=== PATIENT | male | born 1955 | race African-American/Black ===

== ENCOUNTER 2018-08-03 14:49 | Outpatient (CLI) | payer OTHER ==
[2016-02-15 13:42] VITALS: BMI 26.5
== END 2018-08-03 14:50 | disposition home or self-care (01) ==
LOC: RHC-LAB 14:49
PROVIDERS: ATTEND Nurse Practitioner Family
DX: Z00.00 Encounter for general adult medical examination without abnormal findings (principal); Z12.5 Encounter for screening for malignant neoplasm of prostate; E55.9 Vitamin D deficiency, unspecified
CPT/HCPCS: 36415; 80053; 80061; 82306; 84443; 85025

== ENCOUNTER 2020-10-18 10:01 | Inpatient (IN) ==
--- NOTE | 2020-10-18 10:54 | ED.PDOC ---
General ED Provider: Dr. AZALIA ANDERSON Chief Complaint: Extremity Pain/Injury Stated Complaint: Legs swelling, noted to be increased last few days. Mild dyspnea with exertion.Denies chest pain. Apparently ran our of his prescription meds Time Seen by Provider: 10/18/20 10:30 Mode of Arrival: Walk-In Information Source: Patient Exam Limitations: No limitations Primary Care Provider: LILLI SOTO APRN, FNP-BC Nursing and Triage Documentation Reviewed and Agree: Yes Does patient meet sepsis criteria?: No If yes, has appropriate treatment been initiated?: No System Inflammatory Response Syndrome: Not Applicable Sepsis Protocol: For patient's 13 years and over: Temp is 96.8 and below OR 101 and greater Pulse >90 BPM Resp >20/minute Acutely Altered Mental Status Are patient's symptoms suggestive of a new infection, such as: -Pneumonia -Skin, Soft Tissue -Endocarditis -UTI -Bone, Joint Infection -Implantable Device -Acute Abdominal Infection -Wound Infection -Meningitis -Blood Stream Catheter Infection -Unknown Cardiovascular Complaint Exam Hypertension Complaint/Exam Onset/Duration: 1 week 3 day hx swelling in lower extremities; Dyspnea Symptoms Are: Still present Reported B/P Prior to Arrival: 157/118 Aggravating: Reports Exertion Alleviating: Reports None Associated Signs and Symptoms: Denies Chest pain, Vision changes, Anxiety, Rece nt stress, Headache, Numbness, Tingling, Weakness, Dizziness, Short of air and Swelling Related History: Reports Rx noncompliance Related Surgical History: Reports None Cardiac Risk Factors: Reports Hypertension and CHF Recent Change in Medications: No A/V Nicking: No Papilledema Present: No JVD Present: No Carotid Bruit Present: No Femoral Pulses Bounding: No Differential Diagnoses: Drug Withdrawal, Hypertension and Hypertensive Urgency Review of Systems Review Of Systems Constitutional: Reports No symptoms Eyes: Reports No symptoms Ears, Nose, Mouth, Throat: Reports No symptoms Respiratory: Reports No symptoms Cardiac: Reports Edema and Lightheadedness GI: Reports No symptoms : Reports No symptoms Musculoskeletal: Reports No symptoms Skin: Reports No symptoms Neurological: Reports No symptoms Endocrine: Reports No symptoms Hematologic/Lymphatic: Reports No symptoms All Other Systems: Reviewed and Negative [facility] Medical History Arthritis CHF (congestive heart failure) Hypertension Inguinal hernia Prostate CA Tobacco use Family History Mother Hypertension FATHER Alcoholism and drug addiction in family Hypertension Social History Smoking and tobacco status: Former smoker Alcohol intake: never Substance use type: does not use Physical Exam Physical Exam Appearance: Reports Well-appearing Ill-appearing: Mild Pain Distress: Not Applicable Eyes: Reports JOBY, EOMI and Conjunctiva clear ENT: Reports Ears normal, Nose normal and Oropharynx normal Neck: Supple (minimal JVD) Respiratory: Reports Airway patent, Breath sounds clear, Breath sounds equal and Respirations nonlabored Cardiovascular: Reports RRR, Pulses normal, No rub and No murmur GI/: Reports Soft, Nontender, No masses, Bowel sounds normal and No Organo megaly Musculoskeletal: Reports Normal strength, ROM intact, No edema and No calf tenderness Skin: Reports Warm, Dry and Normal color Neurological: Reports Sensation intact, Motor intact, Reflexes intact, Cranial nerves intact, Alert and Oriented Psychiatric: Reports Affect appropriate and Mood appropriate Interpretation Radiology Interpretation Exam Interpreted: CT Scan (08-08 Small right pleural effusion,Multichamber cardiomegaly. 3. No urinary or bowel obstruction and normal appendix. 4. Small right inguinal hernia contains mesenteric fat and a small quantity of free fluid. 5. Chronic degenerative findings of the thoracic and lumbar spine. 6. Limited examinatio) Critical Care Note Critical Care Note Total Critical Care Time (mins): 30 Course Course Hematology/Chemistry: 10/18/20 11:04 10/18/20 11:04 Orders, Labs, Meds: Lab Review 10/18/20 10/18/20 10/18/20 11:04 11:04 12:48 WBC 7.56 RBC 4.83 Hgb 13.9 L Hct 42.9 MCV 88.8 MCH 28.8 MCHC 32.4 RDW Coeff of Dimple 15.8 H Plt Count 228 Immature Gran % (Auto) 0.3 Neut % (Auto) 72.0 Lymph % (Auto) 14.3 Kleberg % (Auto) 5.6 Eos % (Auto) 6.7 Baso % (Auto) 1.1 Neut # (Auto) 5.5 Lymph # (Auto) 1.1 Kleberg # (Auto) 0.4 Eos # (Auto) 0.5 Baso # (Auto) 0.1 Immature Gran # (Auto) 0.0 Sodium 139.2 Potassium 5.05 Chloride 104.8 Carbon Dioxide 30.7 H Anion Gap 8.75 BUN 7.6 L Creatinine 1.12 H Estimated GFR (MDRD) 80.00 BUN/Creatinine Ratio 6.78 Glucose 99.1 Calcium 8.94 Magnesium 1.74 Total Bilirubin 2.20 H AST 24.7 ALT 23.6 Alkaline Phosphatase 57.6 Troponin I < 0.012 NT-Pro-B Natriuret Pep 3850.000 H Total Protein 6.18 L Albumin 3.66 Globulin 2.52 Albumin/Globulin Ratio 1.45 Urine Color Yellow Urine Clarity Clear Urine pH 7.5 Ur Specific [place] 1.020 Urine Protein Negative Urine Glucose (UA) Negative Urine Ketones Negative Urine Blood Trace-intact H Urine Nitrite Negative Urine Bilirubin Negative Urine Urobilinogen 0.2 Ur Leukocyte Esterase Negative Urine Microscopic RBC 2-5 Urine Microscopic WBC 0-2 Ur Squamous Epith Cells 2-5 Adenovirus (PCR) B. pertussis DNA (PCR) B.parapertussis DNA PCR C. pneumoniae DNA (PCR) Coronavirus OC43 (PCR) Coronavirus HKU1 (PCR) Coronavirus 229E (PCR) Coronavirus NL63 (PCR) Human Metapneumovir PCR Influenza Type A (PCR) Influenza B (RT-PCR) M. pneumoniae (PCR) Parainfluenza 1 (PCR) Parainfluenza 2 (PCR) Parainfluenza 3 (PCR) Parainfluenza 4 (PCR) RSV (PCR) Entero/Rhino (PCR) SARS-CoV-2 (PCR) 10/18/20 13:26 WBC RBC Hgb Hct MCV MCH MCHC RDW Coeff of Dimple Plt Count Immature Gran % (Auto) Neut % (Auto) Lymph % (Auto) [place] % (Auto) Eos % (Auto) Baso % (Auto) Neut # (Auto) Lymph # (Auto) [place] # (Auto) Eos # (Auto) Baso # (Auto) Immature Gran # (Auto) Sodium Potassium Chloride Carbon Dioxide Anion Gap BUN Creatinine Estimated GFR (MDRD) BUN/Creatinine Ratio Glucose Calcium Magnesium Total Bilirubin AST ALT Alkaline Phosphatase Troponin I NT-Pro-B Natriuret Pep Total Protein Albumin Globulin Albumin/Globulin Ratio Urine Color Urine Clarity Urine pH Ur Specific [place] Urine Protein Urine Glucose (UA) Urine Ketones Urine Blood Urine Nitrite Urine Bilirubin Urine Urobilinogen Ur Leukocyte Esterase Urine Microscopic RBC Urine Microscopic WBC Ur Squamous Epith Cells Adenovirus (PCR) Not detected B. pertussis DNA (PCR) Not detected B.parapertussis DNA PCR Not detected C. pneumoniae DNA (PCR) Not detected Coronavirus OC43 (PCR) Not detected Coronavirus HKU1 (PCR) Not detected Coronavirus 229E (PCR) Not detected Coronavirus NL63 (PCR) Not detected Human Metapneumovir PCR Not detected Influenza Type A (PCR) Not detected Influenza B (RT-PCR) Not detected M. pneumoniae (PCR) Not detected Parainfluenza 1 (PCR) Not detected Parainfluenza 2 (PCR) Not detected Parainfluenza 3 (PCR) Not detected Parainfluenza 4 (PCR) Not detected RSV (PCR) Not detected Entero/Rhino (PCR) Not detected SARS-CoV-2 (PCR) Not detected Orders Category Date Time Status ADMIT PATIENT INPATIENT .TO MEDSURG (MONITORED BED) ADMISSION 10/18/20 13:04 Active EKG-(ED ONLY) Stat CARDIO 10/18/20 10:54 Completed OXYGEN Routine CARDIO 10/18/20 13:07 Active ACTIVITY .Early Mobilization for VTE Prevention CARE 10/18/20 13:08 Completed ACTIVITY .Up ad Divya CARE 10/18/20 13:08 Active BLOOD GLUCOSE MONITORING 0630,1100,1700,2100 CARE 10/18/20 13:11 Active CASE MANAGEMENT CONSULT [facility] CARE 10/18/20 13:07 Completed INTAKE & OUTPUT Q8HR CARE 10/18/20 13:08 Active TELEMETRY MONITORING TELE CARE 10/18/20 13:04 Active VITAL SIGNS Q4HR CARE 10/18/20 13:08 Completed 2 GRAM SODIUM DIET DIETARY 10/18/20 Lunch Ordered CBC W/ AUTO DIFF DAILY@0600 LAB 10/19/20 06:00 Ordered CBC W/ AUTO DIFF DAILY@0600 LAB 10/20/20 06:00 Ordered CBC W/ AUTO DIFF Stat LAB 10/18/20 11:04 Completed CMP [COMPREHENSIVE METABOLIC PANEL] Stat LAB 10/18/20 11:04 Completed COMPREHENSIVE METABOLIC PANEL DAILY@0600 LAB 10/19/20 06:00 Ordered COMPREHENSIVE METABOLIC PANEL DAILY@0600 LAB 10/20/20 06:00 Ordered MAGNESIUM Stat LAB 10/18/20 11:04 Completed NT-PROBNP Stat LAB 10/18/20 11:04 Completed PT WITH INR DAILY@0600 LAB 10/19/20 06:00 Ordered PT WITH INR DAILY@0600 LAB 10/20/20 06:00 Ordered RESPIRATORY PANEL 2.1 (PCR) Stat LAB 10/18/20 13:26 Completed TROPONIN I Q8H LAB 10/18/20 19:15 Ordered TROPONIN I Q8H LAB 10/19/20 03:15 Ordered TROPONIN I Stat LAB 10/18/20 11:04 Completed UA [URINALYSIS C & S IF INDICATED] Stat LAB 10/18/20 12:48 Completed Acetaminophen [Tylenol] MEDS 10/18/20 13:07 Active 650 mg PO Q4H PRN Aspirin [Aspirin Chewable] MEDS 10/18/20 11:01 Discontinued 81 mg PO ONCE ONE Carvedilol [Coreg] MEDS 10/18/20 17:00 Active 6.25 mg PO BIDWM Carvedilol [Coreg] MEDS 10/18/20 11:00 Discontinued 6.25 mg PO ONCE ONE Furosemide [Lasix Tab] MEDS 10/18/20 11:01 Discontinued 20 mg PO ONCE ONE Furosemide [Lasix] MEDS 10/18/20 17:00 Active 20 mg IVP BIDAC Hydralazine HCl [Apresoline] MEDS 10/18/20 13:34 Discontinued 25 mg PO ONCE ONE Ondansetron HCl/Pf [Zofran 4 mg/2 ml] MEDS 10/18/20 13:07 Active 4 mg IVP Q6H PRN Sacubitril/Valsartan [Entresto 24 mg-26 mg Tablet] MEDS 10/18/20 21:00 Active 1 each PO BID Sacubitril/Valsartan [Entresto 24 mg-26 mg Tablet] MEDS 10/18/20 10:59 Discontinued 1 each PO ONCE ONE RESUSCITATION STATUS Routine OTHERS 10/18/20 13:07 Ordered CHEST, 1V AP ONLY Stat RADS 10/18/20 10:54 Completed Medications Generic Name Dose Route Start Last Admin Trade Name Freq PRN Reason Stop Dose Admin Acetaminophen 650 mg 10/18/20 13:07 Acetaminophen 325 Mg Tablet PO Q4H PRN Pain Carvedilol 6.25 mg 10/18/20 17:00 10/18/20 17:15 Carvedilol 6.25 Mg Tablet PO 6.25 mg BIDWM JOSE RAUL Administration Furosemide 20 mg 10/18/20 17:00 10/18/20 17:16 Furosemide Inj 20 Mg/2 Ml Vial IVP 20 mg BIDAC JOSE RAUL Administration Ondansetron HCl 4 mg 10/18/20 13:07 Ondansetron Hcl/Pf 4 Mg/2 Ml Sdv IVP Q6H PRN Nausea / Vomiting Sacubitril/Valsartan 1 each 10/18/20 21:00 Sacubitril/Valsartan 1 Each Tablet PO BID JOSE RAUL Discontinued Medications Generic Name Dose Route Start Last Admin Trade Name Sen PRN Reason Stop Dose Admin Aspirin 81 mg 10/18/20 11:01 10/18/20 11:09 Aspirin 81 Mg Tab.Chew PO 10/18/20 11:02 81 mg ONCE ONE Administration Carvedilol 6.25 mg 10/18/20 11:00 10/18/20 11:08 Carvedilol 6.25 Mg Tablet PO 10/18/20 11:01 6.25 mg ONCE ONE Administration Furosemide 20 mg 10/18/20 11:01 10/18/20 11:09 Furosemide 20 Mg Tablet PO 10/18/20 11:02 20 mg ONCE ONE Administration Hydralazine HCl 25 mg 10/18/20 13:34 10/18/20 13:44 Hydralazine Hcl 50 Mg Tablet PO 10/18/20 13:35 25 mg ONCE ONE Administration Sacubitril/Valsartan 1 each 10/18/20 10:59 10/18/20 11:09 Sacubitril/Valsartan 1 Each Tablet PO 10/18/20 11:00 1 each ONCE ONE Administration Vital Signs: Temp Pulse Resp BP Pulse Ox 10/18/20 14:20 148/106 H 10/18/20 12:15 159/109 H 10/18/20 11:15 160/122 H 10/18/20 10:15 149/103 H 10/18/20 10:02 97.2 F L 83 18 157/118 H 95 SOL Risk Score SOL Risk Score: Risk Score Odds of by 30D 0 0.1 (0.1-0.2) 1 0.3 (0.2-0.3) 2 0.4 (0.3-0.5) 3 0.7 (0.6-0.9) 4 1.2 (1.0-1.5) 5 2.2 (1.9-2.6) 6 3.0 (2.5-3.6) 7 4.8 (3.8-6.1) Discharge Plan Discharge Patient Disposition: ADMITTED INPATIENT Discharge Problem: CHF (congestive heart failure), Congestive cardiomyopathy ED Provider: AZALIA ANDERSON Condition: Fair Physician Progress Note: []
[2020-10-18] MEDS ORDERED: ENTRESTO 24 MG-26 MG TABLET PO ONE (10:59)
[2020-10-18] MEDS ORDERED: COREG PO ONE (11:00)
[2020-10-18] MEDS ORDERED: LASIX TAB PO ONE (11:01)
[2020-10-18] MEDS ORDERED: ASPIRIN CHEWABLE PO ONE (11:01)
[2020-10-18 11:08] LABS: BASOPHILS # (AUTO) 0.1 K/uL (0-0.2); BASOPHILS % (AUTO) 1.1 % (0.0-3.0); EOSINOPHILS # (AUTO) 0.5 K/ul (0.0-0.7); EOSINOPHILS % (AUTO) 6.7 % (0.0-7.0); HEMATOCRIT 42.9 % (42.0-52.0); HEMOGLOBIN 13.9 g/dl (14.0-18.0); IMMATURE GRANULOCYTE % (AUTO) 0.3 % (0.0-5.0); LYMPHOCYTES # (AUTO) 1.1 K/uL (0.60-3.4); LYMPHOCYTES % (AUTO) 14.3 (10.0-50.0); MEAN CORPUSCULAR HEMOGLOBIN 28.8 pg (27.0-31.0); MEAN CORPUSCULAR HGB CONC 32.4 (31.8-35.4); MEAN CORPUSCULAR VOLUME 88.8 fl (80.0-94.0); MONOCYTES # (AUTO) 0.4 K/uL (0.4-2.0); MONOCYTES % (AUTO) 5.6 (0-10); NEUTROPHILS # (AUTO) 5.5 K/ul (2.0-6.9); PLATELET COUNT 228 10^3/uL (140-440); RDW COEFFICIENT OF VARIATION 15.8 % (11.6-14.8); RED BLOOD COUNT 4.83 10^6/ul (4.70-6.10); WHITE BLOOD COUNT 7.56 K/ul (4.2-10.2)
[2020-10-18 11:21] LABS: ALANINE AMINOTRANSFERASE 23.6 U/L (0-50); ALBUMIN 3.66 g/dL (3.5-5.0); ALKALINE PHOSPHATASE 57.6 U/L (56-119); ASPARTATE AMINO TRANSFERASE 24.7 U/L (17-59); BLOOD UREA NITROGEN 7.6 mg/dL (9-20); CALCIUM 8.94 mg/dL (8.4-10.2); CARBON DIOXIDE 30.7 mmol/L (22-30.0); CHLORIDE 104.8 mmol/L (98-107); CREATININE 1.12 mg/dL (0.60-1.10); GLUCOSE 99.1 mg/dL (74-106); MAGNESIUM 1.74 mg/dL (1.6-2.3); POTASSIUM 5.05 mmol/L (3.5-5.1); SODIUM 139.2 mmol/L (134.5-145); TOTAL PROTEIN 6.18 g/dL (6.3-8.2)
--- NOTE | 2020-10-18 11:21 | DI ---
EXAM: Chest one view HISTORY: Extremity edema, history of congestive heart failure COMPARISON: 08/08/2020 TECHNIQUE: Single view of the chest was performed FINDINGS: Heart is enlarged. Mediastinal contour unchanged. Bilateral interstitial prominence. No large pleural effusion. No visible pneumothorax. IMPRESSION: Cardiomegaly. Mild interstitial prominence could relate to mild interstitial edema.
[2020-10-18 11:34] LABS: TROPONIN I < 0.012 ng/ml (0.0000-0.120)
[2020-10-18 13:02] LABS: BILIRUBIN,URINE Negative (NEGATIVE); CLARITY,URINE Clear (CLEAR); COLOR,URINE Yellow (YELLOW); GLUCOSE, URINE (UA) Negative (NEGATIVE); KETONES,URINE Negative (NEGATIVE); LEUKOCYTE ESTERASE ,URINE Negative (NEGATIVE); NITRITE,URINE Negative (NEGATIVE); PH,URINE 7.5 (5-9); PROTEIN,URINE Negative (NEGATIVE); URINE, BLOOD Trace-intact (NEGATIVE); UROBILINOGEN,URINE 0.2 (0.2)
[2020-10-18] MEDS ORDERED: ZOFRAN 4 MG/2 ML IVP PRN (13:07)
[2020-10-18] MEDS ORDERED: TYLENOL PO PRN (13:07)
[2020-10-18 13:08] LABS: URINE WBC, MICROSCOPIC 0-2 (0-2)
[2020-10-18] MEDS ORDERED: APRESOLINE PO ONE (13:34)
[2020-10-18 13:43] LABS: BORDETELLA PARAPERTUSSIS (PCR) NOT DETECTED (NOT DETECT); BORDETELLA PERTUSSIS (PCR) NOT DETECTED (NOT DETECT); CHLAMYDIA PNEUMONIAE (PCR) NOT DETECTED (NOT DETECT); CORONAVIRUS 229E (PCR) NOT DETECTED (NOT DETECT); CORONAVIRUS HKU1 (PCR) NOT DETECTED (NOT DETECT); CORONAVIRUS NL63 (PCR) NOT DETECTED (NOT DETECT); CORONAVIRUS OC43 (PCR) NOT DETECTED (NOT DETECT); HUMAN METAPNEUMOVIRUS (PCR) NOT DETECTED (NOT DETECT); HUMAN RHINOVIRUS/ENTEROV (PCR) NOT DETECTED (NOT DETECT); INFLUENZA B (PCR) NOT DETECTED (NOT DETECT); MYCOPLASMA PNEUMONIAE (PCR) NOT DETECTED (NOT DETECT); PARAINFLUENZA VIRUS 1 (PCR) NOT DETECTED (NOT DETECT); PARAINFLUENZA VIRUS 2 (PCR) NOT DETECTED (NOT DETECT); PARAINFLUENZA VIRUS 3 (PCR) NOT DETECTED (NOT DETECT); PARAINFLUENZA VIRUS 4 (PCR) NOT DETECTED (NOT DETECT); RESPIRATORY SYNCYTIAL V (PCR) NOT DETECTED (NOT DETECT); SARS_COV_2 (PCR) NOT DETECTED (NOT DETECT)
[2020-10-18 14:32] LABS: ADENOVIRUS (PCR) NOT DETECTED (NOT DETECT)
[2020-10-18 15:30] VITALS: BMI 28.2
[2020-10-18] MEDS: COREG PO SCH (17:15)
[2020-10-18] MEDS: LASIX IVP SCH (17:16)
[2020-10-18] MEDS: ENTRESTO 24 MG-26 MG TABLET PO SCH (20:19)
[2020-10-19 03:23] LABS: BASOPHILS # (AUTO) 0.1 K/uL (0-0.2); BASOPHILS % (AUTO) 0.9 % (0.0-3.0); EOSINOPHILS # (AUTO) 0.6 K/ul (0.0-0.7); EOSINOPHILS % (AUTO) 6.1 % (0.0-7.0); HEMATOCRIT 45.4 % (42.0-52.0); HEMOGLOBIN 15.1 g/dl (14.0-18.0); IMMATURE GRANULOCYTE % (AUTO) 0.3 % (0.0-5.0); LYMPHOCYTES # (AUTO) 1.3 K/uL (0.60-3.4); LYMPHOCYTES % (AUTO) 13.4 (10.0-50.0); MEAN CORPUSCULAR HEMOGLOBIN 28.8 pg (27.0-31.0); MEAN CORPUSCULAR HGB CONC 33.3 (31.8-35.4); MEAN CORPUSCULAR VOLUME 86.6 fl (80.0-94.0); MONOCYTES # (AUTO) 0.5 K/uL (0.4-2.0); MONOCYTES % (AUTO) 5.5 (0-10); NEUTROPHILS # (AUTO) 6.9 K/ul (2.0-6.9); NEUTROPHILS % (AUTO) 73.8 % (42.2-75.2); PLATELET COUNT 242 10^3/uL (140-440); RDW COEFFICIENT OF VARIATION 15.2 % (11.6-14.8); RED BLOOD COUNT 5.24 10^6/ul (4.70-6.10); WHITE BLOOD COUNT 9.31 K/ul (4.2-10.2)
[2020-10-19 03:35] LABS: ALANINE AMINOTRANSFERASE 21.3 U/L (0-50); ALBUMIN 3.46 g/dL (3.5-5.0); ALKALINE PHOSPHATASE 57.5 U/L (56-119); ASPARTATE AMINO TRANSFERASE 24.9 U/L (17-59); BILIRUBIN,TOTAL 2.67 mg/dL (0.2-1.3); BLOOD UREA NITROGEN 10.6 mg/dL (9-20); CALCIUM 8.83 mg/dL (8.4-10.2); CARBON DIOXIDE 28.1 mmol/L (22-30.0); CHLORIDE 104.4 mmol/L (98-107); CREATININE 0.99 mg/dL (0.60-1.10); GLUCOSE 101.8 mg/dL (74-106); POTASSIUM 4.13 mmol/L (3.5-5.1); TOTAL PROTEIN 6.04 g/dL (6.3-8.2)
[2020-10-19 03:59] LABS: PROTHROMBIN TIME 11.6 SEC (9.3-11.0)
[2020-10-19] MEDS: LASIX IVP SCH ×2 (05:36→16:58)
[2020-10-19] MEDS: COREG PO SCH ×2 (08:09→16:53)
[2020-10-19] MEDS: ENTRESTO 24 MG-26 MG TABLET PO SCH ×2 (08:09→20:30)
--- NOTE | 2020-10-19 20:17 | PCM.PROG ---
Date Seen by Provider: 10/19/20 Time Seen by Provider: 14:00 Subjective: No acute chest pain or SOB Objective: Vitals: T=97.1 F, P=77, R=18, FW=492/64, SPO2=98 HEENT: []wnl. no marked jaundice. Neck: []supple Lungs: []minimal posterior crackles. CVS: []rrr Abdomen: []benign Extremities: []no marked ankle edema or calf tenderness Neurological: []non-focal Skin: []no acute abnormality Lab/Tests/Diagnostic Imaging: [] Hyperbilirubin was noted. (Pt denied and liver disease) (1) CHF (congestive heart failure): Status: Acute Code(s): I50.9 - Heart failure, unspecified SNOMED Code(s): 29172246 Assessment: Elevated bilirubin. Plan: Continue Tx regimen-----for resolving CHF. 2. Monitor bilirubin
[2020-10-20] MEDS ORDERED: LASIX IVP STA (03:25)
[2020-10-20 05:13] LABS: BASOPHILS # (AUTO) 0.1 K/uL (0-0.2); BASOPHILS % (AUTO) 0.7 % (0.0-3.0); EOSINOPHILS # (AUTO) 0.5 K/ul (0.0-0.7); EOSINOPHILS % (AUTO) 5.2 % (0.0-7.0); HEMATOCRIT 46.7 % (42.0-52.0); HEMOGLOBIN 15.4 g/dl (14.0-18.0); IMMATURE GRANULOCYTE % (AUTO) 0.2 % (0.0-5.0); LYMPHOCYTES # (AUTO) 1.4 K/uL (0.60-3.4); LYMPHOCYTES % (AUTO) 15.7 (10.0-50.0); MEAN CORPUSCULAR HEMOGLOBIN 28.5 pg (27.0-31.0); MEAN CORPUSCULAR VOLUME 86.5 fl (80.0-94.0); MONOCYTES # (AUTO) 0.5 K/uL (0.4-2.0); MONOCYTES % (AUTO) 5.8 (0-10); NEUTROPHILS # (AUTO) 6.4 K/ul (2.0-6.9); NEUTROPHILS % (AUTO) 72.4 % (42.2-75.2); PLATELET COUNT 274 10^3/uL (140-440); RDW COEFFICIENT OF VARIATION 15.3 % (11.6-14.8); WHITE BLOOD COUNT 8.86 K/ul (4.2-10.2)
[2020-10-20 05:27] LABS: ALANINE AMINOTRANSFERASE 21.7 U/L (0-50); ALBUMIN 3.61 g/dL (3.5-5.0); ALKALINE PHOSPHATASE 50.4 U/L (56-119); ASPARTATE AMINO TRANSFERASE 23.3 U/L (17-59); BILIRUBIN,TOTAL 1.81 mg/dL (0.2-1.3); BLOOD UREA NITROGEN 16.5 mg/dL (9-20); CALCIUM 9.37 mg/dL (8.4-10.2); CARBON DIOXIDE 29.6 mmol/L (22-30.0); CHLORIDE 103.2 mmol/L (98-107); CREATININE 1.14 mg/dL (0.60-1.10); POTASSIUM 4.02 mmol/L (3.5-5.1); SODIUM 137.4 mmol/L (134.5-145); TOTAL PROTEIN 6.23 g/dL (6.3-8.2)
[2020-10-20 05:29] LABS: PROTHROMBIN TIME 11.5 SEC (9.3-11.0)
[2020-10-20] MEDS: LASIX IVP SCH ×2 (06:11→19:57)
[2020-10-20] MEDS: ENTRESTO 24 MG-26 MG TABLET PO SCH ×2 (09:47→20:50)
[2020-10-20] MEDS: COREG PO SCH ×2 (09:48→19:57)
--- NOTE | 2020-10-20 16:36 | PCM.PROG ---
Date Seen by Provider: 10/20/20 Time Seen by Provider: 08:30 Subjective: Patient states that he feels better, Breathing has improved and that he has lost the extra fluid. He states that he did not take his medications the way he was supposed to. Early this Morning, he had some runs of v tach and felt short of breath. The hospitalist was called and was give a dose of Lasix which helped. Denies any chest pain or shortness of breath at this time. Objective: Vitals: T=96.5 F, P=80, R=18, MR=531/51, SPO2=97 HEENT: [Pupils are equal. Conjunctiva is clear. Mucus membranes are moist] Neck: [Supple without any JVD] Lungs: [Clinically clear bilaterally with no rales.] CVS: [ No 3rd heart sound. S1 and S 2 normal to auscultation.] Abdomen: [Soft to palpation, Positive bowel sounds.] Extremities: [No pitting edema.] Neurological: [Alert and oriented x 3. Moves all 4 with no focal neurological Deficits ] Skin: [Warm and Dry with no Rash or lesions] Lab/Tests/Diagnostic Imaging: [] (1) CHF (congestive heart failure): Status: Acute Code(s): I50.9 - Heart failure, unspecified SNOMED Code(s): 33578666 Assessment: BNP has decreased from admission. Lungs clinically clear with no signs of fluid overload. Patient was non-adherent to home medications including Lasix and intresto. (2) Hypertension: Status: None Code(s): I10 - Essential (primary) hypertension SNOMED Code(s): 50493295 Assessment: Blood pressure controlled. continue current medications (3) Arrhythmia: Status: Acute Code(s): I49.9 - Cardiac arrhythmia, unspecified SNOMED Code(s): 493383235 Assessment: had some runs of V tach last night with some shortness of breath. Will continue to monitor for 24 hours. If continues may need to be referred for ICD placement. Plan: DVT prophylaxis: will order Lovenox 40mg Sq daily. Will get follow up AM labs Continue current management. Possible discharge in the Morning if no further Arrhythmias.
[2020-10-20] MEDS: LOVENOX SUBCUT SCH (19:54)
[2020-10-21] MEDS: LASIX IVP SCH ×2 (05:38→17:20)
[2020-10-21 06:15] LABS: BASOPHILS # (AUTO) 0.1 K/uL (0-0.2); BASOPHILS % (AUTO) 1.1 % (0.0-3.0); EOSINOPHILS # (AUTO) 0.7 K/ul (0.0-0.7); EOSINOPHILS % (AUTO) 7.7 % (0.0-7.0); HEMATOCRIT 46.9 % (42.0-52.0); HEMOGLOBIN 15.2 g/dl (14.0-18.0); IMMATURE GRANULOCYTE % (AUTO) 0.1 % (0.0-5.0); LYMPHOCYTES # (AUTO) 1.7 K/uL (0.60-3.4); MEAN CORPUSCULAR HEMOGLOBIN 28.8 pg (27.0-31.0); MEAN CORPUSCULAR HGB CONC 32.4 (31.8-35.4); MEAN CORPUSCULAR VOLUME 88.8 fl (80.0-94.0); MONOCYTES # (AUTO) 0.5 K/uL (0.4-2.0); MONOCYTES % (AUTO) 5.7 (0-10); NEUTROPHILS # (AUTO) 5.6 K/ul (2.0-6.9); NEUTROPHILS % (AUTO) 65.4 % (42.2-75.2); PLATELET COUNT 265 10^3/uL (140-440); RDW COEFFICIENT OF VARIATION 15.6 % (11.6-14.8); RED BLOOD COUNT 5.28 10^6/ul (4.70-6.10); WHITE BLOOD COUNT 8.53 K/ul (4.2-10.2)
[2020-10-21 06:21] LABS: ALANINE AMINOTRANSFERASE 20.8 U/L (0-50); ALBUMIN 3.54 g/dL (3.5-5.0); ALKALINE PHOSPHATASE 58.6 U/L (56-119); ASPARTATE AMINO TRANSFERASE 23.4 U/L (17-59); BILIRUBIN,TOTAL 1.08 mg/dL (0.2-1.3); BLOOD UREA NITROGEN 21.3 mg/dL (9-20); CALCIUM 8.93 mg/dL (8.4-10.2); CHLORIDE 104.5 mmol/L (98-107); CREATININE 1.19 mg/dL (0.60-1.10); GLUCOSE 91.9 mg/dL (74-106); MAGNESIUM 1.73 mg/dL (1.6-2.3); POTASSIUM 4.07 mmol/L (3.5-5.1); SODIUM 136.9 mmol/L (134.5-145); TOTAL PROTEIN 5.93 g/dL (6.3-8.2)
[2020-10-21] MEDS: LOVENOX SUBCUT SCH (09:24)
[2020-10-21] MEDS: ENTRESTO 24 MG-26 MG TABLET PO SCH ×2 (09:25→20:22)
[2020-10-21] MEDS: COREG PO SCH ×2 (09:25→17:20)
[2020-10-22 05:13] VITALS: BP 95/65; TEMP 97.9
[2020-10-22 05:22] LABS: BASOPHILS # (AUTO) 0.1 K/uL (0-0.2); EOSINOPHILS # (AUTO) 0.6 K/ul (0.0-0.7); HEMATOCRIT 47.4 % (42.0-52.0); HEMOGLOBIN 15.6 g/dl (14.0-18.0); IMMATURE GRANULOCYTE % (AUTO) 0.1 % (0.0-5.0); LYMPHOCYTES # (AUTO) 1.7 K/uL (0.60-3.4); LYMPHOCYTES % (AUTO) 22.1 (10.0-50.0); MEAN CORPUSCULAR HEMOGLOBIN 28.9 pg (27.0-31.0); MEAN CORPUSCULAR HGB CONC 32.9 (31.8-35.4); MEAN CORPUSCULAR VOLUME 87.9 fl (80.0-94.0); MONOCYTES # (AUTO) 0.4 K/uL (0.4-2.0); MONOCYTES % (AUTO) 5.6 (0-10); NEUTROPHILS # (AUTO) 4.8 K/ul (2.0-6.9); NEUTROPHILS % (AUTO) 63.2 % (42.2-75.2); PLATELET COUNT 279 10^3/uL (140-440); RDW COEFFICIENT OF VARIATION 15.2 % (11.6-14.8); RED BLOOD COUNT 5.39 10^6/ul (4.70-6.10); WHITE BLOOD COUNT 7.64 K/ul (4.2-10.2)
[2020-10-22 05:36] LABS: ALANINE AMINOTRANSFERASE 19.5 U/L (0-50); ALBUMIN 3.52 g/dL (3.5-5.0); ALKALINE PHOSPHATASE 56.7 U/L (56-119); ASPARTATE AMINO TRANSFERASE 23.7 U/L (17-59); BILIRUBIN,TOTAL 1.16 mg/dL (0.2-1.3); BLOOD UREA NITROGEN 21.4 mg/dL (9-20); CALCIUM 8.83 mg/dL (8.4-10.2); CARBON DIOXIDE 28.6 mmol/L (22-30.0); CHLORIDE 105.2 mmol/L (98-107); CREATININE 1.13 mg/dL (0.60-1.10); GLUCOSE 96.8 mg/dL (74-106); MAGNESIUM 1.73 mg/dL (1.6-2.3); POTASSIUM 4.12 mmol/L (3.5-5.1); SODIUM 137.8 mmol/L (134.5-145); TOTAL PROTEIN 6.11 g/dL (6.3-8.2)
[2020-10-22] MEDS: LASIX IVP SCH (05:52)
[2020-10-22] MEDS: ENTRESTO 24 MG-26 MG TABLET PO SCH (09:48)
[2020-10-22] MEDS: COREG PO SCH (09:48)
[2020-10-22] MEDS: LOVENOX SUBCUT SCH (09:48)
--- NOTE | 2020-10-22 12:09 | PCM.DC ---
Final Diagnosis: CHF exacerbation. Medication noncompliance Hypertension (1) CHF (congestive heart failure): Status: Acute Code(s): I50.9 - Heart failure, unspecified SNOMED Code(s): 71091880 Qualifiers: Heart failure type: combined systolic and diastolic Heart failure chronicity: acute on chronic Qualified Code(s): I50.43 - Acute on chronic combined systolic (congestive) and diastolic (congestive) heart failure (2) Hypertension: Status: Inactive Code(s): I10 - Essential (primary) hypertension SNOMED Code(s): 78524488 Qualifiers: Hypertension type: primary hypertension Qualified Code(s): I10 - Essential (primary) hypertension (3) Arrhythmia: Status: Inactive Code(s): I49.9 - Cardiac arrhythmia, unspecified SNOMED Code(s): 066987657 Qualifiers: Arrhythmia type: paroxysmal tachycardia, unspecified Qualified Code(s): I47.9 - Paroxysmal tachycardia, unspecified Reason for Hospitalization: Did not have any medication at home, has been noncompliant with filling Rx and taking med. Admitted with CHF and HTN. Prognosis at Discharge: Fair Condition at Discharge: Stable. Medications at Discharge: Ambulatory Orders Medication Instructions Recorded Entresto 1 tab PO BID #60 tab 10/22/20 aspirin 81 mg PO DAILYWM #30 tab 10/22/20 carvedilol 6.25 mg PO BIDWM #60 tab 10/22/20 furosemide [Lasix] 20 mg PO DAILY #30 tab 10/22/20 Resume previous home medications. Lab/Diagnostics: Laboratory Tests 10/18/20 10/18/20 10/18/20 11:04 11:04 12:48 WBC 7.56 RBC 4.83 Hgb 13.9 L Hct 42.9 MCV 88.8 MCH 28.8 MCHC 32.4 RDW Coeff of Dimple 15.8 H Plt Count 228 Immature Gran % (Auto) 0.3 Neut % (Auto) 72.0 Lymph % (Auto) 14.3 Coal % (Auto) 5.6 Eos % (Auto) 6.7 Baso % (Auto) 1.1 Neut # (Auto) 5.5 Lymph # (Auto) 1.1 [place] # (Auto) 0.4 Eos # (Auto) 0.5 Baso # (Auto) 0.1 Immature Gran # (Auto) 0.0 PT INR Sodium 139.2 Potassium 5.05 Chloride 104.8 Carbon Dioxide 30.7 H Anion Gap 8.75 BUN 7.6 L Creatinine 1.12 H Estimated GFR (MDRD) 80.00 BUN/Creatinine Ratio 6.78 Glucose 99.1 Calcium 8.94 Magnesium 1.74 Total Bilirubin 2.20 H AST 24.7 ALT 23.6 Alkaline Phosphatase 57.6 Troponin I < 0.012 NT-Pro-B Natriuret Pep 3850.000 H Total Protein 6.18 L Albumin 3.66 Globulin 2.52 Albumin/Globulin Ratio 1.45 Urine Color Yellow Urine Clarity Clear Urine pH 7.5 Ur Specific Stanley 1.020 Urine Protein Negative Urine Glucose (UA) Negative Urine Ketones Negative Urine Blood Trace-intact H Urine Nitrite Negative Urine Bilirubin Negative Urine Urobilinogen 0.2 Ur Leukocyte Esterase Negative Urine Microscopic RBC 2-5 Urine Microscopic WBC 0-2 Ur Squamous Epith Cells 2-5 Adenovirus (PCR) B. pertussis DNA (PCR) B.parapertussis DNA PCR C. pneumoniae DNA (PCR) Coronavirus OC43 (PCR) Coronavirus HKU1 (PCR) Coronavirus 229E (PCR) Coronavirus NL63 (PCR) Human Metapneumovir PCR Influenza Type A (PCR) Influenza B (RT-PCR) M. pneumoniae (PCR) Parainfluenza 1 (PCR) Parainfluenza 2 (PCR) Parainfluenza 3 (PCR) Parainfluenza 4 (PCR) RSV (PCR) Entero/Rhino (PCR) SARS-CoV-2 (PCR) 10/18/20 10/18/20 10/19/20 13:26 19:20 03:14 WBC RBC Hgb Hct MCV MCH MCHC RDW Coeff of Dimple Plt Count Immature Gran % (Auto) Neut % (Auto) Lymph % (Auto) [place] % (Auto) Eos % (Auto) Baso % (Auto) Neut # (Auto) Lymph # (Auto) [place] # (Auto) Eos # (Auto) Baso # (Auto) Immature Gran # (Auto) PT INR Sodium Potassium Chloride Carbon Dioxide Anion Gap BUN Creatinine Estimated GFR (MDRD) BUN/Creatinine Ratio Glucose Calcium Magnesium Total Bilirubin AST ALT Alkaline Phosphatase Troponin I < 0.012 < 0.012 NT-Pro-B Natriuret Pep Total Protein Albumin Globulin Albumin/Globulin Ratio Urine Color Urine Clarity Urine pH Ur Specific [place] Urine Protein Urine Glucose (UA) Urine Ketones Urine Blood Urine Nitrite Urine Bilirubin Urine Urobilinogen Ur Leukocyte Esterase Urine Microscopic RBC Urine Microscopic WBC Ur Squamous Epith Cells Adenovirus (PCR) Not detected B. pertussis DNA (PCR) Not detected B.parapertussis DNA PCR Not detected C. pneumoniae DNA (PCR) Not detected Coronavirus OC43 (PCR) Not detected Coronavirus HKU1 (PCR) Not detected Coronavirus 229E (PCR) Not detected Coronavirus NL63 (PCR) Not detected Human Metapneumovir PCR Not detected Influenza Type A (PCR) Not detected Influenza B (RT-PCR) Not detected M. pneumoniae (PCR) Not detected Parainfluenza 1 (PCR) Not detected Parainfluenza 2 (PCR) Not detected Parainfluenza 3 (PCR) Not detected Parainfluenza 4 (PCR) Not detected RSV (PCR) Not detected Entero/Rhino (PCR) Not detected SARS-CoV-2 (PCR) Not detected 10/19/20 10/19/20 10/19/20 03:14 03:14 03:14 WBC 9.31 RBC 5.24 Hgb 15.1 Hct 45.4 MCV 86.6 MCH 28.8 MCHC 33.3 RDW Coeff of Dimple 15.2 H Plt Count 242 Immature Gran % (Auto) 0.3 Neut % (Auto) 73.8 Lymph % (Auto) 13.4 [place] % (Auto) 5.5 Eos % (Auto) 6.1 Baso % (Auto) 0.9 Neut # (Auto) 6.9 Lymph # (Auto) 1.3 [place] # (Auto) 0.5 Eos # (Auto) 0.6 Baso # (Auto) 0.1 Immature Gran # (Auto) 0.0 PT 11.6 H INR 1.09 Sodium 137.0 Potassium 4.13 Chloride 104.4 Carbon Dioxide 28.1 Anion Gap 8.63 BUN 10.6 Creatinine 0.99 Estimated GFR (MDRD) 92.00 BUN/Creatinine Ratio 10.70 Glucose 101.8 Calcium 8.83 Magnesium Total Bilirubin 2.67 H AST 24.9 ALT 21.3 Alkaline Phosphatase 57.5 Troponin I NT-Pro-B Natriuret Pep Total Protein 6.04 L Albumin 3.46 L Globulin 2.58 Albumin/Globulin Ratio 1.34 Urine Color Urine Clarity Urine pH Ur Specific [place] Urine Protein Urine Glucose (UA) Urine Ketones Urine Blood Urine Nitrite Urine Bilirubin Urine Urobilinogen Ur Leukocyte Esterase Urine Microscopic RBC Urine Microscopic WBC Ur Squamous Epith Cells Adenovirus (PCR) B. pertussis DNA (PCR) B.parapertussis DNA PCR C. pneumoniae DNA (PCR) Coronavirus OC43 (PCR) Coronavirus HKU1 (PCR) Coronavirus 229E (PCR) Coronavirus NL63 (PCR) Human Metapneumovir PCR Influenza Type A (PCR) Influenza B (RT-PCR) M. pneumoniae (PCR) Parainfluenza 1 (PCR) Parainfluenza 2 (PCR) Parainfluenza 3 (PCR) Parainfluenza 4 (PCR) RSV (PCR) Entero/Rhino (PCR) SARS-CoV-2 (PCR) 10/20/20 10/20/20 10/20/20 04:47 04:47 04:47 WBC 8.86 RBC 5.40 Hgb 15.4 Hct 46.7 MCV 86.5 MCH 28.5 MCHC 33.0 RDW Coeff of Dimple 15.3 H Plt Count 274 Immature Gran % (Auto) 0.2 Neut % (Auto) 72.4 Lymph % (Auto) 15.7 [place] % (Auto) 5.8 Eos % (Auto) 5.2 Baso % (Auto) 0.7 Neut # (Auto) 6.4 Lymph # (Auto) 1.4 [place] # (Auto) 0.5 Eos # (Auto) 0.5 Baso # (Auto) 0.1 Immature Gran # (Auto) 0.0 PT 11.5 H INR 1.08 Sodium 137.4 Potassium 4.02 Chloride 103.2 Carbon Dioxide 29.6 Anion Gap 8.62 BUN 16.5 Creatinine 1.14 H Estimated GFR (MDRD) 78.00 BUN/Creatinine Ratio 14.47 Glucose 118.0 H Calcium 9.37 Magnesium Total Bilirubin 1.81 H AST 23.3 ALT 21.7 Alkaline Phosphatase 50.4 L Troponin I NT-Pro-B Natriuret Pep 1460.000 H Total Protein 6.23 L Albumin 3.61 Globulin 2.62 Albumin/Globulin Ratio 1.37 Urine Color Urine Clarity Urine pH Ur Specific [place] Urine Protein Urine Glucose (UA) Urine Ketones Urine Blood Urine Nitrite Urine Bilirubin Urine Urobilinogen Ur Leukocyte Esterase Urine Microscopic RBC Urine Microscopic WBC Ur Squamous Epith Cells Adenovirus (PCR) B. pertussis DNA (PCR) B.parapertussis DNA PCR C. pneumoniae DNA (PCR) Coronavirus OC43 (PCR) Coronavirus HKU1 (PCR) Coronavirus 229E (PCR) Coronavirus NL63 (PCR) Human Metapneumovir PCR Influenza Type A (PCR) Influenza B (RT-PCR) M. pneumoniae (PCR) Parainfluenza 1 (PCR) Parainfluenza 2 (PCR) Parainfluenza 3 (PCR) Parainfluenza 4 (PCR) RSV (PCR) Entero/Rhino (PCR) SARS-CoV-2 (PCR) 10/21/20 10/21/20 10/22/20 04:57 04:57 04:52 WBC 8.53 7.64 RBC 5.28 5.39 Hgb 15.2 15.6 Hct 46.9 47.4 MCV 88.8 87.9 MCH 28.8 28.9 MCHC 32.4 32.9 RDW Coeff of Dimple 15.6 H 15.2 H Plt Count 265 279 Immature Gran % (Auto) 0.1 0.1 Neut % (Auto) 65.4 63.2 Lymph % (Auto) 20.0 22.1 Coal % (Auto) 5.7 5.6 Eos % (Auto) 7.7 H 8.0 H Baso % (Auto) 1.1 1.0 Neut # (Auto) 5.6 4.8 Lymph # (Auto) 1.7 1.7 Coal # (Auto) 0.5 0.4 Eos # (Auto) 0.7 0.6 Baso # (Auto) 0.1 0.1 Immature Gran # (Auto) 0.0 0.0 PT INR Sodium 136.9 Potassium 4.07 Chloride 104.5 Carbon Dioxide 27.0 Anion Gap 9.47 BUN 21.3 H Creatinine 1.19 H Estimated GFR (MDRD) 75.00 BUN/Creatinine Ratio 17.89 Glucose 91.9 Calcium 8.93 Magnesium 1.73 Total Bilirubin 1.08 AST 23.4 ALT 20.8 Alkaline Phosphatase 58.6 Troponin I NT-Pro-B Natriuret Pep Total Protein 5.93 L Albumin 3.54 Globulin 2.39 Albumin/Globulin Ratio 1.48 Urine Color Urine Clarity Urine pH Ur Specific Stanley Urine Protein Urine Glucose (UA) Urine Ketones Urine Blood Urine Nitrite Urine Bilirubin Urine Urobilinogen Ur Leukocyte Esterase Urine Microscopic RBC Urine Microscopic WBC Ur Squamous Epith Cells Adenovirus (PCR) B. pertussis DNA (PCR) B.parapertussis DNA PCR C. pneumoniae DNA (PCR) Coronavirus OC43 (PCR) Coronavirus HKU1 (PCR) Coronavirus 229E (PCR) Coronavirus NL63 (PCR) Human Metapneumovir PCR Influenza Type A (PCR) Influenza B (RT-PCR) M. pneumoniae (PCR) Parainfluenza 1 (PCR) Parainfluenza 2 (PCR) Parainfluenza 3 (PCR) Parainfluenza 4 (PCR) RSV (PCR) Entero/Rhino (PCR) SARS-CoV-2 (PCR) 10/22/20 04:52 WBC RBC Hgb Hct MCV MCH MCHC RDW Coeff of Dimple Plt Count Immature Gran % (Auto) Neut % (Auto) Lymph % (Auto) Coal % (Auto) Eos % (Auto) Baso % (Auto) Neut # (Auto) Lymph # (Auto) Coal # (Auto) Eos # (Auto) Baso # (Auto) Immature Gran # (Auto) PT INR Sodium 137.8 Potassium 4.12 Chloride 105.2 Carbon Dioxide 28.6 Anion Gap 8.12 BUN 21.4 H Creatinine 1.13 H Estimated GFR (MDRD) 79.00 BUN/Creatinine Ratio 18.93 Glucose 96.8 Calcium 8.83 Magnesium 1.73 Total Bilirubin 1.16 AST 23.7 ALT 19.5 Alkaline Phosphatase 56.7 Troponin I NT-Pro-B Natriuret Pep Total Protein 6.11 L Albumin 3.52 Globulin 2.59 Albumin/Globulin Ratio 1.35 Urine Color Urine Clarity Urine pH Ur Specific Stanley Urine Protein Urine Glucose (UA) Urine Ketones Urine Blood Urine Nitrite Urine Bilirubin Urine Urobilinogen Ur Leukocyte Esterase Urine Microscopic RBC Urine Microscopic WBC Ur Squamous Epith Cells Adenovirus (PCR) B. pertussis DNA (PCR) B.parapertussis DNA PCR C. pneumoniae DNA (PCR) Coronavirus OC43 (PCR) Coronavirus HKU1 (PCR) Coronavirus 229E (PCR) Coronavirus NL63 (PCR) Human Metapneumovir PCR Influenza Type A (PCR) Influenza B (RT-PCR) M. pneumoniae (PCR) Parainfluenza 1 (PCR) Parainfluenza 2 (PCR) Parainfluenza 3 (PCR) Parainfluenza 4 (PCR) RSV (PCR) Entero/Rhino (PCR) [id number] (PCR) CXR - CMG with mild CHF when admitted. No clinical need to repeat. EKG - No ischemia. NSR. Charted in ER note. Education Provided to Patient and Family: CHF, HTN. Follow-ups: Yuki within a week. Discharge Disposition: Home Hospital Course: Admitted with moderate CHF exacerbation and uncontrolled HTN due to noncompliance with medication. Responded to med (home med, some extra lasix initially). No evidence of OK. Echo had been done in July 2020. EF 25- 30 %. Stable and improved at time of d/c. Home . Recheck with PCP (Yuki). Plan: D/c home. Rx sent to pharmacy for same home med, one month supply.
== END 2020-10-22 14:49 | disposition home or self-care (01) | DRG 292 ==
LOC: ED 10:01 → MEDSURG A 14:49
PROVIDERS: ADMIT Emergency Medicine; ATTEND Emergency Medicine
DX: Z20.822 Contact with and (suspected) exposure to COVID-19; I10 Essential (primary) hypertension; I42.0 Dilated cardiomyopathy; I49.9 Cardiac arrhythmia, unspecified; R42 Dizziness and giddiness; R06.00 Dyspnea, unspecified; R60.0 Localized edema; I47.9 Paroxysmal tachycardia, unspecified; I50.43 Acute on chronic combined systolic (congestive) and diastolic (congestive) heart failure; M79.9 Soft tissue disorder, unspecified

== ENCOUNTER 2021-12-17 19:19 | Observation (INO) ==
--- NOTE | 2021-12-17 19:52 | ED.PDOC ---
General ED Provider: Dr. MARGARET HOPSON Chief Complaint: Extremity Pain/Injury Stated Complaint: Patient states that he has had cramping pain on the right thigh for the past week. The pain is worse with walking and better with rest and when riding bicycle. He also states he has gained 14 pounds in one week. Admits to eating more salt in this Time Seen by Provider: 12/17/21 19:52 Mode of Arrival: Wheelchair Information Source: Patient Primary Care Provider: CORAL HERNANDEZ MD Nursing and Triage Documentation Reviewed and Agree: Yes Does patient meet sepsis criteria?: No System Inflammatory Response Syndrome: Not Applicable Sepsis Protocol: For patient's 13 years and over: Temp is 96.8 and below OR 101 and greater Pulse >90 BPM Resp >20/minute Acutely Altered Mental Status Are patient's symptoms suggestive of a new infection, such as: -Pneumonia -Skin, Soft Tissue -Endocarditis -UTI -Bone, Joint Infection -Implantable Device -Acute Abdominal Infection -Wound Infection -Meningitis -Blood Stream Catheter Infection -Unknown Musculoskeletal Complaint Exam Lower Extremity Complaint/Exam Location of Pain: Reports Right Mechanism of Injury: Reports No known trauma Onset/Duration: 1 week Symptoms Are: Still present Initial Severity: Mild Current Severity: Moderate Location: Reports Discrete (Thigh ) Character: Reports Dull Aggravating: Reports Movement, Weight bearing and Prolonged standing Able to Bear Weight: Yes Associated Signs and Symptoms: Reports Swelling (minimal ) Related History: Denies Similar episode or Occupational injury DVT Risk Factors: Reports Smoking; Denies Prior DVT, Prior PE, Malignancy or Recent surgery Septic Arthritis Risk Factors: Reports None Related Surgical History: Reports None Lower Extremity Findings: Present Swelling (mild on the thigh, dorsalis pedis intact and strong bilaterally ) NV Bundle Intact Distal to Injury: Yes Compartment Syndrome Risk Factors: Present Pain Lower Extremities Picture: 1. area of pain 2. Bilateral pitting edema 2 + Review of Systems Review Of Systems Constitutional: Reports No symptoms Musculoskeletal: Reports Muscle pain Skin: Reports No symptoms Neurological: Reports Anxiety Endocrine: Reports Unexplained weight gain All Other Systems: Reviewed and Negative FORMERLY [facility], [facility] Medical History Arthritis CHF (congestive heart failure) Hypertension Inguinal hernia Prostate CA Tobacco use Uncontrolled hypertension Family History Mother Hypertension FATHER Alcoholism and drug addiction in family Hypertension Social History Smoking and tobacco status: Former smoker Alcohol intake: never Substance use type: does not use Physical Exam Physical Exam Appearance: Reports Well-appearing Ill-appearing: None Pain Distress: Mild Eyes: Reports JOBY, EOMI and Conjunctiva clear ENT: Reports Nose normal and Oropharynx normal Neck: Supple Respiratory: Reports Airway patent and Breath sounds clear Cardiovascular: Reports RRR, Pulses normal and No rub GI/: Reports Soft and Nontender Musculoskeletal: Reports Edema Skin: Reports Warm and Dry Neurological: Reports Motor intact, Alert and Oriented Psychiatric: Reports Anxious Interpretation EKG Interpretation Time of EKG #1: 19:43 Rate: Normal Rhythm: Sinus Ectopy: None [place]: NL ST Segment: Normal Interpretation: Prolonged QT Critical Care Note Critical Care Note Total Critical Care Time (mins): 0 Comments: July [address] GONZALEZ INTERPRETATION: 1.LEFT VENTRICULAR HYPERTROPHY 2. ENLARGED RIGHT VENTRICLE, LEFT ATRIUM, LEFT VENTRICLE CAVITIES 3. HYPOKINETIC LEFT VENTRICLE,, LEFT VENTRICULAR EJECTION FRACTION 25 TO 30% 4. MILD TO MODERATE MITRAL REGURGITATION (SCREENING) CONCLUSION:DILATED HYPERTROPHIC CARDIOMYOPATHY WITH POOR EJECTION FRACTION. PLAN:ENTRESTO 24/26MG PO BID, COREG 6.25MG PO BID, COATED ASPIRIN 81MG PO DAILY, LASIX 20MG IV DAILY, DAILY LABS CMP IN AM, ELEVATE LEGS, DECREASE SALT INTAKE, COUNSELING FOR SMOKING DONE, EDUCATE ABOUT CONGESTIVE HEART FAILURE, NO SMOKING. Course Course Hematology/Chemistry: 12/17/21 19:50 12/17/21 19:50 Orders, Labs, Meds: Lab Review 12/17/21 12/17/21 12/17/21 19:50 19:50 19:50 WBC 8.43 RBC 4.46 L Hgb 13.1 L Hct 41.7 L MCV 93.5 MCH 29.4 MCHC 31.4 L RDW Coeff of Dimple 13.6 Plt Count 167 Immature Gran % (Auto) 0.4 Neut % (Auto) 74.8 Lymph % (Auto) 10.8 [place] % (Auto) 7.1 Eos % (Auto) 6.5 Baso % (Auto) 0.4 Neut # (Auto) 6.3 Lymph # (Auto) 0.9 [place] # (Auto) 0.6 Eos # (Auto) 0.6 Baso # (Auto) 0.0 Immature Gran # (Auto) 0.0 Sodium Potassium Chloride Carbon Dioxide Anion Gap BUN Creatinine Estimated GFR (MDRD) BUN/Creatinine Ratio Glucose Calcium Total Bilirubin AST ALT Alkaline Phosphatase Total Creatine Kinase Troponin I NT-Pro-B Natriuret Pep 222.000 H Total Protein Albumin Globulin Albumin/Globulin Ratio D-Dimer 4580.75 H SARS CoV-2 RNA Rapid CAL 12/17/21 12/17/21 19:50 20:30 WBC RBC Hgb Hct MCV MCH MCHC RDW Coeff of Dimple Plt Count Immature Gran % (Auto) Neut % (Auto) Lymph % (Auto) [place] % (Auto) Eos % (Auto) Baso % (Auto) Neut # (Auto) Lymph # (Auto) [place] # (Auto) Eos # (Auto) Baso # (Auto) Immature Gran # (Auto) Sodium 139.8 Potassium 3.69 Chloride 103.6 Carbon Dioxide 30.6 H Anion Gap 9.29 BUN 14.1 Creatinine 1.06 Estimated GFR (MDRD) 85.00 BUN/Creatinine Ratio 13.30 Glucose 119.3 H Calcium 8.72 Total Bilirubin 0.60 AST 27.5 ALT 13.1 Alkaline Phosphatase 64.2 Total Creatine Kinase 105.5 Troponin I < 0.012 NT-Pro-B Natriuret Pep Total Protein 6.76 Albumin 3.80 Globulin 2.96 Albumin/Globulin Ratio 1.28 D-Dimer SARS CoV-2 RNA Rapid CAL Negative Orders Category Date Time Status PLACE PATIENT OBSERVATION .TO [facility] (MONITORED BED ADMISSION 12/17/21 21:41 Active ) ECHOCARDIOGRAM 2D-M MODE Routine CARDIO 12/17/21 21:47 Ordered EKG-(ED ONLY) Stat CARDIO 12/17/21 19:39 Completed INTAKE & OUTPUT Q8HR CARE 12/17/21 21:42 Active TELEMETRY MONITORING TELE CARE 12/17/21 21:42 Active VITAL SIGNS Q4HR CARE 12/17/21 21:50 Active 2 GRAM SODIUM DIET DIETARY 12/17/21 Breakfast Ordered BASIC METABOLIC PANEL DAILY@0600 LAB 12/18/21 06:00 Ordered BASIC METABOLIC PANEL DAILY@0600 LAB 12/19/21 06:00 Ordered BNP [NT-PROBNP] Stat LAB 12/17/21 19:50 Completed CBC W/ AUTO DIFF DAILY@0600 LAB 12/18/21 06:00 Ordered CBC W/ AUTO DIFF DAILY@0600 LAB 12/19/21 06:00 Ordered CBC W/ AUTO DIFF Stat LAB 12/17/21 19:50 Completed CMP [COMPREHENSIVE METABOLIC PANEL] Stat LAB 12/17/21 19:50 Completed CPK [CREATINE KINASE] Stat LAB 12/17/21 19:50 Completed D-DIMER Stat LAB 12/17/21 19:50 Completed SARS COV-2 RNA RAPID CAL Stat LAB 12/17/21 20:30 Completed TROPONIN I Stat LAB 12/17/21 19:50 Completed Acetaminophen [Tylenol] MEDS 12/17/21 21:47 Ordered 650 mg PO Q4H PRN Enoxaparin Sodium [Lovenox] MEDS 12/17/21 20:32 Discontinued 100 mg SUBCUT ONCE STA Furosemide [Lasix] MEDS 12/17/21 22:00 Ordered 20 mg IVP QDAC Ondansetron HCl/Pf [Zofran 4 mg/2 ml] MEDS 12/17/21 21:47 Ordered 4 mg IVP Q6H PRN RESUSCITATION STATUS Routine OTHERS 12/17/21 21:41 Ordered CHEST, 2 VIEWS PA & LAT Stat RADS 12/17/21 19:39 Completed Medications Generic Name Dose Route Start Last Admin Trade Name Freq PRN Reason Stop Dose Admin Acetaminophen 650 mg 12/17/21 21:47 Acetaminophen 325 Mg Tablet PO Q4H PRN Fever and Mild Pain Carvedilol 6.25 mg 12/18/21 08:30 Carvedilol 6.25 Mg Tablet PO BIDWM JOSE RAUL Clonidine 0.2 mg 12/18/21 09:00 Clonidine Hcl 0.1 Mg Tablet PO BID JOSE RAUL Enoxaparin Sodium 100 mg 12/18/21 09:00 Enoxaparin Sodium 100 Mg/Ml Syr SUBCUT Q12HR JOSE RAUL Furosemide 20 mg 12/17/21 22:00 Furosemide Inj 20 Mg/2 Ml Vial IVP QDAC JOSE RAUL Metoprolol Succinate 25 mg 12/17/21 22:00 Metoprolol Succinate 25 Mg Tab.Er.24h PO QDAY JOSE RAUL Non-Formulary Medication 400 mg 12/17/21 22:00 Magnesium Oxide PO QDAY JOSE RAUL Non-Formulary Medication 20 mg 12/18/21 09:00 Omeprazole Magnesium [Prilosec Otc] PO BID JOSE RAUL Non-Formulary Medication 1 tab 12/18/21 09:00 Sacubitril-Valsartan [Entresto] PO BID JOSE RAUL Ondansetron HCl 4 mg 12/17/21 21:47 Ondansetron Hcl/Pf 4 Mg/2 Ml Sdv IVP Q6H PRN Nausea / Vomiting Pravastatin Sodium 40 mg 12/17/21 22:00 Pravastatin Sodium 40 Mg Tablet PO QDAY JOSE RAUL Spironolactone 25 mg 12/17/21 22:00 Spironolactone 25 Mg Tablet PO QDAY JOSE RAUL Discontinued Medications Generic Name Dose Route Start Last Admin Trade Name Freq PRN Reason Stop Dose Admin Enoxaparin Sodium 100 mg 12/17/21 20:32 12/17/21 20:35 Enoxaparin Sodium 100 Mg/Ml Syr SUBCUT 12/17/21 20:33 100 mg ONCE STA Administration Vital Signs: Temp Pulse Resp BP Pulse Ox 12/17/21 19:28 100.6 F H 94 20 169/100 H 98 Discharge Plan Discharge Patient Disposition: PLACED OBSERVATION Discharge Problem: CHF (congestive heart failure), Pain in right leg, Elevated d-dimer Did you review [place] SHOPPER'S AIDE?: Not Applicable ED Provider: MARGARET HOPSON Condition: Fair Physician Progress Note: []
[2021-12-17 19:53] LABS: BASOPHILS % (AUTO) 0.4 % (0.0-3.0); EOSINOPHILS # (AUTO) 0.6 K/ul (0.0-0.7); EOSINOPHILS % (AUTO) 6.5 % (0.0-7.0); HEMATOCRIT 41.7 % (42.0-52.0); HEMOGLOBIN 13.1 g/dl (14.0-18.0); IMMATURE GRANULOCYTE % (AUTO) 0.4 % (0.0-5.0); LYMPHOCYTES # (AUTO) 0.9 K/uL (0.60-3.4); LYMPHOCYTES % (AUTO) 10.8 (10.0-50.0); MEAN CORPUSCULAR HEMOGLOBIN 29.4 pg (27.0-31.0); MEAN CORPUSCULAR HGB CONC 31.4 (31.8-35.4); MEAN CORPUSCULAR VOLUME 93.5 fl (80.0-94.0); MONOCYTES # (AUTO) 0.6 K/uL (0.4-2.0); MONOCYTES % (AUTO) 7.1 (0-10); NEUTROPHILS # (AUTO) 6.3 K/ul (2.0-6.9); NEUTROPHILS % (AUTO) 74.8 % (42.2-75.2); PLATELET COUNT 167 10^3/uL (140-440); RDW COEFFICIENT OF VARIATION 13.6 % (11.6-14.8); RED BLOOD COUNT 4.46 10^6/ul (4.70-6.10); WHITE BLOOD COUNT 8.43 K/ul (4.2-10.2)
[2021-12-17 20:06] LABS: ALANINE AMINOTRANSFERASE 13.1 U/L (0-50); ALKALINE PHOSPHATASE 64.2 U/L (56-119); ASPARTATE AMINO TRANSFERASE 27.5 U/L (17-59); BLOOD UREA NITROGEN 14.1 mg/dL (9-20); CALCIUM 8.72 mg/dL (8.4-10.2); CARBON DIOXIDE 30.6 mmol/L (22-30.0); CHLORIDE 103.6 mmol/L (98-107); CREATINE KINASE 105.5 U/L (55-170); CREATININE 1.06 mg/dL (0.60-1.10); GLUCOSE 119.3 mg/dL (74-106); POTASSIUM 3.69 mmol/L (3.5-5.1); SODIUM 139.8 mmol/L (134.5-145); TOTAL PROTEIN 6.76 g/dL (6.3-8.2)
[2021-12-17 20:21] LABS: TROPONIN I < 0.012 ng/ml (0.0000-0.120)
[2021-12-17] MEDS ORDERED: LOVENOX SUBCUT STA (20:32)
--- NOTE | 2021-12-17 20:40 | DI ---
EXAM: CHEST RADIOGRAPH (2 VIEW) TECHNIQUE: AP and Lateral Chest Radiographs. HISTORY: Weight gain, history of congestive heart failure COMPARISON: 04/22/2021 FINDINGS: Lines, Tubes, Devices: None. Lungs and Pleura: No focal consolidation. No pleural effusion. No pneumothorax. No pulmonary edema . Cardiomediastinum: Stable cardiomediastinal silhouette. Mild aortic calcifications. Bones/Soft Tissues: No acute osseous abnormality. No soft tissue abnormality. Upper Abdomen: Within normal limits. IMPRESSION: No acute radiographic abnormality.
[2021-12-17] MEDS ORDERED: ZOFRAN 4 MG/2 ML IVP PRN (21:47)
[2021-12-17] MEDS ORDERED: TYLENOL PO PRN (21:47)
[2021-12-17] MEDS: PRAVACHOL PO SCH (22:32)
[2021-12-17] MEDS: TOPROL XL PO SCH (22:32)
[2021-12-17] MEDS: LASIX IVP SCH (22:33)
[2021-12-17] MEDS: ALDACTONE PO SCH (22:33)
[2021-12-17 22:41] VITALS: BMI 26.1
[2021-12-18 05:07] LABS: BASOPHILS # (AUTO) 0.1 K/uL (0-0.2); BASOPHILS % (AUTO) 0.7 % (0.0-3.0); EOSINOPHILS # (AUTO) 0.6 K/ul (0.0-0.7); EOSINOPHILS % (AUTO) 6.5 % (0.0-7.0); HEMATOCRIT 43.1 % (42.0-52.0); HEMOGLOBIN 13.7 g/dl (14.0-18.0); IMMATURE GRANULOCYTE # (AUTO) 0.1 (0.0-1.0); IMMATURE GRANULOCYTE % (AUTO) 0.5 % (0.0-5.0); LYMPHOCYTES # (AUTO) 1.3 K/uL (0.60-3.4); LYMPHOCYTES % (AUTO) 13.8 (10.0-50.0); MEAN CORPUSCULAR HEMOGLOBIN 29.3 pg (27.0-31.0); MEAN CORPUSCULAR HGB CONC 31.8 (31.8-35.4); MEAN CORPUSCULAR VOLUME 92.3 fl (80.0-94.0); MONOCYTES # (AUTO) 0.7 K/uL (0.4-2.0); MONOCYTES % (AUTO) 7.5 (0-10); NEUTROPHILS # (AUTO) 6.6 K/ul (2.0-6.9); PLATELET COUNT 163 10^3/uL (140-440); RDW COEFFICIENT OF VARIATION 13.7 % (11.6-14.8); RED BLOOD COUNT 4.67 10^6/ul (4.70-6.10); WHITE BLOOD COUNT 9.35 K/ul (4.2-10.2)
[2021-12-18 05:19] LABS: BLOOD UREA NITROGEN 12.5 mg/dL (9-20); CALCIUM 8.78 mg/dL (8.4-10.2); CREATININE 0.91 mg/dL (0.60-1.10); GLUCOSE 102.4 mg/dL (74-106); POTASSIUM 3.9 mmol/L (3.5-5.1); SODIUM 136.9 mmol/L (134.5-145)
[2021-12-18] MEDS: LASIX IVP SCH (05:41)
[2021-12-18] MEDS ORDERED: CATAPRES PO STA (07:22)
[2021-12-18] MEDS ORDERED: COREG PO STA (07:22)
[2021-12-18] MEDS ORDERED: TOPROL XL PO STA (07:23)
[2021-12-18 08:12] VITALS: TEMP 98.3
[2021-12-18] MEDS: TOPROL XL PO SCH (08:15)
[2021-12-18] MEDS ORDERED: COREG PO SCH (08:30)
[2021-12-18] MEDS ORDERED: LOVENOX SUBCUT SCH (09:00)
[2021-12-18] MEDS ORDERED: CATAPRES PO SCH (09:00)
[2021-12-18] MEDS ORDERED: ENTRESTO 24 MG-26 MG TABLET PO SCH (09:00)
[2021-12-18] MEDS ORDERED: PRILOSEC PO SCH (09:00)
[2021-12-18] MEDS ORDERED: MAG-OX PO SCH (09:00)
[2021-12-18] MEDS: ALDACTONE PO SCH (10:01)
[2021-12-18] MEDS: PRAVACHOL PO SCH (10:03)
[2021-12-18 10:12] VITALS: BP 130/78
--- NOTE | 2021-12-18 11:28 | US ---
EXAM: Bilateral lower extremity deep venous ultrasound with doppler imaging HISTORY: Elevated D-dimer. Right leg pain. TECHNIQUE: Small-scale ultrasound with compression maneuvers and color and spectral Doppler ultrasound at rest and with augmentation of the veins was performed. Images were obtained and stored in a [facility] anent archive. COMPARISON: Venous ultrasound 08/08/2020. FINDINGS: RIGHT LOWER EXTREMITY: Common Femoral Vein: Normal compression. Normal flow on color Doppler images. Normal response to augm entation. Deep Femoral Vein: Normal compression. Normal flow on color Doppler images. Normal response to augmen tation. Femoral Vein: Normal compression. Normal flow on color Doppler images. Normal response to augmentatio n. Popliteal Vein: Normal compression. Normal flow on color Doppler images. Normal response to augmentat ion. Peroneal Vein: Normal compression. Normal flow on color Doppler images. Posterior Tibial Vein: Normal compression. Normal flow on color Doppler images. Anterior Tibial Vein: Normal compression. Normal flow on color Doppler images. Greater Saphenous Vein (Superficial): Normal compression. Normal flow on color Doppler images. Other: No reflux. Mildly complex popliteal cyst demonstrated measuring 5.0 x 1.0 x 1.5 cm. LEFT LOWER EXTREMITY: Common Femoral Vein: Normal compression. Normal flow on color Doppler images. Normal response to augm entation. Deep Femoral Vein: Normal compression. Normal flow on color Doppler images. Normal response to augmen tation. Femoral Vein: Normal compression. Normal flow on color Doppler images. Normal response to augmentatio n. Popliteal Vein: Normal compression. Normal flow on color Doppler images. Normal response to augmentat ion. Peroneal Vein: Normal compression. Normal flow on color Doppler images. Posterior Tibial Vein: Normal compression. Normal flow on color Doppler images. Anterior Tibial Vein: Normal compression. Normal flow on color Doppler images. Greater Saphenous Vein (Superficial): Normal compression. Normal flow on color Doppler images. Other: No reflux. IMPRESSION: No deep venous thrombosis (DVT) in the bilateral lower extremities. No superficial venous thrombosis (SVT) in the bilateral lower extremities at the levels examined.
--- NOTE | 2021-12-18 13:40 | ECHO2D ---
Date of Exam: 12/18/2021 Ordering Physician: ROBYNIST/ANA Room #: 104 Reason for Echo: CHF, HTN M-Mode Normal Adult Results LV Dimensions Normal Adult Results AoV Opening excursions >1.6 >1.6 LVEDD-base- 3.5-5.8 5.2 Ao root dimensions 2.0-3.7 3.7 LVESD-base- 3.1-4.6 L. Atrium dimensions 1.9-3.8 4.5 Post. Wall thickness 0.8-1.1 1.2 IV septum (thickness) 0.7-1.2 1.6 Post. Wall excursion 0.72-1.3 0.9 Septal motion 0.6 Systolic motion R. Ventricular cavity 1.5-2.0 3.5 LVEF 60% 45% Paradoxical septal wall motion NORMAL 2-D : DILATED LEFT ATRIAL CAVITY AND RIGHT VENTRICLE CAVITY--HYPOKINETIC LEFT VENTRICLE --NORMAL VALVES--NO EFFUSION, NO THROMBUS M-MODE: MV: NORMAL AV: NORMAL TV: NORMAL PV: CHAMBER SIZE: ENLARGED LEFT ATRIAL AND RIGHT VENTRICLE CAVITIES WALL MOTION: HYPOKINETIC LEFT VENTRICLE --STIFF SEPTUM PERICARDIUM: NORMAL INTERPRETATION: 1. LEFT VENTRICLE HYPERTROPHY (MODERATE) 2. ENLARGED LEFT ATRIAL AND RIGHT VENTRICLE CAVITIES 3. HYPOKINETIC LEFT VENTRICLE WITH EJECTION FRACTION 45% 4. REMARKABLE IMPROVEMENT IN ECHO FINDING (EJECTION FRACTION/ LEFT VENTRICLE SIZE) [facility]
--- NOTE | 2021-12-25 06:28 | PCM.DC ---
Final Diagnosis: Leg swelling - improved, no DVT. CHF, chronic, compensated. Date of admit - 12/17/2021 Date of discharge - 12/18/2021 Physical Exam Appearance: Well-appearing Ill-appearing: None Pain Distress: None Eyes: JOBY ENT: Oropharynx normal Neck: Supple Respiratory: Airway patent and Breath sounds clear Cardiovascular: RRR and Pulses normal GI/: Soft and Nontender Musculoskeletal: Normal strength, ROM intact and No edema Skin: Warm and Dry Neurological: Sensation intact, Motor intact and Alert Psychiatric: Affect appropriate and Mood appropriate (1) Swelling of right lower extremity: Status: Acute Code(s): M79.89 - Other specified soft tissue disorders SNOMED Code(s): 073991267 (2) CHF (congestive heart failure): Status: Acute Code(s): I50.9 - Heart failure, unspecified SNOMED Code(s): 52189399 Reason for Hospitalization: Right leg swelling, some mild discomfort, elevated D-dimer, placed in obs to obtain venous doppler study the next morning, anticoagulated. Prognosis/Condition at Discharge: Stable Medications at Discharge: No new med. Medications at Discharge (Home Meds & RX) carvedilol 6.25 mg tablet 6.25 mg PO BIDWM #60 tabs 12/14/20 clonidine HCl 0.2 mg tablet 0.2 mg PO BID #20 tabs 03/22/21 omeprazole magnesium 20 mg tablet,delayed release (Prilosec OTC) 20 mg PO BID #20 tabs 03/22/21 sacubitril 49 mg-valsartan 51 mg tablet (Entresto) 1 tab PO BID #180 tabs 06/04/21 furosemide 20 mg tablet (Lasix) 40 mg PO DAILY 10/03/21 magnesium oxide 400 mg PO QDAY 10/03/21 metoprolol succinate 25 mg tablet,extended release 24 hr 25 mg PO QDAY 10/03/21 pravastatin 40 mg tablet 40 mg PO QDAY 10/03/21 spironolactone 25 mg tablet 25 mg PO QDAY 10/03/21 Lab/Diagnostics: lab Laboratory Tests 12/17/21 12/17/21 12/17/21 19:50 19:50 19:50 WBC 8.43 RBC 4.46 L Hgb 13.1 L Hct 41.7 L MCV 93.5 MCH 29.4 MCHC 31.4 L RDW Coeff of Dimple 13.6 Plt Count 167 Immature Gran % (Auto) 0.4 Neut % (Auto) 74.8 Lymph % (Auto) 10.8 [place] % (Auto) 7.1 Eos % (Auto) 6.5 Baso % (Auto) 0.4 Neut # (Auto) 6.3 Lymph # (Auto) 0.9 [place] # (Auto) 0.6 Eos # (Auto) 0.6 Baso # (Auto) 0.0 Immature Gran # (Auto) 0.0 Sodium Potassium Chloride Carbon Dioxide Anion Gap BUN Creatinine Estimated GFR (MDRD) BUN/Creatinine Ratio Glucose Calcium Total Bilirubin AST ALT Alkaline Phosphatase Total Creatine Kinase Troponin I NT-Pro-B Natriuret Pep 222.000 H Total Protein Albumin Globulin Albumin/Globulin Ratio D-Dimer 4580.75 H SARS CoV-2 RNA Rapid CAL 12/17/21 12/17/21 12/18/21 19:50 20:30 04:52 WBC 9.35 RBC 4.67 L Hgb 13.7 L Hct 43.1 MCV 92.3 MCH 29.3 MCHC 31.8 RDW Coeff of Dimple 13.7 Plt Count 163 Immature Gran % (Auto) 0.5 Neut % (Auto) 71.0 Lymph % (Auto) 13.8 [place] % (Auto) 7.5 Eos % (Auto) 6.5 Baso % (Auto) 0.7 Neut # (Auto) 6.6 Lymph # (Auto) 1.3 [place] # (Auto) 0.7 Eos # (Auto) 0.6 Baso # (Auto) 0.1 Immature Gran # (Auto) 0.1 Sodium 139.8 Potassium 3.69 Chloride 103.6 Carbon Dioxide 30.6 H Anion Gap 9.29 BUN 14.1 Creatinine 1.06 Estimated GFR (MDRD) 85.00 BUN/Creatinine Ratio 13.30 Glucose 119.3 H Calcium 8.72 Total Bilirubin 0.60 AST 27.5 ALT 13.1 Alkaline Phosphatase 64.2 Total Creatine Kinase 105.5 Troponin I < 0.012 NT-Pro-B Natriuret Pep Total Protein 6.76 Albumin 3.80 Globulin 2.96 Albumin/Globulin Ratio 1.28 D-Dimer SARS CoV-2 RNA Rapid CAL Negative 12/18/21 04:52 WBC RBC Hgb Hct MCV MCH MCHC RDW Coeff of Dimple Plt Count Immature Gran % (Auto) Neut % (Auto) Lymph % (Auto) [place] % (Auto) Eos % (Auto) Baso % (Auto) Neut # (Auto) Lymph # (Auto) [place] # (Auto) Eos # (Auto) Baso # (Auto) Immature Gran # (Auto) Sodium 136.9 Potassium 3.90 Chloride 101.0 Carbon Dioxide 32.0 H Anion Gap 7.80 BUN 12.5 Creatinine 0.91 Estimated GFR (MDRD) 101.00 BUN/Creatinine Ratio 13.73 Glucose 102.4 Calcium 8.78 Total Bilirubin AST ALT Alkaline Phosphatase Total Creatine Kinase Troponin I NT-Pro-B Natriuret Pep Total Protein Albumin Globulin Albumin/Globulin Ratio D-Dimer SARS CoV-2 RNA Rapid CAL HISTORY: Elevated D-dimer. Right leg pain. TECHNIQUE: Small-scale ultrasound with compression maneuvers and color and spectral Doppler ultrasound at rest and with augmentation of the veins was performed. Images were obtained and stored in a permanent archive. COMPARISON: Venous ultrasound 08/08/2020. FINDINGS: RIGHT LOWER EXTREMITY: Common Femoral Vein: Normal compression. Normal flow on color Doppler images. Normal response to augmentation. Deep Femoral Vein: Normal compression. Normal flow on color Doppler images. Normal response to augmentation. Femoral Vein: Normal compression. Normal flow on color Doppler images. Normal response to augmentation. Popliteal Vein: Normal compression. Normal flow on color Doppler images. Normal response to augmentation. Peroneal Vein: Normal compression. Normal flow on color Doppler images. Posterior Tibial Vein: Normal compression. Normal flow on color Doppler images. Anterior Tibial Vein: Normal compression. Normal flow on color Doppler images. Greater Saphenous Vein (Superficial): Normal compression. Normal flow on color Doppler images. Other: No reflux. Mildly complex popliteal cyst demonstrated measuring 5.0 x 1.0 x 1.5 cm. LEFT LOWER EXTREMITY: Common Femoral Vein: Normal compression. Normal flow on color Doppler images. Normal response to augmentation. Deep Femoral Vein: Normal compression. Normal flow on color Doppler images. Normal response to augmentation. Femoral Vein: Normal compression. Normal flow on color Doppler images. Normal response to augmentation. Popliteal Vein: Normal compression. Normal flow on color Doppler images. Normal response to augmentation. Peroneal Vein: Normal compression. Normal flow on color Doppler images. Posterior Tibial Vein: Normal compression. Normal flow on color Doppler images. Anterior Tibial Vein: Normal compression. Normal flow on color Doppler images. Greater Saphenous Vein (Superficial): Normal compression. Normal flow on color Doppler images. Other: No reflux. IMPRESSION: No deep venous thrombosis (DVT) in the bilateral lower extremities. No superficial venous thrombosis (SVT) in the bilateral lower extremities at the levels examined. Chest X-ray: HISTORY: Weight gain, history of congestive heart failure COMPARISON: 04/22/2021 FINDINGS: Lines, Tubes, Devices: None. Lungs and Pleura: No focal consolidation. No pleural effusion. No pneumothorax. No pulmonary edema. Cardiomediastinum: Stable cardiomediastinal silhouette. Mild aortic calcifications. Bones/Soft Tissues: No acute osseous abnormality. No soft tissue abnormality. Upper Abdomen: Within normal limits. IMPRESSION: No acute radiographic abnormality. 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 Chronic CHF - compensated. Plan: Home, resume home med. This discharge done with a [id number] exam and completed documentation entailing 30 minutes.
== END 2021-12-18 14:25 | disposition home or self-care (01) ==
LOC: MEDSURG A 19:19 → ED 19:19 → MEDSURG A 22:23
PROVIDERS: ADMIT Internal Medicine Geriatric Medicine; ATTEND Internal Medicine Geriatric Medicine
DX: R79.89 Other specified abnormal findings of blood chemistry; M79.89 Other specified soft tissue disorders; Z51.81 Encounter for therapeutic drug level monitoring; I50.9 Heart failure, unspecified; R60.0 Localized edema; Z79.899 Other long term (current) drug therapy; Z20.822 Contact with and (suspected) exposure to COVID-19; I10 Essential (primary) hypertension; Z72.0 Tobacco use; R06.02 Shortness of breath

== ENCOUNTER 2022-12-07 21:53 | Observation (INO) ==
[2022-12-07] MEDS ORDERED: DUONEB NEB STA (22:25)
--- NOTE | 2022-12-07 22:43 | ED.PDOC ---
General ED Provider: Dr. MARGARET HOPSON Chief Complaint: Shortness of Air Stated Complaint: Patient is a 67-year-old male who comes to the emergency department with complaints of shortness of breath worse for the past week. He states that he just gets short of breath with walking less than a block. He has a hard time riding his bicycle because of shortness of breath. He is not on any diuretics at this time. In fact he states that he has been out of all his medications for a month. He states that he lost them when he moved. He has not called his doctor to get them refilled. Time Seen by Provider: 12/07/22 21:59 Information Source: Patient Primary Care Provider: CORAL HERNANDEZ MD Nursing and Triage Documentation Reviewed and Agree: Yes Respiratory Complaint Exam Shortness of Air Complaint/Exam Onset/Duration: 1 week Symptoms Are: Still present Timing: Constant Initial Severity: Mild Current Severity: Moderate Character: Reports Dyspnea on exertion Aggravating: Reports Movement Alleviating: Reports None (Rest) Associated Signs and Symptoms: Reports Edema (Lower ext 3 +) and Labored breathing; Denies Cough, Wheezing, Chest pain with cough, Chest pain, Fever, Chills, Diaphoresis, Nasal congestion, Dizziness, Calf pain, Calf swelling, Rapid breathing or Decreased intake Related History: Reports Similar episode (#CHF exacerbation) History of Healthcare-Acquired Pneumonia: No Pulmonary Embolism Risk Factors: Reports None Cardiac Risk Factors: Reports None Pseudomonas Risk Factors: Reports None Tuberculosis Risk Factors: Reports None Home Oxygen Use: No Recent Stress Test: No Recent Echo/LV Function: Yes (I guess that first 2021) Review of Systems Review Of Systems Constitutional: Reports No symptoms Respiratory: Reports Shortness of Breath; Denies Cough Cardiac: Reports No symptoms GI: Reports No symptoms : Reports No symptoms Skin: Reports No symptoms Neurological: Reports Anxiety All Other Systems: Reviewed and Negative [facility] Medical History Arthritis M19.90 - Unspecified osteoarthritis, unspecified site (ICD-10) Hypertension I10 - Essential (primary) hypertension (ICD-10) Prostate CA C61 - Malignant neoplasm of prostate (ICD-10) Tobacco use Z72.0 - Tobacco use (ICD-10) Uncontrolled hypertension I10 - Essential (primary) hypertension (ICD-10) Family History Mother Hypertension FATHER Alcoholism and drug addiction in family Hypertension Social History Smoking and tobacco status: Former smoker Alcohol intake: never Substance use type: does not use Physical Exam Physical Exam Appearance: Reports Well-appearing Ill-appearing: None Pain Distress: None Eyes: Reports JOBY, EOMI and Conjunctiva clear ENT: Reports Nose normal and Oropharynx normal Neck: Supple Respiratory: Reports Airway patent, Breath sounds clear, Breath sounds equal and Respirations nonlabored Cardiovascular: Reports RRR, Pulses normal and No rub GI/: Reports Soft, Nontender and No masses Musculoskeletal: Reports Normal strength, ROM intact and Edema (3 +) Skin: Reports Warm, Dry and Normal color Neurological: Reports Motor intact, Alert and Oriented Psychiatric: Reports Anxious Interpretation EKG Interpretation EKG Interpretation By: ED Physician Time of EKG #1: 22:28 Rate: Normal Rhythm: Sinus Ectopy: None [place]: Left Interpretation: Biatrial chamber enlargement, pulmonary disease pattern. EKG Comparison: No significant changes (From the EKG done November 27, 2022) Radiology Interpretation Radiology Interpretation By: Radiologist Radiology Results: No acute changes Exam Interpreted: Portable CXR (Cardiomegaly without acute cardiopulmonary disease) Physician Notification Case Discussed Physician Notified: Arnold Terry NP Time of Notification: 23:52 (accepted to admit for Observation ) Critical Care Note Critical Care Note Total Critical Care Time (mins): 0 Comments: Discussed with patient results of his lab work and x-rays. Advised patient that he needs to be admitted for diuresis due to CHF exacerbation specially being out of his medications for a while. Patient is agreeable to stay in the hospital for IV Lasix treatment. Denies any other complaints and did not have any further questions. Course Course 12/07/22 22:25 12/07/22 22:40 Orders, Labs, Meds: Lab Review 12/07/22 12/07/22 12/07/22 22:25 22:40 Unknown WBC 7.42 RBC 4.01 L Hgb 11.8 L Hct 38.5 L MCV 96.0 H MCH 29.4 MCHC 30.6 L RDW Coeff of Dimple 15.0 H Plt Count 220 Immature Gran % (Auto) 0.1 Neut % (Auto) 74.0 Lymph % (Auto) 14.7 [place] % (Auto) 5.7 Eos % (Auto) 4.7 Baso % (Auto) 0.8 Neut # (Auto) 5.5 Lymph # (Auto) 1.1 [place] # (Auto) 0.4 Eos # (Auto) 0.4 Baso # (Auto) 0.1 Immature Gran # (Auto) 0.0 Puncture Site rr Base Excess -1.1 O2 Saturation 94.9 ABG pH 7.43 ABG pCO2 35.0 ABG pO2 73.0 L ABG HCO3 23.2 ABG Total CO2 24.3 H [place] Test pos Hemoglobin 1.5 Oxyhemoglobin 92.9 L Carboxyhemoglobin 2.1 H Total Hemoglobin 12.1 FiO2 % 21.0 Sodium 144.4 Potassium 4.20 Chloride 113.3 H Carbon Dioxide 22.4 Anion Gap 12.90 BUN 18.1 Creatinine 1.53 H Estimated GFR (MDRD) 55.00 BUN/Creatinine Ratio 11.83 Glucose 122.2 H Lactic Acid 1.39 Calcium 8.43 Total Bilirubin 1.76 H AST 36.2 ALT 48.5 Alkaline Phosphatase 67.4 Total Creatine Kinase 195.6 H CK-MB (CK-2) 3.420 H CK-MB (CK-2) % 1.7400 Troponin I 0.013 NT-Pro-B Natriuret Pep 5900 H Total Protein 5.69 L Albumin 3.41 L Globulin 2.28 Albumin/Globulin Ratio 1.49 Procalcitonin 0.06 H SARS CoV-2 RNA Rapid CAL Negative Orders Category Date Time Status ADMIT OBSERVATION [PLACE PATIENT OBSERVATION] .TO ADMISSION 12/07/22 23:39 Active MEDSURG (MONITORED BED) ABG DRAW REQUEST Stat CARDIO 12/07/22 22:25 Completed EKG-(ED ONLY) Stat CARDIO 12/07/22 22:25 Completed NEBULIZER TREATMENT Stat CARDIO 12/07/22 22:26 Completed TELEMETRY MONITORING TELE CARE 12/07/22 23:40 Active ED STEAM PIPE FITTER APPLIED .ONCE EMERGENCY 12/07/22 22:25 Active ED IV/MEDIPORT/POWERPORT .ONCE EMERGENCY 12/07/22 22:25 Active ABG COOX Stat LAB 12/07/22 22:40 Completed BLOOD CULTURE (ED ONLY) Stat LAB 12/07/22 22:40 Received CBC W/ AUTO DIFF Stat LAB 12/07/22 22:25 Completed COMPREHENSIVE METABOLIC PANEL Stat LAB 12/07/22 22:40 Completed CREATINE KINASE Stat LAB 12/07/22 22:40 Completed LACTIC ACID Stat LAB 12/07/22 22:40 Completed NT-PROBNP(ED) Stat LAB 12/07/22 22:40 Completed PROCALCITONIN Stat LAB 12/07/22 22:40 Completed SARS COV-2 RNA RAPID CAL Stat LAB 12/07/22 Completed TROPONIN I Stat LAB 12/07/22 22:40 Completed 0.9 % Sodium Chloride [Saline Flush] Meds 12/07/22 22:25 Active 1 syr IVF PRN PRN Furosemide [Lasix] Meds 12/07/22 23:28 Discontinued 20 mg IVP ONCE STA Ipratropium/Albuterol Neb [Duoneb] Meds 12/07/22 22:25 Discontinued 3 ml NEB ONCE STA CHEST, 1V AP ONLY Stat RADS 12/07/22 22:25 Completed Medications Generic Name Dose Route Start Last Admin Trade Name Freq PRN Reason Stop Dose Admin Sodium Chloride 1 syr 12/07/22 22:25 0.9% Sodium Chloride 10 Ml Disp.Syrin IVF PRN PRN To flush IV Discontinued Medications Generic Name Dose Route Start Last Admin Trade Name Freq PRN Reason Stop Dose Admin Albuterol/Ipratropium 3 ml 12/07/22 22:25 12/07/22 23:18 Ipratropium/Albuterol Vial.Neb NEB 12/07/22 22:26 3 ml ONCE STA Administration Furosemide 20 mg 12/07/22 23:28 12/07/22 23:34 Furosemide Inj 20 Mg/2 Ml Vial IVP 12/07/22 23:29 20 mg ONCE STA Administration Vital Signs: Temp Pulse Resp BP Pulse Ox 12/07/22 21:57 97.6 F 91 20 139/93 H 97 Discharge Plan Discharge Patient Disposition: PLACED OBSERVATION Discharge Problem: CHF (congestive heart failure) Prescriptions: No Action omeprazole magnesium [Prilosec OTC] 20 mg tablet,delayed release (DR/EC) 20 mg PO BID Qty: 20 0RF clonidine HCl 0.2 mg tablet 0.2 mg PO BID Qty: 20 0RF albuterol sulfate 90 mcg/actuation HFA aerosol inhaler 2 puff inhalation QID PRN (Reason: shortness of breath or wheezing) Qty: 6.7 0RF furosemide 20 mg tablet See Rx Instructions .ROUTE .COMPLEX Qty: 20 0RF Rx Instructions: Take 20 mg PO TID x 3 days, then resume daily administration. albuterol sulfate 90 mcg/actuation HFA aerosol inhaler 2 puff inhalation QID PRN (Reason: shortness of breath or wheezing) Qty: 8.5 0RF carvedilol 6.25 mg tablet 6.25 mg PO BIDWM Qty: 60 3RF Entresto 49-51 mg tablet 1 tab PO BID Qty: 180 1RF furosemide [Lasix] 20 mg tablet 40 mg PO DAILY Rx Instructions: Increase to second tablet at 12pm x 5 days if >3# weight gain over 48 hours period. spironolactone 25 mg tablet 25 mg PO QDAY magnesium oxide 400 mg magnesium capsule 400 mg PO QDAY atorvastatin [Lipitor] 40 mg tablet 40 mg PO QDAY Qty: 90 1RF Rx Instructions: Change 03/31/22 Did you review [place] ELEVATOR OPERATOR for ALL controlled substances?: Not Applicable Discussed opioids are addictive and Narcan is available by prescription or from pharmacy.: No ED Provider: MARGARET HOPSON Condition: Stable Physician Progress Note: [Last echo results reviewed done in November 2021] 2-D : DILATED LEFT ATRIAL CAVITY AND RIGHT VENTRICLE CAVITY--HYPOKINETIC LEFT VENTRICLE --NORMAL VALVES--NO EFFUSION, NO THROMBUS M-MODE: MV: NORMAL AV: NORMAL TV: NORMAL PV: CHAMBER SIZE: ENLARGED LEFT ATRIAL AND RIGHT VENTRICLE CAVITIES WALL MOTION: HYPOKINETIC LEFT VENTRICLE --STIFF SEPTUM PERICARDIUM: NORMAL INTERPRETATION: 1. LEFT VENTRICLE HYPERTROPHY (MODERATE) 2. ENLARGED LEFT ATRIAL AND RIGHT VENTRICLE CAVITIES 3. HYPOKINETIC LEFT VENTRICLE WITH EJECTION FRACTION 45% 4. REMARKABLE IMPROVEMENT IN ECHO FINDING (EJECTION FRACTION/ LEFT VENTRICLE SIZE) FROM 08/08/2020
[2022-12-07 22:47] LABS: BASOPHILS # (AUTO) 0.1 K/uL (0-0.2); BASOPHILS % (AUTO) 0.8 % (0.0-3.0); EOSINOPHILS # (AUTO) 0.4 K/ul (0.0-0.7); EOSINOPHILS % (AUTO) 4.7 % (0.0-7.0); HEMATOCRIT 38.5 % (42.0-52.0); HEMOGLOBIN 11.8 g/dl (14.0-18.0); IMMATURE GRANULOCYTE % (AUTO) 0.1 % (0.0-5.0); LYMPHOCYTES # (AUTO) 1.1 K/uL (0.60-3.4); LYMPHOCYTES % (AUTO) 14.7 (10.0-50.0); MEAN CORPUSCULAR HEMOGLOBIN 29.4 pg (27.0-31.0); MEAN CORPUSCULAR HGB CONC 30.6 (31.8-35.4); MONOCYTES # (AUTO) 0.4 K/uL (0.4-2.0); MONOCYTES % (AUTO) 5.7 (0-10); NEUTROPHILS # (AUTO) 5.5 K/ul (2.0-6.9); PLATELET COUNT 220 10^3/uL (140-440); RED BLOOD COUNT 4.01 10^6/ul (4.70-6.10); WHITE BLOOD COUNT 7.42 K/ul (4.2-10.2)
--- NOTE | 2022-12-07 22:48 | DI ---
EXAM: CHEST ONE-VIEW History: Shortness of breath FINDINGS: Cardiac silhouette is enlarged. Pulmonary vasculature is normal. The lungs are clear. M inor atherosclerotic calcification of the aorta. No acute chest wall abnormality. Impression: Cardiomegaly without acute cardiopulmonary disease
[2022-12-07 22:59] LABS: ALANINE AMINOTRANSFERASE 48.5 U/L (0-50); ALBUMIN 3.41 g/dL (3.5-5.0); ALKALINE PHOSPHATASE 67.4 U/L (56-119); ASPARTATE AMINO TRANSFERASE 36.2 U/L (17-59); BILIRUBIN,TOTAL 1.76 mg/dL (0.2-1.3); BLOOD UREA NITROGEN 18.1 mg/dL (9-20); CALCIUM 8.43 mg/dL (8.4-10.2); CARBON DIOXIDE 22.4 mmol/L (22-30.0); CHLORIDE 113.3 mmol/L (98-107); CREATINE KINASE 195.6 U/L (55-170); CREATININE 1.53 mg/dL (0.60-1.10); GLUCOSE 122.2 mg/dL (74-106); POTASSIUM 4.2 mmol/L (3.5-5.1); SODIUM 144.4 mmol/L (134.5-145); TOTAL PROTEIN 5.69 g/dL (6.3-8.2)
[2022-12-07 23:10] LABS: TROPONIN I 0.013 ng/ml (0.0000-0.120)
[2022-12-07 23:14] LABS: CREATINE KINASE MB 3.42 ng/ml (0.0-2.38)
[2022-12-07 23:21] LABS: SARS COV-2 RNA RAPID NAAT NEGATIVE (NEGATIVE)
[2022-12-07 23:28] LABS: ABG PH 7.43 (7.35-7.45)
[2022-12-07] MEDS ORDERED: LASIX IVP STA (23:28)
[2022-12-07 23:29] LABS: BEecf -1.1 (-2.0-3.0); COHb 2.1 (0.5-1.5); HCO3 23.2 (21-28); MetHb 1.5 (0-1.5); TCO2 24.3 (19-24); sO2 94.9 % (94-98); tHb 12.1 g/dl (11.7-17.4)
[2022-12-07 23:30] LABS: ABG O2 HGB 92.9 % (95-100)
[2022-12-07] MEDS ORDERED: ZOFRAN 4 MG/2 ML IVP PRN (23:48)
[2022-12-07] MEDS: LASIX IVP SCH (23:54)
[2022-12-08 00:36] VITALS: BMI 28.5
[2022-12-08 04:51] LABS: BASOPHILS # (AUTO) 0.1 K/uL (0-0.2); BASOPHILS % (AUTO) 0.8 % (0.0-3.0); EOSINOPHILS # (AUTO) 0.4 K/ul (0.0-0.7); EOSINOPHILS % (AUTO) 5.5 % (0.0-7.0); HEMATOCRIT 40.3 % (42.0-52.0); HEMOGLOBIN 12.2 g/dl (14.0-18.0); IMMATURE GRANULOCYTE % (AUTO) 0.3 % (0.0-5.0); LYMPHOCYTES # (AUTO) 1.3 K/uL (0.60-3.4); LYMPHOCYTES % (AUTO) 17.2 (10.0-50.0); MEAN CORPUSCULAR HEMOGLOBIN 29.5 pg (27.0-31.0); MEAN CORPUSCULAR HGB CONC 30.3 (31.8-35.4); MEAN CORPUSCULAR VOLUME 97.3 fl (80.0-94.0); MONOCYTES # (AUTO) 0.5 K/uL (0.4-2.0); MONOCYTES % (AUTO) 6.2 (0-10); NEUTROPHILS # (AUTO) 5.2 K/ul (2.0-6.9); PLATELET COUNT 224 10^3/uL (140-440); RED BLOOD COUNT 4.14 10^6/ul (4.70-6.10); WHITE BLOOD COUNT 7.46 K/ul (4.2-10.2)
[2022-12-08 05:05] LABS: CALCIUM 8.4 mg/dL (8.4-10.2); CREATININE 1.6 mg/dL (0.60-1.10); POTASSIUM 4.4 mmol/L (3.5-5.1)
[2022-12-08] MEDS: LASIX IVP SCH ×2 (07:53→16:06)
[2022-12-08] MEDS: LOVENOX SUBCUT SCH (08:57)
--- NOTE | 2022-12-08 09:07 | PCM ---
Date of Service Date Seen by Provider: 12/08/22 Time Seen by Provider: 08:30 Admit Day/Time Admission Date: 12/07/22 Admission Time: 23:39 Reason for Admission Chief Complaint: CHF/EXACERBATION Hospital Provider Hospital Provider: CARMENZA KEANE PA-C, [facility] Primary Care Physician Primary Care Physician: CORAL HERNANDEZ MD History of Present Illness History of Present Illness: Patient is a 67-year-old male with past medical history of systolic heart failure, cardiomyopathy, hypertension who presented to the ER with ongoing shortness of breath for the past week. He has been out of his medications for the past month. He has told nursing staff 3 months. He was fired from his PCP office due to missing appointments. He has a history of being noncompliant. He complains of shortness of breath and lower extremity swelling. This is progressively been getting worse. BNP was 5900, creatinine 1.6. Chest x-ray showed cardiomegaly. Patient is on room air. Patient has not had an echo in about a year. In April 2021 his EF was 20 to 25%, repeat echo in November 2021 showed an improved EF of 45%. He was given Lasix overnight. He is feeling somewhat better this morning but still short of breath. He states that he has been moving houses and has not been settled in to get medications and he needs all new prescriptions. Case Discussed With Case Discussed With: Patient's case was discussed with the ER Physicians, Dr. Deleon. [facility] Medical History Arthritis M19.90 - Unspecified osteoarthritis, unspecified site (ICD-10) Hypertension I10 - Essential (primary) hypertension (ICD-10) Prostate CA C61 - Malignant neoplasm of prostate (ICD-10) Tobacco use Z72.0 - Tobacco use (ICD-10) Uncontrolled hypertension I10 - Essential (primary) hypertension (ICD-10) Family History Mother Hypertension FATHER Alcoholism and drug addiction in family Hypertension Social History Smoking and tobacco status: Former smoker Alcohol intake: never Substance use type: does not use Allergies Allergies Allergy/AdvReac Type Severity Reaction Status Date / Time NSAIDS (Non-Steroidal AdvReac Severe CHF Verified 12/07/22 22:10 Anti-Inflamma Current Medications Home Medications carvedilol 6.25 mg tablet 6.25 mg PO BIDWM #60 tabs 12/14/20 [Rx Confirmed 12/08/22 Last Taken Unknown] clonidine HCl 0.2 mg tablet 0.2 mg PO BID #20 tabs 03/22/21 [Rx Confirmed 12/08/22 Last Taken Unknown] sacubitril 49 mg-valsartan 51 mg tablet (Entresto) 1 tab PO BID #180 tabs 06/04/21 [Rx Confirmed 12/08/22 Last Taken Unknown] magnesium oxide 400 mg PO QDAY 10/03/21 [History Confirmed 12/08/22 Last Taken Unknown] spironolactone 25 mg tablet 25 mg PO QDAY 10/03/21 [History Confirmed 12/08/22 Last Taken Unknown] albuterol sulfate 90 mcg/actuation aerosol inhaler 2 puff inhalation QID PRN shortness of breath or wheezing #6.7 grams 10/28/22 [Rx Confirmed 12/08/22 Last Taken Unknown] aspirin 81 mg tablet,delayed release (Adult Aspirin Regimen) 81 mg PO DAILY 12/08/22 [History Confirmed 12/08/22 Last Taken Unknown] furosemide 20 mg tablet (Lasix) 20 mg PO DAILY 12/08/22 [History Confirmed 12/08/22 Last Taken Unknown] hydralazine 10 mg tablet 10 mg PO TID 12/08/22 [History Confirmed 12/08/22 Last Taken Unknown] isosorbide dinitrate 5 mg tablet 5 mg PO TID 12/08/22 [History Confirmed 12/08/22 Last Taken Unknown] pravastatin 40 mg tablet 40 mg PO BEDTIME 12/08/22 [History Confirmed 12/08/22 Last Taken Unknown] Home Aspirin (Aspirin 81 Mg Tablet.) 81 mg PO DAILYWM [facility] Last Admin: 12/08/22 12:31 Dose: 81 mg Carvedilol (Carvedilol 6.25 Mg Tablet) 6.25 mg PO BIDWM [facility] Last Admin: 12/08/22 12:32 Dose: 6.25 mg Enoxaparin Sodium (Enoxaparin Sodium 30 Mg/0.3 Ml Syr) 30 mg SUBCUT DAILY [facility] Last Admin: 12/08/22 08:57 Dose: 30 mg Furosemide (Furosemide Inj 20 Mg/2 Ml Vial) 20 mg IVP Q8H [facility] Last Admin: 12/08/22 07:53 Dose: 20 mg Isosorbide Dinitrate (Isosorbide Dinitrate 20 Mg Tablet) 5 mg PO TID [facility] Last Admin: 12/08/22 12:32 Dose: 5 mg Ondansetron HCl (Ondansetron Hcl/Pf 4 Mg/2 Ml Sdv) 4 mg IVP Q6H PRN PRN Reason: Nausea / Vomiting Pravastatin Sodium (Pravastatin Sodium 40 Mg Tablet) 40 mg PO BEDTIME [facility] Sacubitril/Valsartan (Sacubitril/Valsartan 1 Each Tablet) 2 each PO BID [facility] Sodium Chloride (0.9% Sodium Chloride 10 Ml Disp.Syrin) 1 syr IVF PRN PRN PRN Reason: To flush IV Discontinued Medications Albuterol/Ipratropium (Ipratropium/Albuterol Vial.Neb) 3 ml NEB ONCE STA Stop: 12/07/22 22:26 Last Admin: 12/07/22 23:18 Dose: 3 ml Furosemide (Furosemide Inj 20 Mg/2 Ml Vial) 20 mg IVP ONCE STA Stop: 12/07/22 23:29 Last Admin: 12/07/22 23:34 Dose: 20 mg Review of Systems Constitutional: Denies Weakness Head: Reports Normocephalic and Atraumatic Eyes: Denies Vision Changes Throat: Denies Sore Throat or Difficulty Swallowing Cardiovascular: Reports Orthopnea and Edema; Denies Chest pain or Chest Pressure Respiratory: Reports Shortness of air; Denies Cough Gastrointestinal: Denies Nausea, Vomiting, Diarrhea or Abdominal pain Neurological: Denies Headache or Syncope Physical examination Most Recent Vital Signs: Most Recent Vital Signs Temperature 97.1 F L 12/08/22 05:48 Temperature Source Temporal Artery Scan 12/08/22 05:48 Temperature Source Oral 12/08/22 00:20 Pulse Rate 71 12/08/22 05:48 Respiratory Rate 20 12/08/22 05:48 Blood Pressure 129/86 12/08/22 05:48 Blood Pressure Mean 100 12/08/22 05:48 Blood Pressure Left Arm 135/93 12/08/22 00:28 Blood Pressure Location Left Arm 12/08/22 05:48 Blood Pressure Position Supine 12/08/22 05:48 O2 Sat by Pulse Oximetry 100 12/08/22 05:48 Oxygen Delivery Method Room Air 12/08/22 05:48 Height 6 ft 5 in 12/08/22 00:28 Weight 239 lb 12/08/22 05:54 Telemetry Type Remote Telemetry 12/08/22 07:00 Telemetry Monitoring Continues 12/08/22 07:00 Telemetry Heart Rate 62 12/08/22 07:00 EKG VA Interval 0.19 12/08/22 07:00 EKG QRS Interval 0.16 H 12/08/22 07:00 Telemetry Strip Reading SR w/ bbb 12/08/22 07:00 Appearance: Positive Well-appearing, Well-nourished, No Apparent Distress and Alert and Oriented x3 Skin: Positive [place], Warm and Good Turgor; Negative Rashes HEENT: Positive Normocephalic and Atraumatic Chest/Lungs: Positive Clear to Auscultation Bilaterally; Negative Rales, Rhonci or Wheezes Heart: Positive RRR GI/: Positive Soft, Nontender, Bowel Sounds Normal and No Distention Musculoskeletal: Negative Tenderness Extremities: Positive Edema (2+ pitting edema to knees kaiden ) Neurological: Positive Alert, Oriented and Muscle Strength 5/5 in Upper and Lower Extremities Bilaterally Psychiatric: Positive Oriented x4, Appropriate Mood and Appropriate Affect Labs This Visit Labs This Visit: Labs This Visit 12/07/22 12/07/22 12/07/22 22:25 22:40 Unknown WBC 7.42 RBC 4.01 L Hgb 11.8 L Hct 38.5 L MCV 96.0 H MCH 29.4 MCHC 30.6 L RDW Coeff of Dimple 15.0 H Plt Count 220 Immature Gran % (Auto) 0.1 Neut % (Auto) 74.0 Lymph % (Auto) 14.7 [place] % (Auto) 5.7 Eos % (Auto) 4.7 Baso % (Auto) 0.8 Neut # (Auto) 5.5 Lymph # (Auto) 1.1 [place] # (Auto) 0.4 Eos # (Auto) 0.4 Baso # (Auto) 0.1 Immature Gran # (Auto) 0.0 Puncture Site rr Base Excess -1.1 O2 Saturation 94.9 ABG pH 7.43 ABG pCO2 35.0 ABG pO2 73.0 L ABG HCO3 23.2 ABG Total CO2 24.3 H Josafat Test pos Hemoglobin 1.5 Oxyhemoglobin 92.9 L Carboxyhemoglobin 2.1 H Total Hemoglobin 12.1 FiO2 % 21.0 Sodium 144.4 Potassium 4.20 Chloride 113.3 H Carbon Dioxide 22.4 Anion Gap 12.90 BUN 18.1 Creatinine 1.53 H Estimated GFR (MDRD) 55.00 BUN/Creatinine Ratio 11.83 Glucose 122.2 H Lactic Acid 1.39 Calcium 8.43 Total Bilirubin 1.76 H AST 36.2 ALT 48.5 Alkaline Phosphatase 67.4 Total Creatine Kinase 195.6 H CK-MB (CK-2) 3.420 H CK-MB (CK-2) % 1.7400 Troponin I 0.013 NT-Pro-B Natriuret Pep 5900 H Total Protein 5.69 L Albumin 3.41 L Globulin 2.28 Albumin/Globulin Ratio 1.49 Procalcitonin 0.06 H SARS CoV-2 RNA Rapid CAL Negative 12/08/22 04:45 WBC 7.46 RBC 4.14 L Hgb 12.2 L Hct 40.3 L MCV 97.3 H MCH 29.5 MCHC 30.3 L RDW Coeff of Dimple 15.0 H Plt Count 224 Immature Gran % (Auto) 0.3 Neut % (Auto) 70.0 Lymph % (Auto) 17.2 [place] % (Auto) 6.2 Eos % (Auto) 5.5 Baso % (Auto) 0.8 Neut # (Auto) 5.2 Lymph # (Auto) 1.3 [place] # (Auto) 0.5 Eos # (Auto) 0.4 Baso # (Auto) 0.1 Immature Gran # (Auto) 0.0 Puncture Site Base Excess O2 Saturation ABG pH ABG pCO2 ABG pO2 ABG HCO3 ABG Total CO2 Josafat Test Hemoglobin Oxyhemoglobin Carboxyhemoglobin Total Hemoglobin FiO2 % Sodium 142.0 Potassium 4.40 Chloride 108.0 H Carbon Dioxide 27.0 Anion Gap 11.40 BUN 17.0 Creatinine 1.60 H Estimated GFR (MDRD) 53.00 BUN/Creatinine Ratio 10.62 Glucose 94.0 Lactic Acid Calcium 8.40 Total Bilirubin AST ALT Alkaline Phosphatase Total Creatine Kinase CK-MB (CK-2) CK-MB (CK-2) % Troponin I NT-Pro-B Natriuret Pep Total Protein Albumin Globulin Albumin/Globulin Ratio Procalcitonin SARS CoV-2 RNA Rapid CAL Imaging Imaging: EXAM: CHEST ONE-VIEW History: Shortness of breath FINDINGS: Cardiac silhouette is enlarged. Pulmonary vasculature is normal. The lungs are clear. Minor atherosclerotic calcification of the aorta. No acute chest wall abnormality. Impression: Cardiomegaly without acute cardiopulmonary disease Review Statement Review Statement: I have independently reviewed and interpreted the labs/EKGs/imaging that were ordered by the ER provider. I have reviewed all outside records that are available currently in our EMR including imaging/notes/labs from previous visits. Plan Plan: 1. Acute systolic HF exacerbation - Lasix 20 q8hrs, will see what patient's normal home dose is and adjust accordingly. Echo today. Will restart home meds once verified with pharmacy. It appears he was on entresto, spironolactone, lasix, carvedilol. Will consider adding jardiance if he's not on it. Daily weight, I&O, low sodium diet. 2. Medical noncompliance - Pt will need a new pcp and a cardiology referral. 3. Hypertension - Continue home meds 4. Hyperlipidemia - Continue home meds 5. GERD - Continue home meds DVT Prophylaxis: Lovenox Time Spent: Greater than 80 minutes spent with patient, 50% of the time spent with this patient was devoted to counseling and coordination of care. Advanced Care Planning: FULL CODE 3 minutes spent discussing advance care planning. Admit to: Obs Discussed Plan of Care with Dr. Juan A Allison. Medications Medication Orders: Medications Ordered Category Date Time Status 0.9 % Sodium Chloride [Saline Flush] Meds 12/07/22 22:25 Active 1 syr IVF PRN PRN Enoxaparin Sodium [Lovenox] Meds 12/08/22 09:00 Active 30 mg SUBCUT DAILY Furosemide [Lasix] Meds 12/07/22 23:45 Active 20 mg IVP Q8H Ondansetron HCl/Pf [Zofran 4 mg/2 ml] Meds 12/07/22 23:48 Active 4 mg IVP Q6H PRN
[2022-12-08] MEDS: ASPIRIN EC PO SCH (12:31)
[2022-12-08] MEDS: SORBITRATE PO SCH ×3 (12:32→22:03)
[2022-12-08] MEDS: COREG PO SCH ×2 (12:32→18:06)
--- NOTE | 2022-12-08 14:37 | ECHO2D ---
Date of Exam: 12/08/2022 Ordering Physician: HOSPITALISTCARMENZA / DR. HERNANDEZ Room #: 117 Reason for Echo: CONGESTIVE HEART FAILURE, HYPERTENSION M-Mode Normal Adult Results LV Dimensions Normal Adult Results AoV Opening excursions >1.6 >1.6 LVEDD-base- 3.5-5.8 7.6 Ao root dimensions 2.0-3.7 3.5 LVESD-base- 3.1-4.6 L. Atrium dimensions 1.9-3.8 6.8 Post. Wall thickness 0.8-1.1 1.4 IV septum (thickness) 0.7-1.2 1.5 Post. Wall excursion 0.72-1.3 0.9 Septal motion 0.2 Systolic motion R. Ventricular cavity 1.5-2.0 3.5 LVEF 60% 39% Paradoxical septal wall motion NORMAL 2D: DILATED LEFT ATRIAL, RIGHT ATRIAL, RIGHT VENTRICLE, AND LEFT VENTRICLE CAVITIES. HYPOKINETIC LEFT VENTRICLE ESPECIALLY SEPTAL WALL. NO EFFUSION, NO THROMBUS, VALVES NORMAL COLOR FLOW: MODERATE TO SEVERE MITRAL REGURGITATION. MILD TO MODERATE TRICUSPID REGURGITATION. M-MODE: MV: NORMAL AV: NORMAL TV: NORMAL PV: NORMAL CHAMBER SIZE: ENLARGED RIGHT VENTRICLE, LEFT VENTRICLE, LEFT ATRIAL, AND RIGHT ATRIAL CAVITIES. WALL MOTION:HYPOKINETIC LEFT VENTRICLE ESPECIALLY SEPTAL WALL. PERICARDIUM: NORMAL INTERPRETATION: 1. LEFT VENTRICULAR HYPERTROPHY. 2. ENLARGED LEFT VENTRICLE, RIGHT VENTRICLE, RIGHT ATRIAL, AND LEFT ATRIAL CAVITIES. 3. HYPOKINETIC LEFT VENTRICLE ESPECIALLY SEPTAL WALL, EJECTION FRACTION 38% 4. MODERATE TO SEVERE MITRAL REGURGITATION, MILD TO MODERATE TRICUSPID REGURGITATION. 5. REMARKABLE DETERIORATION OF ECHOCARDIOGRAPHIC FINDINGS FROM 12/18/2021 [facility]
[2022-12-08] MEDS ORDERED: PRAVACHOL PO SCH (21:00)
[2022-12-08] MEDS: ENTRESTO 24 MG-26 MG TABLET PO SCH (22:02)
[2022-12-09] MEDS: LASIX IVP SCH ×2 (00:13→08:51)
[2022-12-09 05:28] LABS: BASOPHILS # (AUTO) 0.1 K/uL (0-0.2); BASOPHILS % (AUTO) 0.7 % (0.0-3.0); EOSINOPHILS # (AUTO) 0.7 K/ul (0.0-0.7); EOSINOPHILS % (AUTO) 7.7 % (0.0-7.0); HEMATOCRIT 43.2 % (42.0-52.0); IMMATURE GRANULOCYTE % (AUTO) 0.4 % (0.0-5.0); LYMPHOCYTES # (AUTO) 1.3 K/uL (0.60-3.4); LYMPHOCYTES % (AUTO) 14.9 (10.0-50.0); MEAN CORPUSCULAR HEMOGLOBIN 28.8 pg (27.0-31.0); MEAN CORPUSCULAR HGB CONC 30.1 (31.8-35.4); MEAN CORPUSCULAR VOLUME 95.6 fl (80.0-94.0); MONOCYTES # (AUTO) 0.5 K/uL (0.4-2.0); MONOCYTES % (AUTO) 5.7 (0-10); NEUTROPHILS % (AUTO) 70.6 % (42.2-75.2); PLATELET COUNT 240 10^3/uL (140-440); RDW COEFFICIENT OF VARIATION 14.6 % (11.6-14.8); RED BLOOD COUNT 4.52 10^6/ul (4.70-6.10); WHITE BLOOD COUNT 8.47 K/ul (4.2-10.2)
[2022-12-09 05:43] LABS: BLOOD UREA NITROGEN 19.8 mg/dL (9-20); CALCIUM 8.58 mg/dL (8.4-10.2); CHLORIDE 103.3 mmol/L (98-107); CREATININE 1.37 mg/dL (0.60-1.10); GLUCOSE 106.4 mg/dL (74-106); POTASSIUM 3.85 mmol/L (3.5-5.1); SODIUM 140.4 mmol/L (134.5-145)
[2022-12-09] MEDS: SORBITRATE PO SCH (08:50)
[2022-12-09] MEDS: ASPIRIN EC PO SCH (08:50)
[2022-12-09] MEDS: COREG PO SCH (08:50)
[2022-12-09] MEDS: ENTRESTO 24 MG-26 MG TABLET PO SCH (08:50)
[2022-12-09] MEDS: LOVENOX SUBCUT SCH (08:51)
[2022-12-09 10:24] VITALS: RESP 12; TEMP 97.6
[2022-12-09] MEDS ORDERED: TYLENOL PO ONE (10:34)
[2022-12-09 10:40] VITALS: BP 121/85; PULSE 86
--- NOTE | 2022-12-09 10:43 | DCSUM ---
Admission Date Admission Date: 12/07/22 Discharge Date Discharge Date: 12/09/22 Admission Diagnosis Admission Diagnosis: 1. Acute systolic heart failure exacerbation Discharge Diagnosis Discharge Diagnosis: 1. Acute systolic HF exacerbation, improved 2. Medical noncompliance 3. Hypertension 4. Hyperlipidemia 5. GERD Hospital Provider Hospital Provider: CARMENZA KEANE PA-C, [facility] Summary of History and Physical Summary of History and Physical: Patient is a 67-year-old male with past medical history of systolic heart failure, cardiomyopathy, hypertension who presented to the ER with ongoing shortness of breath for the past week. He has been out of his medications for the past month. He has told nursing staff 3 months. He was fired from his PCP office due to missing appointments. He has a history of being noncompliant. He complains of shortness of breath and lower extremity swelling. This is progressively been getting worse. BNP was 5900, creatinine 1.6. Chest x-ray sh owed cardiomegaly. Patient is on room air. Patient has not had an echo in about a year. In April 2021 his EF was 20 to 25%, repeat echo in November 2021 showed an improved EF of 45%. He was given Lasix overnight. He is feeling somewhat better this morning but still short of breath. He states that he has been moving houses and has not been settled in to get medications and he needs all new prescriptions. Hospital Course Subjective: Patient has not been taking medications since 2021 per his pharmacy. He was restarted on all his home medications including systolic heart failure regimen. His echo showed a decrease in EF to 38%. Results as below. He was set up with a new PCP and scheduled an apt with [facility], who he has seen in the past as well. Patient was given lasix IV and diuresed over 5L out and is down 8 lbs. Peripheral swelling improved. He required oxygen overnight, hypoxic to 88% but likely due to SPARK[place]. He hasn't required O2 any other time. Recommend outpatient sleep study. Pt did not qualify for O2 with 3 step test here. All new scripts sent in for 1 month supply to [facility], started on low dose entresto since he has not taken that in several months. Pt's BP has tolerated restarting his meds well so far. Recommend repeat BMP at PCP follow up. Appearance: Pleasant, No Apparent Distress and Alert HEENT: MMM and Supple CVS: No Murmur Abdomen: Soft, Non-Tender and No Distention Respiratory: No Dyspnea Extremities: Other (+1+ pitting edema kaiden lower ext, improved ) Vital Signs: Most Recent Vital Signs Temperature 97.6 F 12/09/22 10:00 Temperature Source Oral 12/09/22 10:00 Temperature Source Oral 12/08/22 00:20 Pulse Rate 86 12/09/22 10:00 Respiratory Rate 12 12/09/22 10:00 Blood Pressure 121/85 12/09/22 10:00 Blood Pressure Mean 97 12/09/22 10:00 Blood Pressure Left Arm 135/93 12/08/22 00:28 Blood Pressure Location Right Arm 12/09/22 10:00 Blood Pressure Position Supine 12/09/22 10:00 O2 Sat by Pulse Oximetry 98 12/09/22 10:00 Oxygen Delivery Method Nasal Cannula 12/09/22 10:00 Oxygen Flow Rate 2 12/09/22 10:00 Fraction of Inspired Oxygen (FIO2) 1 12/09/22 08:50 Height 6 ft 5 in 12/08/22 00:28 Weight 232 lb 3.2 oz 12/09/22 05:13 Telemetry Type Remote Telemetry 12/09/22 07:00 Telemetry Monitoring Continues 12/09/22 07:00 Telemetry Heart Rate 60 12/09/22 07:00 EKG CO Interval 0.24 H 12/09/22 07:00 EKG QRS Interval 0.12 H 12/09/22 07:00 EKG QT Interval 0.45 H 12/09/22 01:00 Telemetry Strip Reading 1st Degree AVB and BBB with PVC's 12/09/22 07:00 Imaging: EXAM: CHEST ONE-VIEW History: Shortness of breath FINDINGS: Cardiac silhouette is enlarged. Pulmonary vasculature is normal. The lungs are clear. Minor atherosclerotic calcification of the aorta. No acute chest wall abnormality. Impression: Cardiomegaly without acute cardiopulmonary disease Date of Exam: 12/08/2022Ordering Physician: HOSPITALIST, CARMENZA KEANE / DR. HERNANDEZ Room #: 117 Reason for Echo: CONGESTIVE HEART FAILURE, HYPERTENSION M-Mode Normal Adult Results LV Dimensions Normal Adult Results AoV Opening excursions >1.6 >1.6 LVEDD-base- 3.5-5.8 7.6 Ao root dimensions 2.0-3.7 3.5 LVESD-base- 3.1-4.6 L. Atrium dimensions 1.9-3.8 6.8 Post. Wall thickness 0.8-1.1 1.4 IV septum (thickness) 0.7-1.2 1.5 Post. Wall excursion 0.72-1.3 0.9 Septal motion 0.2 Systolic motion R. Ventricular cavity 1.5-2.0 3.5 LVEF 60% 39% Paradoxical septal wall motion NORMAL 2D: DILATED LEFT ATRIAL, RIGHT ATRIAL, RIGHT VENTRICLE, AND LEFT VENTRICLE CAVITIES. HYPOKINETIC LEFT VENTRICLE ESPECIALLY SEPTAL WALL. NO EFFUSION, NO THROMBUS, VALVES NORMAL COLOR FLOW: MODERATE TO SEVERE MITRAL REGURGITATION. MILD TO MODERATE TRICUSPID REGURGITATION. M-MODE: MV: NORMAL AV: NORMAL TV: NORMAL PV: NORMAL CHAMBER SIZE: ENLARGED RIGHT VENTRICLE, LEFT VENTRICLE, LEFT ATRIAL, AND RIGHT ATRIAL CAVITIES. WALL MOTION:HYPOKINETIC LEFT VENTRICLE ESPECIALLY SEPTAL WALL. PERICARDIUM: NORMAL INTERPRETATION: 1. LEFT VENTRICULAR HYPERTROPHY. 2. ENLARGED LEFT VENTRICLE, RIGHT VENTRICLE, RIGHT ATRIAL, AND LEFT ATRIAL CAVITIES. 3. HYPOKINETIC LEFT VENTRICLE ESPECIALLY SEPTAL WALL, EJECTION FRACTION 38% 4. MODERATE TO SEVERE MITRAL REGURGITATION, MILD TO MODERATE TRICUSPID REGURGITATION. 5. REMARKABLE DETERIORATION OF ECHOCARDIOGRAPHIC FINDINGS FROM 12/18/2021 Lab Results Last 24 Hours: 12/09/22 05:12 WBC 8.47 RBC 4.52 L Hgb 13.0 L Hct 43.2 MCV 95.6 H MCH 28.8 MCHC 30.1 L RDW Coeff of Dimple 14.6 Plt Count 240 Immature Gran % (Auto) 0.4 Neut % (Auto) 70.6 Lymph % (Auto) 14.9 [place] % (Auto) 5.7 Eos % (Auto) 7.7 H Baso % (Auto) 0.7 Neut # (Auto) 6.0 Lymph # (Auto) 1.3 [place] # (Auto) 0.5 Eos # (Auto) 0.7 Baso # (Auto) 0.1 Immature Gran # (Auto) 0.0 Sodium 140.4 Potassium 3.85 Chloride 103.3 Carbon Dioxide 31.0 H Anion Gap 9.95 BUN 19.8 Creatinine 1.37 H Estimated GFR (MDRD) 63.00 BUN/Creatinine Ratio 14.45 Glucose 106.4 H Calcium 8.58 Discharge Instructions Discharge Planning: Discharge Planning > 70 minutes If patient is discharged with left ventricular systolic dysfunction: Discharged with a beta bibiana? Yes Discharged with an sarah/arb? Yes Discharge Medications: Medications at Discharge (Home Meds & RX) magnesium oxide 400 mg PO QDAY 10/03/21 albuterol sulfate 90 mcg/actuation aerosol inhaler 2 puff inhalation QID PRN shortness of breath or wheezing #6.7 grams 12/09/22 aspirin 81 mg tablet,delayed release (Adult Aspirin Regimen) 81 mg PO DAILY #30 tabs 12/09/22 carvedilol 6.25 mg tablet 6.25 mg PO BIDWM #60 tabs 12/09/22 empagliflozin 10 mg tablet (Jardiance) 10 mg PO DAILY #30 tabs 12/09/22 furosemide 20 mg tablet (Lasix) 20 mg PO DAILY #30 tabs 12/09/22 isosorbide dinitrate 5 mg tablet 5 mg PO TID #90 tabs 12/09/22 pravastatin 40 mg tablet 40 mg PO BEDTIME #30 tabs 12/09/22 sacubitril 24 mg-valsartan 26 mg tablet (Entresto) 1 tab PO BID HEART FAILURE #60 tabs 12/09/22 spironolactone 25 mg tablet 25 mg PO QDAY #30 tabs 12/09/22 Discharge Plan Discharge Discharge Orders: Discharge Patient (ONCE); Ordered 12/09/22 Ordered By: CARMENZA KEANE Activity Restrictions/Additional Instructions: DISCHARGE TO HOME F/U WITH PCP AND CARDIOLOGY SCHEDULED ALL NEW PRESCRIPTIONS SENT TO [facility], SEE Primary Care Provider FOR REFILLS. STOP TAKIN. CLONIDINE 0.2MG. 2. ENTRESTO 49-51 3. HYDRALAZINE 10MG. YOU HAVE NEW DOSAGE OF ENTRESTO 24-26 TWICE A DAY; AND JARDIANCE 10MG. ONCE A DAY CONTINUE OTHER MEDICATIONS INDICATED ON NURSING SUMMARY IT IS VERY IMPORTANT THAT YOU TAKE ALL YOUR MEDICATIONS PRESCRIBED DIAGNOSIS: ACUTE SYSTOLIC HEART FAILURE EXACERBATION DIET: LOW SODIUM ACTIVITY: TOLERATED YOU HAVE BEEN ESTABLISHED WITH [facility] FOR YOUR PRIMARY CARE, YOU HAVE A HOSPITAL FOLLOW UP/NEW PATIENT APPOINTMENT SCHEDULED FOR AT 3:15PM. SHOULD YOU HAVE ANY QUESTIONS OR NEED TO RESCHEDULE YOU CAN CONTACT THEIR OFFICE AT [phone]. YOU HAVE AN APPOINTMENT WITH YOUR MOBI[facility] HOME [facility]ER, [facility], IN [facility] ON January AT 11AM. SHOULD YOU HAVE ANY QUESTIONS OR NEED TO RESCHEDULE YOU CAN CONTACT THEIR OFFICE AT [phone]. Instructions: Heart Failure (GEN), Low-Sodium Diet (DC) Patient Disposition: HOME SELF-CARE Prescriptions: New Entresto 24-26 mg tablet 1 tab PO BID Qty: 60 0RF Jardiance 10 mg tablet 10 mg PO DAILY Qty: 30 0RF Continued carvedilol 6.25 mg tablet 6.25 mg PO BIDWM Qty: 60 3RF pravastatin 40 mg tablet 40 mg PO BEDTIME Qty: 30 0RF aspirin [Adult Aspirin Regimen] 81 mg tablet,delayed release (DR/EC) 81 mg PO DAILY Qty: 30 0RF spironolactone 25 mg tablet 25 mg PO QDAY Qty: 30 0RF furosemide [Lasix] 20 mg tablet 20 mg PO DAILY Qty: 30 0RF albuterol sulfate 90 mcg/actuation HFA aerosol inhaler 2 puff inhalation QID PRN (Reason: shortness of breath or wheezing) Qty: 6.7 0RF isosorbide dinitrate 5 mg tablet 5 mg PO TID Qty: 90 0RF Rx Instructions: allow nitrate-free interval of 12-14 hrs per 24-hr period magnesium oxide 400 mg magnesium capsule 400 mg PO QDAY Discontinued clonidine HCl 0.2 mg tablet 0.2 mg PO BID Qty: 20 0RF hydralazine 10 mg tablet 10 mg PO TID Entresto 49-51 mg tablet 1 tab PO BID Qty: 180 1RF Did you review [place] [employer]IST for ALL controlled substances?: Not Applicable Discussed opioids are addictive and Narcan is available by prescription or from pharmacy.: No Condition: Stable
[2022-12-12 14:19] LABS: AEROBIC + ANAEROB SUSC Final report (.); BACTERIA IDENTIFICATION Final report (.)
== END 2022-12-09 13:35 | disposition home or self-care (01) ==
LOC: ED 21:53 → MEDSURG B 21:53
PROVIDERS: ADMIT Hospitalist; ATTEND Physician Assistant

== ENCOUNTER 2023-02-02 13:58 | Observation (INO) ==
--- NOTE | 2023-02-02 15:45 | DI ---
EXAM: CHEST RADIOGRAPH TECHNIQUE: Single frontal chest radiograph. HISTORY: Exertional dyspnea. Leg edema. Coronary artery disease. COMPARISON: 12/07/2022. FINDINGS: The lungs are clear. The heart is enlarged. There is calcification in the aorta consistent with atherosclerosis. There is no pleural effusion. There is no pneumothorax. IMPRESSION: 1. Cardiomegaly and atherosclerosis. 2. Otherwise unremarkable chest radiograph.
--- NOTE | 2023-02-02 15:46 | ED.PDOC ---
General ED Provider: Dr. MICHAEL HALL Chief Complaint: Respiratory Complaint Stated Complaint: See above Time Seen by Provider: 02/02/23 14:32 Information Source: Patient Primary Care Provider: CORAL HERNANDEZ MD Nursing and Triage Documentation Reviewed and Agree: Yes (unless otherwise noted in my documentation.) Review of Systems Review Of Systems Constitutional: Reports Other (documented below) All Other Systems: Other (documented below) [facility] Medical History Arthritis M19.90 - Unspecified osteoarthritis, unspecified site (ICD-10) Hypertension I10 - Essential (primary) hypertension (ICD-10) Prostate CA C61 - Malignant neoplasm of prostate (ICD-10) Tobacco use Z72.0 - Tobacco use (ICD-10) Uncontrolled hypertension I10 - Essential (primary) hypertension (ICD-10) Family History Mother Hypertension FATHER Alcoholism and drug addiction in family Hypertension Social History Smoking and tobacco status: Former smoker Alcohol intake: never Substance use type: does not use Physical Exam Physical Exam Appearance: Reports Other (documented below if examined) Ill-appearing: Not Applicable (documented below if examined) Pain Distress: Not Applicable (documented below if examined) Eyes: Reports Other (documented below if examined) ENT: Reports Other (documented below if examined) Neck: Not Examined (documented below if examined) Respiratory: Reports Other (documented below if examined) Cardiovascular: Reports Other (documented below if examined) GI/: Reports Other (documented below if examined) Musculoskeletal: Reports Other (documented below if examined) Skin: Reports Other (documented below if examined) Neurological: Reports Other (documented below if examined) Psychiatric: Reports Other (documented below if examined) Critical Care Note Critical Care Note Total Critical Care Time (mins): 0 Course Course 02/02/23 15:40 02/02/23 15:36 Orders, Labs, Meds: Lab Review 02/02/23 02/02/23 02/02/23 15:16 15:36 15:40 WBC 6.28 RBC 4.61 L Hgb 13.1 L Hct 43.4 MCV 94.1 H MCH 28.4 MCHC 30.2 L RDW Coeff of Dimple 14.8 Plt Count 188 Immature Gran % (Auto) 0.2 Neut % (Auto) 75.1 Lymph % (Auto) 13.7 [place] % (Auto) 5.3 Eos % (Auto) 4.9 Baso % (Auto) 0.8 Neut # (Auto) 4.7 Lymph # (Auto) 0.9 [place] # (Auto) 0.3 L Eos # (Auto) 0.3 Baso # (Auto) 0.1 Immature Gran # (Auto) 0.0 Sodium 139.4 Potassium 4.45 Chloride 107.2 H Carbon Dioxide 25.4 Anion Gap 11.25 BUN 16.4 Creatinine 1.23 H Estimated GFR (MDRD) 71.00 BUN/Creatinine Ratio 13.33 Glucose 90.6 Calcium 8.59 Magnesium 1.91 Total Bilirubin 1.56 H AST 34.6 ALT 32.1 Alkaline Phosphatase 67.5 Troponin I 0.017 NT-Pro-B Natriuret Pep 5670 H Total Protein 6.68 Albumin 3.86 Globulin 2.82 Albumin/Globulin Ratio 1.36 Urine Color Urine Clarity Urine pH Ur Specific [place] Urine Protein Urine Glucose (UA) Urine Ketones Urine Blood Urine Nitrite Urine Bilirubin Urine Urobilinogen Ur Leukocyte Esterase Urine Opiates Screen Ur Oxycodone Screen Urine Methadone Screen Ur Barbiturates Screen U Tricyclic Antidepress Ur Phencyclidine Scrn Ur Amphetamine Screen U Methamphetamines Scrn U Benzodiazepines Scrn Urine Cocaine Screen U Cannabinoids Screen Influ A Molecular Assay Negative by naat Influ B Molecular Assay Negative by naat SARS CoV-2 RNA Rapid CAL Negative 02/02/23 17:55 WBC RBC Hgb Hct MCV MCH MCHC RDW Coeff of Dimple Plt Count Immature Gran % (Auto) Neut % (Auto) Lymph % (Auto) [place] % (Auto) Eos % (Auto) Baso % (Auto) Neut # (Auto) Lymph # (Auto) [place] # (Auto) Eos # (Auto) Baso # (Auto) Immature Gran # (Auto) Sodium Potassium Chloride Carbon Dioxide Anion Gap BUN Creatinine Estimated GFR (MDRD) BUN/Creatinine Ratio Glucose Calcium Magnesium Total Bilirubin AST ALT Alkaline Phosphatase Troponin I NT-Pro-B Natriuret Pep Total Protein Albumin Globulin Albumin/Globulin Ratio Urine Color Light Urine Clarity Clear Urine pH 6.0 Ur Specific [place] 1.015 Urine Protein Negative Urine Glucose (UA) Negative Urine Ketones Negative Urine Blood Negative Urine Nitrite Negative Urine Bilirubin Negative Urine Urobilinogen 0.2 Ur Leukocyte Esterase Negative Urine Opiates Screen Negative Ur Oxycodone Screen Negative Urine Methadone Screen Pending Ur Barbiturates Screen Negative U Tricyclic Antidepress Pending Ur Phencyclidine Scrn Negative Ur Amphetamine Screen Pending U Methamphetamines Scrn Negative U Benzodiazepines Scrn Pending Urine Cocaine Screen Positive H U Cannabinoids Screen Negative Influ A Molecular Assay Influ B Molecular Assay SARS CoV-2 RNA Rapid CAL Orders Category Date Time Status EKG-(ED ONLY) Stat CARDIO 02/02/23 15:10 Completed CBC W/ AUTO DIFF Stat LAB 02/02/23 15:40 Completed COMPREHENSIVE METABOLIC PANEL Stat LAB 02/02/23 15:36 Completed COVID [SARS COV-2 RNA RAPID CAL] Stat LAB 02/02/23 15:16 Completed DRUG SCREEN (RAPID FOR ED) [DRUG SCREEN, URINE, RAPID] LAB 02/02/23 17:55 Results Stat FLU A & B MOLECULAR [FLU A/B MOLECULAR] Stat LAB 02/02/23 15:16 Completed MAGNESIUM Stat LAB 02/02/23 15:36 Completed PROBNP ED [NT-PROBNP(ED)] Stat LAB 02/02/23 15:36 Completed TROPONIN I Stat LAB 02/02/23 15:36 Completed URINALYSIS C & S IF INDICATED Stat LAB 02/02/23 17:55 Completed Furosemide [Lasix] Meds 02/02/23 15:57 Discontinued 40 mg IVP ONCE STA CHEST, 1V AP ONLY Stat RADS 02/02/23 15:10 Completed Medications Discontinued Medications Generic Name Dose Route Start Last Admin Trade Name Freq PRN Reason Stop Dose Admin Furosemide 40 mg 02/02/23 15:57 02/02/23 16:36 Furosemide Inj 20 Mg/2 Ml Vial IVP 02/02/23 15:58 40 mg ONCE STA Administration Vital Signs: Temp Pulse Resp BP Pulse Ox 02/02/23 14:05 97.6 F 90 20 140/103 H 97 Discharge Plan Discharge Patient Disposition: PLACED OBSERVATION Discharge Problem: CHF (congestive heart failure) Prescriptions: No Action Entresto 24-26 mg tablet 1 tab PO BID Qty: 60 0RF carvedilol 6.25 mg tablet 6.25 mg PO BIDWM Qty: 60 3RF pravastatin 40 mg tablet 40 mg PO BEDTIME Qty: 30 0RF aspirin [Adult Aspirin Regimen] 81 mg tablet,delayed release (DR/EC) 81 mg PO DAILY Qty: 30 0RF spironolactone 25 mg tablet 25 mg PO QDAY Qty: 30 0RF furosemide [Lasix] 20 mg tablet 20 mg PO DAILY Qty: 30 0RF isosorbide dinitrate 5 mg tablet 5 mg PO TID Qty: 90 0RF Rx Instructions: allow nitrate-free interval of 12-14 hrs per 24-hr period Jardiance 10 mg tablet 10 mg PO DAILY Qty: 30 0RF baclofen 20 mg tablet 20 mg PO TID PRN (Reason: muscle spasm) Qty: 30 0RF ketorolac 10 mg tablet 10 mg PO Q6H PRN (Reason: pain) Qty: 10 0RF Did you review [place] [employer] for ALL controlled substances?: Not Applicable ED Provider: MICHAEL HALL Condition: Stable Physician Progress Note: Disclaimer: This note was dictated by speech recognition technology. Minor errors in senior firewall engineer may be present. Please call and notify me immediately for clarification or corrections. CC: Shortness of breath HPI: The patient is presenting today because for the last 2 weeks he has been having exertional dyspnea. He felt pain in his legs and noticed that his right leg is getting more swollen. He is having orthopnea as well. He said that he was told that he should have stents but he never had that done. 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 He does not recall when was his last echo. The problem list, allergies, current medications and pharmacy records were reviewed and updated. ROS is included above. PE: Vital signs reviewed as well as all nursing documentation. General: Awake, alert, mild distress, not toxic appearing Overall, the patient is atraumatic, has no deformities, has no focal deficits, has no inappropriate behavior. Respiratory: No distress but there is tachypnea and he speaks only 3 word sentences. Cardiac: no JVD, RRR, bilateral lower extremity pitting edema right more than left. MDM: All results and reports for tests that were done in the emergency department have been reviewed and considered in the planning and disposition process. DD: Upon presentation the differential diagnosis included: CHF, ACS, COPD exacerbation, Viral ARDS, PNA, Sepsis, PE. The leading diagnosis being CHF. Plan: Cardiac work-up was done as well as viral swabs. UA and UDS were ordered as well. Interpretation of tests: EKG was independently reviewed and interpreted and showed sinus rhythm, indeterminate axis, left bundle branch block, no signs of acute ischemic changes. Chest x-ray report was reviewed and there were no acute findings. There was significant cardiomegaly. The labs were unremarkable except for significantly elevated BNP. His urine drug screen was positive for cocaine. Further action: The patient was given 40 mg of Lasix and shortly after he was reevaluated and he said that he felt better. Discussed with the hospitalist who is familiar with him and accepted admission for observation.
[2023-02-02 15:51] LABS: BASOPHILS # (AUTO) 0.1 K/uL (0-0.2); BASOPHILS % (AUTO) 0.8 % (0.0-3.0); EOSINOPHILS # (AUTO) 0.3 K/ul (0.0-0.7); EOSINOPHILS % (AUTO) 4.9 % (0.0-7.0); HEMATOCRIT 43.4 % (42.0-52.0); HEMOGLOBIN 13.1 g/dl (14.0-18.0); IMMATURE GRANULOCYTE % (AUTO) 0.2 % (0.0-5.0); LYMPHOCYTES # (AUTO) 0.9 K/uL (0.60-3.4); LYMPHOCYTES % (AUTO) 13.7 (10.0-50.0); MEAN CORPUSCULAR HEMOGLOBIN 28.4 pg (27.0-31.0); MEAN CORPUSCULAR HGB CONC 30.2 (31.8-35.4); MEAN CORPUSCULAR VOLUME 94.1 fl (80.0-94.0); MONOCYTES # (AUTO) 0.3 K/uL (0.4-2.0); MONOCYTES % (AUTO) 5.3 (0-10); NEUTROPHILS # (AUTO) 4.7 K/ul (2.0-6.9); NEUTROPHILS % (AUTO) 75.1 % (42.2-75.2); PLATELET COUNT 188 10^3/uL (140-440); RDW COEFFICIENT OF VARIATION 14.8 % (11.6-14.8); RED BLOOD COUNT 4.61 10^6/ul (4.70-6.10); WHITE BLOOD COUNT 6.28 K/ul (4.2-10.2)
[2023-02-02] MEDS ORDERED: LASIX IVP STA (15:57)
[2023-02-02 16:05] LABS: MOLECULAR FLU A NEGATIVE BY NAAT (NEGATIVE); MOLECULAR FLU B NEGATIVE BY NAAT (NEGATIVE); SARS COV-2 RNA RAPID NAAT NEGATIVE (NEGATIVE)
[2023-02-02 16:05] LABS: ALANINE AMINOTRANSFERASE 32.1 U/L (0-50); ALBUMIN 3.86 g/dL (3.5-5.0); ALKALINE PHOSPHATASE 67.5 U/L (56-119); ASPARTATE AMINO TRANSFERASE 34.6 U/L (17-59); BILIRUBIN,TOTAL 1.56 mg/dL (0.2-1.3); BLOOD UREA NITROGEN 16.4 mg/dL (9-20); CALCIUM 8.59 mg/dL (8.4-10.2); CARBON DIOXIDE 25.4 mmol/L (22-30.0); CHLORIDE 107.2 mmol/L (98-107); CREATININE 1.23 mg/dL (0.60-1.10); GLUCOSE 90.6 mg/dL (74-106); MAGNESIUM 1.91 mg/dL (1.6-2.3); POTASSIUM 4.45 mmol/L (3.5-5.1); SODIUM 139.4 mmol/L (134.5-145); TOTAL PROTEIN 6.68 g/dL (6.3-8.2)
[2023-02-02 16:17] LABS: TROPONIN I 0.017 ng/ml (0.0000-0.120)
[2023-02-02 18:04] LABS: BILIRUBIN,URINE Negative (NEGATIVE); CLARITY,URINE Clear (CLEAR); COLOR,URINE Light (YELLOW); GLUCOSE, URINE (UA) Negative (NEGATIVE); KETONES,URINE Negative (NEGATIVE); LEUKOCYTE ESTERASE ,URINE Negative (NEGATIVE); NITRITE,URINE Negative (NEGATIVE); PROTEIN,URINE Negative (NEGATIVE); URINE, BLOOD Negative (NEGATIVE); UROBILINOGEN,URINE 0.2 (0.2)
[2023-02-02 18:25] LABS: BARBITURATE SCREEN,URINE NEGATIVE (NEGATIVE); CANNABINOID SCREEN,URINE NEGATIVE (NEGATIVE); COCAIN SCREEN,URINE POSITIVE (NEGATIVE); PHENCYCLIDINE SCREEN,URINE NEGATIVE (NEGATIVE)
[2023-02-02 18:26] LABS: OXYCODONE URINE SCREEN NEGATIVE (NEGATIVE)
[2023-02-02 18:29] LABS: METHAMPHETAMINES SCREEN,URINE NEGATIVE (NEGATIVE); OPIATE SCREEN,URINE NEGATIVE (NEGATIVE)
[2023-02-02 19:53] LABS: AMPHETAMINE SCREEN,URINE NEGATIVE (NEGATIVE); BENZODIAZEPINES SCREEN,URINE NEGATIVE (NEGATIVE); METHADONE URINE SCREEN NEGATIVE (NEGATIVE); TRICYCLIC ANTIDEPRESSANTS URIN NEGATIVE (NEGATIVE)
[2023-02-02] MEDS ORDERED: ZOFRAN 4 MG/2 ML IVP PRN (19:53)
[2023-02-02] MEDS ORDERED: TYLENOL PO PRN (19:53)
[2023-02-02] MEDS: LASIX IVP SCH ×3 (20:32→23:40)
[2023-02-02] MEDS: ENTRESTO 24 MG-26 MG TABLET PO SCH (20:37)
[2023-02-02] MEDS: PRAVACHOL PO SCH (20:37)
[2023-02-02] MEDS ORDERED: HYDRALAZINE HCL IVP PRN (21:07)
[2023-02-02 21:34] VITALS: BMI 26.7
[2023-02-03 05:32] LABS: BASOPHILS # (AUTO) 0.1 K/uL (0-0.2); BASOPHILS % (AUTO) 0.9 % (0.0-3.0); EOSINOPHILS # (AUTO) 0.5 K/ul (0.0-0.7); EOSINOPHILS % (AUTO) 6.8 % (0.0-7.0); HEMATOCRIT 44.1 % (42.0-52.0); HEMOGLOBIN 13.5 g/dl (14.0-18.0); IMMATURE GRANULOCYTE % (AUTO) 0.1 % (0.0-5.0); LYMPHOCYTES # (AUTO) 1.2 K/uL (0.60-3.4); LYMPHOCYTES % (AUTO) 16.3 (10.0-50.0); MEAN CORPUSCULAR HEMOGLOBIN 28.6 pg (27.0-31.0); MEAN CORPUSCULAR HGB CONC 30.6 (31.8-35.4); MEAN CORPUSCULAR VOLUME 93.4 fl (80.0-94.0); MONOCYTES # (AUTO) 0.5 K/uL (0.4-2.0); MONOCYTES % (AUTO) 6.4 (0-10); NEUTROPHILS # (AUTO) 5.2 K/ul (2.0-6.9); NEUTROPHILS % (AUTO) 69.5 % (42.2-75.2); PLATELET COUNT 208 10^3/uL (140-440); RDW COEFFICIENT OF VARIATION 14.6 % (11.6-14.8); RED BLOOD COUNT 4.72 10^6/ul (4.70-6.10); WHITE BLOOD COUNT 7.48 K/ul (4.2-10.2)
[2023-02-03] MEDS: LASIX IVP SCH ×3 (05:37→20:06)
[2023-02-03 05:49] LABS: ALANINE AMINOTRANSFERASE 27.8 U/L (0-50); ALBUMIN 3.35 g/dL (3.5-5.0); ALKALINE PHOSPHATASE 70.7 U/L (56-119); ASPARTATE AMINO TRANSFERASE 27.4 U/L (17-59); BILIRUBIN,TOTAL 1.78 mg/dL (0.2-1.3); BLOOD UREA NITROGEN 18.7 mg/dL (9-20); CALCIUM 8.2 mg/dL (8.4-10.2); CARBON DIOXIDE 28.4 mmol/L (22-30.0); CHLORIDE 105.4 mmol/L (98-107); CREATININE 1.16 mg/dL (0.60-1.10); GLUCOSE 97.1 mg/dL (74-106); POTASSIUM 3.95 mmol/L (3.5-5.1); TOTAL PROTEIN 5.88 g/dL (6.3-8.2)
[2023-02-03] MEDS: ENTRESTO 24 MG-26 MG TABLET PO SCH ×2 (08:25→20:05)
[2023-02-03] MEDS: JARDIANCE PO SCH (08:25)
--- NOTE | 2023-02-03 11:01 | PCM ---
Date of Service Date Seen by Provider: 02/03/23 Time Seen by Provider: 08:30 Admit Day/Time Admission Date: 02/02/23 Admission Time: 18:52 Reason for Admission Chief Complaint: CHF Hospital Provider Hospital Provider: CARMENZA KEANE PA-C, [facility] [place] Primary Care Physician: CORAL HERNANDEZ MD History of Present Illness History of Present Illness: Patient is a 67 year old male with systolic heart failure, cardiomyopathy, hypertension, hyperlipidemia who presented to ER with cc of sob and kaiden foot pain. He states he's been unable to take his medications for past 2 weeks because they are locked up in a storage unit and he cannot get to them. He missed his appointment with [facility]. He has a cardiology apt with [facility] on 02/09. He has had increased sob, worse with exertion and trying to sleep at night. He has had worsening swelling of lower ext. He states his feet hurt but he recently got new shoes. He tested positive for cocaine on UDS. He states his last use was 2 weeks ago "and he doesn't use it very often." In ER BNP was elevated, CXR showed cardiomegaly, otherwise normal. He was given lasix 40 mg IVP in ER. He was admitted to med/surg observation. Overnight patient diuresed about 3L. He is feeling better but still SOB and has some mild edema. He reportedly dropped into 70s during the night and 2L O2 was applied. Case Discussed With Case Discussed With: Patient's case was discussed with the ER Physicians, Dr. Hastings. [facility] Medical History Uncontrolled hypertension I10 - Essential (primary) hypertension (ICD-10) Prostate CA C61 - Malignant neoplasm of prostate (ICD-10) Tobacco use Z72.0 - Tobacco use (ICD-10) Hypertension I10 - Essential (primary) hypertension (ICD-10) Arthritis M19.90 - Unspecified osteoarthritis, unspecified site (ICD-10) Family History Mother Hypertension FATHER Alcoholism and drug addiction in family Hypertension Social History (Updated 02/03/23 @ 11:47 by CARMENZA COWSERT, PA-C) Smoking and tobacco status: Former smoker Tobacco: How many years used: 7 How long ago did patient quit smoking: Stopped smoking about 2 years ago Alcohol intake: never Substance use type: crack/cocaine Allergies Allergies Allergy/AdvReac Type Severity Reaction Status Date / Time NSAIDS (Non-Steroidal AdvReac Severe CHF Verified 12/25/22 18:25 Anti-Inflamma Current Medications Home Medications aspirin 81 mg tablet,delayed release (Adult Aspirin Regimen) 81 mg PO DAILY #30 tabs 12/09/22 [Rx Confirmed 02/02/23 Last Taken Unknown] carvedilol 6.25 mg tablet 6.25 mg PO BIDWM #60 tabs 12/09/22 [Rx Confirmed 02/02/23 Last Taken Unknown] empagliflozin 10 mg tablet (Jardiance) 10 mg PO DAILY #30 tabs 12/09/22 [Rx Confirmed 02/02/23 Last Taken Unknown] furosemide 20 mg tablet (Lasix) 20 mg PO DAILY #30 tabs 12/09/22 [Rx Confirmed 02/02/23 Last Taken Unknown] isosorbide dinitrate 5 mg tablet 5 mg PO TID #90 tabs 12/09/22 [Rx Confirmed 02/02/23 Last Taken Unknown] pravastatin 40 mg tablet 40 mg PO BEDTIME #30 tabs 12/09/22 [Rx Confirmed 02/02/23 Last Taken Unknown] sacubitril 24 mg-valsartan 26 mg tablet (Entresto) 1 tab PO BID HEART FAILURE #60 tabs 12/09/22 [Rx Confirmed 02/02/23 Last Taken Unknown] spironolactone 25 mg tablet 25 mg PO QDAY #30 tabs 12/09/22 [Rx Confirmed 02/02/23 Last Taken Unknown] baclofen 20 mg tablet 20 mg PO TID PRN muscle spasm #30 tabs 12/25/22 [Rx Confirmed 02/02/23 Last Taken Unknown] ketorolac 10 mg tablet 10 mg PO Q6H PRN pain #10 tabs 12/25/22 [Rx Confirmed 02/02/23 Last Taken Unknown] Home Acetaminophen (Acetaminophen 325 Mg Tablet) 650 mg PO Q4H PRN PRN Reason: Mild Pain Aspirin (Aspirin 81 Mg Tablet.) 81 mg PO DAILY JOSE RAUL Empagliflozin (Empagliflozin 10 Mg Tablet) 10 mg PO DAILY [facility] Last Admin: 02/03/23 08:25 Dose: 10 mg Furosemide (Furosemide Inj 20 Mg/2 Ml Vial) 20 mg IVP Q8HR [facility] Last Admin: 02/03/23 05:37 Dose: 20 mg Hydralazine HCl (Hydralazine Hcl 20 Mg/Ml Sdv) 10 mg IVP Q6H PRN PRN Reason: Hypertension Isosorbide Dinitrate (Isosorbide Dinitrate 20 Mg Tablet) 5 mg PO TID [facility] Ondansetron HCl (Ondansetron Hcl/Pf 4 Mg/2 Ml Sdv) 4 mg IVP Q6H PRN PRN Reason: Nausea / Vomiting Pravastatin Sodium (Pravastatin Sodium 40 Mg Tablet) 40 mg PO BEDTIME [facility] Last Admin: 02/02/23 20:37 Dose: 40 mg Sacubitril/Valsartan (Sacubitril/Valsartan 1 Each Tablet) 1 each PO BID [facility] Last Admin: 02/03/23 08:25 Dose: 1 each Sodium Chloride (0.9% Sodium Chloride 10 Ml Disp.Syrin) 1 syr IVF Q8HR [facility] Last Admin: 02/03/23 05:37 Dose: 1 syr Spironolactone (Spironolactone 25 Mg Tablet) 25 mg PO DAILY [facility] Discontinued Medications Furosemide (Furosemide Inj 20 Mg/2 Ml Vial) 40 mg IVP ONCE STA Stop: 02/02/23 15:58 Last Admin: 02/02/23 16:36 Dose: 40 mg Furosemide (Furosemide Inj 20 Mg/2 Ml Vial) 20 mg IVP Q8HR [facility] Last Admin: 02/02/23 20:33 Dose: Not Given Review of Systems Constitutional: Denies Fever, Fatigue or Weakness Head: Reports Normocephalic and Atraumatic Cardiovascular: Reports Orthopnea and Edema; Denies Chest pain or Chest Pressure Respiratory: Reports Shortness of air; Denies Cough Gastrointestinal: Denies Nausea, Vomiting, Diarrhea, Abdominal pain or Melena Genitourinary: Denies Dysuria, Hematuria or Frequency Dermatologic: Denies Rashes Neurological: Denies Syncope or Weakness Physical examination Most Recent Vital Signs: Most Recent Vital Signs Temperature 98.4 F 02/03/23 10:00 Temperature Source Oral 02/03/23 05:32 Temperature Source Infrared 02/02/23 14:05 Pulse Rate 70 02/03/23 10:00 Respiratory Rate 16 02/03/23 10:00 Blood Pressure 124/80 02/03/23 10:00 Blood Pressure Mean 94 02/03/23 10:00 Blood Pressure Left Arm 143/101 02/02/23 20:33 Blood Pressure Location Left Arm 02/03/23 10:00 Blood Pressure Position Supine 02/03/23 05:32 O2 Sat by Pulse Oximetry 95 02/03/23 10:30 Oxygen Delivery Method Room Air 02/03/23 10:51 Oxygen Flow Rate 2 02/03/23 05:32 Height 6 ft 5 in 02/02/23 20:33 Weight 224 lb 1 oz 02/03/23 05:32 Telemetry Type Remote Telemetry 02/03/23 07:00 Telemetry Monitoring Continues 02/03/23 07:00 Telemetry Heart Rate 92 02/03/23 07:00 Telemetry SPO2 91 L 02/03/23 07:00 EKG NH Interval 0.22 H 02/03/23 07:00 EKG QRS Interval 0.14 H 02/03/23 07:00 EKG QT Interval 0.44 H 02/03/23 07:00 Telemetry Strip Reading SR with 1st Degree AVB and BBB 02/03/23 07:00 Appearance: Positive No Apparent Distress and Alert and Oriented x3 Skin: Positive [place], Warm and Good Turgor; Negative Rashes HEENT: Positive Normocephalic and Atraumatic Neck: Positive Supple and Midline Trachea Chest/Lungs: Positive Clear to Auscultation Bilaterally; Negative Rales, Rhonci or Wheezes Heart: Positive RRR GI/: Positive Soft, Nontender and Bowel Sounds Normal Extremities: Positive Edema (1+ pitting edema kaiden lower ext. ) Neurological: Positive Cranial Nerves Intact, Alert, Oriented and Muscle Strength 5/5 in Upper and Lower Extremities Bilaterally Psychiatric: Positive Oriented x4, Appropriate Mood and Appropriate Affect Labs This Visit Labs This Visit: Labs This Visit 02/02/23 02/02/23 02/02/23 15:16 15:36 15:40 WBC 6.28 RBC 4.61 L Hgb 13.1 L Hct 43.4 MCV 94.1 H MCH 28.4 MCHC 30.2 L RDW Coeff of Dimple 14.8 Plt Count 188 Immature Gran % (Auto) 0.2 Neut % (Auto) 75.1 Lymph % (Auto) 13.7 [place] % (Auto) 5.3 Eos % (Auto) 4.9 Baso % (Auto) 0.8 Neut # (Auto) 4.7 Lymph # (Auto) 0.9 [place] # (Auto) 0.3 L Eos # (Auto) 0.3 Baso # (Auto) 0.1 Immature Gran # (Auto) 0.0 Sodium 139.4 Potassium 4.45 Chloride 107.2 H Carbon Dioxide 25.4 Anion Gap 11.25 BUN 16.4 Creatinine 1.23 H Estimated GFR (MDRD) 71.00 BUN/Creatinine Ratio 13.33 Glucose 90.6 Calcium 8.59 Magnesium 1.91 Total Bilirubin 1.56 H AST 34.6 ALT 32.1 Alkaline Phosphatase 67.5 Troponin I 0.017 NT-Pro-B Natriuret Pep 5670 H Total Protein 6.68 Albumin 3.86 Globulin 2.82 Albumin/Globulin Ratio 1.36 Urine Color Urine Clarity Urine pH Ur Specific [place] Urine Protein Urine Glucose (UA) Urine Ketones Urine Blood Urine Nitrite Urine Bilirubin Urine Urobilinogen Ur Leukocyte Esterase Urine Opiates Screen Ur Oxycodone Screen Urine Methadone Screen Ur Barbiturates Screen U Tricyclic Antidepress Ur Phencyclidine Scrn Ur Amphetamine Screen U Methamphetamines Scrn U Benzodiazepines Scrn Urine Cocaine Screen U Cannabinoids Screen Influ A Molecular Assay Negative by naat Influ B Molecular Assay Negative by naat SARS CoV-2 RNA Rapid CAL Negative 02/02/23 02/03/23 17:55 04:56 WBC 7.48 RBC 4.72 Hgb 13.5 L Hct 44.1 MCV 93.4 MCH 28.6 MCHC 30.6 L RDW Coeff of Dimple 14.6 Plt Count 208 Immature Gran % (Auto) 0.1 Neut % (Auto) 69.5 Lymph % (Auto) 16.3 [place] % (Auto) 6.4 Eos % (Auto) 6.8 Baso % (Auto) 0.9 Neut # (Auto) 5.2 Lymph # (Auto) 1.2 [place] # (Auto) 0.5 Eos # (Auto) 0.5 Baso # (Auto) 0.1 Immature Gran # (Auto) 0.0 Sodium 140.0 Potassium 3.95 Chloride 105.4 Carbon Dioxide 28.4 Anion Gap 10.15 BUN 18.7 Creatinine 1.16 H Estimated GFR (MDRD) 76.00 BUN/Creatinine Ratio 16.12 Glucose 97.1 Calcium 8.20 L Magnesium Total Bilirubin 1.78 H AST 27.4 ALT 27.8 Alkaline Phosphatase 70.7 Troponin I NT-Pro-B Natriuret Pep Total Protein 5.88 L Albumin 3.35 L Globulin 2.53 Albumin/Globulin Ratio 1.32 Urine Color Light Urine Clarity Clear Urine pH 6.0 Ur Specific [place] 1.015 Urine Protein Negative Urine Glucose (UA) Negative Urine Ketones Negative Urine Blood Negative Urine Nitrite Negative Urine Bilirubin Negative Urine Urobilinogen 0.2 Ur Leukocyte Esterase Negative Urine Opiates Screen Negative Ur Oxycodone Screen Negative Urine Methadone Screen Negative Ur Barbiturates Screen Negative U Tricyclic Antidepress Negative Ur Phencyclidine Scrn Negative Ur Amphetamine Screen Negative U Methamphetamines Scrn Negative U Benzodiazepines Scrn Negative Urine Cocaine Screen Positive H U Cannabinoids Screen Negative Influ A Molecular Assay Influ B Molecular Assay SARS CoV-2 RNA Rapid CAL Imaging Imaging: EXAM: CHEST RADIOGRAPH TECHNIQUE: Single frontal chest radiograph. HISTORY: Exertional dyspnea. Leg edema. Coronary artery disease. COMPARISON: 12/07/2022. FINDINGS: The lungs are clear. The heart is enlarged. There is calcification in the aorta consistent with atherosclerosis. There is no pleural effusion. There is no pneumothorax. IMPRESSION: 1. Cardiomegaly and atherosclerosis. 2. Otherwise unremarkable chest radiograph. Review Statement Review Statement: I have independently reviewed and interpreted the labs/EKGs/imaging that were ordered by the ER provider. I have reviewed all outside records that are available currently in our EMR including imaging/notes/labs from previous visits. Plan Plan: 1. Acute systolic heart failure - EF 39% last echo. Restart home medications. Will stop coreg in light of cocaine use. Lasix 20 mg q8hrs. I&Os. Daily weights. Fluid restriction 1800 ml. Outpatient cardio f/u. 2. Hypertension - Hold coreg. Hydralazine prn IV ordered. 3. Hyperlipidemia - Continue home meds 4. Substance abuse - Discussed cessation. Discussed need for beta bibiana due to his heart but contraindicated in this setting of continued cocaine use. 5. Medical noncompliance - Pt no showed his pcp apt we made for him. Will reschedule. DVT Prophylaxis: Lovenox Time Spent: Greater than 80 minutes spent with patient, 50% of the time spent wi th this patient was devoted to counseling and coordination of care. Advanced Care Plannin minutes spent discussing advance care planning. FULL CODE Admit to: Obs Discussed Plan of Care with Dr. Donna Allison. Medications Medication Orders: Medications Ordered Category Date Time Status 0.9 % Sodium Chloride [Saline Flush] Meds 02/03/23 05:00 Active 1 syr IVF Q8HR Acetaminophen [Tylenol] Meds 02/02/23 19:53 Active 650 mg PO Q4H PRN Empaglifozin [Jardiance] Meds 02/03/23 09:00 Active 10 mg PO DAILY Furosemide [Lasix] Meds 02/03/23 00:00 Active 20 mg IVP Q8HR Hydralazine HCl Meds 02/02/23 21:07 Active 10 mg IVP Q6H PRN Ondansetron HCl/Pf [Zofran 4 mg/2 ml] Meds 02/02/23 19:53 Active 4 mg IVP Q6H PRN Pravastatin Sodium [Pravachol] Meds 02/02/23 21:00 Active 40 mg PO BEDTIME Sacubitril/Valsartan [Entresto 24 mg-26 mg Tablet] Meds 02/02/23 21:00 Active 1 each PO BID
[2023-02-03] MEDS: ALDACTONE PO SCH (13:07)
[2023-02-03] MEDS: SORBITRATE PO SCH ×2 (16:10→20:06)
[2023-02-03] MEDS: PRAVACHOL PO SCH (20:06)
[2023-02-04 04:56] VITALS: BP 119/83; RESP 16; TEMP 98.6
[2023-02-04] MEDS: LASIX IVP SCH (04:57)
[2023-02-04 04:58] LABS: BASOPHILS # (AUTO) 0.1 K/uL (0-0.2); BASOPHILS % (AUTO) 1.1 % (0.0-3.0); EOSINOPHILS # (AUTO) 0.6 K/ul (0.0-0.7); EOSINOPHILS % (AUTO) 7.1 % (0.0-7.0); HEMOGLOBIN 14.9 g/dl (14.0-18.0); IMMATURE GRANULOCYTE % (AUTO) 0.4 % (0.0-5.0); LYMPHOCYTES # (AUTO) 1.2 K/uL (0.60-3.4); MEAN CORPUSCULAR HEMOGLOBIN 28.8 pg (27.0-31.0); MEAN CORPUSCULAR VOLUME 92.7 fl (80.0-94.0); MONOCYTES # (AUTO) 0.6 K/uL (0.4-2.0); MONOCYTES % (AUTO) 6.9 (0-10); NEUTROPHILS # (AUTO) 5.6 K/ul (2.0-6.9); NEUTROPHILS % (AUTO) 69.5 % (42.2-75.2); PLATELET COUNT 216 10^3/uL (140-440); RDW COEFFICIENT OF VARIATION 14.4 % (11.6-14.8); RED BLOOD COUNT 5.18 10^6/ul (4.70-6.10); WHITE BLOOD COUNT 8.02 K/ul (4.2-10.2)
[2023-02-04 05:10] LABS: ALANINE AMINOTRANSFERASE 24.9 U/L (0-50); ALBUMIN 3.38 g/dL (3.5-5.0); ALKALINE PHOSPHATASE 82.1 U/L (56-119); ASPARTATE AMINO TRANSFERASE 26.9 U/L (17-59); BILIRUBIN,TOTAL 1.27 mg/dL (0.2-1.3); BLOOD UREA NITROGEN 21.5 mg/dL (9-20); CALCIUM 8.09 mg/dL (8.4-10.2); CARBON DIOXIDE 29.7 mmol/L (22-30.0); CHLORIDE 103.7 mmol/L (98-107); CREATININE 1.17 mg/dL (0.60-1.10); GLUCOSE 102.3 mg/dL (74-106); POTASSIUM 3.84 mmol/L (3.5-5.1); TOTAL PROTEIN 5.93 g/dL (6.3-8.2)
[2023-02-04] MEDS: ALDACTONE PO SCH (08:27)
[2023-02-04] MEDS: SORBITRATE PO SCH (08:27)
[2023-02-04] MEDS: ENTRESTO 24 MG-26 MG TABLET PO SCH (08:27)
[2023-02-04] MEDS: JARDIANCE PO SCH (08:27)
--- NOTE | 2023-02-04 08:45 | DCSUM ---
Admission Date Admission Date: 02/02/23 Discharge Date Discharge Date: 02/04/23 Admission Diagnosis Admission Diagnosis: 1. Acute systolic heart failure exacerbation Discharge Diagnosis Discharge Diagnosis: 1. Acute systolic heart failure exacerbation - Improved 2. Hypertension - chronic/stable 3. Hyperlipidemia - chronic/stable 4. Substance abuse 5. Medical noncompliance Hospital Provider Hospital Provider: CARMENZA KEANE PA-C, [facility] Primary Care Physician Primary Care Physician: CORAL HERNANDEZ MD Summary of History and Physical Summary of History and Physical: Patient is a 67 year old male with systolic heart failure, cardiomyopathy, hypertension, hyperlipidemia who presented to ER with cc of sob and kaiden foot pain. He states he's been unable to take his medications for past 2 weeks because they are locked up in a storage unit and he cannot get to them. He missed his appointment with [facility]. He has a cardiology apt with [facility] on 02/09. He has had increased sob, worse with exertion and trying to sleep at night. He has had worsening swelling of lower ext. He states his feet hurt but he recently got new shoes. He tested positive for cocaine on UDS. He states his last use was 2 weeks ago "and he doesn't use it very often." In ER BNP was elevated, CXR showed cardiomegaly, otherwise normal. He was given lasix 40 mg IVP in ER. He was admitted to med/surg observation. Overnight patient diuresed about 3L. He is feeling better but still SOB and has some mild edema. He reportedly dropped into 70s during the night and 2L O2 was applied. Hospital Course Subjective: Patient was diuresed with IV lasix. He had about 9L out. Home meds restarted. He is feeling at baseline. Able to ambulate without dyspnea. 3 step O2 performed, does not qualify for home O2. Peripheral edema resolved. Encouraged medication compliance. He has no showed apt with [facility] twice. They were willing to make him a 3rd apt, encouraged him to go. He has a f/u with [facility] on 02/09, stressed the importance of him following up with them as well. He agrees to do so. Will give him 1 month supply of medications in meantime. Will stop coreg due to continued cocaine use, discussed this with patient as well. Would recommend repeat bmp in 1 week to monitor cr and K levels. Appearance: Pleasant, No Apparent Distress and Alert HEENT: MMM CVS: No Murmur Abdomen: Soft, Non-Tender and No Distention Respiratory: No Dyspnea Extremities: No Edema Vital Signs: Most Recent Vital Signs Temperature 98.6 F 02/04/23 04:53 Temperature Source Temporal Artery Scan 02/04/23 04:53 Temperature Source Infrared 02/02/23 14:05 Pulse Rate 90 02/04/23 04:53 Respiratory Rate 16 02/04/23 04:53 Blood Pressure 119/83 02/04/23 04:53 Blood Pressure Mean 95 02/04/23 04:53 Blood Pressure Left Arm 143/101 02/02/23 20:33 Blood Pressure Location Left Arm 02/04/23 04:53 Blood Pressure Position Supine 02/04/23 04:53 O2 Sat by Pulse Oximetry 94 L 02/04/23 05:46 Oxygen Delivery Method Room Air 02/04/23 08:00 Oxygen Flow Rate 2 02/03/23 20:00 Height 6 ft 5 in 02/02/23 20:33 Weight 219 lb 8 oz 02/04/23 04:53 Telemetry Type Remote Telemetry 02/04/23 01:00 Telemetry Monitoring Continues 02/04/23 01:00 Telemetry Heart Rate 92 02/04/23 01:00 Telemetry SPO2 93 02/04/23 01:00 EKG MT Interval 0.18 02/04/23 01:00 EKG QRS Interval 0.06 02/04/23 01:00 EKG QT Interval 0.46 H 02/03/23 18:56 Telemetry Strip Reading sr with bbb 02/04/23 01:00 Imaging: EXAM: CHEST RADIOGRAPH TECHNIQUE: Single frontal chest radiograph. HISTORY: Exertional dyspnea. Leg edema. Coronary artery disease. COMPARISON: 12/07/2022. FINDINGS: The lungs are clear. The heart is enlarged. There is calcification in the aorta consistent with atherosclerosis. There is no pleural effusion. There is no pneumothorax. IMPRESSION: 1. Cardiomegaly and atherosclerosis. 2. Otherwise unremarkable chest radiograph. Lab Results Last 24 Hours: 02/04/23 04:53 WBC 8.02 RBC 5.18 Hgb 14.9 Hct 48.0 MCV 92.7 MCH 28.8 MCHC 31.0 L RDW Coeff of Dimple 14.4 Plt Count 216 Immature Gran % (Auto) 0.4 Neut % (Auto) 69.5 Lymph % (Auto) 15.0 [place] % (Auto) 6.9 Eos % (Auto) 7.1 H Baso % (Auto) 1.1 Neut # (Auto) 5.6 Lymph # (Auto) 1.2 [place] # (Auto) 0.6 Eos # (Auto) 0.6 Baso # (Auto) 0.1 Immature Gran # (Auto) 0.0 Sodium 138.0 Potassium 3.84 Chloride 103.7 Carbon Dioxide 29.7 Anion Gap 8.44 BUN 21.5 H Creatinine 1.17 H Estimated GFR (MDRD) 75.00 BUN/Creatinine Ratio 18.37 Glucose 102.3 Calcium 8.09 L Total Bilirubin 1.27 AST 26.9 ALT 24.9 Alkaline Phosphatase 82.1 Total Protein 5.93 L Albumin 3.38 L Globulin 2.55 Albumin/Globulin Ratio 1.32 Discharge Instructions Discharge Planning: Discharge Planning > [address] Donna Allison. If patient is discharged with left ventricular systolic dysfunction: Discharged with a beta bibiana? NO If no, why not? COCAINE USE Discharged with an sarah/arb? YES, ENTRESTO Discharge Medications: Medications at Discharge (Home Meds & RX) aspirin 81 mg tablet,delayed release (Adult Aspirin Regimen) 81 mg PO DAILY #30 tabs 02/04/23 empagliflozin 10 mg tablet (Jardiance) 10 mg PO DAILY #30 tabs 02/04/23 furosemide 20 mg tablet (Lasix) 20 mg PO DAILY #30 tabs 02/04/23 isosorbide dinitrate 5 mg tablet 5 mg PO TID #90 tabs 02/04/23 pravastatin 40 mg tablet 40 mg PO BEDTIME #30 tabs 02/04/23 sacubitril 24 mg-valsartan 26 mg tablet (Entresto) 1 tab PO BID HEART FAILURE #60 tabs 02/04/23 spironolactone 25 mg tablet 25 mg PO QDAY #30 tabs 02/04/23 Discharge Plan Discharge Discharge Orders: Discharge Patient (ONCE); Ordered 02/04/23 Ordered By: CARMENZA KEANE Activity Restrictions/Additional Instructions: DISCHARGE TODAY DX: HEART FAILURE EXACERBATION DIET: HEART HEALTHY, LOW SODIUM ACTIVITY: TOLERATED MAKE SURE YOU GO TO YOUR FOLLOW UP APPOINTMENTS! * STOP TAKING COREG RESUME ALL OTHER HOME MEDICATIONS YOU HAVE A HOSPITAL FOLLOW UP APPOINTMENT ON January AT 1PM WITH [facility]. SHOULD YOU HAVE ANY QUESTIONS OR NEED TO RESCHEDULE YOU CAN CONTACT THEIR OFFICE AT [phone]. YOU HAVE NO-SHOWED YOUR PAST TWO APPOINTMENTS, THEY HAVE NOTIFIED THAT IF YOU NO SHOW ONE MORE TIME THEY WILL HAVE TO TERMINATE SERVICES. YOU HAVE AN APPOINTMENT WITH [facility] WITH ALONDRA MCRAE ON January AT 11AM. ADDRESS IS: [address] [place] [id number]. SHOULD YOU HAVE ANY QUESTIONS OR NEED TO RESCHEDULE YOU CAN CONTACT THEM AT [phone]. Instructions: Heart Failure (GEN), Low-Sodium Diet (GEN) Patient Disposition: HOME SELF-CARE Prescriptions: Continued pravastatin 40 mg tablet 40 mg PO BEDTIME Qty: 30 0RF aspirin [Adult Aspirin Regimen] 81 mg tablet,delayed release (DR/EC) 81 mg PO DAILY Qty: 30 0RF spironolactone 25 mg tablet 25 mg PO QDAY Qty: 30 0RF furosemide [Lasix] 20 mg tablet 20 mg PO DAILY Qty: 30 0RF isosorbide dinitrate 5 mg tablet 5 mg PO TID Qty: 90 0RF Rx Instructions: allow nitrate-free interval of 12-14 hrs per 24-hr period Jardiance 10 mg tablet 10 mg PO DAILY Qty: 30 0RF Entresto 24-26 mg tablet 1 tab PO BID Qty: 60 0RF Discontinued carvedilol 6.25 mg tablet 6.25 mg PO BIDWM Qty: 60 3RF baclofen 20 mg tablet 20 mg PO TID PRN (Reason: muscle spasm) Qty: 30 0RF ketorolac 10 mg tablet 10 mg PO Q6H PRN (Reason: pain) Qty: 10 0RF Did you review [place] GAME TECHNICIAN for ALL controlled substances?: Not Applicable Discussed opioids are addictive and Narcan is available by prescription or from pharmacy.: No Condition: Stable
[2023-02-04] MEDS ORDERED: ASPIRIN EC PO SCH (09:00)
[2023-02-04 09:13] VITALS: PULSE 94
== END 2023-02-04 10:00 | disposition home or self-care (01) ==
LOC: MEDSURG B 13:58 → ED 13:58 → MEDSURG B 20:16
PROVIDERS: ADMIT Hospitalist; ATTEND Physician Assistant

== ENCOUNTER 2023-04-20 18:31 | Inpatient (IN) ==
[2023-04-20] MEDS ORDERED: LASIX IVP ONE (18:57)
--- NOTE | 2023-04-20 18:58 | ED.PDOC ---
General ED Provider: Dr. CRISTHIAN WELLS MD Chief Complaint: Shortness of Air Stated Complaint: Shortness of breath. Time Seen by Provider: 04/20/23 18:51 Mode of Arrival: Walk-In Information Source: Patient Primary Care Provider: CORAL HERNANDEZ MD Nursing and Triage Documentation Reviewed and Agree: Yes Does Patient Take Opioids?: No Is Patient Opioid Naive?: Yes What is Opioid Naive?: *Opioid Naive implies the patient is not already taking opioids or not chronically receiving opioids on a daily basis. *PRN dosing is not "usually" associated with tolerance. *Patients are at higher risk of over-sedation and aspiration. Is Patient Opioid Tolerant?: No What is Opioid Tolerant?: *Opioid Tolerance implies less than the expected response to an opioid. *Acquired tolerance is defined by the patient taking 60mg of oral morphine daily (or equianalgesic dose of another opioid) for 1 week or more. *Often associated with chronic pain. *May take more than usual dose to achieve desired pain control. Respiratory Complaint Exam Shortness of Air Complaint/Exam Onset/Duration: 4 days ago Symptoms Are: Still present Timing: Constant Initial Severity: Severe Current Severity: Moderate Character: Reports Dyspnea at rest and Orthopnea Aggravating: Reports Recumbent position Alleviating: Reports Oxygen Respiratory Distress: Moderate Stridor Present: No Tracheal Deviation: No Subcutaneous Emphysema: No Accessory Muscle Use: No Retractions: Not Present and Nasal Flaring Diminished Breath Sounds: Yes Prolonged Expiratory Phase: Yes Unable to Speak Full Sentences: No Fatigue: Yes Leg Swelling: Yes (4+ deeply pitting edema bilaterally to the knees.) Diana's Sign Present: No Grunting Respirations: No Kussmaul Respirations: No Differential Diagnoses: CHF (Previous ejection fraction 39%.) Quality Indicators for AMI: EKG in 10min. Quality Indicator For Non-Traumatic Chest Pain/Syncope: EKG Performed Quality Indicators for CHF: Documented LV Function (Previously 39% ejection fraction.) Review of Systems Review Of Systems Constitutional: Reports No symptoms Eyes: Reports No symptoms Ears, Nose, Mouth, Throat: Reports No symptoms Respiratory: Reports Orthopnea and Shortness of Breath Cardiac: Reports Edema GI: Reports No symptoms : Reports No symptoms Musculoskeletal: Reports No symptoms Skin: Reports No symptoms Neurological: Reports No symptoms Endocrine: Reports No symptoms Hematologic/Lymphatic: Reports No symptoms All Other Systems: Reviewed and Negative [facility] Medical History Uncontrolled hypertension I10 - Essential (primary) hypertension (ICD-10) Prostate CA C61 - Malignant neoplasm of prostate (ICD-10) Tobacco use Z72.0 - Tobacco use (ICD-10) Hypertension I10 - Essential (primary) hypertension (ICD-10) Arthritis M19.90 - Unspecified osteoarthritis, unspecified site (ICD-10) Family History Mother Hypertension FATHER Alcoholism and drug addiction in family Hypertension Social History (Updated 02/03/23 @ 11:47 by CARMENZA KEANE PA-C) Smoking and tobacco status: Former smoker Tobacco: How many years used: 7 How long ago did patient quit smoking: Stopped smoking about 2 years ago Alcohol intake: never Substance use type: crack/cocaine Physical Exam Physical Exam Appearance: Reports Ill-appearing Ill-appearing: Moderate Pain Distress: Moderate Eyes: Reports JOBY Neck: Supple Respiratory: Reports Airway patent, Breath sounds diminished and Crackles Cardiovascular: Reports RRR, Pulses normal, No rub and No murmur GI/: Reports Soft Musculoskeletal: Reports Normal strength and Edema (4+ to mid leg.) Skin: Reports Warm, Dry and Normal color Neurological: Reports Sensation intact and Motor intact Interpretation EKG Interpretation Time of EKG #1: 18:54 Rate: Normal Rhythm: Sinus Ectopy: None ST Segment: Normal Interpretation: Nonspecific interventricular block; lateral infarct age undetermined. Abno EKG Interpretation By: ED Physician Ectopy: None ST Segment: Normal Re-Evaluation Re-Evaluation Time of Re-Evaluation: 20:06 Status: Improved Vital Signs Stable: Yes Appearance: Other (Moderate dyspnea on exertion.) Skin: Warm and Dry Neuro: Alert and Oriented X3 CV: RRR Physician Notification Case Discussed Physician Notified: Arnold Terry NP Time of Notification: 20:05 Comments: Patient will be admitted for observation and diuresis. Endorsed To/Discussed With: Arnold Terry NP Time of Discussion: 20:00 Admit To: Observation Critical Care Note Critical Care Note Total Critical Care Time (mins): 0 Course Course 04/20/23 19:20 04/20/23 19:20 Orders, Labs, Meds: Lab Review 04/20/23 19:20 WBC 9.12 RBC 5.14 Hgb 14.7 Hct 48.6 MCV 94.6 H MCH 28.6 MCHC 30.2 L RDW Coeff of Dimple 15.3 H Plt Count 248 Immature Gran % (Auto) 0.2 Neut % (Auto) 88.4 H Lymph % (Auto) 4.9 L [place] % (Auto) 5.7 Eos % (Auto) 0.4 Baso % (Auto) 0.4 Neut # (Auto) 8.1 H Lymph # (Auto) 0.5 L [place] # (Auto) 0.5 Eos # (Auto) 0.0 Baso # (Auto) 0.0 Immature Gran # (Auto) 0.0 Sodium 141.5 Potassium 5.00 Chloride 106.3 Carbon Dioxide 26.2 Anion Gap 14.00 BUN 14.6 Creatinine 1.34 H Estimated GFR (MDRD) 64.00 BUN/Creatinine Ratio 10.89 Glucose 131.9 H Calcium 9.06 Total Bilirubin 3.36 H AST 35.8 ALT 28.3 Alkaline Phosphatase 61.7 Troponin I Pending Total Protein 7.44 Albumin 4.26 Globulin 3.18 Albumin/Globulin Ratio 1.33 Orders Category Date Time Status EKG-(ED ONLY) Stat CARDIO 04/20/23 18:57 Ordered ED IV/MEDIPORT/POWERPORT .ONCE EMERGENCY 04/20/23 18:57 Active OXYGEN [ED APPLY O2] .ONCE EMERGENCY 04/20/23 18:57 Active CBC W/ AUTO DIFF Stat LAB 04/20/23 19:20 Completed COMPREHENSIVE METABOLIC PANEL Stat LAB 04/20/23 19:20 Results CRP [C-REACTIVE PROTEIN] Stat LAB 04/20/23 18:57 Ordered NT-PROBNP Stat LAB 04/20/23 Ordered TROPONIN I Stat LAB 04/20/23 19:20 Results 0.9 % Sodium Chloride [Saline Flush] Meds 04/20/23 18:57 Ordered 1 syr IVF PRN PRN Furosemide [Lasix] Meds 04/20/23 18:57 Discontinued 80 mg IVP ONCE ONE CHEST, 1V AP ONLY Stat RADS 04/20/23 18:57 Completed Medications Generic Name Dose Route Start Last Admin Trade Name Freq PRN Reason Stop Dose Admin Sodium Chloride 1 syr 04/20/23 18:57 0.9% Sodium Chloride 10 Ml Disp.Syrin IVF PRN PRN To flush IV Discontinued Medications Generic Name Dose Route Start Last Admin Trade Name Freq PRN Reason Stop Dose Admin Furosemide 80 mg 04/20/23 18:57 04/20/23 19:18 Furosemide Inj 100 Mg/10 Ml Vial IVP 04/20/23 18:58 80 mg ONCE ONE Administration Vital Signs: Temp Pulse Resp BP Pulse Ox 04/20/23 18:34 99.5 F 106 H 24 H 164/103 H 97 Discharge Plan Discharge Patient Disposition: PLACED OBSERVATION Discharge Problem: CHF (congestive heart failure) Prescriptions: No Action pravastatin 40 mg tablet 40 mg PO BEDTIME Qty: 30 0RF aspirin [Adult Aspirin Regimen] 81 mg tablet,delayed release (DR/EC) 81 mg PO DAILY Qty: 30 0RF spironolactone 25 mg tablet 25 mg PO QDAY Qty: 30 0RF furosemide [Lasix] 20 mg tablet 20 mg PO DAILY Qty: 30 0RF isosorbide dinitrate 5 mg tablet 5 mg PO TID Qty: 90 0RF Rx Instructions: allow nitrate-free interval of 12-14 hrs per 24-hr period Jardiance 10 mg tablet 10 mg PO DAILY Qty: 30 0RF Entresto 24-26 mg tablet 1 tab PO BID Qty: 60 0RF carvedilol 6.25 mg tablet 6.25 mg PO BID Patient Comments: TAKE 1 TABLET BY MOUTH TWICE DAILY albuterol sulfate 90 mcg/actuation HFA aerosol inhaler 2 puff INHALATION Q4H PRN (Reason: shortness of breath or wheezing) Patient Comments: INHALE 2 PUFFS BY MOUTH EVERY 4 HOURS Did you review [place] K[employer]ING MACHINE TENDER for ALL controlled substances?: Not Applicable ED Provider: CRISTHIAN WELLS Condition: Stable Physician Progress Note: [Patient feels better. Has been voiding large amounts.]
[2023-04-20 19:29] LABS: BASOPHILS % (AUTO) 0.4 % (0.0-3.0); EOSINOPHILS % (AUTO) 0.4 % (0.0-7.0); HEMATOCRIT 48.6 % (42.0-52.0); HEMOGLOBIN 14.7 g/dl (14.0-18.0); IMMATURE GRANULOCYTE % (AUTO) 0.2 % (0.0-5.0); LYMPHOCYTES # (AUTO) 0.5 K/uL (0.60-3.4); LYMPHOCYTES % (AUTO) 4.9 (10.0-50.0); MEAN CORPUSCULAR HEMOGLOBIN 28.6 pg (27.0-31.0); MEAN CORPUSCULAR HGB CONC 30.2 (31.8-35.4); MEAN CORPUSCULAR VOLUME 94.6 fl (80.0-94.0); MONOCYTES # (AUTO) 0.5 K/uL (0.4-2.0); MONOCYTES % (AUTO) 5.7 (0-10); NEUTROPHILS # (AUTO) 8.1 K/ul (2.0-6.9); NEUTROPHILS % (AUTO) 88.4 % (42.2-75.2); PLATELET COUNT 248 10^3/uL (140-440); RDW COEFFICIENT OF VARIATION 15.3 % (11.6-14.8); RED BLOOD COUNT 5.14 10^6/ul (4.70-6.10); WHITE BLOOD COUNT 9.12 K/ul (4.2-10.2)
[2023-04-20 19:42] LABS: ALANINE AMINOTRANSFERASE 28.3 U/L (0-50); ALBUMIN 4.26 g/dL (3.5-5.0); ALKALINE PHOSPHATASE 61.7 U/L (56-119); ASPARTATE AMINO TRANSFERASE 35.8 U/L (17-59); BILIRUBIN,TOTAL 3.36 mg/dL (0.2-1.3); BLOOD UREA NITROGEN 14.6 mg/dL (9-20); CALCIUM 9.06 mg/dL (8.4-10.2); CARBON DIOXIDE 26.2 mmol/L (22-30.0); CHLORIDE 106.3 mmol/L (98-107); CREATININE 1.34 mg/dL (0.60-1.10); GLUCOSE 131.9 mg/dL (74-106); SODIUM 141.5 mmol/L (134.5-145); TOTAL PROTEIN 7.44 g/dL (6.3-8.2)
--- NOTE | 2023-04-20 19:48 | DI ---
EXAM: FRONTAL CHEST HISTORY: Dyspnea - - - - - IMPRESSION: Compared to 04/01/2023. Significant cardiac silhouette enlargement. No definite cons olidated pneumonia. Probable subtle vascular congestion. No visible pleural fluid or pneumothorax.
[2023-04-20 19:53] LABS: TROPONIN I 0.05 ng/ml (0.0000-0.120)
[2023-04-20] MEDS ORDERED: ZOFRAN 4 MG/2 ML IVP PRN (20:16)
[2023-04-20] MEDS ORDERED: MELATONIN PO PRN (20:16)
[2023-04-20 20:50] LABS: SARS COV-2 RNA RAPID NAAT NEGATIVE (NEGATIVE)
[2023-04-20 21:57] VITALS: BMI 25.2
[2023-04-20] MEDS ORDERED: HYDRALAZINE HCL IVP PRN (22:07)
[2023-04-20 23:19] LABS: AMPHETAMINE SCREEN,URINE NEGATIVE (NEGATIVE); BARBITURATE SCREEN,URINE NEGATIVE (NEGATIVE); BENZODIAZEPINES SCREEN,URINE NEGATIVE (NEGATIVE); CANNABINOID SCREEN,URINE NEGATIVE (NEGATIVE); COCAIN SCREEN,URINE POSITIVE (NEGATIVE); METHADONE URINE SCREEN NEGATIVE (NEGATIVE); METHAMPHETAMINES SCREEN,URINE NEGATIVE (NEGATIVE); OPIATE SCREEN,URINE NEGATIVE (NEGATIVE); OXYCODONE URINE SCREEN NEGATIVE (NEGATIVE); PHENCYCLIDINE SCREEN,URINE NEGATIVE (NEGATIVE); TRICYCLIC ANTIDEPRESSANTS URIN NEGATIVE (NEGATIVE)
[2023-04-21 05:11] LABS: BASOPHILS % (AUTO) 0.3 % (0.0-3.0); EOSINOPHILS % (AUTO) 0.2 % (0.0-7.0); HEMATOCRIT 44.9 % (42.0-52.0); HEMOGLOBIN 13.9 g/dl (14.0-18.0); IMMATURE GRANULOCYTE % (AUTO) 0.3 % (0.0-5.0); LYMPHOCYTES # (AUTO) 0.5 K/uL (0.60-3.4); LYMPHOCYTES % (AUTO) 5.9 (10.0-50.0); MEAN CORPUSCULAR HEMOGLOBIN 28.7 pg (27.0-31.0); MEAN CORPUSCULAR VOLUME 92.6 fl (80.0-94.0); MONOCYTES # (AUTO) 0.7 K/uL (0.4-2.0); MONOCYTES % (AUTO) 7.6 (0-10); NEUTROPHILS # (AUTO) 7.6 K/ul (2.0-6.9); NEUTROPHILS % (AUTO) 85.7 % (42.2-75.2); PLATELET COUNT 216 10^3/uL (140-440); RDW COEFFICIENT OF VARIATION 15.1 % (11.6-14.8); RED BLOOD COUNT 4.85 10^6/ul (4.70-6.10); WHITE BLOOD COUNT 8.92 K/ul (4.2-10.2)
[2023-04-21] MEDS: TYLENOL PO PRN ×2 (05:12→14:36)
[2023-04-21 05:27] LABS: ALBUMIN 3.92 g/dL (3.5-5.0); ALKALINE PHOSPHATASE 57.2 U/L (56-119); ASPARTATE AMINO TRANSFERASE 33.3 U/L (17-59); BILIRUBIN,TOTAL 3.32 mg/dL (0.2-1.3); BLOOD UREA NITROGEN 14.1 mg/dL (9-20); CALCIUM 9.1 mg/dL (8.4-10.2); CARBON DIOXIDE 30.8 mmol/L (22-30.0); CHLORIDE 102.3 mmol/L (98-107); CREATININE 1.36 mg/dL (0.60-1.10); GLUCOSE 119.4 mg/dL (74-106); MAGNESIUM 1.45 mg/dL (1.6-2.3); POTASSIUM 4.46 mmol/L (3.5-5.1); SODIUM 140.5 mmol/L (134.5-145); TOTAL PROTEIN 6.88 g/dL (6.3-8.2)
[2023-04-21] MEDS ORDERED: LASIX IVP SCH ×2 (07:00→10:45)
[2023-04-21] MEDS ORDERED: MAGNESIUM SULFATE 1 GM/100 ML D5W 1 GM/100 ML BAG IV ONE (08:04)
--- NOTE | 2023-04-21 10:23 | PCM ---
Date of Service Date Seen by Provider: 04/21/23 Time Seen by Provider: 09:00 Admit Day/Time Admission Date: 04/20/23 Reason for Admission Chief Complaint: CHF Hospital Provider Hospital Provider[facility]ISON [facility] Primary Care Physician: CORAL HERNANDEZ MD History of Present Illness History of Present Illness: 67 yo male presented to the ER with complaints of shortness of breath and leg swelling. Patient states he has had worsening symptoms over the past week. States that he was recently at [facility] and due to being out of medications and fluid overload. He was given IV lasix and d/c home with medication refills. Reports he has an appointment on 04/23 for stent placement at [place]. Has pmh of systolic HF and cocaine use. Continues to use cocaine and does not take his medications regularly. Last echo that is available was from 12/10 with EF of 39%. Denies any chest pain, palpitations, or other associated symptoms. Case Discussed With Case Discussed With: Patient's case was discussed with the ER Physicians, Dr. Mooney [facility] Medical History (Updated 04/21/23 @ 10:25 by ADOLPH YADAV) Uncontrolled hypertension I10 - Essential (primary) hypertension (ICD-10) Prostate CA patient reports "biopsy back in May 2019 that reported cancer. Not sure if I will have it removed" will sign records release for Dr. Donnelly C61 - Malignant neoplasm of prostate (ICD-10) Tobacco use Z72.0 - Tobacco use (ICD-10) Hypertension I10 - Essential (primary) hypertension (ICD-10) Arthritis M19.90 - Unspecified osteoarthritis, unspecified site (ICD-10) Family History Mother Hypertension FATHER Alcoholism and drug addiction in family Hypertension Social History Smoking and tobacco status: Former smoker Tobacco: How many years used: 7 How long ago did patient quit smoking: Stopped smoking about 2 years ago Alcohol intake: never Substance use type: crack/cocaine Allergies Allergies Allergy/AdvReac Type Severity Reaction Status Date / Time NSAIDS (Non-Steroidal AdvReac Severe CHF Verified 03/31/23 02:00 Anti-Inflamma Current Medications Home Medications aspirin 81 mg tablet,delayed release (Adult Aspirin Regimen) 81 mg PO DAILY #30 tabs 02/04/23 [Rx Confirmed 04/20/23 Last Taken Unknown] empagliflozin 10 mg tablet (Jardiance) 10 mg PO DAILY #30 tabs 02/04/23 [Rx Confirmed 04/20/23 Last Taken Unknown] furosemide 20 mg tablet (Lasix) 20 mg PO DAILY #30 tabs 02/04/23 [Rx Confirmed 04/20/23 Last Taken Unknown] isosorbide dinitrate 5 mg tablet 5 mg PO TID #90 tabs 02/04/23 [Rx Confirmed 04/20/23 Last Taken Unknown] pravastatin 40 mg tablet 40 mg PO BEDTIME #30 tabs 02/04/23 [Rx Confirmed 04/20/23 Last Taken Unknown] sacubitril 24 mg-valsartan 26 mg tablet (Entresto) 1 tab PO BID HEART FAILURE #60 tabs 02/04/23 [Rx Confirmed 04/20/23 Last Taken Unknown] spironolactone 25 mg tablet 25 mg PO QDAY #30 tabs 02/04/23 [Rx Confirmed 04/20/23 Last Taken Unknown] albuterol sulfate 90 mcg/actuation aerosol inhaler 2 puff inhalation Q4H PRN shortness of breath or wheezing 03/31/23 [History Confirmed 04/20/23 Last Taken Unknown] carvedilol 6.25 mg tablet 6.25 mg PO BID 03/31/23 [History Confirmed 04/20/23 Last Taken Unknown] Home Acetaminophen (Acetaminophen 325 Mg Tablet) 650 mg PO Q4H PRN PRN Reason: FEVER/PAIN Last Admin: 04/21/23 05:12 Dose: 650 mg Furosemide (Furosemide Inj 40 Mg/4 Ml Vial) 40 mg IVP Q12H JOSE RAUL Hydralazine HCl (Hydralazine Hcl 20 Mg/Ml Sdv) 10 mg IVP Q6H PRN PRN Reason: Hypertension Last Admin: 04/20/23 22:32 Dose: 10 mg Melatonin (Melatonin 3 Mg Tablet) 6 mg PO BEDTIME PRN PRN Reason: Insomnia Last Admin: 04/20/23 22:35 Dose: 6 mg Ondansetron HCl (Ondansetron Hcl/Pf 4 Mg/2 Ml Sdv) 4 mg IVP Q4HR PRN PRN Reason: Nausea / Vomiting Sodium Chloride (0.9% Sodium Chloride 10 Ml Disp.Syrin) 1 syr IVF PRN PRN PRN Reason: To flush IV Last Admin: 04/20/23 22:34 Dose: 1 syr Discontinued Medications Furosemide (Furosemide Inj 100 Mg/10 Ml Vial) 80 mg IVP ONCE ONE Stop: 04/20/23 18:58 Last Admin: 04/20/23 19:18 Dose: 80 mg Furosemide (Furosemide Inj 40 Mg/4 Ml Vial) 40 mg IVP Q8H JOSE RAUL Last Admin: 04/21/23 06:07 Dose: 40 mg Magnesium Sulfate/Dextrose (Magnesium Sulfate 1 Gm/100 Ml D5w) 1 gm in 100 mls @ 100 mls/hr IV ONCE ONE Stop: 04/21/23 09:03 Last Admin: 04/21/23 09:48 Dose: 100 mls/hr Opioid Naive vs. Tolerant Does Patient Take Opioids?: No Is Patient Opioid Naive?: Yes What is Opioid Naive?: *Opioid Naive implies the patient is not already taking opioids or not chronically receiving opioids on a daily basis. *PRN dosing is not "usually" associated with tolerance. *Patients are at higher risk of over-sedation and aspiration. Is Patient Opioid Tolerant?: No What is Opioid Tolerant?: *Opioid Tolerance implies less than the expected response to an opioid. *Acquired tolerance is defined by the patient taking 60mg of oral morphine daily (or equianalgesic dose of another opioid) for 1 week or more. *Often associated with chronic pain. *May take more than usual dose to achieve desired pain control. Review of Systems Constitutional: Reports No symptoms Head: Reports Normocephalic Eyes: Reports No symptoms Ears: Reports No symptoms Nose: Reports No symptoms Mouth: Reports No symptoms Throat: Reports No symptoms Cardiovascular: Reports Orthopnea and Edema Respiratory: Reports No symptoms Gastrointestinal: Reports No symptoms Genitourinary: Reports No Symptoms Musculoskeletal: Reports No symptoms Endocrine: Reports No symptoms Hematology: Reports No symptoms Immunology: Reports No symptoms Neurological: Reports No symptoms Psychiatric: Reports No symptoms Physical examination Most Recent Vital Signs: Most Recent Vital Signs Temperature 97.6 F 04/21/23 09:46 Temperature Source Temporal Artery Scan 04/21/23 09:46 Temperature Source Infrared 04/20/23 18:34 Pulse Rate 99 04/21/23 09:46 Respiratory Rate 24 H 01/02/24 09:46 Blood Pressure 118/71 01/02/24 09:46 Blood Pressure Mean 86 04/21/23 09:46 Blood Pressure Left Arm 174/101 04/20/23 21:21 Blood Pressure Location Right Arm 04/21/23 09:46 Blood Pressure Position Supine 04/21/23 05:16 O2 Sat by Pulse Oximetry 96 04/21/23 09:46 Oxygen Delivery Method Room Air 04/21/23 09:46 Height 6 ft 5 in 04/20/23 21:21 Weight 216 lb 8 oz 04/21/23 05:16 Telemetry Type Remote Telemetry 04/21/23 06:58 Telemetry Monitoring Continues 04/21/23 06:58 Telemetry Heart Rate 101 H 04/21/23 06:58 Telemetry SPO2 93 02/04/23 07:00 EKG SC Interval 0.23 H 04/21/23 06:58 EKG QRS Interval 0.12 H 04/21/23 06:[address] with 1st degree AVB and BBB 04/21/23 06:58 Appearance: Positive No Apparent Distress, Alert and Oriented x3 and Ill- Appearing Skin: Positive Good Color HEENT: Positive Normocephalic and PERRLA Neck: Positive Supple and Midline Trachea Chest/Lungs: Positive Symmetrical With Equal Breath Sounds, Wheezes (Right lower lobe) and Other (crackles to L lower lobe) Heart: Positive RRR, Pulses Normal and Murmur GI/: Positive Soft, Nontender, Bowel Sounds Normal and No Distention Musculoskeletal: Positive Not Examined Extremities: Positive Edema (+3 pitting edema to bilateral lower extremities, mild pitting to upper extremities. ), Stable Joints Without Laxity and Good ROM in All Joints Neurological: Positive Sensation Intact, Motor intact, Reflexes Intact, Alert, Oriented and Muscle Strength 5/5 in Upper and Lower Extremities Bilaterally Psychiatric: Positive Oriented x4, Appropriate Mood, Appropriate Affect, Intact Memory, Good Short-Term Recall and Good Long-Term Recall Labs This Visit Labs This Visit: Labs This Visit 04/20/23 04/20/23 04/20/23 19:20 20:23 22:07 WBC 9.12 RBC 5.14 Hgb 14.7 Hct 48.6 MCV 94.6 H MCH 28.6 MCHC 30.2 L RDW Coeff of Dimple 15.3 H Plt Count 248 Immature Gran % (Auto) 0.2 Neut % (Auto) 88.4 H Lymph % (Auto) 4.9 L [place] % (Auto) 5.7 Eos % (Auto) 0.4 Baso % (Auto) 0.4 Neut # (Auto) 8.1 H Lymph # (Auto) 0.5 L [place] # (Auto) 0.5 Eos # (Auto) 0.0 Baso # (Auto) 0.0 Immature Gran # (Auto) 0.0 Sodium 141.5 Potassium 5.00 Chloride 106.3 Carbon Dioxide 26.2 Anion Gap 14.00 BUN 14.6 Creatinine 1.34 H Estimated GFR (MDRD) 64.00 BUN/Creatinine Ratio 10.89 Glucose 131.9 H Calcium 9.06 Magnesium Total Bilirubin 3.36 H AST 35.8 ALT 28.3 Alkaline Phosphatase 61.7 Troponin I 0.050 NT-Pro-B Natriuret Pep 93716 H Total Protein 7.44 Albumin 4.26 Globulin 3.18 Albumin/Globulin Ratio 1.33 Urine Opiates Screen Negative Ur Oxycodone Screen Negative Urine Methadone Screen Negative Ur Barbiturates Screen Negative U Tricyclic Antidepress Negative Ur Phencyclidine Scrn Negative Ur Amphetamine Screen Negative U Methamphetamines Scrn Negative U Benzodiazepines Scrn Negative Urine Cocaine Screen Positive H U Cannabinoids Screen Negative SARS CoV-2 RNA Rapid CAL Negative 04/21/23 05:05 WBC 8.92 RBC 4.85 Hgb 13.9 L Hct 44.9 MCV 92.6 MCH 28.7 MCHC 31.0 L RDW Coeff of Dimple 15.1 H Plt Count 216 Immature Gran % (Auto) 0.3 Neut % (Auto) 85.7 H Lymph % (Auto) 5.9 L [place] % (Auto) 7.6 Eos % (Auto) 0.2 Baso % (Auto) 0.3 Neut # (Auto) 7.6 H Lymph # (Auto) 0.5 L [place] # (Auto) 0.7 Eos # (Auto) 0.0 Baso # (Auto) 0.0 Immature Gran # (Auto) 0.0 Sodium 140.5 Potassium 4.46 Chloride 102.3 Carbon Dioxide 30.8 H Anion Gap 11.86 BUN 14.1 Creatinine 1.36 H Estimated GFR (MDRD) 63.00 BUN/Creatinine Ratio 10.36 Glucose 119.4 H Calcium 9.10 Magnesium 1.45 L Total Bilirubin 3.32 H AST 33.3 ALT 25.0 Alkaline Phosphatase 57.2 Troponin I NT-Pro-B Natriuret Pep Total Protein 6.88 Albumin 3.92 Globulin 2.96 Albumin/Globulin Ratio 1.32 Urine Opiates Screen Ur Oxycodone Screen Urine Methadone Screen Ur Barbiturates Screen U Tricyclic Antidepress Ur Phencyclidine Scrn Ur Amphetamine Screen U Methamphetamines Scrn U Benzodiazepines Scrn Urine Cocaine Screen U Cannabinoids Screen SARS CoV-2 RNA Rapid CAL Imaging Imaging: EXAM: FRONTAL CHEST HISTORY: Dyspnea - - - - - IMPRESSION: Compared to 04/01/2023. Significant cardiac silhouette enlargement. No definite consolidated pneumonia. Probable subtle vascular congestion. No visible pleural fluid or pneumothorax. Review Statement Review Statement: I have independently reviewed and interpreted the labs/EKGs/imaging that were ordered by the ER provider. I have reviewed all outside records that are available currently in our EMR including imaging/notes/labs from previous visits. Plan Plan: 1. Acute Systolic HF exacerbation - EF on last echo is 39%. Follows with [facility] and has heart cath scheduled for 04/23/23, lasix 40 mg Q12H, I&O, daily weight, 1800 fluid restriction 2. Hypomagnesemia - replace and monitor 3. Hypertension - Uncontrolled, Hydralazine prn IV ordered, awaiting medlist from pharmacy 4. Hyperlipidemia - Continue home meds 5. Substance abuse - Discussed cessation. Discussed need for beta bibiana due to his heart but contraindicated in this setting of continued cocaine use. 6. Medical noncompliance - Patient went without medications for 2 weeks and then went to ER in [place], discussed importance of medication regimen DVT Prophylaxis: Up ad guicho Time Spent: Greater than 80 minutes spent with patient, 50% of the time spent with this patient was devoted to counseling and coordination of care. [facility] minutes spent discussing advance care planning. Disposition: Admit to: Med/surg Observation Discussed Plan of Care with Dr. Juan A Allison. Medications Medication Orders: Medications Ordered Category Date Time Status 0.9 % Sodium Chloride [Saline Flush] Meds 04/20/23 18:57 Active 1 syr IVF PRN PRN Acetaminophen [Tylenol] Meds 04/20/23 20:51 Active 650 mg PO Q4H PRN Furosemide [Lasix] Meds 04/21/23 07:00 Active 40 mg IVP Q8H Hydralazine HCl Meds 04/20/23 22:07 Active 10 mg IVP Q6H PRN Melatonin Meds 04/20/23 20:16 Active 6 mg PO BEDTIME PRN Ondansetron HCl/Pf [Zofran 4 mg/2 ml] Meds 04/20/23 20:16 Active 4 mg IVP Q4HR PRN
[2023-04-21] MEDS ORDERED: DUONEB NEB PRN (12:13)
[2023-04-21] MEDS ORDERED: VENTOLIN HFA IH PRN (12:56)
[2023-04-21] MEDS: ALDACTONE PO SCH (13:50)
[2023-04-21] MEDS: SORBITRATE PO SCH ×3 (13:54→20:04)
[2023-04-21] MEDS: SOLU-MEDROL 40 MG IVP SCH ×2 (14:32→20:52)
[2023-04-21] MEDS: LASIX IVP SCH (17:47)
[2023-04-21] MEDS: ENTRESTO 24 MG-26 MG TABLET PO SCH (20:04)
[2023-04-21] MEDS: PRAVACHOL PO SCH (20:04)
[2023-04-21] MEDS: SYMBICORT 160-4.5 MCG INHALER IH SCH (20:04)
[2023-04-22] MEDS: LASIX IVP SCH ×2 (05:04→17:47)
[2023-04-22] MEDS: SOLU-MEDROL 40 MG IVP SCH ×3 (05:04→20:16)
[2023-04-22 05:11] LABS: BASOPHILS % (AUTO) 0.1 % (0.0-3.0); HEMATOCRIT 47.1 % (42.0-52.0); HEMOGLOBIN 14.6 g/dl (14.0-18.0); IMMATURE GRANULOCYTE % (AUTO) 0.4 % (0.0-5.0); LYMPHOCYTES # (AUTO) 0.3 K/uL (0.60-3.4); LYMPHOCYTES % (AUTO) 4.3 (10.0-50.0); MEAN CORPUSCULAR HEMOGLOBIN 28.6 pg (27.0-31.0); MEAN CORPUSCULAR VOLUME 92.4 fl (80.0-94.0); MONOCYTES # (AUTO) 0.4 K/uL (0.4-2.0); MONOCYTES % (AUTO) 5.4 (0-10); NEUTROPHILS # (AUTO) 6.8 K/ul (2.0-6.9); NEUTROPHILS % (AUTO) 89.8 % (42.2-75.2); PLATELET COUNT 235 10^3/uL (140-440); RDW COEFFICIENT OF VARIATION 14.9 % (11.6-14.8)
[2023-04-22 05:22] LABS: ALANINE AMINOTRANSFERASE 21.8 U/L (0-50); ALBUMIN 3.47 g/dL (3.5-5.0); ALKALINE PHOSPHATASE 54.4 U/L (56-119); ASPARTATE AMINO TRANSFERASE 34.2 U/L (17-59); BILIRUBIN,TOTAL 2.04 mg/dL (0.2-1.3); BLOOD UREA NITROGEN 19.5 mg/dL (9-20); CALCIUM 8.5 mg/dL (8.4-10.2); CARBON DIOXIDE 31.6 mmol/L (22-30.0); CHLORIDE 100.7 mmol/L (98-107); CREATININE 1.3 mg/dL (0.60-1.10); GLUCOSE 132.1 mg/dL (74-106); MAGNESIUM 1.63 mg/dL (1.6-2.3); POTASSIUM 4.56 mmol/L (3.5-5.1); SODIUM 138.2 mmol/L (134.5-145); TOTAL PROTEIN 6.39 g/dL (6.3-8.2)
[2023-04-22] MEDS: ASPIRIN EC PO SCH (08:11)
[2023-04-22] MEDS: SYMBICORT 160-4.5 MCG INHALER IH SCH ×2 (08:11→20:13)
[2023-04-22] MEDS: ENTRESTO 24 MG-26 MG TABLET PO SCH ×2 (08:11→20:14)
[2023-04-22] MEDS: JARDIANCE PO SCH (08:12)
[2023-04-22] MEDS: ALDACTONE PO SCH (08:12)
[2023-04-22] MEDS: SORBITRATE PO SCH ×3 (08:12→20:15)
--- NOTE | 2023-04-22 09:11 | PCM.PROG ---
Date/Time Seen Date Seen by Provider: 04/22/23 Time Seen by Provider: 08:50 Provider Provider: CATALINO GONZALEZ MD, [facility] Chief Complaint Chief Complaint: CHF Subjective Subjective: Reports SOB is worse on exertion. Started to require oxygen yesterday afternoon around 1-2 pm. He was tachypneic in the 30s and O2 sat was remaining in the upper 80s. Started on solu-medrol and duonebs at that time. States that he has had a difficult time over the past few days catching his breath particularly on exertion. Sat is 91-92% on 2L at this time. Feels that the swelling in his extremities is much better today but concerned with his breathing. Having to rest between sentences while speaking to me during exam. Objective Appearance: Positive No Apparent Distress and Alert and Oriented x3 Chest/Lungs: Positive Symmetrical With Equal Breath Sounds and Wheezes (e xpiratory throughout lung simeon) Heart: Positive RRR, Pulses Normal and Murmur GI/: Positive Soft, Nontender, Bowel Sounds Normal and No Distention Musculoskeletal: Positive Not Examined Neurological: Positive Sensation Intact, Motor intact, Reflexes Intact, Alert and Oriented Additional Findings: +1 pitting edema to bilateral lower extremities, much improved Vital Signs Vital Signs: Vital Signs: Last 24 Hours 04/21/23 09:46 04/21/23 09:46 04/21/23 11:00 Temperature 97.6 F Temperature Source Temporal Artery Scan Pulse Rate 99 Pulse Rate [Apical] Respiratory Rate 24 H Blood Pressure 118/71 Blood Pressure Mean 86 Blood Pressure Location Right Arm Blood Pressure Position O2 Sat by Pulse Oximetry 96 Oxygen Delivery Method Room Air Room Air Room Air Oxygen Flow Rate Telemetry Type Telemetry Monitoring Telemetry Heart Rate EKG MT Interval EKG QRS Interval Telemetry Strip Reading 04/21/23 13:00 04/21/23 13:00 04/21/23 13:58 Temperature Temperature Source Pulse Rate Pulse Rate [Apical] Respiratory Rate Blood Pressure Blood Pressure Mean Blood Pressure Location Blood Pressure Position O2 Sat by Pulse Oximetry Oxygen Delivery Method Room Air Room Air Oxygen Flow Rate Telemetry Type Remote Telemetry Telemetry Monitoring Continues Telemetry Heart Rate 116 H EKG MT Interval 0.28 H EKG QRS Interval 0.24 H Telemetry Strip Reading SR with 1 AVB and BBB 04/21/23 13:58 04/21/23 15:00 04/21/23 15:16 Temperature 98.5 F Temperature Source Oral Pulse Rate 109 H Pulse Rate [Apical] Respiratory Rate 30 H Blood Pressure 142/88 H Blood Pressure Mean 106 Blood Pressure Location Left Arm Blood Pressure Position Sitting O2 Sat by Pulse Oximetry 92 L Oxygen Delivery Method Room Air Nasal Cannula Nasal Cannula Oxygen Flow Rate 2 Telemetry Type Telemetry Monitoring Telemetry Heart Rate EKG MT Interval EKG QRS Interval Telemetry Strip Reading 04/21/23 15:55 04/21/23 17:00 04/21/23 17:40 Temperature Temperature Source Pulse Rate Pulse Rate [Apical] Respiratory Rate Blood Pressure Blood Pressure Mean Blood Pressure Location Blood Pressure Position O2 Sat by Pulse Oximetry Oxygen Delivery Method Nasal Cannula Nasal Cannula Nasal Cannula Oxygen Flow Rate Telemetry Type Telemetry Monitoring Telemetry Heart Rate EKG MT Interval EKG QRS Interval Telemetry Strip Reading 04/21/23 17:49 04/21/23 19:00 04/21/23 19:00 Temperature 97.4 F L Temperature Source Temporal Artery Scan Pulse Rate 99 Pulse Rate [Apical] Respiratory Rate 24 H Blood Pressure 135/85 Blood Pressure Mean 101 Blood Pressure Location Left Arm Blood Pressure Position Sitting O2 Sat by Pulse Oximetry 96 Oxygen Delivery Method Nasal Cannula Nasal Cannula Oxygen Flow Rate 2 Telemetry Type Remote Telemetry Telemetry Monitoring Continues Telemetry Heart Rate 93 EKG MT Interval 0.17 EKG QRS Interval 0.10 Telemetry Strip Reading SR 04/21/23 19:38 04/21/23 19:39 04/21/23 20:00 Temperature Temperature Source Pulse Rate Pulse Rate [Apical] 96 Respiratory Rate Blood Pressure Blood Pressure Mean Blood Pressure Location Blood Pressure Position O2 Sat by Pulse Oximetry 93 L Oxygen Delivery Method Nasal Cannula Room Air Nasal Cannula Oxygen Flow Rate 2 Telemetry Type Telemetry Monitoring Telemetry Heart Rate EKG MT Interval EKG QRS Interval Telemetry Strip Reading 04/21/23 21:00 04/21/23 21:14 04/21/23 22:00 Temperature 97.7 F Temperature Source Temporal Artery Scan Pulse Rate 98 Pulse Rate [Apical] Respiratory Rate 20 Blood Pressure 120/68 Blood Pressure Mean 85 Blood Pressure Location Left Arm Blood Pressure Position Supine O2 Sat by Pulse Oximetry 94 L Oxygen Delivery Method Nasal Cannula Nasal Cannula Nasal Cannula Oxygen Flow Rate 2 Telemetry Type Telemetry Monitoring Telemetry Heart Rate EKG MT Interval EKG QRS Interval Telemetry Strip Reading 04/21/23 23:00 04/22/23 00:00 04/22/23 00:56 Temperature Temperature Source Pulse Rate Pulse Rate [Apical] Respiratory Rate Blood Pressure Blood Pressure Mean Blood Pressure Location Blood Pressure Position O2 Sat by Pulse Oximetry Oxygen Delivery Method Nasal Cannula Nasal Cannula Nasal Cannula Oxygen Flow Rate Telemetry Type Telemetry Monitoring Telemetry Heart Rate EKG MT Interval EKG QRS Interval Telemetry Strip Reading 04/22/23 01:00 04/22/23 02:00 04/22/23 03:00 Temperature Temperature Source Pulse Rate Pulse Rate [Apical] Respiratory Rate Blood Pressure Blood Pressure Mean Blood Pressure Location Blood Pressure Position O2 Sat by Pulse Oximetry Oxygen Delivery Method Nasal Cannula Nasal Cannula Oxygen Flow Rate Telemetry Type Remote Telemetry Telemetry Monitoring Continues Telemetry Heart Rate 94 EKG MT Interval 0.18 EKG QRS Interval 0.14 H Telemetry Strip Reading NSR 04/22/23 04:00 04/22/23 04:48 04/22/23 05:00 Temperature Temperature Source Pulse Rate Pulse Rate [Apical] Respiratory Rate Blood Pressure Blood Pressure Mean Blood Pressure Location Blood Pressure Position O2 Sat by Pulse Oximetry Oxygen Delivery Method Nasal Cannula Nasal Cannula Nasal Cannula Oxygen Flow Rate 2 Telemetry Type Telemetry Monitoring Telemetry Heart Rate EKG MT Interval EKG QRS Interval Telemetry Strip Reading 04/22/23 05:12 04/22/23 05:17 04/22/23 07:00 Temperature 98.4 F Temperature Source Oral Pulse Rate 93 Pulse Rate [Apical] Respiratory Rate 20 Blood Pressure 137/87 Blood Pressure Mean 103 Blood Pressure Location Left Arm Blood Pressure Position Supine O2 Sat by Pulse Oximetry 90 L Oxygen Delivery Method Room Air Nasal Cannula Nasal Cannula Oxygen Flow Rate Telemetry Type Telemetry Monitoring Telemetry Heart Rate EKG MT Interval EKG QRS Interval Telemetry Strip Reading 04/22/23 07:23 Temperature Temperature Source Pulse Rate Pulse Rate [Apical] Respiratory Rate Blood Pressure Blood Pressure Mean Blood Pressure Location Blood Pressure Position O2 Sat by Pulse Oximetry Oxygen Delivery Method Nasal Cannula Oxygen Flow Rate Telemetry Type Telemetry Monitoring Telemetry Heart Rate EKG MT Interval EKG QRS Interval Telemetry Strip Reading Lab Results Lab Results: Lab Results: Last 24 Hours 04/22/23 04/20/23 05:06 19:00 WBC 7.60 RBC 5.10 Hgb 14.6 Hct 47.1 MCV 92.4 MCH 28.6 MCHC 31.0 L RDW Coeff of Dimple 14.9 H Plt Count 235 Immature Gran % (Auto) 0.4 Neut % (Auto) 89.8 H Lymph % (Auto) 4.3 L [place] % (Auto) 5.4 Eos % (Auto) 0.0 Baso % (Auto) 0.1 Neut # (Auto) 6.8 Lymph # (Auto) 0.3 L [place] # (Auto) 0.4 Eos # (Auto) 0.0 Baso # (Auto) 0.0 Immature Gran # (Auto) 0.0 Sodium 138.2 Potassium 4.56 Chloride 100.7 Carbon Dioxide 31.6 H Anion Gap 10.46 BUN 19.5 Creatinine 1.30 H Estimated GFR (MDRD) 67.00 BUN/Creatinine Ratio 15.00 Glucose 132.1 H Calcium 8.50 Magnesium 1.63 Total Bilirubin 2.04 H AST 34.2 ALT 21.8 Alkaline Phosphatase 54.4 L C-Reactive Prot, Quant 12 H Total Protein 6.39 Albumin 3.47 L Globulin 2.92 Albumin/Globulin Ratio 1.18 Additional Comments Additional Comments: I have independently reviewed and interpreted the labs/EKGs/imaging ordered during this hospital stay. I have reviewed outside records that are available in our EMR that pertain to medical stay including imaging/notes/labs from previous visits. Active Medications Active Medications: Medications Generic Name Dose Route Start Last Admin Trade Name Freq PRN Reason Stop Dose Admin Acetaminophen 650 mg 04/20/23 20:51 04/21/23 14:36 Acetaminophen 325 Mg Tablet PO 650 mg Q4H PRN Administration FEVER/PAIN Albuterol Sulfate 2 puff 04/21/23 12:56 Albuterol Sulfate 8 Gm Inhaler IH Q4H PRN Wheezing Albuterol/Ipratropium 3 ml 04/21/23 12:13 04/21/23 12:24 Ipratropium/Albuterol Vial.Neb NEB 3 ml RTQ6H PRN Administration Wheezing Aspirin 81 mg 04/22/23 07:30 04/22/23 08:11 Aspirin 81 Mg Tablet. PO 81 mg DAILYWM2 JOSE RAUL Administration Budesonide/Formoterol Fumarate 2 puff 04/21/23 21:00 04/22/23 08:11 Budesonide/Formoterol Fumarate 160/4.5 Mcg Inhaler IH 2 puff BID JOSE RAUL Administration Empagliflozin 10 mg 04/22/23 09:00 04/22/23 08:12 Empagliflozin 10 Mg Tablet PO 10 mg DAILY JOSE RAUL Administration Furosemide 40 mg 04/21/23 17:00 04/22/23 05:04 Furosemide Inj 40 Mg/4 Ml Vial IVP 40 mg BIDAC2 JOSE RAUL Administration Hydralazine HCl 10 mg 04/20/23 22:07 04/20/23 22:32 Hydralazine Hcl 20 Mg/Ml Sdv IVP 10 mg Q6H PRN Administration Hypertension Isosorbide Dinitrate 5 mg 04/21/23 15:00 04/22/23 08:12 Isosorbide Dinitrate 20 Mg Tablet PO 5 mg TID JOSE RAUL Administration Melatonin 6 mg 04/20/23 20:16 04/20/23 22:35 Melatonin 3 Mg Tablet PO 6 mg BEDTIME PRN Administration Insomnia Methylprednisolone Sodium Succinate 40 mg 04/21/23 14:00 04/22/23 05:04 Methylprednisolone Sod Succ/Pf 40 Mg/Ml Vial IVP 40 mg Q8HR JOSE RAUL Administration Ondansetron HCl 4 mg 04/20/23 20:16 Ondansetron Hcl/Pf 4 Mg/2 Ml Sdv IVP Q4HR PRN Nausea / Vomiting Pravastatin Sodium 40 mg 04/21/23 21:00 04/21/23 20:04 Pravastatin Sodium 40 Mg Tablet PO 40 mg BEDTIME JOSE RAUL Administration Sacubitril/Valsartan 1 each 04/21/23 21:00 04/22/23 08:11 Sacubitril/Valsartan 1 Each Tablet PO 1 each BID JOSE RAUL Administration Sodium Chloride 1 syr 04/20/23 18:57 04/22/23 05:13 0.9% Sodium Chloride 10 Ml Disp.Syrin IVF 1 syr PRN PRN Administration To flush IV Spironolactone 25 mg 04/21/23 13:00 04/22/23 08:12 Spironolactone 25 Mg Tablet PO 25 mg DAILY JOSE RAUL Administration Plan Plan: 1. Acute Systolic HF exacerbation - Improving, EF on last echo is 39%. Follows with [facility] and has heart cath scheduled for 04/23/23, lasix 40 mg Q12H - will transition to PO starting tomorrow am, I&O, daily weight, 1800 fluid restriction 2. Acute Hypoxic Respiratory Failure in setting of COPD exacerbation - wean oxygen as tolerated, nebs, steroids, starting on levaquin - had keflex less than a month ago 3. Hypomagnesemia - Resolved, monitor 4. Hypertension - Uncontrolled, Hydralazine prn IV ordered, continued home medications 5. Hyperlipidemia - Continue home meds 6. Substance abuse - Discussed cessation. Discussed need for beta bibiana due to his heart but contraindicated in this setting of continued cocaine use. 7. Medical noncompliance - Patient went without medications for 2 weeks and then went to ER in [place], discussed importance of medication regimen DVT Prophylaxis: Up ad guicho Review Statement Review Statement: I have personally discussed and reviewed the patient's visit/currently labs/imaging/decision making with Dr. Gonzalez, my supervising attending. Greater that 50 minutes spent with patient, 50% of the time spent with this patient was devoted to counseling and coordination of care.
[2023-04-22] MEDS: LEVAQUIN 500 MG/100 ML D5W 500 MG/100 ML BAG IV SCH (10:51)
[2023-04-22] MEDS: FLORASTOR PO SCH (20:15)
[2023-04-22] MEDS: PRAVACHOL PO SCH (20:15)
[2023-04-23 05:26] LABS: BASOPHILS % (AUTO) 0.1 % (0.0-3.0); HEMATOCRIT 47.3 % (42.0-52.0); HEMOGLOBIN 14.6 g/dl (14.0-18.0); IMMATURE GRANULOCYTE # (AUTO) 0.1 (0.0-1.0); IMMATURE GRANULOCYTE % (AUTO) 0.4 % (0.0-5.0); LYMPHOCYTES # (AUTO) 0.4 K/uL (0.60-3.4); LYMPHOCYTES % (AUTO) 3.1 (10.0-50.0); MEAN CORPUSCULAR HEMOGLOBIN 28.4 pg (27.0-31.0); MEAN CORPUSCULAR HGB CONC 30.9 (31.8-35.4); MONOCYTES # (AUTO) 0.8 K/uL (0.4-2.0); MONOCYTES % (AUTO) 6.5 (0-10); NEUTROPHILS # (AUTO) 11.5 K/ul (2.0-6.9); NEUTROPHILS % (AUTO) 89.9 % (42.2-75.2); PLATELET COUNT 251 10^3/uL (140-440); RDW COEFFICIENT OF VARIATION 14.7 % (11.6-14.8); RED BLOOD COUNT 5.14 10^6/ul (4.70-6.10); WHITE BLOOD COUNT 12.73 K/ul (4.2-10.2)
[2023-04-23] MEDS: LASIX TAB PO SCH (05:28)
[2023-04-23] MEDS: SOLU-MEDROL 40 MG IVP SCH ×3 (05:28→20:50)
[2023-04-23 05:39] LABS: ALANINE AMINOTRANSFERASE 23.4 U/L (0-50); ALBUMIN 3.61 g/dL (3.5-5.0); ALKALINE PHOSPHATASE 77.6 U/L (56-119); ASPARTATE AMINO TRANSFERASE 28.8 U/L (17-59); BILIRUBIN,TOTAL 1.42 mg/dL (0.2-1.3); BLOOD UREA NITROGEN 20.4 mg/dL (9-20); CALCIUM 8.4 mg/dL (8.4-10.2); CARBON DIOXIDE 32.8 mmol/L (22-30.0); CHLORIDE 100.6 mmol/L (98-107); CREATININE 1.29 mg/dL (0.60-1.10); GLUCOSE 118.4 mg/dL (74-106); MAGNESIUM 1.71 mg/dL (1.6-2.3); POTASSIUM 3.91 mmol/L (3.5-5.1); SODIUM 137.5 mmol/L (134.5-145); TOTAL PROTEIN 6.52 g/dL (6.3-8.2)
[2023-04-23] MEDS: ASPIRIN EC PO SCH (07:14)
[2023-04-23] MEDS: LEVAQUIN 500 MG/100 ML D5W 500 MG/100 ML BAG IV SCH (08:54)
[2023-04-23] MEDS: SORBITRATE PO SCH ×3 (08:55→20:49)
[2023-04-23] MEDS: ALDACTONE PO SCH (08:55)
[2023-04-23] MEDS: ENTRESTO 24 MG-26 MG TABLET PO SCH ×2 (08:55→20:49)
[2023-04-23] MEDS: FLORASTOR PO SCH ×2 (08:55→20:50)
[2023-04-23] MEDS: SYMBICORT 160-4.5 MCG INHALER IH SCH ×2 (08:56→20:50)
[2023-04-23] MEDS: JARDIANCE PO SCH (08:56)
--- NOTE | 2023-04-23 10:29 | PCM.PROG ---
Date/Time Seen Date Seen by Provider: 04/23/23 Time Seen by Provider: 08:30 Provider Provider: CATALINO G[facility]ZALEZ [facility] Chief Complaint Chief Complaint: CHF Subjective Subjective: Continuing to require 2L of oxygen. RT has attempted to wean but sat drops to upper 80s to low 90s. Patient reports feeling some better and feels breathing treatments are helping. However, feels he is still not recovering well when he takes his oxygen off to ambulate to the bathroom or anything else in the room. States that he would feel more comfortable going home if he stayed for another day of antibiotics, steroids, and breathing treatments. Objective Appearance: Positive No Apparent Distress, Alert and Oriented x3 and Ill- Appearing Chest/Lungs: Positive Symmetrical With Equal Breath Sounds, Clear to Auscultation Bilaterally and Good Air Movement all 4 Lung [place] Heart: Positive RRR, Pulses Normal and Murmur GI/: Positive Soft, Nontender, Bowel Sounds Normal and No Distention Musculoskeletal: Positive Other (trace edema BLE) and Not Examined Neurological: Positive Sensation Intact, Motor intact, Reflexes Intact, Alert and Oriented Vital Signs Vital Signs: Vital Signs: Last 24 Hours 04/22/23 10:52 04/22/23 13:00 04/22/23 13:44 Temperature Temperature Source Pulse Rate Respiratory Rate Blood Pressure Blood Pressure Mean Blood Pressure Location Blood Pressure Position O2 Sat by Pulse Oximetry 92 L Oxygen Delivery Method Nasal Cannula Nasal Cannula Oxygen Flow Rate 2 Telemetry Type Remote Telemetry Telemetry Monitoring Continues Irregular Telemetry Rate (Approximate) Telemetry Heart Rate 87 EKG [place] Interval 0.16 EKG QRS Interval 0.10 Telemetry Strip Reading sr 04/22/23 14:00 04/22/23 18:00 04/22/23 18:45 Temperature 97.7 F 97.7 F Temperature Source Oral Oral Pulse Rate 88 91 Respiratory Rate 17 19 Blood Pressure 119/69 116/68 Blood Pressure Mean 85 84 Blood Pressure Location Right Arm Left Arm Blood Pressure Position Supine Sitting O2 Sat by Pulse Oximetry 94 L 94 L Oxygen Delivery Method Nasal Cannula Nasal Cannula Nasal Cannula Oxygen Flow Rate 1 1 2 Telemetry Type Telemetry Monitoring Irregular Telemetry Rate (Approximate) Telemetry Heart Rate EKG WV Interval EKG QRS Interval Telemetry Strip Reading 04/22/23 19:00 04/22/23 20:00 04/22/23 21:23 Temperature 97.9 F Temperature Source Oral Pulse Rate 89 Respiratory Rate 20 Blood Pressure 119/73 Blood Pressure Mean 88 Blood Pressure Location Right Arm Blood Pressure Position Supine O2 Sat by Pulse Oximetry 95 Oxygen Delivery Method Room Air Nasal Cannula Oxygen Flow Rate 1 Telemetry Type Remote Telemetry Telemetry Monitoring Continues Irregular Telemetry Rate (Approximate) Telemetry Heart Rate 88 EKG WV Interval 0.17 EKG QRS Interval 0.11 H Telemetry Strip Reading SR 04/23/23 00:42 04/23/23 05:08 04/23/23 05:49 Temperature 97.7 F Temperature Source Oral Pulse Rate 95 Respiratory Rate 94 H Blood Pressure 132/86 Blood Pressure Mean 101 Blood Pressure Location Right Arm Blood Pressure Position Supine O2 Sat by Pulse Oximetry 94 L Oxygen Delivery Method Nasal Cannula Nasal Cannula Oxygen Flow Rate 2 1 Telemetry Type Remote Telemetry Telemetry Monitoring Continues Irregular Telemetry Rate (Approximate) Telemetry Heart Rate 88 EKG WV Interval 0.17 EKG QRS Interval 0.09 Telemetry Strip Reading SR 04/23/23 07:00 04/23/23 09:56 04/23/23 10:00 Temperature 97.8 F Temperature Source Oral Pulse Rate 88 Respiratory Rate 20 Blood Pressure 132/79 Blood Pressure Mean 96 Blood Pressure Location Left Arm Blood Pressure Position Supine O2 Sat by Pulse Oximetry 95 96 Oxygen Delivery Method Nasal Cannula Nasal Cannula Oxygen Flow Rate 2 1 Telemetry Type Remote Telemetry Telemetry Monitoring Continues Irregular Telemetry Rate (Approximate) 100-110 BPM Telemetry Heart Rate 100 EKG WV Interval 0.15 EKG QRS Interval 0.25 H Telemetry Strip Reading ST w/BBB Lab Results Lab Results: Lab Results: Last 24 Hours 04/23/23 04:55 WBC 12.73 H D RBC 5.14 Hgb 14.6 Hct 47.3 MCV 92.0 MCH 28.4 MCHC 30.9 L RDW Coeff of Dimple 14.7 Plt Count 251 Immature Gran % (Auto) 0.4 Neut % (Auto) 89.9 H Lymph % (Auto) 3.1 L [place] % (Auto) 6.5 Eos % (Auto) 0.0 Baso % (Auto) 0.1 Neut # (Auto) 11.5 H Lymph # (Auto) 0.4 L [place] # (Auto) 0.8 Eos # (Auto) 0.0 Baso # (Auto) 0.0 Immature Gran # (Auto) 0.1 Sodium 137.5 Potassium 3.91 Chloride 100.6 Carbon Dioxide 32.8 H Anion Gap 8.01 BUN 20.4 H Creatinine 1.29 H Estimated GFR (MDRD) 67.00 BUN/Creatinine Ratio 15.81 Glucose 118.4 H Calcium 8.40 Magnesium 1.71 Total Bilirubin 1.42 H AST 28.8 ALT 23.4 Alkaline Phosphatase 77.6 Total Protein 6.52 Albumin 3.61 Globulin 2.91 Albumin/Globulin Ratio 1.24 Additional Comments Additional Comments: I have independently reviewed and interpreted the labs/EKGs/imaging ordered during this hospital stay. I have reviewed outside records that are available in our EMR that pertain to medical stay including imaging/notes/labs from previous visits. Active Medications Active Medications: Medications Generic Name Dose Route Start Last Admin Trade Name Freq PRN Reason Stop Dose Admin Acetaminophen 650 mg 04/20/23 20:51 04/21/23 14:36 Acetaminophen 325 Mg Tablet PO 650 mg Q4H PRN Administration FEVER/PAIN Albuterol Sulfate 2 puff 04/21/23 12:56 Albuterol Sulfate 8 Gm Inhaler IH Q4H PRN Wheezing Albuterol/Ipratropium 3 ml 04/21/23 12:13 04/21/23 12:24 Ipratropium/Albuterol Vial.Neb NEB 3 ml RTQ6H PRN Administration Wheezing Aspirin 81 mg 04/22/23 07:30 04/23/23 07:14 Aspirin 81 Mg Tablet. PO 81 mg DAILYWM2 JOSE RAUL Administration Budesonide/Formoterol Fumarate 2 puff 04/21/23 21:00 04/23/23 08:56 Budesonide/Formoterol Fumarate 160/4.5 Mcg Inhaler IH 2 puff BID JOSE RAUL Administration Empagliflozin 10 mg 04/22/23 09:00 04/23/23 08:56 Empagliflozin 10 Mg Tablet PO 10 mg DAILY JOSE RAUL Administration Furosemide 40 mg 04/23/23 06:00 04/23/23 05:28 Furosemide 40 Mg Tablet PO 40 mg QDAC2 JOSE RAUL Administration Hydralazine HCl 10 mg 04/20/23 22:07 04/20/23 22:32 Hydralazine Hcl 20 Mg/Ml Sdv IVP 10 mg Q6H PRN Administration Hypertension Levofloxacin/Dextrose 500 mg in 100 mls @ 100 mls/hr 04/22/23 09:30 04/23/23 08:54 Levaquin 500 Mg/100 Ml D5w IV 04/25/23 09:29 100 mls/hr DAILY JOSE RAUL Administration Isosorbide Dinitrate 5 mg 04/21/23 15:00 04/23/23 08:55 Isosorbide Dinitrate 20 Mg Tablet PO 5 mg TID JOSE RAUL Administration Melatonin 6 mg 04/20/23 20:16 04/20/23 22:35 Melatonin 3 Mg Tablet PO 6 mg BEDTIME PRN Administration Insomnia Methylprednisolone Sodium Succinate 40 mg 04/21/23 14:00 04/23/23 05:28 Methylprednisolone Sod Succ/Pf 40 Mg/Ml Vial IVP 40 mg Q8HR JOSE RAUL Administration Ondansetron HCl 4 mg 04/20/23 20:16 Ondansetron Hcl/Pf 4 Mg/2 Ml Sdv IVP Q4HR PRN Nausea / Vomiting Pravastatin Sodium 40 mg 04/21/23 21:00 04/22/23 20:15 Pravastatin Sodium 40 Mg Tablet PO 40 mg BEDTIME JOSE RAUL Administration Saccharomyces Boulardii 250 mg 04/22/23 21:00 04/23/23 08:55 Saccharomyces Boulardii 250 Mg Capsule PO 250 mg BID JOSE RAUL Administration Sacubitril/Valsartan 1 each 04/21/23 21:00 04/23/23 08:55 Sacubitril/Valsartan 1 Each Tablet PO 1 each BID JOSE RAUL Administration Sodium Chloride 1 syr 04/20/23 18:57 04/23/23 05:30 0.9% Sodium Chloride 10 Ml Disp.Syrin IVF 1 syr PRN PRN Administration To flush IV Spironolactone 25 mg 04/21/23 13:00 04/23/23 08:55 Spironolactone 25 Mg Tablet PO 25 mg DAILY JOSE RAUL Administration Plan Plan: 1. Acute Systolic HF exacerbation - Improving, EF on last echo is 39%. Follows with [facility] and had heart cath scheduled for 04/23/23 but called to reschedule due to acute illness, transitioned to PO lasix this am, I&O, daily weight, 1800 fluid restriction 2. Acute Hypoxic Respiratory Failure in setting of COPD exacerbation - Unchanged, continuing to require oxygen, wean oxygen as tolerated, nebs, ster oids, starting on levaquin - had keflex less than a month ago, will complete 3 step prior to discharge 3. Hypomagnesemia - Resolved, monitor 4. Hypertension - Improving, Hydralazine prn IV ordered, continued home medications 5. Hyperlipidemia - Continue home meds 6. Substance abuse - Discussed cessation. Discussed need for beta bibiana due to his heart but contraindicated in this setting of continued cocaine use. 7. Medical noncompliance - Patient went without medications for 2 weeks and then went to ER in [place], discussed importance of medication regimen DVT Prophylaxis: Up ad guicho Dispo: Plan to d/c after 48 hours of antibiotics and 3 step oximetry. Review Statement Review Statement: I have personally discussed and reviewed the patient's visit/currently labs/imaging/decision making with Dr. Gonzalez, my supervising attending. Greater that 50 minutes spent with patient, 50% of the time spent with this patient was devoted to counseling and coordination of care.
[2023-04-23] MEDS: PRAVACHOL PO SCH (20:50)
[2023-04-24] MEDS: LASIX TAB PO SCH (05:10)
[2023-04-24] MEDS: SOLU-MEDROL 40 MG IVP SCH (05:10)
[2023-04-24 06:05] LABS: BASOPHILS % (AUTO) 0.1 % (0.0-3.0); HEMATOCRIT 49.5 % (42.0-52.0); HEMOGLOBIN 15.2 g/dl (14.0-18.0); IMMATURE GRANULOCYTE # (AUTO) 0.1 (0.0-1.0); IMMATURE GRANULOCYTE % (AUTO) 0.4 % (0.0-5.0); LYMPHOCYTES # (AUTO) 0.6 K/uL (0.60-3.4); MEAN CORPUSCULAR HEMOGLOBIN 28.6 pg (27.0-31.0); MEAN CORPUSCULAR HGB CONC 30.7 (31.8-35.4); MONOCYTES # (AUTO) 0.8 K/uL (0.4-2.0); MONOCYTES % (AUTO) 6.1 (0-10); NEUTROPHILS # (AUTO) 12.2 K/ul (2.0-6.9); NEUTROPHILS % (AUTO) 89.4 % (42.2-75.2); PLATELET COUNT 273 10^3/uL (140-440); RDW COEFFICIENT OF VARIATION 14.7 % (11.6-14.8); RED BLOOD COUNT 5.32 10^6/ul (4.70-6.10); WHITE BLOOD COUNT 13.62 K/ul (4.2-10.2)
[2023-04-24 06:23] LABS: ALANINE AMINOTRANSFERASE 24.9 U/L (0-50); ALBUMIN 3.68 g/dL (3.5-5.0); ASPARTATE AMINO TRANSFERASE 32.9 U/L (17-59); BILIRUBIN,TOTAL 0.9 mg/dL (0.2-1.3); BLOOD UREA NITROGEN 22.9 mg/dL (9-20); CALCIUM 8.46 mg/dL (8.4-10.2); CHLORIDE 101.7 mmol/L (98-107); CREATININE 1.17 mg/dL (0.60-1.10); GLUCOSE 128.8 mg/dL (74-106); SODIUM 137.8 mmol/L (134.5-145); TOTAL PROTEIN 6.64 g/dL (6.3-8.2)
[2023-04-24 06:29] LABS: POTASSIUM 4.24 mmol/L (3.5-5.1)
[2023-04-24] MEDS: ASPIRIN EC PO SCH (08:08)
[2023-04-24] MEDS: ENTRESTO 24 MG-26 MG TABLET PO SCH (08:08)
[2023-04-24] MEDS: ALDACTONE PO SCH (08:09)
[2023-04-24] MEDS: LEVAQUIN 500 MG/100 ML D5W 500 MG/100 ML BAG IV SCH (08:09)
[2023-04-24] MEDS: FLORASTOR PO SCH (08:09)
[2023-04-24] MEDS: SORBITRATE PO SCH (08:09)
[2023-04-24] MEDS: JARDIANCE PO SCH (08:09)
[2023-04-24] MEDS: SYMBICORT 160-4.5 MCG INHALER IH SCH (08:38)
[2023-04-24 09:25] VITALS: BP 117/79; PULSE 96; RESP 20; TEMP 97.4
--- NOTE | 2023-04-24 09:26 | DCSUM ---
Admission Date Admission Date: 04/20/23 Discharge Date Discharge Date: 04/24/23 Admission Diagnosis Admission Diagnosis: 1. Acute Systolic HF exacerbation 2. Hypomagnesemia 3. Hypertension 4. Hyperlipidemia 5. Substance abuse 6. Medical noncompliance Discharge Diagnosis Discharge Diagnosis: 1. Acute Systolic HF exacerbation - Resolved 2. Acute Hypoxic Respiratory Failure in setting of COPD exacerbation - Resolved, COPD exacerbation improved, Qualified for home oxygen 3. Hypomagnesemia - Resolved 4. Hypertension - Chronic, stable 5. Hyperlipidemia 6. Substance abuse 7. Medical noncompliance Hospital Provider Hospital Provider: CATALINO GONZALEZ MD, [facility] Primary Care Physician Primary Care Physician: CORAL HERNANDEZ MD Summary of History and Physical Summary of History and Physical: 67 yo male presented to the ER with complaints of shortness of breath and leg swelling. Patient states he has had worsening symptoms over the past week. States that he was recently at [facility] and due to being out of medications and fluid overload. He was given IV lasix and d/c home with medication refills. Reports he has an appointment on 04/23 for stent placement at [place]. Has pmh of systolic HF and cocaine use. Continues to use cocaine and does not take his medications regularly. Last echo that is available was from 12/10 with EF of 39%. Denies any chest pain, palpitations, or other associated symptoms. Hospital Course Subjective: For treatment of CHF, patient received lasix IV 40 Q12H after receiving dose in ER. Diuresed well. Weight loss of 7 lbs over course of stay. Transitioned to PO lasix yesterday. Continued to diurese. Continued to require 2L of oxygen with wheezing in all lung simeon on exam. He was started on levaquin for treatment of COPD exacerbation due to recent course of keflex as well as steroids and nebs. Despite treatment, patient continued to require oxygen. 3 step oximetry completed and failed qualifying for home O2. Otherwise feeling much better. BP was high on admission and required 1-2 doses of hydralazine. Resolved with resuming of home medications. Home medications continued without changes. He was scheduled for stent placement on 04/23/23 with [facility], but rescheduled due to acute illness. Appearance: Pleasant, No Apparent Distress and Alert HEENT: MMM and Supple CVS: No Rubs Abdomen: Soft and Non-Tender Respiratory: No Dyspnea Extremities: No Edema Vital Signs: Most Recent Vital Signs Temperature 97.4 F L 04/24/23 09:24 Temperature Source Tympanic 04/24/23 09:24 Temperature Source Infrared 04/20/23 18:34 Pulse Rate 96 04/24/23 09:24 Respiratory Rate 20 04/24/23 09:24 Blood Pressure 117/79 04/24/23 09:24 Blood Pressure Mean 91 04/24/23 09:24 Blood Pressure Left Arm 174/101 04/20/23 21:21 Blood Pressure Location Left Arm 04/24/23 09:24 Blood Pressure Position Sitting 04/24/23 09:24 O2 Sat by Pulse Oximetry 95 04/24/23 09:24 Oxygen Delivery Method Room Air 04/24/23 09:24 Oxygen Flow Rate 2 04/24/23 07:24 Height 6 ft 5 in 04/20/23 21:21 Weight 211 lb 9 oz 04/24/23 07:00 Telemetry Type Remote Telemetry 04/24/23 06:59 Telemetry Monitoring Continues 04/24/23 06:59 Irregular Telemetry Rate (Approximate) 100-110 BPM 04/23/23 07:00 Telemetry Heart Rate 85 04/24/23 06:59 Telemetry SPO2 97 04/24/23 06:59 EKG [place] Interval 0.18 04/24/23 06:59 EKG QRS Interval 0.13 H 04/24/23 06:59 Telemetry Strip Reading SR with BBB 04/24/23 06:59 Lab Results Last 24 Hours: 04/24/23 04/24/23 05:57 05:34 WBC 13.62 H RBC 5.32 Hgb 15.2 Hct 49.5 MCV 93.0 MCH 28.6 MCHC 30.7 L RDW Coeff of Dimple 14.7 Plt Count 273 Immature Gran % (Auto) 0.4 Neut % (Auto) 89.4 H Lymph % (Auto) 4.0 L [place] % (Auto) 6.1 Eos % (Auto) 0.0 Baso % (Auto) 0.1 Neut # (Auto) 12.2 H Lymph # (Auto) 0.6 [place] # (Auto) 0.8 Eos # (Auto) 0.0 Baso # (Auto) 0.0 Immature Gran # (Auto) 0.1 Sodium 137.8 Potassium 4.24 Chloride 101.7 Carbon Dioxide 28.0 Anion Gap 12.34 BUN 22.9 H Creatinine 1.17 H Estimated GFR (MDRD) 75.00 BUN/Creatinine Ratio 19.57 Glucose 128.8 H Calcium 8.46 Total Bilirubin 0.90 AST 32.9 ALT 24.9 Alkaline Phosphatase 93.0 Total Protein 6.64 Albumin 3.68 Globulin 2.96 Albumin/Globulin Ratio 1.24 Discharge Instructions Discharge Planning: Discharge Planning > 40 minutes If patient is discharged with left ventricular systolic dysfunction: NA, prev diagnosed Discharged with a beta bibiana? [] If no, why not?, cocaine use Discharged with an sarah/arb? [] If no, why not? already taking DX: CHF EXACERBATION, COPD EXACERBATION CARDIAC DIET WITH 2L FLUID RESTRICTION ACTIVITY TOLERATED OXYGEN CONTINUOUS @ 2LPM RX: JUSTO MORALES FOLLOW UP WITH PCP NEXT WEEK, CARDIOLOGY SCHEDULED Discharge Medications: Medications at Discharge (Home Meds & RX) aspirin 81 mg tablet,delayed release (Adult Aspirin Regimen) 81 mg PO DAILY #30 tabs 02/04/23 empagliflozin 10 mg tablet (Jardiance) 10 mg PO DAILY #30 tabs 02/04/23 furosemide 20 mg tablet (Lasix) 20 mg PO DAILY #30 tabs 02/04/23 isosorbide dinitrate 5 mg tablet 5 mg PO TID #90 tabs 02/04/23 pravastatin 40 mg tablet 40 mg PO BEDTIME #30 tabs 02/04/23 sacubitril 24 mg-valsartan 26 mg tablet (Entresto) 1 tab PO BID HEART FAILURE #60 tabs 02/04/23 spironolactone 25 mg tablet 25 mg PO QDAY #30 tabs 02/04/23 albuterol sulfate 90 mcg/actuation aerosol inhaler 2 puff inhalation Q4H PRN shortness of breath or wheezing 03/31/23 carvedilol 6.25 mg tablet 6.25 mg PO BID 03/31/23 budesonide-formoterol HFA 160 mcg-4.5 mcg/actuation aerosol inhaler 2 puff inhalation BID 04/21/23 Discharge Plan Discharge Discharge Orders: Discharge Patient (ONCE); Ordered 04/24/23 Ordered By: ELIZABETH ZHANG Activity Restrictions/Additional Instructions: Cardiac diet with 2 liter fluid restriction Activity as tolerated Follow-up with PCP next week. Follow-up with Cardiology as scheduled. Medications: Levaquin 500 mg daily x 7 days Medrol dose pack - take as directed until complete (Steroids) Continue to use home inhalers Instructions: Heart Failure (GEN), COPD (Chronic Obstructive Pulmonary Disease) (GEN), Fluid Restriction (GEN) Care Plan Goals: Problem: Impaired Respiratory Status Goal: Exhibit optimal respiratory function Instructions: Activities as tolerated Apply oxygen as ordered Elevate head of bed Notify MD of increased congestion Patient Disposition: HOME SELF-CARE Prescriptions: New methylprednisolone [Medrol (Rober)] 4 mg tablets,dose pack See Rx Instructions .ROUTE .COMPLEX Qty: 21 0RF Rx Instructions: orally per package directions levofloxacin 500 mg tablet 500 mg PO DAILY Qty: 7 0RF Continued pravastatin 40 mg tablet 40 mg PO BEDTIME Qty: 30 0RF aspirin [Adult Aspirin Regimen] 81 mg tablet,delayed release (DR/EC) 81 mg PO DAILY Qty: 30 0RF spironolactone 25 mg tablet 25 mg PO QDAY Qty: 30 0RF furosemide [Lasix] 20 mg tablet 20 mg PO DAILY Qty: 30 0RF isosorbide dinitrate 5 mg tablet 5 mg PO TID Qty: 90 0RF Rx Instructions: allow nitrate-free interval of 12-14 hrs per 24-hr period Jardiance 10 mg tablet 10 mg PO DAILY Qty: 30 0RF Entresto 24-26 mg tablet 1 tab PO BID Qty: 60 0RF carvedilol 6.25 mg tablet 6.25 mg PO BID Patient Comments: TAKE 1 TABLET BY MOUTH TWICE DAILY albuterol sulfate 90 mcg/actuation HFA aerosol inhaler 2 puff INHALATION Q4H PRN (Reason: shortness of breath or wheezing) Patient Comments: INHALE 2 PUFFS BY MOUTH EVERY 4 HOURS budesonide-formoterol 160-4.5 mcg/actuation HFA aerosol inhaler 2 puff INHALATION BID Patient Comments: INHALE 2 PUFFS BY MOUTH TWICE DAILY Did you review [place] SPECIMEN ACCESSIONER for ALL controlled substances?: No Discussed opioids are addictive and Narcan is available by prescription or from pharmacy.: No Condition: Stable Referrals: JESUS SCHWARZ [REFERRING] - 04/30/23 1:00 pm (YOU HAVE A HOSPITAL FOLLOW UP APPOINTMENT WITH NAIMA SCHWARZ AT [facility] ON 04/30/23 AT 1PM. )
== END 2023-04-24 11:20 | disposition home or self-care (01) | DRG 291 ==
LOC: MEDSURG B 18:31 → ED 18:31 → MEDSURG B 21:21
PROVIDERS: ADMIT Nurse Practitioner Family; ATTEND Hospitalist
DX: F14.20 Cocaine dependence, uncomplicated; I50.23 Acute on chronic systolic (congestive) heart failure; I45.4 Nonspecific intraventricular block; E83.42 Hypomagnesemia; E78.5 Hyperlipidemia, unspecified; I11.0 Hypertensive heart disease with heart failure; J96.01 Acute respiratory failure with hypoxia; J44.1 Chronic obstructive pulmonary disease with (acute) exacerbation

== ENCOUNTER 2023-09-06 12:52 | Inpatient (IN) ==
--- NOTE | 2023-09-06 13:17 | ED.PDOC ---
General ED Provider: Dr. ROVERTO TORRES MD Chief Complaint: Shortness of Air Stated Complaint: Shortness of breath Time Seen by Provider: 09/06/23 13:09 Mode of Arrival: Walk-In Information Source: Patient Nursing and Triage Documentation Reviewed and Agree: Yes What is Opioid Naive?: *Opioid Naive implies the patient is not already taking opioids or not chronically receiving opioids on a daily basis. *PRN dosing is not "usually" associated with tolerance. *Patients are at higher risk of over-sedation and aspiration. What is Opioid Tolerant?: *Opioid Tolerance implies less than the expected response to an opioid. *Acquired tolerance is defined by the patient taking 60mg of oral morphine daily (or equianalgesic dose of another opioid) for 1 week or more. *Often associated with chronic pain. *May take more than usual dose to achieve desired pain control. Respiratory Complaint Exam Shortness of Air Complaint/Exam Onset/Duration: 2 weeks Symptoms Are: Still present Timing: Constant Initial Severity: Moderate Current Severity: Moderate Character: Reports Dyspnea on exertion Aggravating: Reports Movement Alleviating: Reports None Associated Signs and Symptoms: Reports Edema Cardiac Risk Factors: Reports CHF Respiratory Distress: None Differential Diagnoses: CHF, Pulmonary Edema and Pulmonary Embolism Review of Systems Review Of Systems Constitutional: Reports No symptoms Eyes: Reports No symptoms Ears, Nose, Mouth, Throat: Reports No symptoms Respiratory: Reports Shortness of Breath Cardiac: Reports Edema GI: Reports No symptoms : Reports No symptoms Musculoskeletal: Reports No symptoms Skin: Reports No symptoms Neurological: Reports No symptoms Endocrine: Reports No symptoms Hematologic/Lymphatic: Reports No symptoms All Other Systems: Reviewed and Negative [facility] Medical History Uncontrolled hypertension I10 - Essential (primary) hypertension (ICD-10) Prostate CA patient reports "biopsy back in May 2019 that reported cancer. Not sure if I will have it removed" will sign records release for Dr. Donnelly C61 - Malignant neoplasm of prostate (ICD-10) Tobacco use Z72.0 - Tobacco use (ICD-10) Hypertension I10 - Essential (primary) hypertension (ICD-10) Arthritis M19.90 - Unspecified osteoarthritis, unspecified site (ICD-10) Family History Mother Hypertension FATHER Alcoholism and drug addiction in family Hypertension Social History Smoking and tobacco status: Former smoker Tobacco: How many years used: 7 How long ago did patient quit smoking: Stopped smoking about 2 years ago Alcohol intake: never Substance use type: crack/cocaine Physical Exam Physical Exam Appearance: Reports Well-appearing, No pain distress and Well-nourished Ill-appearing: None Respiratory: Reports Airway patent, Breath sounds equal and Crackles Cardiovascular: Reports RRR and Pulses normal Musculoskeletal: Reports Normal strength, No edema, No calf tenderness and Edema (3+ pitting) Skin: Reports Warm, Dry and Normal color Neurological: Reports Sensation intact, Motor intact, Cranial nerves intact, Alert and Oriented Psychiatric: Reports Affect appropriate and Mood appropriate Critical Care Note Critical Care Note Total Critical Care Time (mins): 120 Comments: Patient with exacerbation of congestive heart failure. I treated him with Lasix and ordered CTA that shows diffuse body wall edema and ascites. I treated patient with IV Lasix and he put out about 1 L of fluids. He said he feels better but is still short of breath and satting 94% on room air. Course Course 09/06/23 13:31 09/06/23 13:31 Orders, Labs, Meds: Lab Review 09/06/23 09/06/23 09/06/23 13:31 14:32 14:49 WBC 6.87 RBC 4.17 L Hgb 12.1 L Hct 39.2 L MCV 94.0 MCH 29.0 MCHC 30.9 L RDW Coeff of Dimple 15.1 H Plt Count 204 Immature Gran % (Auto) 0.3 Neut % (Auto) 76.6 H Lymph % (Auto) 10.3 [place] % (Auto) 6.6 Eos % (Auto) 5.5 Baso % (Auto) 0.7 Neut # (Auto) 5.3 Lymph # (Auto) 0.7 [place] # (Auto) 0.5 Eos # (Auto) 0.4 Baso # (Auto) 0.1 Immature Gran # (Auto) 0.0 Sodium 139.2 Potassium 4.68 Chloride 108.5 H Carbon Dioxide 22.1 Anion Gap 13.28 BUN 14.7 Creatinine 1.23 H Estimated GFR (MDRD) 71.00 BUN/Creatinine Ratio 11.95 Glucose 134.8 H Calcium 8.23 L Total Bilirubin 2.42 H AST 43.1 ALT 16.0 Alkaline Phosphatase 39.4 L Troponin I 0.019 NT-Pro-B Natriuret Pep 7490 H Total Protein 6.70 Albumin 3.59 Globulin 3.11 Albumin/Globulin Ratio 1.15 D-Dimer 7131.11 H Urine Color Yellow Urine Clarity Clear Urine pH 5.0 Ur Specific [place] 1.010 Urine Protein Negative Urine Glucose (UA) Negative Urine Ketones Negative Urine Blood Negative Urine Nitrite Negative Urine Bilirubin Negative Urine Urobilinogen 0.2 Ur Leukocyte Esterase Negative Influ A Molecular Assay Influ B Molecular Assay RSV Antigen SARS CoV-2 RNA Rapid CAL 09/06/23 16:15 WBC RBC Hgb Hct MCV MCH MCHC RDW Coeff of Dimple Plt Count Immature Gran % (Auto) Neut % (Auto) Lymph % (Auto) [place] % (Auto) Eos % (Auto) Baso % (Auto) Neut # (Auto) Lymph # (Auto) [place] # (Auto) Eos # (Auto) Baso # (Auto) Immature Gran # (Auto) Sodium Potassium Chloride Carbon Dioxide Anion Gap BUN Creatinine Estimated GFR (MDRD) BUN/Creatinine Ratio Glucose Calcium Total Bilirubin AST ALT Alkaline Phosphatase Troponin I NT-Pro-B Natriuret Pep Total Protein Albumin Globulin Albumin/Globulin Ratio D-Dimer Urine Color Urine Clarity Urine pH Ur Specific [place] Urine Protein Urine Glucose (UA) Urine Ketones Urine Blood Urine Nitrite Urine Bilirubin Urine Urobilinogen Ur Leukocyte Esterase Influ A Molecular Assay Negative by naat Influ B Molecular Assay Negative by naat RSV Antigen Negative by naat SARS CoV-2 RNA Rapid CAL Negative Orders Category Date Time Status IP: INSERT SALINE LOCK ONCE CARE 09/06/23 13:18 Active NPO REMINDER: IMAGING ONCE CARE 09/06/23 14:37 Completed CBC W/ AUTO DIFF Stat LAB 09/06/23 13:31 Completed CMP [COMPREHENSIVE METABOLIC PANEL] Stat LAB 09/06/23 13:31 Completed COVID [SARS COV-2 RNA RAPID CAL] Stat LAB 09/06/23 16:15 Completed D-DIMER Stat LAB 09/06/23 13:31 Completed FLU A/B MOLECULAR Stat LAB 09/06/23 16:15 Completed PROBNP ED [NT-PROBNP(ED)] Stat LAB 09/06/23 14:32 Completed RSV Stat LAB 09/06/23 16:15 Completed TROPONIN I Stat LAB 09/06/23 13:31 Completed URINALYSIS C & S IF INDICATED Stat LAB 09/06/23 14:49 Completed Furosemide [Lasix] Meds 09/06/23 13:17 Discontinued 20 mg IVP ONCE STA CTA CHEST PE PROTOCOL Stat RADS 09/06/23 14:37 Completed Medications Discontinued Medications Generic Name Dose Route Start Last Admin Trade Name Samiq PRN Reason Stop Dose Admin Furosemide 20 mg 09/06/23 13:17 09/06/23 13:34 Furosemide Inj 20 Mg/2 Ml Vial IVP 09/06/23 13:18 20 mg ONCE STA Administration Vital Signs: Temp Pulse Resp BP Pulse Ox 09/06/23 12:53 97.8 F 96 18 127/90 93 L Discharge Plan Discharge Patient Disposition: ADMITTED INPATIENT Discharge Problem: Acute exacerbation of CHF (congestive heart failure) Did you review [place] [employer] for ALL controlled substances?: Not Applicable ED Provider: ROVERTO TORRES Condition: Stable Physician Progress Note: [Mr. Mayes presents to the ER complaining of shortness of breath for the past two weeks. He said it has worsened over the past week. He has a history of congestive heart failure and takes Lasix. He reports that he has gained 40 pounds over the last week and a half. 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 I ordered labs including a BNP and D-dimer. His BNP is 7490 and his D-dimer is 7131.11. I ordered a CTA of his chest. Radiology interpretation of CT a of chest reports no evidence of pulmonary embolism, marked cardiomegaly, contrast weight flux into liquid. Vena cava suggesting right-sided heart insufficiency, diffuse body wall edema/anasarca and ascites, small bilateral pleural effusions with bibasilar atelectasis/pneumonia and patchy ground glass opacities mild pulmonary edema and emphysema. I ordered a COVID test and he is negative. I discussed results with patient and told him I believe he needs to be admitted. I spoke to the hospitalist HAILEY Serrano and she agreed to admit patient for observation.]
[2023-09-06 13:34] LABS: BASOPHILS # (AUTO) 0.1 K/uL (0-0.2); BASOPHILS % (AUTO) 0.7 % (0.0-3.0); EOSINOPHILS # (AUTO) 0.4 K/ul (0.0-0.7); EOSINOPHILS % (AUTO) 5.5 % (0.0-7.0); HEMATOCRIT 39.2 % (42.0-52.0); HEMOGLOBIN 12.1 g/dl (14.0-18.0); IMMATURE GRANULOCYTE % (AUTO) 0.3 % (0.0-5.0); LYMPHOCYTES # (AUTO) 0.7 K/uL (0.60-3.4); LYMPHOCYTES % (AUTO) 10.3 (10.0-50.0); MEAN CORPUSCULAR HGB CONC 30.9 (31.8-35.4); MONOCYTES # (AUTO) 0.5 K/uL (0.4-2.0); MONOCYTES % (AUTO) 6.6 (0-10); NEUTROPHILS # (AUTO) 5.3 K/ul (2.0-6.9); NEUTROPHILS % (AUTO) 76.6 % (42.2-75.2); PLATELET COUNT 204 10^3/uL (140-440); RDW COEFFICIENT OF VARIATION 15.1 % (11.6-14.8); RED BLOOD COUNT 4.17 10^6/ul (4.70-6.10); WHITE BLOOD COUNT 6.87 K/ul (4.2-10.2)
[2023-09-06] MEDS: LASIX IVP STA (13:34)
[2023-09-06 13:46] LABS: ALBUMIN 3.59 g/dL (3.5-5.0); ALKALINE PHOSPHATASE 39.4 U/L (56-119); ASPARTATE AMINO TRANSFERASE 43.1 U/L (17-59); BILIRUBIN,TOTAL 2.42 mg/dL (0.2-1.3); BLOOD UREA NITROGEN 14.7 mg/dL (9-20); CALCIUM 8.23 mg/dL (8.4-10.2); CARBON DIOXIDE 22.1 mmol/L (22-30.0); CHLORIDE 108.5 mmol/L (98-107); CREATININE 1.23 mg/dL (0.60-1.10); GLUCOSE 134.8 mg/dL (74-106); POTASSIUM 4.68 mmol/L (3.5-5.1); SODIUM 139.2 mmol/L (134.5-145); TOTAL PROTEIN 6.7 g/dL (6.3-8.2)
[2023-09-06 13:57] LABS: TROPONIN I 0.019 ng/ml (0.0000-0.120)
[2023-09-06 14:53] LABS: BILIRUBIN,URINE Negative (NEGATIVE); CLARITY,URINE Clear (CLEAR); COLOR,URINE Yellow (YELLOW); GLUCOSE, URINE (UA) Negative (NEGATIVE); KETONES,URINE Negative (NEGATIVE); LEUKOCYTE ESTERASE ,URINE Negative (NEGATIVE); NITRITE,URINE Negative (NEGATIVE); PROTEIN,URINE Negative (NEGATIVE); URINE, BLOOD Negative (NEGATIVE); UROBILINOGEN,URINE 0.2 (0.2)
--- NOTE | 2023-09-06 15:35 | CT ---
EXAM: CHEST CTA WITH CONTRAST (PULMONARY ARTERY) HISTORY: Shortness breath. Elevated D-dimer. COMPARISON: Chest radiograph 08/07/2023. CT angiography of the chest 03/31/2023. TECHNIQUE: CTA acquisition of the chest from the thoracic inlet to the upper abdomen following IV con trast administration. IV Contrast: Yes. 3D/MIP/VR images: Provided. FINDINGS: Dilation of the main pulmonary artery measuring 4.2 cm in diameter, concerning for underlying pulmona ry arterial hypertension. Beam hardening artifact from contrast within the superior vena cava as wel l as moderately limited assessment of pulmonary artery due to patient respiratory motion artifact. T here are no discrete intraluminal filling defects within the main pulmonary artery through the proxim al branches of the right and left pulmonary arteries to suggest an acute central pulmonary embolism. No filling defects are seen through the level of the lobar/internal lobar branches, though with sign ificantly limited assessment of the more peripheral (segmental/subsegmental) branches in particular o n the right side. No evidence of acute right ventricular strain. There is marked cardiomegaly. There is some contrast refluxing into the hepatic veins as previously described which may be related underlying right-sided heart insufficiency. Minimal pericardial effus ion. Vascular calcifications of the thoracic aorta and its branches without evidence of an aortic an eurysm. Calcified mediastinal and right hilar lymph nodes related to old granulomatous disease. Sub-centimet er noncalcified lymph nodes are nonspecific. Thyroid gland is grossly unremarkable. The central air ways are unremarkable appearance aside from some bronchial wall thickening of the lower lobes and pos sible changes of bronchitis. Thoracic aorta is unremarkable. Emphysematous changes of the lungs bilaterally with minimal biapical scarring. Scattered calcified g ranulomas. Patchy ground-glass opacities and mosaic attenuation may be related to small airway or sm all vessel disease. There are small bilateral pleural effusions with mild bibasilar atelectasis/cons olidation. Mild interlobular septal thickening lower lobes suggesting a component of pulmonary edema . No pneumothorax. No acute compression fracture. Degenerative changes of the thoracic spine. Free fluid in the right and left upper quadrants in keeping with ascites. Diffuse body wall edema. IMPRESSION: No evidence of an acute large/central pulmonary embolism as detailed above. Technically limited asse ssment of the more peripheral branches. Marked cardiomegaly. Contrast reflux into the inferior vena cava suggesting right-sided heart insuff iciency and clinical correlation is recommended. Minimal pericardial effusion. Diffuse body wall edema/anasarca. Ascites. Small bilateral pleural effusions and bibasilar atelectasis/pneumonia. Patchy ground-glass opacities and possible component. Mild pulmonary edema. Old granulomatous disease. Emphysema. All CT scans are performed using dose optimization techniques as appropriate to the performed exam an d include at least one of the following: Automated exposure control, adjustment of the mA and/or kV according t o size, and the use of iterative reconstruction technique.
[2023-09-06 16:39] LABS: MOLECULAR FLU A NEGATIVE BY NAAT (NEGATIVE); MOLECULAR FLU B NEGATIVE BY NAAT (NEGATIVE); RSV MOLECULAR NEGATIVE BY NAAT (NEGATIVE); SARS COV-2 RNA RAPID NAAT NEGATIVE (NEGATIVE)
[2023-09-06 17:47] VITALS: BMI 32.3
[2023-09-06] MEDS ORDERED: TYLENOL PO PRN (18:23)
[2023-09-06] MEDS ORDERED: ZOFRAN 4 MG/2 ML IVP PRN (18:23)
[2023-09-06] MEDS ORDERED: VENTOLIN HFA IH PRN (18:27)
[2023-09-06] MEDS: LASIX IVP SCH (19:18)
[2023-09-06] MEDS: ALDACTONE PO SCH (19:53)
[2023-09-06] MEDS: SORBITRATE PO SCH (20:00)
[2023-09-06] MEDS: ENTRESTO 24 MG-26 MG TABLET PO SCH (20:00)
[2023-09-06] MEDS: PRAVACHOL PO SCH (20:00)
[2023-09-06] MEDS: SYMBICORT 160-4.5 MCG INHALER IH SCH (20:00)
[2023-09-07 05:18] LABS: BASOPHILS # (AUTO) 0.1 K/uL (0-0.2); BASOPHILS % (AUTO) 0.8 % (0.0-3.0); EOSINOPHILS # (AUTO) 0.4 K/ul (0.0-0.7); EOSINOPHILS % (AUTO) 5.1 % (0.0-7.0); HEMATOCRIT 38.4 % (42.0-52.0); HEMOGLOBIN 11.6 g/dl (14.0-18.0); IMMATURE GRANULOCYTE % (AUTO) 0.3 % (0.0-5.0); LYMPHOCYTES # (AUTO) 0.8 K/uL (0.60-3.4); MEAN CORPUSCULAR HEMOGLOBIN 28.4 pg (27.0-31.0); MEAN CORPUSCULAR HGB CONC 30.2 (31.8-35.4); MEAN CORPUSCULAR VOLUME 94.1 fl (80.0-94.0); MONOCYTES # (AUTO) 0.6 K/uL (0.4-2.0); MONOCYTES % (AUTO) 7.7 (0-10); NEUTROPHILS # (AUTO) 5.6 K/ul (2.0-6.9); NEUTROPHILS % (AUTO) 75.1 % (42.2-75.2); PLATELET COUNT 187 10^3/uL (140-440); RED BLOOD COUNT 4.08 10^6/ul (4.70-6.10); WHITE BLOOD COUNT 7.39 K/ul (4.2-10.2)
[2023-09-07 05:32] LABS: ALANINE AMINOTRANSFERASE 14.8 U/L (0-50); ALBUMIN 3.42 g/dL (3.5-5.0); ALKALINE PHOSPHATASE 65.7 U/L (56-119); ASPARTATE AMINO TRANSFERASE 25.4 U/L (17-59); BILIRUBIN,TOTAL 2.18 mg/dL (0.2-1.3); BLOOD UREA NITROGEN 14.9 mg/dL (9-20); CALCIUM 8.24 mg/dL (8.4-10.2); CARBON DIOXIDE 29.7 mmol/L (22-30.0); CHLORIDE 104.9 mmol/L (98-107); CREATININE 1.43 mg/dL (0.60-1.10); GLUCOSE 99.9 mg/dL (74-106); POTASSIUM 3.98 mmol/L (3.5-5.1); SODIUM 140.9 mmol/L (134.5-145); TOTAL PROTEIN 6.15 g/dL (6.3-8.2)
[2023-09-07] MEDS: LOVENOX SUBCUT SCH (08:14)
[2023-09-07] MEDS: JARDIANCE PO SCH (08:17)
[2023-09-07] MEDS: ASPIRIN EC PO SCH (08:17)
--- NOTE | 2023-09-07 10:49 | PCM ---
Date of Service Date Seen by Provider: 09/07/23 Time Seen by Provider: 08:30 Admit Day/Time Admission Date: 09/06/23 Reason for Admission Chief Complaint: CHF Hospital Provider Hospital Provider: ADOLPH YADAV, [facility] History of Present Illness History of Present Illness: 67 yo male presented to the ER with complaints of SOB. Has pmh of mixed heart failure. During previous admissions, patient reports that he is supposed to have a stent placed through [facility] [place]. Reports he missed his last scheduled cath due to no ride to get there. Presented yesterday with >40 lb weight gain in 2 week period, has not been taking his medications, and continuing to use cocaine. Denies any fever, chills, chest pain, palpitations, n/v/d. Initially was not requiring oxygen, but displayed anasarca. Diuresed 1L in ER. During the night last night, O2 sat dropped to upper 90s and patient voiced complaints of sob. He was placed on 2L via NC and sat improved to upper 90s. He was admitted to med/surg observation. Case Discussed With Case Discussed With: Patient's case was discussed with the ER Physicians, Dr. Oakley. [facility] Medical History (Updated 09/07/23 @ 15:31 by ADOLPH YADAV) Lung nodule [id number] right apex nodule increased metabolic activity. Maximum SUV 1.9. Suggest benign. Repeat imaging in 6 months. No other concerning areas. REviewed PET w/ patient 05/17/21. 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 Not sure if I will have it removed" will sign records release for Dr. Donnelly C61 - Malignant neoplasm of prostate (ICD-10) Tobacco use Z72.0 - Tobacco use (ICD-10) Hypertension I10 - Essential (primary) hypertension (ICD-10) Arthritis M19.90 - Unspecified osteoarthritis, unspecified site (ICD-10) Family History Mother Hypertension FATHER Alcoholism and drug addiction in family Hypertension Social History Smoking and tobacco status: Former smoker Tobacco: How many years used: 7 How long ago did patient quit smoking: Stopped smoking about 2 years ago Alcohol intake: never Substance use type: crack/cocaine Allergies Allergies Allergy/AdvReac Type Severity Reaction Status Date / Time NSAIDS (Non-Steroidal AdvReac Severe CHF Verified 09/06/23 13:07 Anti-Inflamma Current Medications Home Medications aspirin 81 mg tablet,delayed release (Adult Aspirin Regimen) 81 mg PO DAILY #30 tabs 02/04/23 [Rx Confirmed 09/06/23 Last Taken Unknown] empagliflozin 10 mg tablet (Jardiance) 10 mg PO DAILY #30 tabs 02/04/23 [Rx Confirmed 09/06/23 Last Taken Unknown] isosorbide dinitrate 5 mg tablet 5 mg PO TID #90 tabs 02/04/23 [Rx Confirmed 09/06/23 Last Taken Unknown] pravastatin 40 mg tablet 40 mg PO BEDTIME #30 tabs 02/04/23 [Rx Confirmed 09/06/23 Last Taken Unknown] sacubitril 24 mg-valsartan 26 mg tablet (Entresto) 1 tab PO BID HEART FAILURE #60 tabs 02/04/23 [Rx Confirmed 09/06/23 Last Taken Unknown] spironolactone 25 mg tablet 25 mg PO QDAY #30 tabs 02/04/23 [Rx Confirmed 09/06/23 Last Taken Unknown] albuterol sulfate 90 mcg/actuation aerosol inhaler 2 puff inhalation Q4H PRN shortness of breath or wheezing 03/31/23 [History Confirmed 09/06/23 Last Taken Unknown] carvedilol 6.25 mg tablet 6.25 mg PO BID 03/31/23 [History Confirmed 09/06/23 Last Taken Unknown] budesonide-formoterol HFA 160 mcg-4.5 mcg/actuation aerosol inhaler 2 puff inhalation BID 04/21/23 [History Confirmed 09/06/23 Last Taken Unknown] furosemide 40 mg tablet 60 mg (1.5 x 40 mg) PO QAM #30 tabs 08/07/23 [Rx Confirmed 09/06/23 Last Taken Unknown] Home Acetaminophen (Acetaminophen 325 Mg Tablet) 650 mg PO Q4H PRN PRN Reason: Mild Pain Albuterol Sulfate (Albuterol Sulfate 8 Gm Inhaler) 2 puff IH Q4H PRN PRN Reason: Wheezing Aspirin (Aspirin 81 Mg Tablet.Dr) 81 mg PO DAILY [facility] Last Admin: 09/07/23 08:17 Dose: 81 mg Budesonide/Formoterol Fumarate (Budesonide/Formoterol Fumarate 160/4.5 Mcg Inhaler) 2 puff IH BID [facility] Last Admin: 09/07/23 08:14 Dose: 2 puff Empagliflozin (Empagliflozin 10 Mg Tablet) 10 mg PO DAILY [facility] Last Admin: 09/07/23 08:17 Dose: 10 mg Enoxaparin Sodium (Enoxaparin Sodium 40 Mg/0.4 Ml Syr) 40 mg SUBCUT DAILY [facility] Last Admin: 09/07/23 08:14 Dose: 40 mg Furosemide (Furosemide Inj 40 Mg/4 Ml Vial) 40 mg IVP Q8HR [facility] Last Admin: 09/07/23 12:37 Dose: 40 mg Isosorbide Dinitrate (Isosorbide Dinitrate 20 Mg Tablet) 5 mg PO TID [facility] Last Admin: 09/07/23 08:15 Dose: 5 mg Ondansetron HCl (Ondansetron Hcl/Pf 4 Mg/2 Ml Sdv) 4 mg IVP Q6H PRN PRN Reason: Nausea / Vomiting Pravastatin Sodium (Pravastatin Sodium 40 Mg Tablet) 40 mg PO BEDTIME [facility] Last Admin: 09/06/23 20:00 Dose: 40 mg Sacubitril/Valsartan (Sacubitril/Valsartan 1 Each Tablet) 1 each PO BID [facility] Last Admin: 09/07/23 08:15 Dose: 1 each Sodium Chloride (0.9% Sodium Chloride 10 Ml Disp.Syrin) 1 syr IVF Q8HR [facility] Last Admin: 09/07/23 12:37 Dose: 1 syr Spironolactone (Spironolactone 25 Mg Tablet) 25 mg PO DAILY [facility] Last Admin: 09/07/23 08:17 Dose: 25 mg Discontinued Medications Furosemide (Furosemide Inj 20 Mg/2 Ml Vial) 20 mg IVP ONCE STA Stop: 09/06/23 13:18 Last Admin: 09/06/23 13:34 Dose: 20 mg Opioid Naive vs. Tolerant Does Patient Take Opioids?: No Is Patient Opioid Naive?: Yes What is Opioid Naive?: *Opioid Naive implies the patient is not already taking opioids or not chronically receiving opioids on a daily basis. *PRN dosing is not "usually" associated with tolerance. *Patients are at higher risk of over-sedation and aspiration. Is Patient Opioid Tolerant?: No What is Opioid Tolerant?: *Opioid Tolerance implies less than the expected response to an opioid. *Acquired tolerance is defined by the patient taking 60mg of oral morphine daily (or equianalgesic dose of another opioid) for 1 week or more. *Often associated with chronic pain. *May take more than usual dose to achieve desired pain control. Review of Systems Constitutional: Reports Recent Weight Gain (40 lbs) Head: Reports Normocephalic Eyes: Reports No symptoms Ears: Reports No symptoms Nose: Reports No symptoms Mouth: Reports No symptoms Throat: Reports No symptoms Cardiovascular: Reports Orthopnea and Edema Respiratory: Reports Shortness of air Gastrointestinal: Reports No symptoms Genitourinary: Reports No Symptoms Musculoskeletal: Reports No symptoms Endocrine: Reports No symptoms Hematology: Reports No symptoms Immunology: Reports No symptoms Neurological: Reports No symptoms Psychiatric: Reports No symptoms Physical examination Most Recent Vital Signs: Most Recent Vital Signs Temperature 97.7 F 09/07/23 10:00 Temperature Source Temporal Artery Scan 09/07/23 10:00 Temperature Source Infrared 09/06/23 12:53 Pulse Rate 79 09/07/23 10:00 Respiratory Rate 22 H 09/07/23 10:00 Blood Pressure 105/72 09/07/23 10:00 Blood Pressure Mean 83 09/07/23 10:00 Blood Pressure Left Arm 124/88 09/06/23 17:18 Blood Pressure Location Right Arm 09/07/23 10:00 Blood Pressure Position Supine 09/07/23 10:00 O2 Sat by Pulse Oximetry 98 09/07/23 10:00 Oxygen Delivery Method Room Air 09/07/23 10:00 Oxygen Flow Rate 1.5 09/07/23 05:08 Fraction of Inspired Oxygen (FIO2) 2 09/07/23 08:00 Height 6 ft 5 in 09/07/23 08:20 Weight 272 lb 9.6 oz 09/07/23 08:20 Telemetry Type Remote Telemetry 09/07/23 07:00 Telemetry Monitoring Continues 09/07/23 07:00 Telemetry Heart Rate 94 09/07/23 07:00 Telemetry SPO2 97 09/07/23 07:00 EKG DE Interval 0.24 H 09/07/23 07:00 EKG QRS Interval 0.16 H 09/07/23 07:00 Telemetry Strip Reading SR with 1st degree AVB/BBB 09/07/23 07:00 Appearance: Positive No Apparent Distress, Alert and Oriented x3 and Ill- Appearing Skin: Positive Warm HEENT: Positive Normocephalic and PERRLA Neck: Positive Supple and Midline Trachea Chest/Lungs: Positive Symmetrical With Equal Breath Sounds and Other (crackles bilateral lung bases) Heart: Positive RRR, Pulses Normal and Murmur GI/: Positive Soft, Nontender, Bowel Sounds Normal and Other (fluid distention in abdomen) Musculoskeletal: Positive Not Examined Extremities: Positive Edema (+2-3 BLE, significant edema to bilateral thighs) and Intact Peripheral Pulses Neurological: Positive Sensation Intact, Motor intact, Alert, Oriented and Muscle Strength 5/5 in Upper and Lower Extremities Bilaterally Labs This Visit Labs This Visit: Labs This Visit 09/06/23 09/06/23 09/06/23 13:31 14:32 14:49 WBC 6.87 RBC 4.17 L Hgb 12.1 L Hct 39.2 L MCV 94.0 MCH 29.0 MCHC 30.9 L RDW Coeff of Dimple 15.1 H Plt Count 204 Immature Gran % (Auto) 0.3 Neut % (Auto) 76.6 H Lymph % (Auto) 10.3 Barnes % (Auto) 6.6 Eos % (Auto) 5.5 Baso % (Auto) 0.7 Neut # (Auto) 5.3 Lymph # (Auto) 0.7 Barnes # (Auto) 0.5 Eos # (Auto) 0.4 Baso # (Auto) 0.1 Immature Gran # (Auto) 0.0 Sodium 139.2 Potassium 4.68 Chloride 108.5 H Carbon Dioxide 22.1 Anion Gap 13.28 BUN 14.7 Creatinine 1.23 H Estimated GFR (MDRD) 71.00 BUN/Creatinine Ratio 11.95 Glucose 134.8 H Calcium 8.23 L Total Bilirubin 2.42 H AST 43.1 ALT 16.0 Alkaline Phosphatase 39.4 L Troponin I 0.019 NT-Pro-B Natriuret Pep 7490 H Total Protein 6.70 Albumin 3.59 Globulin 3.11 Albumin/Globulin Ratio 1.15 D-Dimer 7131.11 H Urine Color Yellow Urine Clarity Clear Urine pH 5.0 Ur Specific [place] 1.010 Urine Protein Negative Urine Glucose (UA) Negative Urine Ketones Negative Urine Blood Negative Urine Nitrite Negative Urine Bilirubin Negative Urine Urobilinogen 0.2 Ur Leukocyte Esterase Negative Influ A Molecular Assay Influ B Molecular Assay RSV Antigen SARS CoV-2 RNA Rapid CAL 09/06/23 09/07/23 16:15 05:06 WBC 7.39 RBC 4.08 L Hgb 11.6 L Hct 38.4 L MCV 94.1 H MCH 28.4 MCHC 30.2 L RDW Coeff of Dimple 15.0 H Plt Count 187 Immature Gran % (Auto) 0.3 Neut % (Auto) 75.1 Lymph % (Auto) 11.0 Barnes % (Auto) 7.7 Eos % (Auto) 5.1 Baso % (Auto) 0.8 Neut # (Auto) 5.6 Lymph # (Auto) 0.8 Barnes # (Auto) 0.6 Eos # (Auto) 0.4 Baso # (Auto) 0.1 Immature Gran # (Auto) 0.0 Sodium 140.9 Potassium 3.98 Chloride 104.9 Carbon Dioxide 29.7 D Anion Gap 10.28 BUN 14.9 Creatinine 1.43 H Estimated GFR (MDRD) 60.00 BUN/Creatinine Ratio 10.41 Glucose 99.9 Calcium 8.24 L Total Bilirubin 2.18 H AST 25.4 ALT 14.8 Alkaline Phosphatase 65.7 D Troponin I NT-Pro-B Natriuret Pep Total Protein 6.15 L Albumin 3.42 L Globulin 2.73 Albumin/Globulin Ratio 1.25 D-Dimer Urine Color Urine Clarity Urine pH Ur Specific [place] Urine Protein Urine Glucose (UA) Urine Ketones Urine Blood Urine Nitrite Urine Bilirubin Urine Urobilinogen Ur Leukocyte Esterase Influ A Molecular Assay Negative by naat Influ B Molecular Assay Negative by naat RSV Antigen Negative by naat SARS CoV-2 RNA Rapid CAL Negative Imaging Imaging: EXAM: CHEST CTA WITH CONTRAST (PULMONARY ARTERY) FINDINGS: Dilation of the main pulmonary artery measuring 4.2 cm in diameter, concerning for underlying pulmonary arterial hypertension. Beam hardening artifact from contrast within the superior vena cava as well as moderately limited assessment of pulmonary artery due to patient respiratory motion artifact. There are no discrete intraluminal filling defects within the main pulmonary artery through the proximal branches of the right and left pulmonary arteries to suggest an acute central pulmonary embolism. No filling defects are seen through the level of the lobar/internal lobar branches, though with significantly limited assessment of the more peripheral (segmental/subsegmental) branches in particular on the right side. No evidence of acute right ventricular strain. There is marked cardiomegaly. There is some contrast refluxing into the hepatic veins as previously described which may be related underlying right-sided heart insufficiency. Minimal pericardial effusion. Vascular calcifications of the thoracic aorta and its branches without evidence of an aortic aneurysm. Calcified mediastinal and right hilar lymph nodes related to old granulomatous disease. Sub-centimeter noncalcified lymph nodes are nonspecific. Thyroid gland is grossly unremarkable. The central airways are unremarkable appearance aside from some bronchial wall thickening of the lower lobes and possible changes of bronchitis. Thoracic aorta is unremarkable. Emphysematous changes of the lungs bilaterally with minimal biapical scarring. Scattered calcified granulomas. Patchy ground-glass opacities and mosaic attenuation may be related to small airway or small vessel disease. There are small bilateral pleural effusions with mild bibasilar atelectasis/consolidation. Mild interlobular septal thickening lower lobes suggesting a component of pulmonary edema. No pneumothorax. No acute compression fracture. Degenerative changes of the thoracic spine. Free fluid in the right and left upper quadrants in keeping with ascites. Diffuse body wall edema. IMPRESSION: No evidence of an acute large/central pulmonary embolism as detailed above. Technically limited assessment of the more peripheral branches. Marked cardiomegaly. Contrast reflux into the inferior vena cava suggesting right-sided heart insufficiency and clinical correlation is recommended. Minimal pericardial effusion. Diffuse body wall edema/anasarca. Ascites. Small bilateral pleural effusions and bibasilar atelectasis/pneumonia. Patchy ground-glass opacities and possible component. Mild pulmonary edema. Old granulomatous disease. Emphysema. Review Statement Review Statement: I have independently reviewed and interpreted the labs/EKGs/imaging that were ordered by the ER provider. I have reviewed all outside records that are available currently in our EMR including imaging/notes/labs from previous visits. Plan Plan: 1. Acute Hypoxic Respiratory Failure in setting of Mixed CHF Exacerbation - wean O2 as tolerated, see chf plan 2. Mixed CHF Exacerbation - diffuse anasarca noted, noncompliant with medication management, lasix 40 mg Q8H IVP, I&O, daily weight, checking echo today 3. Hypertension - had been taking coreg in past, have held here previously due to cocaine use, will discuss with [facility] if recs on changing 4. COPD - chronic, not in exacerbation, monitor DVT Prophylaxis: Lovenox Time Spent: Greater than 80 minutes spent with patient, 50% of the time spent with this patient was devoted to counseling and coordination of care. [facility] minutes spent discussing advance care planning. Disposition: Admit to: Med/Surg Inpatient today Full Code Discussed Plan of Care with Dr. Juan A Allison. Medications Medication Orders: Medications Ordered Category Date Time Status 0.9 % Sodium Chloride [Saline Flush] Meds 09/07/23 05:30 Active 1 syr IVF Q8HR Acetaminophen [Tylenol] Meds 09/06/23 18:23 Active 650 mg PO Q4H PRN Albuterol Sulfate [Ventolin Hfa] Meds 09/06/23 18:27 Active 2 puff IH Q4H PRN Aspirin [Aspirin EC] Meds 09/07/23 09:00 Active 81 mg PO DAILY Budesonide/Formoterol Fumarate [Symbicort 160-4.5 Mcg Meds 09/06/23 21:00 Active Inhaler] 2 puff IH BID Empaglifozin [Jardiance] Meds 09/07/23 09:00 Active 10 mg PO DAILY Enoxaparin Sodium [Lovenox] Meds 09/07/23 09:00 Active 40 mg SUBCUT DAILY Furosemide [Lasix] Meds 09/06/23 18:25 Active 40 mg IVP Q8HR Isosorbide Dinitrate [Sorbitrate] Meds 09/06/23 21:00 Active 5 mg PO TID Ondansetron HCl/Pf [Zofran 4 mg/2 ml] Meds 09/06/23 18:23 Active 4 mg IVP Q6H PRN Pravastatin Sodium [Pravachol] Meds 09/06/23 21:00 Active 40 mg PO BEDTIME Sacubitril/Valsartan [Entresto 24 mg-26 mg Tablet] Meds 09/06/23 21:00 Active 1 each PO BID Spironolactone [Aldactone] Meds 09/06/23 18:30 Active 25 mg PO DAILY
--- NOTE | 2023-09-07 15:37 | PCM.SS ---
Provider Provider: ADOLPH YADAV, [facility] Date Admission Date: 09/06/23 Discharge Date Discharge Date: 09/07/23 Chief Complaint Reason For Visit: CHF History of Present Illness History of Present Illness: Admitted 09/07/23 09:29, 67 yo male presented to the ER with complaints of SOB. Has pmh of mixed heart failure. During previous admissions, patient reports that he is supposed to have a stent placed through [facility] at [place]. Reports he missed his last scheduled cath due to no ride to get there. Presented yesterday with >40 lb weight gain in 2 week period, has not been taking his medications, and continuing to use cocaine. Denies any fever, chills, chest pain, palpitations, n/v/d. Initially was not requiring oxygen, but displayed anasarca. Diuresed 1L in ER. During the night last night, O2 sat dropped to upper 90s and patient voiced complaints of sob. He was placed on 2L via NC and sat improved to upper 90s. He was admitted to med/surg observation. [facility] Medical History (Updated 09/07/23 @ 15:31 by ADOLPH YADAV) Lung nodule [id number] right apex nodule increased metabolic activity. Maximum SUV 1.9. Suggest benign. Repeat imaging in 6 months. No other concerning areas. REviewed PET w/ patient 05/17/21. 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 Not sure if I will have it removed" will sign records release for Dr. Donnelly C61 - Malignant neoplasm of prostate (ICD-10) Tobacco use Z72.0 - Tobacco use (ICD-10) Hypertension I10 - Essential (primary) hypertension (ICD-10) Arthritis M19.90 - Unspecified osteoarthritis, unspecified site (ICD-10) Family History Mother Hypertension FATHER Alcoholism and drug addiction in family Hypertension Social History Smoking and tobacco status: Former smoker Tobacco: How many years used: 7 How long ago did patient quit smoking: Stopped smoking about 2 years ago Alcohol intake: never Substance use type: crack/cocaine Medications Mecications: Medications at Discharge (Home Meds & RX) aspirin 81 mg tablet,delayed release (Adult Aspirin Regimen) 81 mg PO DAILY #30 tabs 02/04/23 empagliflozin 10 mg tablet (Jardiance) 10 mg PO DAILY #30 tabs 02/04/23 isosorbide dinitrate 5 mg tablet 5 mg PO TID #90 tabs 02/04/23 pravastatin 40 mg tablet 40 mg PO BEDTIME #30 tabs 02/04/23 sacubitril 24 mg-valsartan 26 mg tablet (Entresto) 1 tab PO BID HEART FAILURE #60 tabs 02/04/23 spironolactone 25 mg tablet 25 mg PO QDAY #30 tabs 02/04/23 albuterol sulfate 90 mcg/actuation aerosol inhaler 2 puff inhalation Q4H PRN shortness of breath or wheezing 03/31/23 carvedilol 6.25 mg tablet 6.25 mg PO BID 03/31/23 budesonide-formoterol HFA 160 mcg-4.5 mcg/actuation aerosol inhaler 2 puff inhalation BID 04/21/23 furosemide 40 mg tablet 60 mg (1.5 x 40 mg) PO QAM #30 tabs 08/07/23 Allergies Allergies Allergy/AdvReac Type Severity Reaction Status Date / Time NSAIDS (Non-Steroidal AdvReac Severe CHF Verified 09/06/23 13:07 Anti-Inflamma Review of Systems Constitutional: Reports Recent Weight Gain (40 lbs in 2 weeks) Head: Reports Normocephalic Eyes: Reports No symptoms Ears: Reports No symptoms Nose: Reports No symptoms Mouth: Reports No symptoms Throat: Reports No symptoms Cardiovascular: Reports Orthopnea and Edema Respiratory: Reports Shortness of air Gastrointestinal: Reports No symptoms Genitourinary: Reports No Symptoms Musculoskeletal: Reports No symptoms Endocrine: Reports No symptoms Hematology: Reports No symptoms Immunology: Reports No symptoms Neurological: Reports No symptoms Psychiatric: Reports No symptoms Physical Examination Appearance: Positive No Apparent Distress, Alert and Oriented x3 and Ill- Appearing Head: Positive Normocephalic Eyes: Positive JOBY Neck: Positive Supple, Non-Tender and Trachea Midline Heart: Positive RRR and No Murmurs Respiratory: Positive Airway patent, Breath Sounds Clear, Bilaterally, Breath Sounds Equal, Breath Sounds Diminished, Respirations Nonlabored and Crackles (bilateral lung bases) GI/: Positive Soft, Nontender, Bowel sounds normal and No Distention Extremities: Positive Edema (present in abdomen, +3-4 pitting BLE) and Pedal Pulses Palpable Bilaterally Neurological: Positive Sensation Intact, Motor Intact, Alert and Oriented Vital Signs (Last 4 Hours) Vital Signs Last 4 Hours: Vital Signs: Last 4 Hours 09/07/23 14:00 Temperature 98.7 F Temperature Source Temporal Artery Scan Pulse Rate 82 Respiratory Rate 18 Blood Pressure 109/73 Blood Pressure Mean 85 Blood Pressure Location Right Arm Blood Pressure Position Sitting O2 Sat by Pulse Oximetry 95 Oxygen Delivery Method Room Air Labs This Visit Labs This Visit: Labs This Visit 09/06/23 09/06/23 09/06/23 13:31 14:32 14:49 WBC 6.87 RBC 4.17 L Hgb 12.1 L Hct 39.2 L MCV 94.0 MCH 29.0 MCHC 30.9 L RDW Coeff of Dimple 15.1 H Plt Count 204 Immature Gran % (Auto) 0.3 Neut % (Auto) 76.6 H Lymph % (Auto) 10.3 [place] % (Auto) 6.6 Eos % (Auto) 5.5 Baso % (Auto) 0.7 Neut # (Auto) 5.3 Lymph # (Auto) 0.7 [place] # (Auto) 0.5 Eos # (Auto) 0.4 Baso # (Auto) 0.1 Immature Gran # (Auto) 0.0 Sodium 139.2 Potassium 4.68 Chloride 108.5 H Carbon Dioxide 22.1 Anion Gap 13.28 BUN 14.7 Creatinine 1.23 H Estimated GFR (MDRD) 71.00 BUN/Creatinine Ratio 11.95 Glucose 134.8 H Calcium 8.23 L Total Bilirubin 2.42 H AST 43.1 ALT 16.0 Alkaline Phosphatase 39.4 L Troponin I 0.019 NT-Pro-B Natriuret Pep 7490 H Total Protein 6.70 Albumin 3.59 Globulin 3.11 Albumin/Globulin Ratio 1.15 D-Dimer 7131.11 H Urine Color Yellow Urine Clarity Clear Urine pH 5.0 Ur Specific [place] 1.010 Urine Protein Negative Urine Glucose (UA) Negative Urine Ketones Negative Urine Blood Negative Urine Nitrite Negative Urine Bilirubin Negative Urine Urobilinogen 0.2 Ur Leukocyte Esterase Negative Influ A Molecular Assay Influ B Molecular Assay RSV Antigen SARS CoV-2 RNA Rapid CAL 09/06/23 09/07/23 16:15 05:06 WBC 7.39 RBC 4.08 L Hgb 11.6 L Hct 38.4 L MCV 94.1 H MCH 28.4 MCHC 30.2 L RDW Coeff of Dimple 15.0 H Plt Count 187 Immature Gran % (Auto) 0.3 Neut % (Auto) 75.1 Lymph % (Auto) 11.0 [place] % (Auto) 7.7 Eos % (Auto) 5.1 Baso % (Auto) 0.8 Neut # (Auto) 5.6 Lymph # (Auto) 0.8 [place] # (Auto) 0.6 Eos # (Auto) 0.4 Baso # (Auto) 0.1 Immature Gran # (Auto) 0.0 Sodium 140.9 Potassium 3.98 Chloride 104.9 Carbon Dioxide 29.7 D Anion Gap 10.28 BUN 14.9 Creatinine 1.43 H Estimated GFR (MDRD) 60.00 BUN/Creatinine Ratio 10.41 Glucose 99.9 Calcium 8.24 L Total Bilirubin 2.18 H AST 25.4 ALT 14.8 Alkaline Phosphatase 65.7 D Troponin I NT-Pro-B Natriuret Pep Total Protein 6.15 L Albumin 3.42 L Globulin 2.73 Albumin/Globulin Ratio 1.25 D-Dimer Urine Color Urine Clarity Urine pH Ur Specific [place] Urine Protein Urine Glucose (UA) Urine Ketones Urine Blood Urine Nitrite Urine Bilirubin Urine Urobilinogen Ur Leukocyte Esterase Influ A Molecular Assay Negative by naat Influ B Molecular Assay Negative by naat RSV Antigen Negative by naat SARS CoV-2 RNA Rapid CAL Negative Imaging Imaging: EXAM: CHEST CTA WITH CONTRAST (PULMONARY ARTERY) FINDINGS: Dilation of the main pulmonary artery measuring 4.2 cm in diameter, concerning for underlying pulmonary arterial hypertension. Beam hardening artifact from contrast within the superior vena cava as well as moderately limited assessment of pulmonary artery due to patient respiratory motion artifact. There are no discrete intraluminal filling defects within the main pulmonary artery through the proximal branches of the right and left pulmonary arteries to suggest an acute central pulmonary embolism. No filling defects are seen through the level of the lobar/internal lobar branches, though with significantly limited assessment of the more peripheral (segmental/subsegmental) branches in particular on the right side. No evidence of acute right ventricular strain. There is marked cardiomegaly. There is some contrast refluxing into the hepatic veins as previously described which may be related underlying right-sided heart insufficiency. Minimal pericardial effusion. Vascular calcifications of the thoracic aorta and its branches without evidence of an aortic aneurysm. Calcified mediastinal and right hilar lymph nodes related to old granulomatous disease. Sub-centimeter noncalcified lymph nodes are nonspecific. Thyroid gland is grossly unremarkable. The central airways are unremarkable appearance aside from some bronchial wall thickening of the lower lobes and possible changes of bronchitis. Thoracic aorta is unremarkable. Emphysematous changes of the lungs bilaterally with minimal biapical scarring. Scattered calcified granulomas. Patchy ground-glass opacities and mosaic attenuation may be related to small airway or small vessel disease. There are small bilateral pleural effusions with mild bibasilar atelectasis/consolidation. Mild interlobular septal thickening lower lobes suggesting a component of pulmonary edema. No pneumothorax. No acute compression fracture. Degenerative changes of the thoracic spine. Free fluid in the right and left upper quadrants in keeping with ascites. Diffuse body wall edema. IMPRESSION: No evidence of an acute large/central pulmonary embolism as detailed above. Technically limited assessment of the more peripheral branches. Marked cardiomegaly. Contrast reflux into the inferior vena cava suggesting right-sided heart insufficiency and clinical correlation is recommended. Minimal pericardial effusion. Diffuse body wall edema/anasarca. Ascites. Small bilateral pleural effusions and bibasilar atelectasis/pneumonia. Patchy ground-glass opacities and possible component. Mild pulmonary edema. Old granulomatous disease. Emphysema. Review Review Statement: I have independently reviewed and interpreted the labs/EKGs/imaging that were ordered by the ER provider. I have reviewed all outside records that are available currently in our EMR including imaging/notes/labs from previous visits. Plan Reccomendations/Plan: 1. Acute Hypoxic Respiratory Failure in setting of Mixed CHF Exacerbation - wean O2 as tolerated, see chf plan 2. Mixed CHF Exacerbation - diffuse anasarca noted, noncompliant with medication management, lasix 40 mg Q8H IVP, I&O, daily weight, echo 3. Hypertension - had been taking coreg in past, have held here previously due to cocaine use, will discuss with [facility] if recs on changing 4. COPD - chronic, not in exacerbation, monitor Dr. Allison, Cardiology, reports EF has decreased significantly from 39% on 11/2022 to 20% today. Patient follows with [facility] and has attempted to go for cardiac cath for months and has no transportation. Patient is at risk for further deterioration due to need for stenting and continual drop in EF. Contacted multiple facilities starting with [place] which has no beds. Spoke with Dr. Roque at [facility] who accepts this patient into his care in addition to Dr. Mejia with Cardiology. Additional Planning: Case discussed with ED Physician, Dr. Oakley. DVT Prophylaxis: Lovenox Disposition: Admit to: Med/surg Inpatient Discussed Plan of Care with Dr. Juan A Allison If patient discharged with Left Ventricular Systolic Dysfunction: yes, already prescribed appropriate medications Discharged with a beta bibiana? [] If no, why not? [] Discharged with an sarah/arb? [] If no, why not? [] Review With Patient Reviewed with Patient and Family: Patient and family have been counseled on condition and care plan and have no immediate questions. I have personally discussed and reviewed the patient's visit/current labs/imaging/decision making with Dr. Donna Allison, my supervising attending. Total number of minutes spent with patient 85 min. More than 50% of the time spent with this patient was devoted to counseling and coordination of care. Time of Admission: 09/07/23 09:29 Time of Discharge: 09/07/23 1538 Discharge Plan Discharge Discharge Orders: Discharge Patient (ONCE); Ordered 09/07/23 Ordered By: ELIZABETH ZHANG Patient Disposition: TSF SHORT-TRM HOSP Did you review [place] POTATO CHIP PACKAGING MACHINE OPERATOR for ALL controlled substances?: No Discussed opioids are addictive and Narcan is available by prescription or from pharmacy.: No Condition: Stable
[2023-09-07 18:11] VITALS: BP 113/69; PULSE 84; RESP 20; TEMP 97.3
--- NOTE | 2023-09-08 12:32 | ECHO2D ---
Date of Exam: 09/07/2023 Ordering Physician: LILIANA ZHANG Room #: 115 Reason for Echo: CHF, HTN M-Mode Normal Adult Results LV Dimensions Normal Adult Results AoV Opening excursions >1.6 >1.6 LVEDD-base- 3.5-5.8 7.8 Ao root dimensions 2.0-3.7 3.5 LVESD-base- 3.1-4.6 L. Atrium dimensions 1.9-3.8 6.7 Post. Wall thickness 0.8-1.1 1.5 IV septum (thickness) 0.7-1.2 1.6 Post. Wall excursion 0.72-1.3 0.5 Septal motion Systolic motion R. Ventricular cavity 1.5-2.0 3.0 LVEF 60% 20% Paradoxical septal wall motion MAYBE 2-D : HYPOKINETIC LEFT VENTRICLE, DILATED LEFT ATRIAL, LEFT VENTRICLE, RIGHT ATRIAL CAVITY AND RIGHT VENTRICLE CAVITY, NO EFFUSION, NO THROMBUS--VALVES NORMAL COLOR FLOW: MODERATE TRICUSPID REGURGITATION AND MITRAL REGURGITATION M-MODE: MV: NORMAL AV: NORMAL TV: NORMAL PV: NORMAL CHAMBER SIZE: ENLARGED LEFT VENTRICLE, LEFT ATRIAL, RIGHT ATRIAL/ RIGHT VENTRICLE CAVITIES WALL MOTION: HYPOKINETIC LEFT VENTRICLE PERICARDIUM: NORMAL INTERPRETATION: 1. MODERATE LEFT VENTRICLE HYPERTROPHY 2. SEVERELY HYPOKINETIC LEFT VENTRICLE WITH EJECTION FRACTION 20% 3. ENLARGED LEFT VENTRICLE, LEFT ATRIAL, RIGHT ATRIAL, RIGHT VENTRICLE CAVITIES 4. PARADOXICAL SEPTAL MOTION 5. MODERATE TRICUSPID REGURGITATION AND MITRAL REGURGITATION DETERIORATION OF LEFT VENTRICLE [facility]
== END 2023-09-07 19:20 | disposition short-term general hospital (02) | DRG 291 ==
LOC: MEDSURG B 12:52 → ED 12:52 → MEDSURG B 17:31
PROVIDERS: ADMIT Hospitalist; ATTEND Nurse Practitioner Family
DX: Z87.891 Personal history of nicotine dependence; I11.0 Hypertensive heart disease with heart failure; J96.01 Acute respiratory failure with hypoxia; I50.9 Heart failure, unspecified; J44.9 Chronic obstructive pulmonary disease, unspecified

== ENCOUNTER 2024-01-19 14:42 | Inpatient (IN) ==
[2024-01-19 16:04] LABS: BASOPHILS % (AUTO) 0.6 % (0.0-3.0); EOSINOPHILS # (AUTO) 0.3 K/ul (0.0-0.7); HEMATOCRIT 41.7 % (42.0-52.0); IMMATURE GRANULOCYTE % (AUTO) 0.2 % (0.0-5.0); LYMPHOCYTES # (AUTO) 0.9 K/uL (0.60-3.4); MEAN CORPUSCULAR HEMOGLOBIN 29.5 pg (27.0-31.0); MEAN CORPUSCULAR HGB CONC 31.2 (31.8-35.4); MEAN CORPUSCULAR VOLUME 94.6 fl (80.0-94.0); MONOCYTES # (AUTO) 0.6 K/uL (0.4-2.0); MONOCYTES % (AUTO) 9.5 (0-10); NEUTROPHILS # (AUTO) 4.3 K/ul (2.0-6.9); NEUTROPHILS % (AUTO) 69.7 % (42.2-75.2); PLATELET COUNT 159 10^3/uL (140-440); RDW COEFFICIENT OF VARIATION 14.8 % (11.6-14.8); RED BLOOD COUNT 4.41 10^6/ul (4.70-6.10); WHITE BLOOD COUNT 6.18 K/ul (4.2-10.2)
[2024-01-19 16:23] LABS: ALANINE AMINOTRANSFERASE 19.3 U/L (0-50); ASPARTATE AMINO TRANSFERASE 40.9 U/L (17-59); BILIRUBIN,TOTAL 3.87 mg/dL (0.2-1.3); BLOOD UREA NITROGEN 16.8 mg/dL (9-20); CALCIUM 8.85 mg/dL (8.4-10.2); CARBON DIOXIDE 18.8 mmol/L (22-30.0); CHLORIDE 109.8 mmol/L (98-107); CREATININE 1.36 mg/dL (0.60-1.10); POTASSIUM 3.88 mmol/L (3.5-5.1); SODIUM 140.9 mmol/L (134.5-145); TOTAL PROTEIN 6.72 g/dL (6.3-8.2)
[2024-01-19 16:37] LABS: BILIRUBIN,URINE 1+ (NEGATIVE); CLARITY,URINE Clear (CLEAR); COLOR,URINE Dark (YELLOW); GLUCOSE, URINE (UA) Negative (NEGATIVE); KETONES,URINE Negative (NEGATIVE); LEUKOCYTE ESTERASE ,URINE Negative (NEGATIVE); NITRITE,URINE Negative (NEGATIVE); PH,URINE 5.5 (5-9); PROTEIN,URINE 3+ (NEGATIVE); URINE, BLOOD Trace-intact (NEGATIVE)
[2024-01-19 16:43] LABS: MUCUS,URINE 3+ (NOT PRESENT); SQUAMOUS EPITHELIAL CELL,UR 0-2 (0-5)
[2024-01-19 16:44] LABS: COCAIN SCREEN,URINE POSITIVE (NEGATIVE)
[2024-01-19 16:45] LABS: AMPHETAMINE SCREEN,URINE NEGATIVE (NEGATIVE); BARBITURATE SCREEN,URINE NEGATIVE (NEGATIVE); BENZODIAZEPINES SCREEN,URINE NEGATIVE (NEGATIVE); CANNABINOID SCREEN,URINE NEGATIVE (NEGATIVE); METHADONE URINE SCREEN NEGATIVE (NEGATIVE); METHAMPHETAMINES SCREEN,URINE NEGATIVE (NEGATIVE); OPIATE SCREEN,URINE NEGATIVE (NEGATIVE); OXYCODONE URINE SCREEN NEGATIVE (NEGATIVE); PHENCYCLIDINE SCREEN,URINE NEGATIVE (NEGATIVE); TRICYCLIC ANTIDEPRESSANTS URIN NEGATIVE (NEGATIVE)
--- NOTE | 2024-01-19 16:51 | ED.PDOC ---
General ED Provider: Dr. PRINCE CABA DO Chief Complaint: Abdominal Pain Stated Complaint: 68-year-old male presents to the ER reporting lower abdominal discomfort and shortness of breath. Shortness of breath worse with exertion. Reports lower extremity edema. History of CHF. Denies any vomiting, fever, melena, medic easier, diarrhea or constipation. Patient well-known to the emergency department in the hospital with multiple hospitalizations for CHF. Time Seen by Provider: 01/19/24 14:52 Information Source: Patient Nursing and Triage Documentation Reviewed and Agree: Yes What is Opioid Naive?: *Opioid Naive implies the patient is not already taking opioids or not chronically receiving opioids on a daily basis. *PRN dosing is not "usually" associated with tolerance. *Patients are at higher risk of over-sedation and aspiration. What is Opioid Tolerant?: *Opioid Tolerance implies less than the expected response to an opioid. *Acquired tolerance is defined by the patient taking 60mg of oral morphine daily (or equianalgesic dose of another opioid) for 1 week or more. *Often associated with chronic pain. *May take more than usual dose to achieve desired pain control. Review of Systems Review Of Systems Constitutional: Reports No symptoms All Other Systems: Reviewed and Negative [facility] Medical History (Updated 01/19/24 @ 16:51 by PRINCE CABA DO) Lung nodule [id number] right apex nodule increased metabolic activity. Maximum SUV 1.9. Suggest benign. Repeat imaging in 6 months. No other concerning areas. REviewed PET w/ patient 05/17/21. 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 Not sure if I will have it removed" will sign records release for Dr. Donnelly C61 - Malignant neoplasm of prostate (ICD-10) Tobacco use Z72.0 - Tobacco use (ICD-10) Hypertension I10 - Essential (primary) hypertension (ICD-10) Arthritis M19.90 - Unspecified osteoarthritis, unspecified site (ICD-10) Family History Mother Hypertension FATHER Alcoholism and drug addiction in family Hypertension Social History Smoking and tobacco status: Former smoker Tobacco: How many years used: 7 How long ago did patient quit smoking: Stopped smoking about 2 years ago Alcohol intake: never Substance use type: crack/cocaine Physical Exam Physical Exam Appearance: Reports Well-appearing, No pain distress and Well-nourished ENT: Reports Oropharynx normal Respiratory: Reports Airway patent and Respirations nonlabored Cardiovascular: Reports RRR and Pulses normal GI/: Reports Soft and Nontender Musculoskeletal: Reports Normal strength and ROM intact Skin: Reports Warm, Dry and Normal color Neurological: Reports Sensation intact, Motor intact, Alert and Oriented Psychiatric: Reports Affect appropriate and Mood appropriate Interpretation EKG Interpretation EKG Interpretation By: ED Physician Time of EKG #1: 16:02 Rate: Normal Rhythm: Sinus Ectopy: PVCs Clifford: Left ST Segment: Normal Interpretation: Abnormal. Multiple PVCs and left axis deviation. No STEMI Re-Evaluation Re-Evaluation Additional Comments: 68-year-old male known to the emergency department presents with shortness of breath and lower abdominal discomfort. Abdomen soft nontender nonperitoneal doubt acute intra-abdominal processes to include not limited to perforated viscus, abscess, hepatic, biliary, pancreatic, appendiceal, vascular obstructive process. Will treat symptomatically as needed. Denies headache or chest pain. Doubt cardiopulmonary processes. Given shortness of breath lower extremity edema, suspect CHF exacerbation. 1630: Patient has remained stable. Labs indicate elevated BNP. Will begin diuresis in the ER. Discussed with hospitalist service to is graciously except for observation. Patient is currently otherwise well-appearing in no acute distress not hypoxic and vital signs stable Course Course 01/19/24 15:58 01/19/24 15:58 Orders, Labs, Meds: Lab Review 01/19/24 01/19/24 15:58 16:31 WBC 6.18 RBC 4.41 L Hgb 13.0 L Hct 41.7 L MCV 94.6 H MCH 29.5 MCHC 31.2 L RDW Coeff of Dimple 14.8 Plt Count 159 Immature Gran % (Auto) 0.2 Neut % (Auto) 69.7 Lymph % (Auto) 15.0 [place] % (Auto) 9.5 Eos % (Auto) 5.0 Baso % (Auto) 0.6 Neut # (Auto) 4.3 Lymph # (Auto) 0.9 [place] # (Auto) 0.6 Eos # (Auto) 0.3 Baso # (Auto) 0.0 Immature Gran # (Auto) 0.0 Sodium 140.9 Potassium 3.88 Chloride 109.8 H Carbon Dioxide 18.8 L Anion Gap 16.18 BUN 16.8 Creatinine 1.36 H Estimated GFR (MDRD) 63.00 BUN/Creatinine Ratio 12.35 Glucose 100.0 Calcium 8.85 Total Bilirubin 3.87 H AST 40.9 ALT 19.3 Alkaline Phosphatase 53.0 L Troponin I 0.022 NT-Pro-B Natriuret Pep 47165 H Total Protein 6.72 Albumin 4.00 Globulin 2.72 Albumin/Globulin Ratio 1.47 Urine Color Dark Urine Clarity Clear Urine pH 5.5 Ur Specific [place] >=1.030 Urine Protein 3+ H Urine Glucose (UA) Negative Urine Ketones Negative Urine Blood Trace-intact H Urine Nitrite Negative Urine Bilirubin 1+ H Urine Urobilinogen 1.0 H Ur Leukocyte Esterase Negative Urine Microscopic RBC 2-5 Ur Squamous Epith Cells 0-2 Hyaline Casts 2-5 Urine Mucus 3+ Urine Opiates Screen Negative Ur Oxycodone Screen Negative Urine Methadone Screen Negative Ur Barbiturates Screen Negative U Tricyclic Antidepress Negative Ur Phencyclidine Scrn Negative Ur Amphetamine Screen Negative U Methamphetamines Scrn Negative U Benzodiazepines Scrn Negative Urine Cocaine Screen Positive H U Cannabinoids Screen Negative Orders Category Date Time Status ADMIT OBSERVATION [PLACE PATIENT OBSERVATION] .TO ADMISSION 01/19/24 16:44 Active MEDSURG (MONITORED BED) EKG-(ED ONLY) Stat CARDIO 01/19/24 15:49 Completed TELEMETRY MONITORING TELE CARE 01/19/24 16:44 Active CBC W/ AUTO DIFF Stat LAB 01/19/24 15:58 Completed CMP [COMPREHENSIVE METABOLIC PANEL] Stat LAB 01/19/24 15:58 Completed DRUG SCREEN (RAPID FOR ED) [DRUG SCREEN, URINE, RAPID] LAB 01/19/24 16:31 Completed Stat ED PROBNP [NT-PROBNP(ED)] Stat LAB 01/19/24 15:58 Completed FLU A & B MOLECULAR [FLU A/B MOLECULAR] Stat LAB 01/19/24 16:43 Ordered SARS COV-2 RNA RAPID CAL Stat LAB 01/19/24 16:43 Ordered TROPONIN I Stat LAB 01/19/24 15:58 Completed URINALYSIS C & S IF INDICATED Stat LAB 01/19/24 16:31 Completed Vital Signs: Temp Pulse Resp BP Pulse Ox 01/19/24 14:47 97.0 F L 90 20 114/78 97 Discharge Plan Discharge Patient Disposition: PLACED OBSERVATION Discharge Problem: Elevated brain natriuretic peptide (BNP) level, Breath shortness Acute exacerbation of CHF (congestive heart failure) Qualifiers: Heart failure type: combined systolic and diastolic Qualified Code(s): I50.43 - Acute on chronic combined systolic (congestive) and diastolic (congestive) heart failure Prescriptions: No Action pravastatin 40 mg tablet 40 mg PO BEDTIME Qty: 30 0RF spironolactone 25 mg tablet 25 mg PO QDAY Qty: 30 0RF isosorbide dinitrate 5 mg tablet 5 mg PO TID Qty: 90 0RF Rx Instructions: allow nitrate-free interval of 12-14 hrs per 24-hr period Jardiance 10 mg tablet 10 mg PO DAILY Qty: 30 0RF Entresto 24-26 mg tablet 1 tab PO BID Qty: 60 0RF carvedilol 6.25 mg tablet 6.25 mg PO BID Patient Comments: TAKE 1 TABLET BY MOUTH TWICE DAILY albuterol sulfate 90 mcg/actuation HFA aerosol inhaler 2 puff INHALATION Q4H PRN (Reason: shortness of breath or wheezing) Patient Comments: INHALE 2 PUFFS BY MOUTH EVERY 4 HOURS budesonide-formoterol 160-4.5 mcg/actuation HFA aerosol inhaler 2 puff INHALATION BID Patient Comments: INHALE 2 PUFFS BY MOUTH TWICE DAILY furosemide 40 mg tablet 60 mg PO QAM Qty: 30 0RF Did you review [place] SENIOR SOFTWARE QA ENGINEER for ALL controlled substances?: Not Applicable ED Provider: PRINCE CABA Condition: Stable
[2024-01-19 17:03] LABS: MOLECULAR FLU A NEGATIVE BY NAAT (NEGATIVE); MOLECULAR FLU B NEGATIVE BY NAAT (NEGATIVE); SARS COV-2 RNA RAPID NAAT NEGATIVE (NEGATIVE)
[2024-01-19] MEDS ORDERED: LASIX ONE (17:15)
[2024-01-19] MEDS: LASIX IVP STA (17:22)
--- NOTE | 2024-01-19 17:50 | DI ---
EXAM: CHEST RADIOGRAPH TECHNIQUE: Single frontal chest radiograph. HISTORY: Shortness of breath. COMPARISON: 08/07/[address] chest 09/06/2023 FINDINGS: Lungs show no consolidation, pleural effusion or pneumothorax. Cardiac silhouette remains enlarged. Mediastinal silhouette pulmonary vessels are within normal limits. Calcified right hilar lymph node s are again present. The upper abdomen is unremarkable. Continued mild eventration of the right hem idiaphragm. No acute bony abnormality. IMPRESSION: 1. Stable enlarged cardiac silhouette without edema or infiltrate.
[2024-01-19 17:54] VITALS: BMI 28.0
[2024-01-19] MEDS ORDERED: VENTOLIN HFA IH PRN (18:11)
[2024-01-19] MEDS ORDERED: TYLENOL PO PRN (18:14)
[2024-01-19] MEDS ORDERED: ZOFRAN 4 MG/2 ML IVP PRN (18:14)
[2024-01-19] MEDS: SYMBICORT 160-4.5 MCG INHALER IH SCH (20:18)
[2024-01-19] MEDS: SORBITRATE PO SCH (20:18)
[2024-01-19] MEDS: PRAVACHOL PO SCH (20:19)
[2024-01-19] MEDS: ENTRESTO 24 MG-26 MG TABLET PO SCH (20:19)
[2024-01-20] MEDS: LASIX IVP SCH (01:43)
[2024-01-20 05:17] LABS: BASOPHILS # (AUTO) 0.1 K/uL (0-0.2); BASOPHILS % (AUTO) 0.8 % (0.0-3.0); EOSINOPHILS # (AUTO) 0.5 K/ul (0.0-0.7); EOSINOPHILS % (AUTO) 7.4 % (0.0-7.0); HEMATOCRIT 41.9 % (42.0-52.0); HEMOGLOBIN 13.1 g/dl (14.0-18.0); IMMATURE GRANULOCYTE % (AUTO) 0.2 % (0.0-5.0); LYMPHOCYTES # (AUTO) 1.2 K/uL (0.60-3.4); LYMPHOCYTES % (AUTO) 18.8 (10.0-50.0); MEAN CORPUSCULAR HEMOGLOBIN 29.7 pg (27.0-31.0); MEAN CORPUSCULAR HGB CONC 31.3 (31.8-35.4); MONOCYTES # (AUTO) 0.5 K/uL (0.4-2.0); MONOCYTES % (AUTO) 8.3 (0-10); NEUTROPHILS # (AUTO) 3.9 K/ul (2.0-6.9); NEUTROPHILS % (AUTO) 64.5 % (42.2-75.2); PLATELET COUNT 162 10^3/uL (140-440); RDW COEFFICIENT OF VARIATION 14.7 % (11.6-14.8); RED BLOOD COUNT 4.41 10^6/ul (4.70-6.10); WHITE BLOOD COUNT 6.11 K/ul (4.2-10.2)
[2024-01-20 05:33] LABS: ALANINE AMINOTRANSFERASE 19.5 U/L (0-50); ALBUMIN 3.88 g/dL (3.5-5.0); ALKALINE PHOSPHATASE 51.8 U/L (56-119); ASPARTATE AMINO TRANSFERASE 29.4 U/L (17-59); BILIRUBIN,TOTAL 3.34 mg/dL (0.2-1.3); BLOOD UREA NITROGEN 16.9 mg/dL (9-20); CALCIUM 8.83 mg/dL (8.4-10.2); CARBON DIOXIDE 28.9 mmol/L (22-30.0); CHLORIDE 102.6 mmol/L (98-107); CREATININE 1.5 mg/dL (0.60-1.10); GLUCOSE 104.5 mg/dL (74-106); POTASSIUM 3.41 mmol/L (3.5-5.1); SODIUM 141.6 mmol/L (134.5-145); TOTAL PROTEIN 6.6 g/dL (6.3-8.2)
[2024-01-20] MEDS: JARDIANCE PO SCH (08:38)
[2024-01-20] MEDS: ALDACTONE PO SCH (08:39)
[2024-01-20] MEDS: K-DUR PO ONE (08:46)
--- NOTE | 2024-01-20 09:35 | PCM ---
Date of Service Date Seen by Provider: 01/20/24 Time Seen by Provider: 08:40 Admit Day/Time Admission Date: 01/19/24 Admission Time: 16:44 Reason for Admission Chief Complaint: CHF EXACERBATION, SOA, EXERTIONAL DYSPNEA Hospital Provider Hospital Provider: CARMENZA KEANE [facility]C, [facility] History of Present Illness History of Present Illness: Patient is a 68 year old male with pmhx of combined heart failure, hypertension, cardiomyopathy, history of drug abuse who presents to the ER with worsening SOB and abdominal pain for last few days to weeks. Pt is noncompliant historically with medications and outpatient follow ups. He continually tests positive for cocaine. He states he's been hit or miss with his medications as of late but that he does have them and can afford them. He was transferred in August to [place] for a heart cath. He's unsure of what the outcome of that hospitalization was. He thinks he's getting a pacemaker later this month but is unsure of why. He was found to have significant peripheral edema and elevated bnp >62300 in the ER. He was given lasix 60 mg ivp. He has diuresed 4000 ml overnight. Swelling is somewhat improved but he doesn't quite feel at his baseline. Case Discussed With Case Discussed With: Patient's case was discussed with the ER Physicians, Dr. Goff. [facility] Medical History Lung nodule [id number] right apex nodule increased metabolic activity. Maximum SUV 1.9. Suggest benign. Repeat imaging in 6 months. No other concerning areas. REviewed PET w/ patient 05/17/21. 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 Not sure if I will have it removed" will sign records release for Dr. Donnelly C61 - Malignant neoplasm of prostate (ICD-10) Tobacco use Z72.0 - Tobacco use (ICD-10) Hypertension I10 - Essential (primary) hypertension (ICD-10) Arthritis M19.90 - Unspecified osteoarthritis, unspecified site (ICD-10) Family History Mother Hypertension FATHER Alcoholism and drug addiction in family Hypertension Social History Smoking and tobacco status: Former smoker Tobacco: How many years used: 7 How long ago did patient quit smoking: Stopped smoking about 2 years ago Alcohol intake: never Substance use type: crack/cocaine Allergies Allergies Allergy/AdvReac Type Severity Reaction Status Date / Time NSAIDS (Non-Steroidal AdvReac Severe CHF Verified 01/19/24 14:51 Anti-Inflamma Current Medications Home Medications empagliflozin 10 mg tablet (Jardiance) 10 mg PO DAILY #30 tabs 02/04/23 [Rx Confirmed 01/19/24 Last Taken 01/19/24 08:00 10 mg] isosorbide dinitrate 5 mg tablet 5 mg PO TID #90 tabs 02/04/23 [Rx Confirmed 01/19/24 Last Taken 01/19/24 08:00 5 mg] pravastatin 40 mg tablet 40 mg PO BEDTIME #30 tabs 02/04/23 [Rx Confirmed 01/19/24 Last Taken 01/18/24 21:00 40 mg] sacubitril 24 mg-valsartan 26 mg tablet (Entresto) 1 tab PO BID HEART FAILURE #60 tabs 02/04/23 [Rx Confirmed 01/19/24 Last Taken 01/19/24 08:00 1 tab] spironolactone 25 mg tablet 25 mg PO QDAY #30 tabs 02/04/23 [Rx Confirmed 01/19/24 Last Taken 01/19/24 08:00 25 mg] albuterol sulfate 90 mcg/actuation aerosol inhaler 2 puff inhalation Q4H PRN shortness of breath or wheezing 03/31/23 [History Confirmed 01/19/24 Last Taken 01/19/24 08:00 2 puff] carvedilol 6.25 mg tablet 6.25 mg PO BID 03/31/23 [History Confirmed 01/19/24 Last Taken 01/19/24 08:00 6.25 mg] budesonide-formoterol HFA 160 mcg-4.5 mcg/actuation aerosol inhaler 2 puff inhalation BID 04/21/23 [History Confirmed 01/19/24 Last Taken 01/19/24 08:00 2 puff] furosemide 40 mg tablet 60 mg (1.5 x 40 mg) PO QAM #30 tabs 08/07/23 [Rx Confirmed 01/19/24 Last Taken 01/19/24 08:00 60 mg] Home Acetaminophen (Acetaminophen 325 Mg Tablet) 650 mg PO Q4H PRN PRN Reason: Mild Pain Albuterol Sulfate (Albuterol Sulfate 8 Gm Inhaler) 2 puff IH Q4H PRN PRN Reason: sob Budesonide/Formoterol Fumarate (Budesonide/Formoterol Fumarate 160/4.5 Mcg Inhaler) 2 puff IH BID [facility] Last Admin: 01/20/24 08:41 Dose: 2 puff Empagliflozin (Empagliflozin 10 Mg Tablet) 10 mg PO DAILY [facility] Last Admin: 01/20/24 08:38 Dose: 10 mg Furosemide (Furosemide Inj 40 Mg/4 Ml Vial) 40 mg IVP Q8H [facility] Last Admin: 01/20/24 08:39 Dose: 40 mg Isosorbide Dinitrate (Isosorbide Dinitrate 20 Mg Tablet) 5 mg PO TID [facility] Last Admin: 01/20/24 08:36 Dose: 5 mg Ondansetron HCl (Ondansetron Hcl/Pf 4 Mg/2 Ml Sdv) 4 mg IVP Q6H PRN PRN Reason: Nausea / Vomiting Pravastatin Sodium (Pravastatin Sodium 40 Mg Tablet) 40 mg PO BEDTIME [facility] Last Admin: 01/19/24 20:19 Dose: 40 mg Sacubitril/Valsartan (Sacubitril/Valsartan 1 Each Tablet) 1 each PO BID [facility] Last Admin: 01/20/24 08:38 Dose: 1 each Sodium Chloride (0.9% Sodium Chloride 10 Ml Disp.Syrin) 1 syr IVF Q8HR [facility] Last Admin: 01/20/24 13:07 Dose: 1 syr Sodium Chloride (0.9% Sodium Chloride 10 Ml Disp.Syrin) 1 syr IVF PRN PRN PRN Reason: Maintain IV Patency Last Admin: 01/20/24 08:52 Dose: 1 syr Spironolactone (Spironolactone 25 Mg Tablet) 25 mg PO DAILY [facility] Last Admin: 01/20/24 08:39 Dose: 25 mg Discontinued Medications Furosemide (Furosemide Inj 100 Mg/10 Ml Vial) 60 mg IVP ONCE STA Stop: 01/19/24 17:10 Last Admin: 01/19/24 17:22 Dose: 60 mg Potassium Chloride (Potassium Chloride 20 Meq Tab) 40 meq PO ONCE ONE Stop: 01/20/24 08:27 Last Admin: 01/20/24 08:46 Dose: 40 meq Opioid Naive vs. Tolerant What is Opioid Naive?: *Opioid Naive implies the patient is not already taking opioids or not chronically receiving opioids on a daily basis. *PRN dosing is not "usually" associated with tolerance. *Patients are at higher risk of over-sedation and aspiration. What is Opioid Tolerant?: *Opioid Tolerance implies less than the expected response to an opioid. *Acquired tolerance is defined by the patient taking 60mg of oral morphine daily (or equianalgesic dose of another opioid) for 1 week or more. *Often associated with chronic pain. *May take more than usual dose to achieve desired pain control. Review of Systems Constitutional: Reports Fatigue and Weakness; Denies Fever Head: Reports Normocephalic and Atraumatic Cardiovascular: Reports Edema; Denies Chest pain or Chest Pressure Respiratory: Reports Shortness of air; Denies Cough Gastrointestinal: Denies Nausea, Vomiting, Diarrhea, Abdominal pain or Melena Genitourinary: Denies Dysuria or Hematuria Dermatologic: Denies Rashes Neurological: Reports Weakness; Denies Headache, Dizziness or Syncope Physical examination Most Recent Vital Signs: Most Recent Vital Signs Temperature 97.3 F L 01/20/24 05:28 Temperature Source Temporal Artery Scan 01/20/24 05:28 Temperature Source Infrared 01/19/24 14:47 Pulse Rate 82 01/20/24 05:28 Respiratory Rate 19 01/20/24 05:28 Blood Pressure 164/86 H 01/20/24 05:28 Blood Pressure Mean 112 01/20/24 05:28 Blood Pressure Left Arm 125/97 01/19/24 17:18 Blood Pressure Location Left Arm 01/20/24 05:28 Blood Pressure Position Supine 01/20/24 05:28 O2 Sat by Pulse Oximetry 94 L 01/20/24 05:28 Oxygen Delivery Method Room Air 01/20/24 09:00 Height 6 ft 5 in 01/19/24 17:18 Weight 103.1 kg 01/20/24 05:28 Telemetry Type Remote Telemetry 01/20/24 07:00 Telemetry Monitoring Continues 01/20/24 07:00 Telemetry Heart Rate 65 01/20/24 07:00 Telemetry SPO2 96 09/07/23 13:00 EKG NV Interval 0.27 H 01/20/24 07:00 EKG QRS Interval 0.16 H 01/20/24 07:00 Telemetry Strip Reading SR with 1st Degree AVB/BBB/PVC's 01/20/24 07:00 Appearance: Positive No Apparent Distress and Alert and Oriented x3 Skin: Positive [place], Warm, Good Turgor and Good Color; Negative Rashes HEENT: Positive Normocephalic and Atraumatic Neck: Positive Supple and Midline Trachea Chest/Lungs: Positive Clear to Auscultation Bilaterally; Negative Rales, Rhonci or Wheezes Heart: Positive RRR GI/: Positive Soft, Nontender, Bowel Sounds Normal and No Distention Extremities: Positive Edema (1+ pitting edema [place], improved ) Neurological: Positive Cranial Nerves Intact, Alert, Oriented and Muscle Strength 5/5 in Upper and Lower Extremities Bilaterally Psychiatric: Positive Oriented x4, Appropriate Mood and Appropriate Affect Labs This Visit Labs This Visit: Labs This Visit 01/19/24 01/19/24 01/19/24 15:58 16:31 16:43 WBC 6.18 RBC 4.41 L Hgb 13.0 L Hct 41.7 L MCV 94.6 H MCH 29.5 MCHC 31.2 L RDW Coeff of Dimple 14.8 Plt Count 159 Immature Gran % (Auto) 0.2 Neut % (Auto) 69.7 Lymph % (Auto) 15.0 [place] % (Auto) 9.5 Eos % (Auto) 5.0 Baso % (Auto) 0.6 Neut # (Auto) 4.3 Lymph # (Auto) 0.9 [place] # (Auto) 0.6 Eos # (Auto) 0.3 Baso # (Auto) 0.0 Immature Gran # (Auto) 0.0 Sodium 140.9 Potassium 3.88 Chloride 109.8 H Carbon Dioxide 18.8 L Anion Gap 16.18 BUN 16.8 Creatinine 1.36 H Estimated GFR (MDRD) 63.00 BUN/Creatinine Ratio 12.35 Glucose 100.0 Calcium 8.85 Magnesium Total Bilirubin 3.87 H AST 40.9 ALT 19.3 Alkaline Phosphatase 53.0 L Troponin I 0.022 NT-Pro-B Natriuret Pep 25440 H Total Protein 6.72 Albumin 4.00 Globulin 2.72 Albumin/Globulin Ratio 1.47 Urine Color Dark Urine Clarity Clear Urine pH 5.5 Ur Specific [place] >=1.030 Urine Protein 3+ H Urine Glucose (UA) Negative Urine Ketones Negative Urine Blood Trace-intact H Urine Nitrite Negative Urine Bilirubin 1+ H Urine Urobilinogen 1.0 H Ur Leukocyte Esterase Negative Urine Microscopic RBC 2-5 Ur Squamous Epith Cells 0-2 Hyaline Casts 2-5 Urine Mucus 3+ Urine Opiates Screen Negative Ur Oxycodone Screen Negative Urine Methadone Screen Negative Ur Barbiturates Screen Negative U Tricyclic Antidepress Negative Ur Phencyclidine Scrn Negative Ur Amphetamine Screen Negative U Methamphetamines Scrn Negative U Benzodiazepines Scrn Negative Urine Cocaine Screen Positive H U Cannabinoids Screen Negative Influ A Molecular Assay Negative by naat Influ B Molecular Assay Negative by naat SARS CoV-2 RNA Rapid CAL Negative 01/20/24 05:05 WBC 6.11 RBC 4.41 L Hgb 13.1 L Hct 41.9 L MCV 95.0 H MCH 29.7 MCHC 31.3 L RDW Coeff of Dimple 14.7 Plt Count 162 Immature Gran % (Auto) 0.2 Neut % (Auto) 64.5 Lymph % (Auto) 18.8 [place] % (Auto) 8.3 Eos % (Auto) 7.4 H Baso % (Auto) 0.8 Neut # (Auto) 3.9 Lymph # (Auto) 1.2 [place] # (Auto) 0.5 Eos # (Auto) 0.5 Baso # (Auto) 0.1 Immature Gran # (Auto) 0.0 Sodium 141.6 Potassium 3.41 L Chloride 102.6 Carbon Dioxide 28.9 D Anion Gap 13.51 BUN 16.9 Creatinine 1.50 H Estimated GFR (MDRD) 56.00 BUN/Creatinine Ratio 11.26 Glucose 104.5 Calcium 8.83 Magnesium 1.50 L Total Bilirubin 3.34 H AST 29.4 ALT 19.5 Alkaline Phosphatase 51.8 L Troponin I NT-Pro-B Natriuret Pep Total Protein 6.60 Albumin 3.88 Globulin 2.72 Albumin/Globulin Ratio 1.42 Urine Color Urine Clarity Urine pH Ur Specific [place] Urine Protein Urine Glucose (UA) Urine Ketones Urine Blood Urine Nitrite Urine Bilirubin Urine Urobilinogen Ur Leukocyte Esterase Urine Microscopic RBC Ur Squamous Epith Cells Hyaline Casts Urine Mucus Urine Opiates Screen Ur Oxycodone Screen Urine Methadone Screen Ur Barbiturates Screen U Tricyclic Antidepress Ur Phencyclidine Scrn Ur Amphetamine Screen U Methamphetamines Scrn U Benzodiazepines Scrn Urine Cocaine Screen U Cannabinoids Screen Influ A Molecular Assay Influ B Molecular Assay SARS CoV-2 RNA Rapid CAL Imaging Imaging: EXAM: CHEST RADIOGRAPH TECHNIQUE: Single frontal chest radiograph. HISTORY: Shortness of breath. COMPARISON: 08/07/[address] chest 09/06/2023 FINDINGS: Lungs show no consolidation, pleural effusion or pneumothorax. Cardiac silhouette remains enlarged. Mediastinal silhouette pulmonary vessels are within normal limits. Calcified right hilar lymph nodes are again present. The upper abdomen is unremarkable. Continued mild eventration of the right hemidiaphragm. No acute bony abnormality. IMPRESSION: 1. Stable enlarged cardiac silhouette without edema or infiltrate. Date of Exam: 09/07/2023Ordering Physician: LILIANA ZHANG Room #: [id number] Reason for Echo: CHF, HTN M-Mode Normal Adult Results LV Dimensions Normal Adult Results AoV Opening excursions >1.6 >1.6 LVEDD-base- 3.5-5.8 7.8 Ao root dimensions 2.0-3.7 3.5 LVESD-base- 3.1-4.6 L. Atrium dimensions 1.9-3.8 6.7 Post. Wall thickness 0.8-1.1 1.5 IV septum (thickness) 0.7-1.2 1.6 Post. Wall excursion 0.72-1.3 0.5 Septal motion Systolic motion R. Ventricular cavity 1.5-2.0 3.0 LVEF 60% 20% Paradoxical septal wall motion MAYBE 2-D : HYPOKINETIC LEFT VENTRICLE, DILATED LEFT ATRIAL, LEFT VENTRICLE, RIGHT ATRIAL CAVITY AND RIGHT VENTRICLE CAVITY, NO EFFUSION, NO THROMBUS--VALVES NORMAL COLOR FLOW: MODERATE TRICUSPID REGURGITATION AND MITRAL REGURGITATION M-MODE: MV: NORMAL AV: NORMAL TV: NORMAL PV: NORMAL CHAMBER SIZE: ENLARGED LEFT VENTRICLE, LEFT ATRIAL, RIGHT ATRIAL/ RIGHT VENTRICLE CAVITIES WALL MOTION: HYPOKINETIC LEFT VENTRICLE PERICARDIUM: NORMAL INTERPRETATION: 1. MODERATE LEFT VENTRICLE HYPERTROPHY 2. SEVERELY HYPOKINETIC LEFT VENTRICLE WITH EJECTION FRACTION 20% 3. ENLARGED LEFT VENTRICLE, LEFT ATRIAL, RIGHT ATRIAL, RIGHT VENTRICLE CAVITIES 4. PARADOXICAL SEPTAL MOTION 5. MODERATE TRICUSPID REGURGITATION AND MITRAL REGURGITATION DETERIORATION OF LEFT VENTRICLE FUNCTION FROM 11/2022 Review Statement Review Statement: I have independently reviewed and interpreted the labs/EKGs/imaging that were ordered by the ER provider. I have reviewed all outside records that are available currently in our EMR including imaging/notes/labs from previous visits. Plan Plan: 1. Acute systolic and diastolic heart failure exacerbation - Lasix 40 q8hrs, I&O, daily weight, low sodium diet, fluid restriction 1800, cont jardiance, spironolactone and entresto. Holding coreg in setting of positive drug test with cocaine. 2. Hypertension - Cont home meds 3. Hyperlipidemia - Cont home meds 4. Substance abuse - Counseled patient DVT Prophylaxis: Ambulation Time Spent: Greater than 80 minutes spent with patient, 50% of the time spent with this patient was devoted to counseling and coordination of care. [facility]annin minutes spent discussing advance care planning. Admit to: Flipped to inpatient Dispo: Will continue to diurese, measure I&Os, and dc when medically stable Discussed Plan of Care with Dr. Donna Allison. Medications Medication Orders: Medications Ordered Category Date Time Status 0.9 % Sodium Chloride [Saline Flush] Meds 01/20/24 08:51 Active 1 syr IVF PRN PRN 0.9 % Sodium Chloride [Saline Flush] Meds 01/19/24 21:00 Active 1 syr IVF Q8HR Acetaminophen [Tylenol] Meds 01/19/24 18:14 Active 650 mg PO Q4H PRN Albuterol Sulfate [Ventolin Hfa] Meds 01/19/24 18:11 Active 2 puff IH Q4H PRN Budesonide/Formoterol Fumarate [Symbicort 160-4.5 Mcg Meds 01/19/24 21:00 Active Inhaler] 2 puff IH BID Empaglifozin [Jardiance] Meds 01/20/24 09:00 Active 10 mg PO DAILY Furosemide [Lasix] Meds 01/20/24 01:00 Active 40 mg IVP Q8H Isosorbide Dinitrate [Sorbitrate] Meds 01/19/24 21:00 Active 5 mg PO TID Ondansetron HCl/Pf [Zofran 4 mg/2 ml] Meds 01/19/24 18:14 Active 4 mg IVP Q6H PRN Pravastatin Sodium [Pravachol] Meds 01/19/24 21:00 Active 40 mg PO BEDTIME Sacubitril/Valsartan [Entresto 24 mg-26 mg Tablet] Meds 01/19/24 21:00 Active 1 each PO BID Spironolactone [Aldactone] Meds 01/20/24 09:00 Active 25 mg PO DAILY
[2024-01-21 04:56] VITALS: RESP 20
[2024-01-21 05:20] LABS: BASOPHILS # (AUTO) 0.1 K/uL (0-0.2); BASOPHILS % (AUTO) 0.8 % (0.0-3.0); EOSINOPHILS # (AUTO) 0.5 K/ul (0.0-0.7); EOSINOPHILS % (AUTO) 6.9 % (0.0-7.0); HEMATOCRIT 46.4 % (42.0-52.0); HEMOGLOBIN 14.6 g/dl (14.0-18.0); IMMATURE GRANULOCYTE % (AUTO) 0.1 % (0.0-5.0); LYMPHOCYTES # (AUTO) 1.1 K/uL (0.60-3.4); LYMPHOCYTES % (AUTO) 15.8 (10.0-50.0); MEAN CORPUSCULAR HEMOGLOBIN 29.3 pg (27.0-31.0); MEAN CORPUSCULAR HGB CONC 31.5 (31.8-35.4); MONOCYTES # (AUTO) 0.5 K/uL (0.4-2.0); MONOCYTES % (AUTO) 6.8 (0-10); NEUTROPHILS % (AUTO) 69.6 % (42.2-75.2); PLATELET COUNT 201 10^3/uL (140-440); RDW COEFFICIENT OF VARIATION 14.4 % (11.6-14.8); RED BLOOD COUNT 4.99 10^6/ul (4.70-6.10); WHITE BLOOD COUNT 7.22 K/ul (4.2-10.2)
[2024-01-21 05:33] LABS: ALKALINE PHOSPHATASE 54.9 U/L (56-119); BILIRUBIN,TOTAL 2.81 mg/dL (0.2-1.3); BLOOD UREA NITROGEN 20.1 mg/dL (9-20); CALCIUM 8.88 mg/dL (8.4-10.2); CARBON DIOXIDE 33.7 mmol/L (22-30.0); CHLORIDE 98.7 mmol/L (98-107); CREATININE 1.52 mg/dL (0.60-1.10); GLUCOSE 99.6 mg/dL (74-106); POTASSIUM 3.59 mmol/L (3.5-5.1); SODIUM 141.1 mmol/L (134.5-145); TOTAL PROTEIN 6.72 g/dL (6.3-8.2)
--- NOTE | 2024-01-21 10:25 | DCSUM ---
Admission Date Admission Date: 01/19/24 Discharge Date Discharge Date: 01/21/24 Admission Diagnosis Admission Diagnosis: 1. Acute systolic and diastolic heart failure exacerbation Discharge Diagnosis Discharge Diagnosis: 1. Acute systolic and diastolic heart failure exacerbation with nonischemic cardiomyopathy 2. Hypertension 3. Hyperlipidemia 4. Substance abuse Hospital Provider Hospital Provider: [facility] Summary of History and Physical Summary of History and Physical: Patient is a 68 year old male with pmhx of combined heart failure, hypertension, cardiomyopathy, history of drug abuse who presents to the ER with worsening SOB and abdominal pain for last few days to weeks. Pt is noncompliant historically with medications and outpatient follow ups. He continually tests positive for cocaine. He states he's been hit or miss with his medications as of late but that he does have them and can afford them. He was transferred in August to [place] for a heart cath. He's unsure of what the outcome of that hospitalization was. He thinks he's getting a pacemaker later this month but is unsure of why. He was found to have significant peripheral edema and elevated bn p >33739 in the ER. He was given lasix 60 mg ivp. He has diuresed 4000 ml overnight. Swelling is somewhat improved but he doesn't quite feel at his baseline. Hospital Course Subjective: Patient was diuresed with lasix q8hrs. He has had 14L out and down 10 kg. He feels he can do his basic ADLs. He feels he can now ride his bike around town as he needs. No changes made to his home medications as his noncompliance is likely the cause of his fluid overload. Encouraged taking his medications as prescribed. Again spoke with him about the use of cocaine with beta blockers and how it is not recommended and can be detrimental to him. He understands this. He understands the Coreg is needed for his heart failure and that is a priority. He will follow up with [facility] and his PCP. Reviewed records from [facility], office visit on 11/03/23 - discussed scheduling a MUGA scan to determine necessity of ICD implantation. Otherwise continued same medications. Unable to get records from hospitalization at [place] in August, requested multiple times with no response. [facility] apt scheduled for 01/27/24 at 9am Appearance: Pleasant, No Apparent Distress and Alert HEENT: MMM and Supple CVS: No Murmur Abdomen: Soft, Non-Tender and No Distention Respiratory: No Accessory Muscle Use Extremities: No Edema Vital Signs: Most Recent Vital Signs Temperature 98.2 F 01/21/24 04:55 Temperature Source Temporal Artery Scan 01/21/24 04:55 Temperature Source Infrared 01/19/24 14:47 Pulse Rate 71 01/21/24 04:55 Respiratory Rate 20 01/21/24 04:55 Blood Pressure 112/84 01/21/24 05:54 Blood Pressure Mean 93 01/21/24 05:54 Blood Pressure Left Arm 125/97 01/19/24 17:18 Blood Pressure Location Right Arm 01/21/24 05:54 Blood Pressure Position Sitting 01/21/24 05:54 O2 Sat by Pulse Oximetry 98 01/21/24 05:54 Oxygen Delivery Method Room Air 01/21/24 07:20 Height 6 ft 5 in 01/19/24 17:18 Weight 97.1 kg 01/21/24 04:54 Telemetry Type Remote Telemetry 01/21/24 07:00 Telemetry Monitoring Continues 01/21/24 07:00 Telemetry Heart Rate 75 01/21/24 07:00 Telemetry SPO2 96 09/07/23 13:00 EKG TX Interval 0.19 01/21/24 07:00 EKG QRS Interval 0.15 H 01/21/24 07:00 Telemetry Strip Reading SR with BBB 01/21/24 07:00 Imaging: EXAM: CHEST RADIOGRAPH TECHNIQUE: Single frontal chest radiograph. HISTORY: Shortness of breath. COMPARISON: 08/07/[address] chest 09/06/2023 FINDINGS: Lungs show no consolidation, pleural effusion or pneumothorax. Cardiac silhouette remains enlarged. Mediastinal silhouette pulmonary vessels are within normal limits. Calcified right hilar lymph nodes are again present. The upper abdomen is unremarkable. Continued mild eventration of the right hemidiaphragm. No acute bony abnormality. IMPRESSION: 1. Stable enlarged cardiac silhouette without edema or infiltrate. Lab Results Last 24 Hours: 01/21/24 05:00 WBC 7.22 RBC 4.99 Hgb 14.6 Hct 46.4 MCV 93.0 MCH 29.3 MCHC 31.5 L RDW Coeff of Dimple 14.4 Plt Count 201 Immature Gran % (Auto) 0.1 Neut % (Auto) 69.6 Lymph % (Auto) 15.8 [place] % (Auto) 6.8 Eos % (Auto) 6.9 Baso % (Auto) 0.8 Neut # (Auto) 5.0 Lymph # (Auto) 1.1 [place] # (Auto) 0.5 Eos # (Auto) 0.5 Baso # (Auto) 0.1 Immature Gran # (Auto) 0.0 Sodium 141.1 Potassium 3.59 Chloride 98.7 Carbon Dioxide 33.7 H Anion Gap 12.29 BUN 20.1 H Creatinine 1.52 H Estimated GFR (MDRD) 56.00 BUN/Creatinine Ratio 13.22 Glucose 99.6 Calcium 8.88 Total Bilirubin 2.81 H AST 28.0 ALT 19.0 Alkaline Phosphatase 54.9 L Total Protein 6.72 Albumin 4.00 Globulin 2.72 Albumin/Globulin Ratio 1.47 Discharge Instructions Discharge Planning: Discharge Planning > 70 minutes If patient is discharged with left ventricular systolic dysfunction: Discharged with a beta bibiana? Y If no, why not? [] Discharged with an sarah/arb? Y If no, why not? [] Discharge Medications: Medications at Discharge (Home Meds & RX) Discharge Plan Discharge Discharge Orders: Discharge Patient (ONCE); Ordered 01/21/24 Ordered By: CARMENZA KEANE Activity Restrictions/Additional Instructions: DISCHARGE TO HOME DX: HEART FAILURE EXACERBATION DIET: LOW SODIUM ACTIVITY: TOLERATED FOLLOW UP WITH [facility] AND PCP CONTINUE YOUR HOME MEDICATIONS NO NEW MEDICATIONS MONITOR YOUR WEIGHT AND CONTACT YOUR PRIMARY CARE PROVIDER OF WEIGHT GAIN OF 5 POUNDS OR MORE, ESPECIALLY IF YOUR HAVE INCREASED SHORTNESS OF BREATH TRY TO LIMIT YOUR LIQUID INTAKE Instructions: Heart Failure (DC), Heart Healthy Diet (DC), Fluid Restriction (DC) Care Plan Goals: Problem: Fluid Volume Excess Goal: Maintain adequate fluid volume Instructions: Maintain optimal head of bed placement Monitor respiratory status Monitor for edema Monitor hydration status Problem: Impaired Respiratory Status Goal: Exhibit optimal respiratory function Instructions: Activities as tolerated Apply oxygen as ordered Elevate head of bed Notify MD of increased congestion Problem: Knowledge Deficit-Substance Abuse Goal: Understand disease process Instructions: Identify necessary life-style changes Participate in treatment program Patient Disposition: HOME SELF-CARE Prescriptions: Continued pravastatin 40 mg tablet 40 mg PO BEDTIME Qty: 30 0RF spironolactone 25 mg tablet 25 mg PO QDAY Qty: 30 0RF isosorbide dinitrate 5 mg tablet 5 mg PO TID Qty: 90 0RF Rx Instructions: allow nitrate-free interval of 12-14 hrs per 24-hr period Jardiance 10 mg tablet 10 mg PO DAILY Qty: 30 0RF Entresto 24-26 mg tablet 1 tab PO BID Qty: 60 0RF carvedilol 6.25 mg tablet 6.25 mg PO BID Patient Comments: TAKE 1 TABLET BY MOUTH TWICE DAILY albuterol sulfate 90 mcg/actuation HFA aerosol inhaler 2 puff INHALATION Q4H PRN (Reason: shortness of breath or wheezing) Patient Comments: INHALE 2 PUFFS BY MOUTH EVERY 4 HOURS budesonide-formoterol 160-4.5 mcg/actuation HFA aerosol inhaler 2 puff INHALATION BID Patient Comments: INHALE 2 PUFFS BY MOUTH TWICE DAILY furosemide 40 mg tablet 60 mg PO QAM Qty: 30 0RF Did you review [place] [employer] for ALL controlled substances?: Not Applicable Discussed opioids are addictive and Narcan is available by prescription or from pharmacy.: No Condition: Stable Referrals: ESCOBAR LOVETT [REFERRING] - 01/27/24 9:00 am JESUS SCHWARZ [REFERRING] - 01/28/24 9:30 am
[2024-01-21 10:26] VITALS: BP 78/48; PULSE 86; TEMP 98.4
== END 2024-01-21 12:30 | disposition home or self-care (01) | DRG 292 ==
LOC: ED 14:42 → MEDSURG B 14:42
PROVIDERS: ADMIT Hospitalist; ATTEND Physician Assistant

== ENCOUNTER 2024-05-09 16:00 | Observation (INO) ==
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
[2024-05-09 16:37] LABS: BASOPHILS # (AUTO) 0.1 K/uL (0-0.2); BASOPHILS % (AUTO) 0.7 % (0.0-3.0); EOSINOPHILS # (AUTO) 0.4 K/ul (0.0-0.7); EOSINOPHILS % (AUTO) 6.4 % (0.0-7.0); HEMATOCRIT 45.7 % (42.0-52.0); HEMOGLOBIN 13.4 g/dl (14.0-18.0); IMMATURE GRANULOCYTE % (AUTO) 0.1 % (0.0-5.0); LYMPHOCYTES # (AUTO) 0.7 K/uL (0.60-3.4); LYMPHOCYTES % (AUTO) 10.9 (10.0-50.0); MEAN CORPUSCULAR HEMOGLOBIN 28.9 pg (27.0-31.0); MEAN CORPUSCULAR HGB CONC 29.3 (31.8-35.4); MEAN CORPUSCULAR VOLUME 98.7 fl (80.0-94.0); MONOCYTES # (AUTO) 0.4 K/uL (0.4-2.0); MONOCYTES % (AUTO) 6.6 (0-10); NEUTROPHILS % (AUTO) 75.3 % (42.2-75.2); PLATELET COUNT 174 10^3/uL (140-440); RDW COEFFICIENT OF VARIATION 14.7 % (11.6-14.8); RED BLOOD COUNT 4.63 10^6/ul (4.70-6.10); WHITE BLOOD COUNT 6.69 K/ul (4.2-10.2)
[2024-05-09] MEDS: LASIX IVP ONE (16:41)
--- NOTE | 2024-05-09 16:48 | DI ---
EXAM: CHEST RADIOGRAPH TECHNIQUE: Two views. Frontal and lateral. HISTORY: CHF COMPARISON: Chest single view 04/13/2024 FINDINGS: Globular cardiomegaly with left ventricle prominence could be indicative of pericardial effusion. Pulmonary vasculature currently is normal. Bilateral well expanded lungs have moderate diffuse chron ic interstitial disease. No pulmonary edema, consolidating infiltrates, pleural effusion or pneumothorax. Right hilar calcified lymph nodes/old healed granulomas disease are unchanged. IMPRESSION: No acute pulmonary process currently seen. Globular cardiomegaly could be indicative of pericardial effusion.
[2024-05-09 16:50] LABS: ALANINE AMINOTRANSFERASE 14.3 U/L (0-50); ALBUMIN 4.22 g/dL (3.5-5.0); ASPARTATE AMINO TRANSFERASE 23.4 U/L (17-59); BILIRUBIN,TOTAL 1.76 mg/dL (0.2-1.3); BLOOD UREA NITROGEN 18.3 mg/dL (9-20); CALCIUM 8.91 mg/dL (8.4-10.2); CARBON DIOXIDE 30.6 mmol/L (22-30.0); CHLORIDE 103.7 mmol/L (98-107); CREATININE 1.14 mg/dL (0.60-1.10); GLUCOSE 103.1 mg/dL (74-106); POTASSIUM 4.73 mmol/L (3.5-5.1); SODIUM 140.3 mmol/L (134.5-145); TOTAL PROTEIN 7.2 g/dL (6.3-8.2)
[2024-05-09] MEDS: DUONEB NEB ONE (16:51)
[2024-05-09 17:05] LABS: BILIRUBIN,URINE Negative (NEGATIVE); CLARITY,URINE Clear (CLEAR); COLOR,URINE Amber (YELLOW); GLUCOSE, URINE (UA) Negative (NEGATIVE); KETONES,URINE Negative (NEGATIVE); LEUKOCYTE ESTERASE ,URINE Negative (NEGATIVE); NITRITE,URINE Negative (NEGATIVE); PH,URINE 6.5 (5-9); PROTEIN,URINE 3+ (NEGATIVE); URINE, BLOOD Trace-intact (NEGATIVE)
[2024-05-09 17:17] LABS: HYALINE CASTS, URINE 0-2 (NOT PRESENT); MUCUS,URINE 1+ (NOT PRESENT); SQUAMOUS EPITHELIAL CELL,UR 0-2 (0-5)
[2024-05-09 17:25] LABS: AMPHETAMINE SCREEN,URINE NEGATIVE (NEGATIVE); BARBITURATE SCREEN,URINE NEGATIVE (NEGATIVE); BENZODIAZEPINES SCREEN,URINE NEGATIVE (NEGATIVE); CANNABINOID SCREEN,URINE NEGATIVE (NEGATIVE); COCAIN SCREEN,URINE POSITIVE (NEGATIVE); METHADONE URINE SCREEN NEGATIVE (NEGATIVE); METHAMPHETAMINES SCREEN,URINE NEGATIVE (NEGATIVE); OPIATE SCREEN,URINE NEGATIVE (NEGATIVE); OXYCODONE URINE SCREEN NEGATIVE (NEGATIVE); PHENCYCLIDINE SCREEN,URINE NEGATIVE (NEGATIVE); TRICYCLIC ANTIDEPRESSANTS URIN NEGATIVE (NEGATIVE)
[2024-05-09 17:58] LABS: SARS COV-2 RNA RAPID NAAT NEGATIVE (NEGATIVE)
[2024-05-09] MEDS ORDERED: TYLENOL PO PRN (18:03)
[2024-05-09 19:50] VITALS: BMI 29.7
[2024-05-09] MEDS: ENTRESTO 24 MG-26 MG TABLET PO SCH (20:42)
[2024-05-09] MEDS: SORBITRATE PO SCH (20:42)
[2024-05-09] MEDS: PRAVACHOL PO SCH (20:42)
[2024-05-09] MEDS: SYMBICORT 160-4.5 MCG INHALER IH SCH (20:44)
[2024-05-10] MEDS: LASIX IVP SCH (01:23)
[2024-05-10 05:29] LABS: BASOPHILS # (AUTO) 0.1 K/uL (0-0.2); BASOPHILS % (AUTO) 0.8 % (0.0-3.0); EOSINOPHILS # (AUTO) 0.5 K/ul (0.0-0.7); HEMATOCRIT 41.6 % (42.0-52.0); HEMOGLOBIN 12.7 g/dl (14.0-18.0); IMMATURE GRANULOCYTE % (AUTO) 0.3 % (0.0-5.0); LYMPHOCYTES # (AUTO) 0.6 K/uL (0.60-3.4); LYMPHOCYTES % (AUTO) 9.5 (10.0-50.0); MEAN CORPUSCULAR HEMOGLOBIN 29.1 pg (27.0-31.0); MEAN CORPUSCULAR HGB CONC 30.5 (31.8-35.4); MEAN CORPUSCULAR VOLUME 95.4 fl (80.0-94.0); MONOCYTES # (AUTO) 0.6 K/uL (0.4-2.0); MONOCYTES % (AUTO) 8.6 (0-10); NEUTROPHILS # (AUTO) 4.9 K/ul (2.0-6.9); NEUTROPHILS % (AUTO) 72.8 % (42.2-75.2); PLATELET COUNT 163 10^3/uL (140-440); RDW COEFFICIENT OF VARIATION 14.5 % (11.6-14.8); RED BLOOD COUNT 4.36 10^6/ul (4.70-6.10); WHITE BLOOD COUNT 6.65 K/ul (4.2-10.2)
[2024-05-10 05:42] LABS: ALANINE AMINOTRANSFERASE 14.3 U/L (0-50); ALBUMIN 3.82 g/dL (3.5-5.0); ALKALINE PHOSPHATASE 52.3 U/L (56-119); BILIRUBIN,TOTAL 1.55 mg/dL (0.2-1.3); BLOOD UREA NITROGEN 17.1 mg/dL (9-20); CALCIUM 8.98 mg/dL (8.4-10.2); CARBON DIOXIDE 33.2 mmol/L (22-30.0); CHLORIDE 100.2 mmol/L (98-107); CREATININE 1.22 mg/dL (0.60-1.10); GLUCOSE 94.5 mg/dL (74-106); POTASSIUM 3.94 mmol/L (3.5-5.1); SODIUM 140.8 mmol/L (134.5-145); TOTAL PROTEIN 6.66 g/dL (6.3-8.2)
[2024-05-10] MEDS ORDERED: IMDUR PO SCH (09:00)
[2024-05-10] MEDS: MICRO-K CAP PO SCH (09:08)
[2024-05-10] MEDS: JARDIANCE PO SCH (09:09)
[2024-05-10] MEDS: IMDUR PO SCH (09:09)
--- NOTE | 2024-05-10 13:31 | PCM ---
Date of Service Date Seen by Provider: 05/10/24 Time Seen by Provider: 08:30 Admit Day/Time Admission Date: 05/09/24 Admission Time: 17:35 Reason for Admission Chief Complaint: ACUTE & CHRONIC CHF Hospital Provider Hospital Provider: CARMENZA KEANE PA-C, [facility] Primary Care Physician Primary Care Physician: JESUS KEITH History of Present Illness History of Present Illness: Patient is a 68 year old male with pmhx of combined heart failure, hypertension, cardiomyopathy, history of drug abuse who presents to the ER with worsening SOB. Pt is noncompliant historically with medications and outpatient follow ups. He continually tests positive for cocaine. He states he's been taking his medications including lasix and entresto. In the ER he was noted to have elevated BNP and worsened edema. He was given lasix 80 mg ivp and diuresed about 2L. He has since diuresed about 3500 overnight. Swelling is somewhat improved but he doesn't quite feel at his baseline. Pt states he has seen [facility] since his last hospitalization but he still has not gotten the ICD, he is unsure of details. Case Discussed With Case Discussed With: Patient's case was discussed with the ER Physicians, Dr. Candelaria. [facility] Medical History Lung nodule [id number] right apex nodule increased metabolic activity. Maximum SUV 1.9. Suggest benign. Repeat imaging in 6 months. No other concerning areas. REvie wed PET w/ patient 05/17/21. 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 Not sure if I will have it removed" will sign records release for Dr. Donnelly C61 - Malignant neoplasm of prostate (ICD-10) Tobacco use Z72.0 - Tobacco use (ICD-10) Hypertension I10 - Essential (primary) hypertension (ICD-10) Arthritis M19.90 - Unspecified osteoarthritis, unspecified site (ICD-10) Family History Mother Hypertension FATHER Alcoholism and drug addiction in family Hypertension Social History Smoking and tobacco status: Former smoker Tobacco: How many years used: 7 How long ago did patient quit smoking: Stopped smoking about 2 years ago Alcohol intake: never Substance use type: crack/cocaine Allergies Allergies Allergy/AdvReac Type Severity Reaction Status Date / Time NSAIDS (Non-Steroidal AdvReac Severe CHF Verified 05/09/24 16:12 Anti-Inflamma Current Medications Home Medications Acetaminophen (Acetaminophen 325 Mg Tablet) 650 mg PO Q4H PRN PRN Reason: Mild Pain Budesonide/Formoterol Fumarate (Budesonide/Formoterol Fumarate 160/4.5 Mcg Inhaler) 2 puff IH BID [facility] Last Admin: 05/10/24 09:09 Dose: 2 puff Empagliflozin (Empagliflozin 10 Mg Tablet) 10 mg PO DAILY [facility] Last Admin: 05/10/24 09:09 Dose: 10 mg Furosemide (Furosemide Inj 40 Mg/4 Ml Vial) 40 mg IVP Q8H [facility] Last Admin: 05/10/24 09:37 Dose: 40 mg Isosorbide Mononitrate (Isosorbide Mononitrate 30 Mg Tab.Er.24h) 15 mg PO DAILY [facility] Last Admin: 05/10/24 09:09 Dose: 15 mg Potassium Chloride (Potassium Chloride 10 Meq Capsule.Er) 10 meq PO DAILYWM2 [facility] Last Admin: 05/10/24 09:08 Dose: 10 meq Pravastatin Sodium (Pravastatin Sodium 40 Mg Tablet) 40 mg PO BEDTIME [facility] Last Admin: 05/09/24 20:42 Dose: 40 mg Sacubitril/Valsartan (Sacubitril/Valsartan 1 Each Tablet) 1 each PO BID [facility] Last Admin: 05/10/24 09:08 Dose: 1 each Sodium Chloride (0.9% Sodium Chloride 10 Ml Disp.Syrin) 1 syr IVF Q8HR [facility] Last Admin: 05/10/24 12:49 Dose: 1 syr empagliflozin 10 mg tablet (Jardiance) 10 mg PO DAILY #30 tabs 02/04/23 [Rx Confirmed 05/09/24] isosorbide dinitrate 5 mg tablet 5 mg PO TID #90 tabs 02/04/23 [Rx Confirmed 05/09/24] sacubitril 24 mg-valsartan 26 mg tablet (Entresto) 1 tab PO BID HEART FAILURE #60 tabs 02/04/23 [Rx Confirmed 05/09/24] carvedilol 6.25 mg tablet 6.25 mg PO BID 03/31/23 [History Confirmed 05/09/24] budesonide-formoterol HFA 160 mcg-4.5 mcg/actuation aerosol inhaler 2 puff inhalation BID 04/21/23 [History Confirmed 05/09/24] furosemide 20 mg tablet 40 mg PO BID edema 05/09/24 [History Confirmed 05/09/24] potassium chloride 10 mEq tablet,extended release 10 meq PO QAM 05/09/24 [Hi story Confirmed 05/09/24] pravastatin 40 mg tablet 40 mg PO BEDTIME 05/09/24 [History Confirmed 05/09/24] Opioid Naive vs. Tolerant What is Opioid Naive?: *Opioid Naive implies the patient is not already taking opioids or not chronically receiving opioids on a daily basis. *PRN dosing is not "usually" associated with tolerance. *Patients are at higher risk of over-sedation and aspiration. What is Opioid Tolerant?: *Opioid Tolerance implies less than the expected response to an opioid. *Acquired tolerance is defined by the patient taking 60mg of oral morphine daily (or equianalgesic dose of another opioid) for 1 week or more. *Often associated with chronic pain. *May take more than usual dose to achieve desired pain control. Review of Systems Constitutional: Denies Fever Head: Reports Normocephalic and Atraumatic Cardiovascular: Reports Edema; Denies Chest pain Respiratory: Reports Shortness of air; Denies Cough Gastrointestinal: Denies Nausea, Vomiting, Diarrhea, Abdominal pain or Melena Genitourinary: Reports Frequency; Denies Dysuria or Hematuria Dermatologic: Denies Rashes Endocrine: Reports Weight changes Physical examination Most Recent Vital Signs: Most Recent Vital Signs Temperature 96.9 F L 05/10/24 10:00 Temperature Source Temporal Artery Scan 05/10/24 10:00 Temperature Source Oral 05/09/24 16:06 Pulse Rate 86 05/10/24 10:00 Respiratory Rate 16 05/10/24 10:00 Blood Pressure 123/87 05/10/24 10:00 Blood Pressure Mean 99 01/21/25 10:00 Blood Pressure Left Arm 124/79 05/09/24 18:42 Blood Pressure Right Arm 120/88 05/09/24 18:42 Blood Pressure Location Left Arm 05/10/24 10:00 Blood Pressure Position Sitting 05/10/24 10:00 O2 Sat by Pulse Oximetry 98 05/10/24 10:00 Oxygen Delivery Method Room Air 05/10/24 13:22 Height 6 ft 5 in 05/09/24 18:42 Weight 114 kg 05/09/24 18:42 Telemetry Type Remote Telemetry 05/10/24 07:00 Telemetry Monitoring Continues 05/10/24 07:00 Telemetry Heart Rate 77 05/10/24 07:00 Telemetry SPO2 96 09/07/23 13:00 EKG NM Interval 0.14 05/10/24 07:00 EKG QRS Interval 0.09 05/10/24 07:00 Telemetry Strip Reading SR with BBB and PACs 05/10/24 07:00 Appearance: Positive No Apparent Distress and Alert and Oriented x3 Skin: Positive [place], Warm and Good Turgor; Negative Rashes HEENT: Positive Normocephalic and Atraumatic Neck: Positive Supple and Midline Trachea Chest/Lungs: Positive Clear to Auscultation Bilaterally; Negative Rales, Rhonci or Wheezes Heart: Positive RRR GI/: Positive Soft, Nontender, Bowel Sounds Normal and No Distention Extremities: Positive Edema (2+ pitting edema kaiden lower ext, worse from baseline ) Neurological: Positive Alert, Oriented and Muscle Strength 5/5 in Upper and Lower Extremities Bilaterally Psychiatric: Positive Oriented x4, Appropriate Mood and Appropriate Affect Labs This Visit Labs This Visit: Labs This Visit 05/09/24 05/09/24 05/09/24 16:30 16:45 17:42 WBC 6.69 RBC 4.63 L Hgb 13.4 L Hct 45.7 MCV 98.7 H MCH 28.9 MCHC 29.3 L RDW Coeff of Dimple 14.7 Plt Count 174 Immature Gran % (Auto) 0.1 Neut % (Auto) 75.3 H Lymph % (Auto) 10.9 [place] % (Auto) 6.6 Eos % (Auto) 6.4 Baso % (Auto) 0.7 Neut # (Auto) 5.0 Lymph # (Auto) 0.7 [place] # (Auto) 0.4 Eos # (Auto) 0.4 Baso # (Auto) 0.1 Immature Gran # (Auto) 0.0 Sodium 140.3 Potassium 4.73 Chloride 103.7 Carbon Dioxide 30.6 H Anion Gap 10.73 BUN 18.3 Creatinine 1.14 H Estimated GFR (MDRD) 77.00 BUN/Creatinine Ratio 16.05 Glucose 103.1 Calcium 8.91 Total Bilirubin 1.76 H AST 23.4 ALT 14.3 Alkaline Phosphatase 51.0 L NT-Pro-B Natriuret Pep 6260 H Total Protein 7.20 Albumin 4.22 Globulin 2.98 Albumin/Globulin Ratio 1.41 Urine Color Fely Urine Clarity Clear Urine pH 6.5 Ur Specific [place] >=1.030 Urine Protein 3+ H Urine Glucose (UA) Negative Urine Ketones Negative Urine Blood Trace-intact H Urine Nitrite Negative Urine Bilirubin Negative Urine Urobilinogen 4.0 H Ur Leukocyte Esterase Negative Urine Microscopic RBC 2-5 Ur Squamous Epith Cells 0-2 Hyaline Casts 0-2 Urine Mucus 1+ Urine Opiates Screen Negative Ur Oxycodone Screen Negative Urine Methadone Screen Negative Ur Barbiturates Screen Negative U Tricyclic Antidepress Negative Ur Phencyclidine Scrn Negative Ur Amphetamine Screen Negative U Methamphetamines Scrn Negative U Benzodiazepines Scrn Negative Urine Cocaine Screen Positive H U Cannabinoids Screen Negative SARS CoV-2 RNA Rapid CAL Negative 05/10/24 05:19 WBC 6.65 RBC 4.36 L Hgb 12.7 L Hct 41.6 L MCV 95.4 H MCH 29.1 MCHC 30.5 L RDW Coeff of Dimple 14.5 Plt Count 163 Immature Gran % (Auto) 0.3 Neut % (Auto) 72.8 Lymph % (Auto) 9.5 L [place] % (Auto) 8.6 Eos % (Auto) 8.0 H Baso % (Auto) 0.8 Neut # (Auto) 4.9 Lymph # (Auto) 0.6 [place] # (Auto) 0.6 Eos # (Auto) 0.5 Baso # (Auto) 0.1 Immature Gran # (Auto) 0.0 Sodium 140.8 Potassium 3.94 Chloride 100.2 Carbon Dioxide 33.2 H Anion Gap 11.34 BUN 17.1 Creatinine 1.22 H Estimated GFR (MDRD) 72.00 BUN/Creatinine Ratio 14.01 Glucose 94.5 Calcium 8.98 Total Bilirubin 1.55 H AST 28.0 ALT 14.3 Alkaline Phosphatase 52.3 L NT-Pro-B Natriuret Pep Total Protein 6.66 Albumin 3.82 Globulin 2.84 Albumin/Globulin Ratio 1.34 Urine Color Urine Clarity Urine pH Ur Specific [place] Urine Protein Urine Glucose (UA) Urine Ketones Urine Blood Urine Nitrite Urine Bilirubin Urine Urobilinogen Ur Leukocyte Esterase Urine Microscopic RBC Ur Squamous Epith Cells Hyaline Casts Urine Mucus Urine Opiates Screen Ur Oxycodone Screen Urine Methadone Screen Ur Barbiturates Screen U Tricyclic Antidepress Ur Phencyclidine Scrn Ur Amphetamine Screen U Methamphetamines Scrn U Benzodiazepines Scrn Urine Cocaine Screen U Cannabinoids Screen SARS CoV-2 RNA Rapid CAL Imaging Imaging: EXAM: CHEST RADIOGRAPH TECHNIQUE: Two views. Frontal and lateral. HISTORY: CHF COMPARISON: Chest single view 04/13/2024 FINDINGS: Globular cardiomegaly with left ventricle prominence could be indicative of pericardial effusion. Pulmonary vasculature currently is normal. Bilateral well expanded lungs have moderate diffuse chronic interstitial disease. No pulmonary edema, consolidating infiltrates, pleural effusion or pneumothorax. Right hilar calcified lymph nodes/old healed granulomas disease are unchanged. IMPRESSION: No acute pulmonary process currently seen. Globular cardiomegaly could be indicative of pericardial effusion. Review Statement Review Statement: I have independently reviewed and interpreted the labs/EKGs/imaging that were ordered by the ER provider. I have reviewed all outside records that are avail able currently in our EMR including imaging/notes/labs from previous visits. Plan Plan: 1. Acute systolic and diastolic heart failure exacerbation - Lasix 40 q8hrs, I&O, daily weight, low sodium diet, fluid restriction 1800, cont jardiance, spironolactone and entresto. Holding coreg in setting of positive drug test with cocaine. 2. Hypertension - Cont home meds 3. Hyperlipidemia - Cont home meds 4. Substance abuse - Counseled patient DVT Prophylaxis: Ambulation Time Spent: Greater than 80 minutes spent with patient, 50% of the time spent with this patient was devoted to counseling and coordination of care. Advanced [facility] Plannin minutes spent discussing advance care planning. Admit to: Obs Discussed Plan of Care with Dr. Donna Allison. Medications Medication Orders: Medications Ordered Category Date Time Status 0.9 % Sodium Chloride [Saline Flush] Meds 05/10/24 05:00 Active 1 syr IVF Q8HR Acetaminophen [Tylenol] Meds 05/09/24 18:03 Active 650 mg PO Q4H PRN Budesonide/Formoterol Fumarate [Symbicort 160-4.5 Mcg Meds 05/09/24 21:00 Active Inhaler] 2 puff IH BID Empaglifozin [Jardiance] Meds 05/10/24 09:00 Active 10 mg PO DAILY Furosemide [Lasix] Meds 05/10/24 01:30 Active 40 mg IVP Q8H Isosorbide Mononitrate [Imdur] Meds 05/10/24 09:00 Active 15 mg PO DAILY Potassium Chloride [Micro-K Cap] Meds 05/10/24 09:00 Active 10 meq PO DAILYWM2 Pravastatin Sodium [Pravachol] Meds 05/09/24 21:00 Active 40 mg PO BEDTIME Sacubitril/Valsartan [Entresto 24 mg-26 mg Tablet] Meds 05/09/24 21:00 Active 1 each PO BID
[2024-05-11 05:51] LABS: BASOPHILS % (AUTO) 0.6 % (0.0-3.0); EOSINOPHILS # (AUTO) 0.5 K/ul (0.0-0.7); HEMATOCRIT 46.1 % (42.0-52.0); HEMOGLOBIN 14.1 g/dl (14.0-18.0); IMMATURE GRANULOCYTE % (AUTO) 0.3 % (0.0-5.0); LYMPHOCYTES # (AUTO) 0.9 K/uL (0.60-3.4); LYMPHOCYTES % (AUTO) 13.4 (10.0-50.0); MEAN CORPUSCULAR HEMOGLOBIN 28.8 pg (27.0-31.0); MEAN CORPUSCULAR HGB CONC 30.6 (31.8-35.4); MEAN CORPUSCULAR VOLUME 94.3 fl (80.0-94.0); MONOCYTES # (AUTO) 0.5 K/uL (0.4-2.0); MONOCYTES % (AUTO) 7.3 (0-10); NEUTROPHILS # (AUTO) 4.5 K/ul (2.0-6.9); NEUTROPHILS % (AUTO) 70.4 % (42.2-75.2); PLATELET COUNT 192 10^3/uL (140-440); RDW COEFFICIENT OF VARIATION 14.3 % (11.6-14.8); RED BLOOD COUNT 4.89 10^6/ul (4.70-6.10)
[2024-05-11 06:05] LABS: ALANINE AMINOTRANSFERASE 14.6 U/L (0-50); ALBUMIN 4.17 g/dL (3.5-5.0); ALKALINE PHOSPHATASE 63.1 U/L (56-119); ASPARTATE AMINO TRANSFERASE 36.5 U/L (17-59); BILIRUBIN,TOTAL 2.49 mg/dL (0.2-1.3); BLOOD UREA NITROGEN 18.3 mg/dL (9-20); CALCIUM 9.29 mg/dL (8.4-10.2); CHLORIDE 95.8 mmol/L (98-107); CREATININE 1.62 mg/dL (0.60-1.10); GLUCOSE 104.6 mg/dL (74-106); POTASSIUM 4.19 mmol/L (3.5-5.1); SODIUM 141.8 mmol/L (134.5-145); TOTAL PROTEIN 7.31 g/dL (6.3-8.2)
[2024-05-11 06:11] LABS: CARBON DIOXIDE 36.9 mmol/L (22-30.0)
[2024-05-11 10:27] VITALS: BP 102/73; PULSE 89; RESP 18; TEMP 97.6
--- NOTE | 2024-05-11 10:44 | DCSUM ---
Admission Date Admission Date: 05/09/24 Discharge Date Discharge Date: 05/11/24 Admission Diagnosis Admission Diagnosis: 1. Acute systolic and diastolic heart failure exacerbation Discharge Diagnosis Discharge Diagnosis: 1. Acute systolic and diastolic heart failure exacerbation - improved 2. Hypertension - Cont home meds 3. Hyperlipidemia - Cont home meds 4. Substance abuse - Counseled patient Hospital Provider Hospital Provider: CARMENZA KEANE PA-C, [facility] Primary Care Physician Primary Care Physician: JESUS KEITH Summary of History and Physical Summary of History and Physical: Patient is a 68 year old male with pmhx of combined heart failure, hypertension, cardiomyopathy, history of drug abuse who presents to the ER with worsening SOB. Pt is noncompliant historically with medications and outpatient follow ups. He continually tests positive for cocaine. He states he's been taking his medications including lasix and entresto. In the ER he was noted to have elevated BNP and worsened edema. He was given lasix 80 mg ivp and diuresed about 2L. He has since diuresed about 3500 overnight. Swelling is somewhat improved but he doesn't quite feel at his baseline. Pt states he has seen [facility] since his last hospitalization but he still has not gotten the ICD, he is unsure of details. Hospital Course Subjective: Pt diuresed well with lasix iv. He diuresed >10L. He is feeling better. Edema improved. Neto torres encouraged. Reviewed [facility] note from 02/15 by Libby Matute NP. He is indicated for primary prevention ICD. Given his underlying conduction disease with complete LBBB, QRS greater than 150 ms he is indicated for CRTD. However with him being medically noncompliant, not taking his medications regularly, and using drugs recreationally, he is a relative contraindication for ICD implant at this time. They discussed making an honest effort for sobriety and then reassess LVEF and determine candidacy for ICD in the future. Also they planned to continue entresto, coreg, aldactone, and jardiance, lasix. Stop asa, clonidine, hydralazine, and isosorbide since patient isn't compliant and overwhelmed with his meds. I reiterated this with the patient, encouraging cessation of his cocaine use so he can get the procedure he needs. Encouraged med compliance. Will not change any of his medication doses at this time as it is likely still he hasn't been taking them. We also discussed [facility] placement due to his insurance helping to cover room and boared. He was open to the idea but going to think about it. Information to local nursing homes given to him. However it is possible he would be declined based on his history. Appearance: Pleasant, No Apparent Distress and Alert HEENT: MMM CVS: Other (RRR) Abdomen: Soft, Non-Tender and No Distention Respiratory: No Accessory Muscle Use Extremities: Other (+1+ pitting edema kaiden, improved from admission ) Vital Signs: Most Recent Vital Signs Temperature 97.6 F 05/11/24 10:00 Temperature Source Temporal Artery Scan 05/11/24 10:00 Temperature Source Oral 05/09/24 16:06 Pulse Rate 89 05/11/24 10:00 Respiratory Rate 18 05/11/24 10:00 Blood Pressure 102/73 05/11/24 10:00 Blood Pressure Mean 82 05/11/24 10:00 Blood Pressure Left Arm 124/79 05/09/24 18:42 Blood Pressure Right Arm 120/88 05/09/24 18:42 Blood Pressure Location Left Arm 05/11/24 10:00 Blood Pressure Position Supine 05/11/24 05:36 O2 Sat by Pulse Oximetry 95 05/11/24 10:00 Oxygen Delivery Method Room Air 05/11/24 10:00 Height 6 ft 5 in 05/09/24 18:42 Weight 101.8 kg 05/11/24 05:36 Telemetry Type Remote Telemetry 05/11/24 07:00 Telemetry Monitoring Continues 05/11/24 07:00 Telemetry Heart Rate 83 05/11/24 07:00 Telemetry SPO2 96 09/07/23 13:00 EKG OH Interval 0.19 05/11/24 07:00 EKG QRS Interval 0.11 H 05/11/24 07:00 Telemetry Strip Reading SR with BBB and occ PVC 05/11/24 07:00 Imaging: EXAM: CHEST RADIOGRAPH TECHNIQUE: Two views. Frontal and lateral. HISTORY: CHF COMPARISON: Chest single view 04/13/2024 FINDINGS: Globular cardiomegaly with left ventricle prominence could be indicative of jamil cardial effusion. Pulmonary vasculature currently is normal. Bilateral well expanded lungs have moderate diffuse chronic interstitial disease. No pulmonary edema, consolidating infiltrates, pleural effusion or pneumothorax. Right hilar calcified lymph nodes/old healed granulomas disease are unchanged. IMPRESSION: No acute pulmonary process currently seen. Globular cardiomegaly could be indicative of pericardial effusion Lab Results Last 24 Hours: 05/11/24 05:19 WBC 6.40 RBC 4.89 Hgb 14.1 Hct 46.1 MCV 94.3 H MCH 28.8 MCHC 30.6 L RDW Coeff of Dimple 14.3 Plt Count 192 Immature Gran % (Auto) 0.3 Neut % (Auto) 70.4 Lymph % (Auto) 13.4 [place] % (Auto) 7.3 Eos % (Auto) 8.0 H Baso % (Auto) 0.6 Neut # (Auto) 4.5 Lymph # (Auto) 0.9 [place] # (Auto) 0.5 Eos # (Auto) 0.5 Baso # (Auto) 0.0 Immature Gran # (Auto) 0.0 Sodium 141.8 Potassium 4.19 Chloride 95.8 L Carbon Dioxide 36.9 H Anion Gap 13.29 BUN 18.3 Creatinine 1.62 H Estimated GFR (MDRD) 52.00 BUN/Creatinine Ratio 11.29 Glucose 104.6 Calcium 9.29 Total Bilirubin 2.49 H AST 36.5 ALT 14.6 Alkaline Phosphatase 63.1 Total Protein 7.31 Albumin 4.17 Globulin 3.14 Albumin/Globulin Ratio 1.32 Discharge Instructions Discharge Planning: Discharge Planning > [address] Donna Allison. Discharge Medications: Medications at Discharge (Home Meds & RX) empagliflozin 10 mg tablet (Jardiance) 10 mg PO DAILY #30 tabs 02/04/23 sacubitril 24 mg-valsartan 26 mg tablet (Entresto) 1 tab PO BID HEART FAILURE #60 tabs 02/04/23 carvedilol 6.25 mg tablet 6.25 mg PO BID 03/31/23 budesonide-formoterol HFA 160 mcg-4.5 mcg/actuation aerosol inhaler 2 puff inhalation BID 04/21/23 furosemide 20 mg tablet 40 mg PO BID edema 05/09/24 potassium chloride 10 mEq tablet,extended release 10 meq PO QAM 05/09/24 pravastatin 40 mg tablet 40 mg PO BEDTIME 05/09/24 Discharge Plan Discharge Discharge Orders: Discharge Patient (ONCE); Ordered 05/11/24 Ordered By: CARMENZA KEANE Activity Restrictions/Additional Instructions: DISCHARGE TO HOME TAKE YOUR MEDICATIONS PRESCRIBED FOLLOW UP WITH CARDIOLOGY FOLLOW UP WITH YOUR PRIMARY CARE PROVIDER DX: HEART FAILURE EXACERBATION LIMIT YOUR SALT Instructions: Heart Failure (DC) Care Plan Goals: Problem: Fluid Volume Excess Goal: Maintain adequate fluid volume Instructions: Maintain optimal head of bed placement Monitor respiratory status Monitor for edema Monitor hydration status Problem: Impaired Respiratory Status Goal: Exhibit optimal respiratory function Instructions: Activities as tolerated Apply oxygen as ordered Elevate head of bed Notify MD of increased congestion Patient Disposition: HOME SELF-CARE Prescriptions: Continued potassium chloride 10 mEq tablet extended release 10 meq PO QAM pravastatin 40 mg tablet 40 mg PO BEDTIME furosemide 20 mg tablet 40 mg PO BID Rx Instructions: Take 1 to 2 tablets extra daily as needed for lower extremity swelling but do not exceed additional doses greater than 3 days. If you are not producing urine, do not continue to take Lasix and report to the emergency department Jardiance 10 mg tablet 10 mg PO DAILY Qty: 30 0RF sacubitril-valsartan [Entresto] 24-26 mg tablet 1 tab PO BID Qty: 60 0RF carvedilol 6.25 mg tablet 6.25 mg PO BID Patient Comments: TAKE 1 TABLET BY MOUTH TWICE DAILY budesonide-formoterol 160-4.5 mcg/actuation HFA aerosol inhaler 2 puff INHALATION BID Patient Comments: INHALE 2 PUFFS BY MOUTH TWICE DAILY Discontinued isosorbide dinitrate 5 mg tablet 5 mg PO TID Qty: 90 0RF Rx Instructions: allow nitrate-free interval of 12-14 hrs per 24-hr period Did you review [place] 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
== END 2024-05-11 13:25 | disposition home or self-care (01) ==
LOC: MEDSURG B 16:00 → ED 16:00 → MEDSURG B 18:29
PROVIDERS: ADMIT Hospitalist; ATTEND Physician Assistant

== ENCOUNTER 2024-08-24 13:05 | Inpatient (IN) ==
--- NOTE | 2024-08-24 15:00 | ED.PDOC ---
General ED Provider: Dr. ROSINA CHAVIRA MD Chief Complaint: Nausea/Vomiting Stated Complaint: Patient presents to ER from home complaining of nausea, vomiting, worsening shortness of breath, and right walker wound. Reports he was seen at this ER last week for similar complaints, however nausea has worsened. States he has not been able to take his home diuretics as previously prescribed for his heart failure. Says that he feels worse swelling of his lower legs and is willing to stay overnight for diuresis. Denies fever, chills, chest/abdominal pain, weakness. No other complaints. Of note, patient has a long history of chronic cocaine use. Time Seen by Provider: 08/24/24 14:53 Mode of Arrival: Walk-In Information Source: Patient Exam Limitations: No limitations Primary Care Provider: JESUS KEITH Nursing and Triage Documentation Reviewed and Agree: Yes What is Opioid Naive?: *Opioid Naive implies the patient is not already taking opioids or not chronically receiving opioids on a daily basis. *PRN dosing is not "usually" associated with tolerance. *Patients are at higher risk of over-sedation and aspiration. What is Opioid Tolerant?: *Opioid Tolerance implies less than the expected response to an opioid. *Acquired tolerance is defined by the patient taking 60mg of oral morphine daily (or equianalgesic dose of another opioid) for 1 week or more. *Often associated with chronic pain. *May take more than usual dose to achieve desired pain control. Review of Systems Review Of Systems Constitutional: Reports No symptoms All Other Systems: Reviewed and Negative (Except for those listed in the HPI above.) [facility] Medical History Lung nodule [id number] right apex nodule increased metabolic activity. Maximum SUV 1.9. Suggest benign. Repeat imaging in 6 months. No other concerning areas. REviewed PET w/ patient 05/17/21. 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 Not sure if I will have it removed" will sign records release for Dr. Donnelly C61 - Malignant neoplasm of prostate (ICD-10) Tobacco use Z72.0 - Tobacco use (ICD-10) Hypertension I10 - Essential (primary) hypertension (ICD-10) Arthritis M19.90 - Unspecified osteoarthritis, unspecified site (ICD-10) Family History Mother Hypertension FATHER Alcoholism and drug addiction in family Hypertension Social History Smoking and tobacco status: Former smoker Tobacco: How many years used: 7 How long ago did patient quit smoking: Stopped smoking about 2 years ago Alcohol intake: never Substance use type: crack/cocaine Special rachid needs: No Physical Exam Physical Exam Appearance: Reports Well-appearing, No pain distress and Well-nourished Ill-appearing: None Pain Distress: None Eyes: Reports JOBY, EOMI and Conjunctiva clear ENT: Reports Ears normal, Nose normal and Oropharynx normal Neck: Supple Respiratory: Reports Airway patent, Breath sounds equal, Breath sounds diminished and Respirations nonlabored Cardiovascular: Reports RRR, Pulses normal, No rub and No murmur GI/: Reports Soft, Nontender, No masses, Bowel sounds normal and No Organomegaly Musculoskeletal: Reports Normal strength, ROM intact, No calf tenderness and Edema (+3 pitting edema of bilateral feet up to knees.) Skin: Reports Warm, Dry and Normal color Neurological: Reports Sensation intact, Motor intact, Alert and Oriented Psychiatric: Reports Affect appropriate and Mood appropriate Interpretation EKG Interpretation EKG Interpretation By: ED Physician Time of EKG #1: 15:17 Rate: Normal Rhythm: Sinus Ectopy: PVCs Hugh[place]: NL ST Segment: Other (No acute changes) Interpretation: NSR, nonspecific interventricular block similar to EKG on 08/16/24 Radiology Interpretation Radiology Interpretation By: ED Physician Radiology Results: Negative Exam Interpreted: CXR Xray Comments: Mild pulmonary edema interpreted by me. Course Course 08/24/24 15:03 08/24/24 15:03 Orders, Labs, Meds: Lab Review 08/24/24 08/24/24 08/24/24 15:03 15:35 17:00 WBC 6.03 RBC 4.83 Hgb 13.9 L Hct 45.4 MCV 94.0 MCH 28.8 MCHC 30.6 L RDW Coeff of Dimple 14.6 Plt Count 179 Immature Gran % (Auto) 0.3 Neut % (Auto) 81.6 H Lymph % (Auto) 10.3 [place] % (Auto) 6.1 Eos % (Auto) 1.0 Baso % (Auto) 0.7 Neut # (Auto) 4.9 Lymph # (Auto) 0.6 [place] # (Auto) 0.4 Eos # (Auto) 0.1 Baso # (Auto) 0.0 Immature Gran # (Auto) 0.0 Sodium 140.3 Potassium 5.25 H Chloride 101.9 Carbon Dioxide 25.8 Anion Gap 17.85 BUN 22.3 H Creatinine 1.40 H Estimated GFR (MDRD) 61.00 BUN/Creatinine Ratio 15.92 Glucose 115.6 H Calcium 9.04 Total Bilirubin 2.59 H AST 30.9 ALT 16.9 Alkaline Phosphatase 69.8 Troponin I 0.019 NT-Pro-B Natriuret Pep 87887 H Total Protein 6.87 Albumin 3.94 Globulin 2.93 Albumin/Globulin Ratio 1.34 Lipase 40.6 Urine Color Yellow Urine Clarity Clear Urine pH 5.5 Ur Specific [place] >=1.030 Urine Protein 2+ H Urine Glucose (UA) Negative Urine Ketones 1+ H Urine Blood Negative Urine Nitrite Negative Urine Bilirubin 1+ H Urine Urobilinogen 1.0 H Ur Leukocyte Esterase Negative Ur Squamous Epith Cells 0-2 Urine Mucus 1+ Urine Opiates Screen Negative Ur Oxycodone Screen Negative Urine Methadone Screen Negative Ur Barbiturates Screen Negative U Tricyclic Antidepress Negative Ur Phencyclidine Scrn Negative Ur Amphetamine Screen Negative U Methamphetamines Scrn Negative U Benzodiazepines Scrn Negative Urine Cocaine Screen Positive H U Cannabinoids Screen Negative Influ A Molecular Assay Negative by naat Influ B Molecular Assay Negative by naat SARS CoV-2 RNA Rapid CAL Negative Orders Category Date Time Status ADMIT OBSERVATION [PLACE PATIENT OBSERVATION] .TO ADMISSION 08/24/24 17:59 Active MEDSURG (MONITORED BED) EKG-(ED ONLY) Stat CARDIO 08/24/24 15:08 Completed NEBULIZER TREATMENT Stat CARDIO 08/24/24 16:14 Completed TELEMETRY MONITORING TELE CARE 08/24/24 18:01 Active CBC W/ AUTO DIFF Stat LAB 08/24/24 15:03 Completed COMPREHENSIVE METABOLIC PANEL Stat LAB 08/24/24 15:03 Completed FLU A & B MOLECULAR [FLU A/B MOLECULAR] Stat LAB 08/24/24 15:35 Completed LIPASE Stat LAB 08/24/24 15:03 Completed NT-PROBNP(ED) Stat LAB 08/24/24 15:03 Completed SARS COV-2 RNA RAPID CAL Stat LAB 08/24/24 15:35 Completed TROPONIN I Stat LAB 08/24/24 15:03 Completed URINALYSIS C & S IF INDICATED Stat LAB 08/24/24 17:00 Completed URINE DRUG SCREEN (RAPID FOR ED) [DRUG SCREEN, URINE, LAB 08/24/24 17:00 Completed RAPID] Stat Ceftriaxone 1 gm Vial [Rocephin 1 gm Vial] Meds 08/24/24 17:55 Discontinued 2 gm IVP ONCE ONE Furosemide [Lasix] Meds 08/24/24 16:14 Discontinued 40 mg IVP ONCE STA Ipratropium/Albuterol Neb [Duoneb] Meds 08/24/24 16:14 Discontinued 3 ml NEB ONCE STA Ondansetron HCl/Pf [Zofran Sdv] Meds 08/24/24 15:11 Discontinued 4 mg IVP ONCE STA CHEST, 1V AP ONLY Stat RADS 08/24/24 15:08 Completed Medications Generic Name Dose Route Start Last Admin Trade Name Freq PRN Reason Stop Dose Admin Acetaminophen 650 mg 08/24/24 20:38 Acetaminophen 325 Mg Tablet PO Q4H PRN Mild Pain Cephalexin 500 mg 08/25/24 06:00 Cephalexin 500 Mg Capsule PO 08/28/24 05:59 Q6HR JOSE RAUL Empagliflozin 10 mg 08/25/24 09:00 Empagliflozin 10 Mg Tablet PO DAILY JOSE RAUL Furosemide 40 mg 08/25/24 00:00 Furosemide Inj 40 Mg/4 Ml Vial IVP Q8H JOSE RAUL Isosorbide Dinitrate 5 mg 08/24/24 21:00 08/24/24 21:23 Isosorbide Dinitrate 20 Mg Tablet PO 5 mg 3XD JOSE RAUL Administration Ondansetron HCl 4 mg 08/24/24 20:42 Ondansetron Hcl/Pf 4 Mg/2 Ml Sdv IVP Q6H PRN Nausea / Vomiting Pravastatin Sodium 40 mg 08/24/24 21:00 08/24/24 21:22 Pravastatin Sodium 40 Mg Tablet PO 40 mg BEDTIME JOSE RAUL Administration Sacubitril/Valsartan 4 each 08/25/24 09:00 Sacubitril/Valsartan 1 Each Tablet PO BID JOSE RAUL Spironolactone 25 mg 08/25/24 09:00 Spironolactone 25 Mg Tablet PO DAILY JOSE RAUL Discontinued Medications Generic Name Dose Route Start Last Admin Trade Name Sen PRN Reason Stop Dose Admin Albuterol/Ipratropium 3 ml 08/24/24 16:14 08/24/24 16:23 Ipratropium/Albuterol Vial.Neb NEB 08/24/24 16:15 3 ml ONCE STA Administration Ceftriaxone Sodium 2 gm 08/24/24 17:55 08/24/24 18:22 Ceftriaxone 1 Gm Vial IVP 08/24/24 17:56 2 gm ONCE ONE Administration Furosemide 40 mg 08/24/24 16:14 08/24/24 16:27 Furosemide Inj 40 Mg/4 Ml Vial IVP 08/24/24 16:15 40 mg ONCE STA Administration Ondansetron HCl 4 mg 08/24/24 15:11 08/24/24 15:10 Ondansetron Hcl/Pf 4 Mg/2 Ml Sdv IVP 08/24/24 15:12 4 mg ONCE STA Administration [address] [address] Diagnostic Imaging Diagnostic Imaging Report : [id number] Signed Patient: RONNI KHAN Acct:[id number] Medical Record: [id number] : 1955 Loc: ED Room/Bed: Age/Sex: 68 / M ADM Status: REG ER Date of Service: 08/24/24 Ordering Physician: ROSINA CHAVIRA MD Procedure(s): CHEST, 1V AP ONLY Report Number(s): [id number] Accession Number(s): [id number] cc: JESUS SCHWARZ ; ROSINA CHAVIRA MD EXAM: CHEST ONE VIEW, FRONTAL VIEW ONLY. HISTORY: Decreased breath sounds. COMPARISON: 08/16/2024. FINDINGS: Heart is enlarged. Central vascular congestion and perihilar interstitial opacities noted. There is increased opacity within the left retrocardiac region which may be accentuated by technique. Difficult to exclude pleural fluid. No pneumothorax identified. No acute osseous abnormality detected. IMPRESSION: Suspect mild pulmonary edema. Dictated By: DOMINGO BATEMAN Signed By: DOMINGO BATEMAN Dictated Date/Time: 08/24/241549 Transcribed Date/Time: 08/24/241549 Signed Date/Time: 08/24/241554 Vital Signs: Temp Pulse Resp BP Pulse Ox O2 Flow Rate 08/24/24 17:15 101 H 14 145/89 H 98 2 08/24/24 15:45 82 12 154/105 H 96 08/24/24 14:45 82 14 170/98 H 96 2 08/24/24 14:43 96 18 135/100 H 96 08/24/24 13:15 97.2 F L 101 H 20 128/96 H 98 18:00 - Spoke with on-call hospitalist (Arnold Terry APRN) regarding pt status and current workup and management of CHF exacerbation and RLE cellulitis. Pt is hemodynamically stable and has received Zofran 4mg, Rocephin 2g and Lasix 40 IV with ~100-mL urine output. Agreed to accept pt for obs admission for additional workup and management. Discharge Plan Discharge Patient Disposition: PLACED OBSERVATION Discharge Problem: CHF (congestive heart failure), Cocaine use disorder, Cellulitis of right lower extremity Did you review [place] UTILIZATION REVIEW NURSE for ALL controlled substances?: Not Applicable ED Provider: ROSINA CHAVIRA Condition: Stable
[2024-08-24 15:06] LABS: BASOPHILS % (AUTO) 0.7 % (0.0-3.0); EOSINOPHILS # (AUTO) 0.1 K/ul (0.0-0.7); HEMATOCRIT 45.4 % (42.0-52.0); HEMOGLOBIN 13.9 g/dl (14.0-18.0); IMMATURE GRANULOCYTE % (AUTO) 0.3 % (0.0-5.0); LYMPHOCYTES # (AUTO) 0.6 K/uL (0.60-3.4); LYMPHOCYTES % (AUTO) 10.3 (10.0-50.0); MEAN CORPUSCULAR HEMOGLOBIN 28.8 pg (27.0-31.0); MEAN CORPUSCULAR HGB CONC 30.6 (31.8-35.4); MONOCYTES # (AUTO) 0.4 K/uL (0.4-2.0); MONOCYTES % (AUTO) 6.1 (0-10); NEUTROPHILS # (AUTO) 4.9 K/ul (2.0-6.9); NEUTROPHILS % (AUTO) 81.6 % (42.2-75.2); PLATELET COUNT 179 10^3/uL (140-440); RDW COEFFICIENT OF VARIATION 14.6 % (11.6-14.8); RED BLOOD COUNT 4.83 10^6/ul (4.70-6.10); WHITE BLOOD COUNT 6.03 K/ul (4.2-10.2)
[2024-08-24] MEDS: ZOFRAN SDV IVP STA (15:10)
[2024-08-24 15:18] LABS: ALANINE AMINOTRANSFERASE 16.9 U/L (0-50); ALBUMIN 3.94 g/dL (3.5-5.0); ALKALINE PHOSPHATASE 69.8 U/L (56-119); ASPARTATE AMINO TRANSFERASE 30.9 U/L (17-59); BILIRUBIN,TOTAL 2.59 mg/dL (0.2-1.3); BLOOD UREA NITROGEN 22.3 mg/dL (9-20); CALCIUM 9.04 mg/dL (8.4-10.2); CARBON DIOXIDE 25.8 mmol/L (22-30.0); CHLORIDE 101.9 mmol/L (98-107); CREATININE 1.4 mg/dL (0.60-1.10); GLUCOSE 115.6 mg/dL (74-106); LIPASE 40.6 U/L (23-300); POTASSIUM 5.25 mmol/L (3.5-5.1); SODIUM 140.3 mmol/L (134.5-145); TOTAL PROTEIN 6.87 g/dL (6.3-8.2)
[2024-08-24 15:29] LABS: TROPONIN I 0.019 ng/ml (0.0000-0.120)
--- NOTE | 2024-08-24 15:55 | DI ---
EXAM: CHEST ONE VIEW, FRONTAL VIEW ONLY. HISTORY: Decreased breath sounds. COMPARISON: 08/16/2024. FINDINGS: Heart is enlarged. Central vascular congestion and perihilar interstitial opacities noted . There is increased opacity within the left retrocardiac region which may be accentuated by techniq ue. Difficult to exclude pleural fluid. No pneumothorax identified. No acute osseous abnormality d etected. IMPRESSION: Suspect mild pulmonary edema.
[2024-08-24 16:18] LABS: SARS COV-2 RNA RAPID NAAT NEGATIVE (NEGATIVE)
[2024-08-24 16:19] LABS: MOLECULAR FLU A NEGATIVE BY NAAT (NEGATIVE); MOLECULAR FLU B NEGATIVE BY NAAT (NEGATIVE)
[2024-08-24] MEDS: DUONEB NEB STA (16:23)
[2024-08-24] MEDS: LASIX IVP STA (16:27)
[2024-08-24 17:31] LABS: BILIRUBIN,URINE 1+ (NEGATIVE); CLARITY,URINE Clear (CLEAR); COLOR,URINE Yellow (YELLOW); GLUCOSE, URINE (UA) Negative (NEGATIVE); KETONES,URINE 1+ (NEGATIVE); LEUKOCYTE ESTERASE ,URINE Negative (NEGATIVE); NITRITE,URINE Negative (NEGATIVE); PH,URINE 5.5 (5-9); PROTEIN,URINE 2+ (NEGATIVE); URINE, BLOOD Negative (NEGATIVE)
[2024-08-24 17:35] LABS: MUCUS,URINE 1+ (NOT PRESENT); SQUAMOUS EPITHELIAL CELL,UR 0-2 (0-5)
[2024-08-24 17:41] LABS: AMPHETAMINE SCREEN,URINE NEGATIVE (NEGATIVE); BARBITURATE SCREEN,URINE NEGATIVE (NEGATIVE); BENZODIAZEPINES SCREEN,URINE NEGATIVE (NEGATIVE); CANNABINOID SCREEN,URINE NEGATIVE (NEGATIVE); COCAIN SCREEN,URINE POSITIVE (NEGATIVE); METHADONE URINE SCREEN NEGATIVE (NEGATIVE); METHAMPHETAMINES SCREEN,URINE NEGATIVE (NEGATIVE); OPIATE SCREEN,URINE NEGATIVE (NEGATIVE); OXYCODONE URINE SCREEN NEGATIVE (NEGATIVE); PHENCYCLIDINE SCREEN,URINE NEGATIVE (NEGATIVE); TRICYCLIC ANTIDEPRESSANTS URIN NEGATIVE (NEGATIVE)
[2024-08-24] MEDS: ROCEPHIN 1 GM VIAL IVP ONE (18:22)
[2024-08-24 20:44] VITALS: BMI 30.4
[2024-08-24] MEDS: PRAVACHOL PO SCH (21:22)
[2024-08-24] MEDS: SORBITRATE PO SCH (21:23)
[2024-08-24] MEDS: ZOFRAN SDV IVP PRN (23:38)
[2024-08-24] MEDS: LASIX IVP SCH (23:39)
[2024-08-25] MEDS: KEFLEX PO SCH (05:12)
[2024-08-25 05:14] LABS: BASOPHILS % (AUTO) 0.7 % (0.0-3.0); EOSINOPHILS # (AUTO) 0.1 K/ul (0.0-0.7); HEMOGLOBIN 13.4 g/dl (14.0-18.0); LYMPHOCYTES # (AUTO) 0.8 K/uL (0.60-3.4); LYMPHOCYTES % (AUTO) 12.9 (10.0-50.0); MEAN CORPUSCULAR HEMOGLOBIN 28.9 pg (27.0-31.0); MEAN CORPUSCULAR HGB CONC 30.5 (31.8-35.4); MEAN CORPUSCULAR VOLUME 94.8 fl (80.0-94.0); MONOCYTES # (AUTO) 0.5 K/uL (0.4-2.0); MONOCYTES % (AUTO) 8.1 (0-10); NEUTROPHILS # (AUTO) 4.7 K/ul (2.0-6.9); NEUTROPHILS % (AUTO) 77.3 % (42.2-75.2); PLATELET COUNT 197 10^3/uL (140-440); RDW COEFFICIENT OF VARIATION 14.5 % (11.6-14.8); RED BLOOD COUNT 4.64 10^6/ul (4.70-6.10); WHITE BLOOD COUNT 6.03 K/ul (4.2-10.2)
[2024-08-25 05:27] LABS: ALBUMIN 3.79 g/dL (3.5-5.0); ALKALINE PHOSPHATASE 67.8 U/L (56-119); ASPARTATE AMINO TRANSFERASE 26.5 U/L (17-59); BILIRUBIN,TOTAL 2.21 mg/dL (0.2-1.3); BLOOD UREA NITROGEN 21.6 mg/dL (9-20); CALCIUM 8.94 mg/dL (8.4-10.2); CARBON DIOXIDE 25.3 mmol/L (22-30.0); CHLORIDE 101.8 mmol/L (98-107); CREATININE 1.52 mg/dL (0.60-1.10); GLUCOSE 118.9 mg/dL (74-106); POTASSIUM 4.56 mmol/L (3.5-5.1); SODIUM 141.9 mmol/L (134.5-145); TOTAL PROTEIN 6.6 g/dL (6.3-8.2)
[2024-08-25 05:33] LABS: ALANINE AMINOTRANSFERASE 25.6 U/L (0-50)
[2024-08-25] MEDS: JARDIANCE PO SCH (08:54)
[2024-08-25] MEDS: ALDACTONE PO SCH (08:55)
[2024-08-25] MEDS: ENTRESTO 24 MG-26 MG TABLET PO SCH (09:00)
--- NOTE | 2024-08-25 09:17 | PCM ---
Date of Service Date Seen by Provider: 08/25/24 Time Seen by Provider: 08:30 Admit Day/Time Admission Date: 08/24/24 Admission Time: 18:00 Reason for Admission Chief Complaint: CHF EXACERBATION Hospital Provider Hospital Provider: ADOLPH YADAV, [facility] Primary Care Physician Primary Care Physician: JESUS KEITH History of Present Illness History of Present Illness: 68 yo male with pmh of combined HF, HTN, HLD, and cocaine use presented to the ER with complaints of N/V and leg swelling. Reports he has been vomiting/dry heaving over the past week or so. Patient typically has good appetite and states he hasn't been able to eat much of anything without dry heaving afterwards. Denies any abdominal pain, bloody stools or vomitus, or fever. States his legs are swelling up, feels too weak to ride his bike, and is short of breath. He also has an abrasion to the R lower leg that he reports is taking a long time to heal. On arrival to the ER, he was not requiring oxygen at [place] [id number], pulm edema noted on chest xray. No imaging was completed to abdomen. He was given 40 mg of lasix and 1G of rocephin. Admitted to med/surg observation. Case Discussed With Case Discussed With: Patient's case was discussed with the ER Physicians, Dr. Vences [facility] Medical History Lung nodule [id number] right apex nodule increased metabolic activity. Maximum SUV 1.9. Suggest benign. Repeat imaging in 6 months. No other concerning areas. REviewed PET w/ patient 05/17/21. 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 Not sure if I will have it removed" will sign records release for Dr. Donnelly C61 - Malignant neoplasm of prostate (ICD-10) Tobacco use Z72.0 - Tobacco use (ICD-10) Hypertension I10 - Essential (primary) hypertension (ICD-10) Arthritis M19.90 - Unspecified osteoarthritis, unspecified site (ICD-10) Family History Mother Hypertension FATHER Alcoholism and drug addiction in family Hypertension Social History Smoking and tobacco status: Former smoker Tobacco: How many years used: 7 How long ago did patient quit smoking: Stopped smoking about 2 years ago Alcohol intake: never Substance use type: crack/cocaine Special rachid needs: No Allergies Allergies Allergy/AdvReac Type Severity Reaction Status Date / Time NSAIDS (Non-Steroidal AdvReac Severe CHF Verified 08/16/24 10:22 Anti-Inflamma Current Medications Home Medications Acetaminophen (Acetaminophen 325 Mg Tablet) 650 mg PO Q4H PRN PRN Reason: Mild Pain Cephalexin (Cephalexin 500 Mg Capsule) 500 mg PO Q6HR [facility] Stop: 08/29/24 20:00 Last Admin: 08/25/24 05:12 Dose: 500 mg Empagliflozin (Empagliflozin 10 Mg Tablet) 10 mg PO DAILY [facility] Last Admin: 08/25/24 08:54 Dose: 10 mg Furosemide (Furosemide Inj 40 Mg/4 Ml Vial) 40 mg IVP Q8H JOSE RAUL Last Admin: 08/25/24 08:50 Dose: 40 mg Isosorbide Dinitrate (Isosorbide Dinitrate 20 Mg Tablet) 5 mg PO 3XD JOSE RAUL Last Admin: 08/25/24 08:52 Dose: 5 mg Ondansetron HCl (Ondansetron Hcl/Pf 4 Mg/2 Ml Sdv) 4 mg IVP Q6H PRN PRN Reason: Nausea / Vomiting Last Admin: 08/25/24 09:04 Dose: 4 mg Pravastatin Sodium (Pravastatin Sodium 40 Mg Tablet) 40 mg PO BEDTIME [facility] Last Admin: 08/24/24 21:22 Dose: 40 mg Sacubitril/Valsartan (Sacubitril/Valsartan 1 Each Tablet) 4 each PO BID [facility] Last Admin: 08/25/24 09:00 Dose: 4 each Spironolactone (Spironolactone 25 Mg Tablet) 25 mg PO DAILY [facility] Last Admin: 08/25/24 08:55 Dose: 25 mg empagliflozin 10 mg tablet (Jardiance) 10 mg PO DAILY #30 tabs 02/04/23 [Rx Confirmed 08/24/24] furosemide 20 mg tablet 40 mg PO BID edema 05/09/24 [History Confirmed 08/24/24] potassium chloride 10 mEq tablet,extended release 10 meq PO QAM 05/09/24 [History Confirmed 08/24/24] pravastatin 40 mg tablet 40 mg PO BEDTIME 05/09/24 [History Confirmed 08/24/24] isosorbide dinitrate 5 mg tablet 5 mg PO 3XD 06/28/24 [History Confirmed 08/24/24] sacubitril 97 mg-valsartan 103 mg tablet (Entresto) 1 tab PO 2XD 08/16/24 [History Confirmed 08/24/24] spironolactone 25 mg tablet 25 mg PO DAILY 08/16/24 [History Confirmed 08/24/24] Opioid Naive vs. Tolerant Does Patient Take Opioids?: No Is Patient Opioid Naive?: Yes What is Opioid Naive?: *Opioid Naive implies the patient is not already taking opioids or not chronically receiving opioids on a daily basis. *PRN dosing is not "usually" associated with tolerance. *Patients are at higher risk of over-sedation and aspiration. Is Patient Opioid Tolerant?: No What is Opioid Tolerant?: *Opioid Tolerance implies less than the expected response to an opioid. *Acquired tolerance is defined by the patient taking 60mg of oral morphine daily (or equianalgesic dose of another opioid) for 1 week or more. *Often associated with chronic pain. *May take more than usual dose to achieve desired pain control. Review of Systems Constitutional: Reports No symptoms Eyes: Reports No symptoms Ears: Reports No symptoms Nose: Reports No symptoms Mouth: Reports No symptoms Throat: Reports No symptoms Cardiovascular: Reports Edema; Denies Chest pain Respiratory: Reports Shortness of air; Denies Cough Gastrointestinal: Reports Nausea and Vomiting Genitourinary: Reports No Symptoms Musculoskeletal: Reports No symptoms Endocrine: Reports No symptoms Hematology: Reports No symptoms Immunology: Reports No symptoms Neurological: Reports No symptoms Psychiatric: Reports No symptoms Physical examination Most Recent Vital Signs: Most Recent Vital Signs Temperature 97.5 F L 08/25/24 05:11 Temperature Source Temporal Artery Scan 08/25/24 05:11 Temperature Source Temporal Artery Scan 08/24/24 13:15 Pulse Rate 93 08/25/24 05:11 Respiratory Rate 20 08/25/24 05:11 Blood Pressure 111/78 08/25/24 05:11 Blood Pressure Mean 89 08/25/24 05:11 Blood Pressure Left Arm 139/100 08/24/24 19:04 Blood Pressure Location Left Arm 08/25/24 05:11 Blood Pressure Position Supine 08/25/24 05:11 O2 Sat by Pulse Oximetry 96 08/25/24 05:17 Oxygen Delivery Method Nasal Cannula 08/25/24 08:00 Oxygen Flow Rate 1 08/25/24 08:00 Height 6 ft 5 in 08/24/24 19:04 Weight 115.8 kg 08/25/24 05:11 Telemetry Type Remote Telemetry 08/25/24 07:00 Telemetry Monitoring Continues 08/25/24 07:00 Telemetry Heart Rate 95 08/25/24 07:00 Telemetry SPO2 96 08/25/24 07:00 EKG VT Interval 0.24 H 08/25/24 07:00 EKG QRS Interval 0.12 H 08/25/24 07:00 Telemetry Strip Reading SR w/1st Degree AVB/BBB 08/25/24 07:00 Appearance: Positive No Apparent Distress, Alert and Oriented x3 and Ill- Appearing Skin: Positive Warm and Other (healing abrasion to R lower leg with mild erythema, scattered healing abrasions to L lower leg, no open area with drainage, ) HEENT: Positive PERRLA Neck: Positive Supple and Midline Trachea Chest/Lungs: Positive Symmetrical With Equal Breath Sounds and Clear to Auscultation Bilaterally (diminished); Negative Rales, Rhonci or Wheezes Heart: Positive RRR and Pulses Normal GI/: Positive Soft, Nontender, Bowel Sounds Normal, No Distention and No Organomegaly; Negative Tender Musculoskeletal: Positive Not Examined Extremities: Positive Edema (+3 pitting BLE), Intact Peripheral Pulses, Stable Joints Without Laxity and Good ROM in All Joints Neurological: Positive Sensation Intact, Motor intact, Reflexes Intact, Alert, Oriented and Muscle Strength 5/5 in Upper and Lower Extremities Bilaterally Labs This Visit Labs This Visit: Labs This Visit 08/24/24 08/24/24 08/24/24 15:03 15:35 17:00 WBC 6.03 RBC 4.83 Hgb 13.9 L Hct 45.4 MCV 94.0 MCH 28.8 MCHC 30.6 L RDW Coeff of Dimple 14.6 Plt Count 179 Immature Gran % (Auto) 0.3 Neut % (Auto) 81.6 H Lymph % (Auto) 10.3 Hall % (Auto) 6.1 Eos % (Auto) 1.0 Baso % (Auto) 0.7 Neut # (Auto) 4.9 Lymph # (Auto) 0.6 Hall # (Auto) 0.4 Eos # (Auto) 0.1 Baso # (Auto) 0.0 Immature Gran # (Auto) 0.0 Sodium 140.3 Potassium 5.25 H Chloride 101.9 Carbon Dioxide 25.8 Anion Gap 17.85 BUN 22.3 H Creatinine 1.40 H Estimated GFR (MDRD) 61.00 BUN/Creatinine Ratio 15.92 Glucose 115.6 H Calcium 9.04 Total Bilirubin 2.59 H AST 30.9 ALT 16.9 Alkaline Phosphatase 69.8 Troponin I 0.019 NT-Pro-B Natriuret Pep 10864 H Total Protein 6.87 Albumin 3.94 Globulin 2.93 Albumin/Globulin Ratio 1.34 Lipase 40.6 Urine Color Yellow Urine Clarity Clear Urine pH 5.5 Ur Specific [place] >=1.030 Urine Protein 2+ H Urine Glucose (UA) Negative Urine Ketones 1+ H Urine Blood Negative Urine Nitrite Negative Urine Bilirubin 1+ H Urine Urobilinogen 1.0 H Ur Leukocyte Esterase Negative Ur Squamous Epith Cells 0-2 Urine Mucus 1+ Urine Opiates Screen Negative Ur Oxycodone Screen Negative Urine Methadone Screen Negative Ur Barbiturates Screen Negative U Tricyclic Antidepress Negative Ur Phencyclidine Scrn Negative Ur Amphetamine Screen Negative U Methamphetamines Scrn Negative U Benzodiazepines Scrn Negative Urine Cocaine Screen Positive H U Cannabinoids Screen Negative Influ A Molecular Assay Negative by naat Influ B Molecular Assay Negative by naat SARS CoV-2 RNA Rapid CAL Negative 08/25/24 05:04 WBC 6.03 RBC 4.64 L Hgb 13.4 L Hct 44.0 MCV 94.8 H MCH 28.9 MCHC 30.5 L RDW Coeff of Dimple 14.5 Plt Count 197 Immature Gran % (Auto) 0.0 Neut % (Auto) 77.3 H Lymph % (Auto) 12.9 Hall % (Auto) 8.1 Eos % (Auto) 1.0 Baso % (Auto) 0.7 Neut # (Auto) 4.7 Lymph # (Auto) 0.8 Hall # (Auto) 0.5 Eos # (Auto) 0.1 Baso # (Auto) 0.0 Immature Gran # (Auto) 0.0 Sodium 141.9 Potassium 4.56 Chloride 101.8 Carbon Dioxide 25.3 Anion Gap 19.36 BUN 21.6 H Creatinine 1.52 H Estimated GFR (MDRD) 56.00 BUN/Creatinine Ratio 14.21 Glucose 118.9 H Calcium 8.94 Total Bilirubin 2.21 H AST 26.5 ALT 25.6 Alkaline Phosphatase 67.8 Troponin I NT-Pro-B Natriuret Pep Total Protein 6.60 Albumin 3.79 Globulin 2.81 Albumin/Globulin Ratio 1.34 Lipase Urine Color Urine Clarity Urine pH Ur Specific [place] Urine Protein Urine Glucose (UA) Urine Ketones Urine Blood Urine Nitrite Urine Bilirubin Urine Urobilinogen Ur Leukocyte Esterase Ur Squamous Epith Cells Urine Mucus Urine Opiates Screen Ur Oxycodone Screen Urine Methadone Screen Ur Barbiturates Screen U Tricyclic Antidepress Ur Phencyclidine Scrn Ur Amphetamine Screen U Methamphetamines Scrn U Benzodiazepines Scrn Urine Cocaine Screen U Cannabinoids Screen Influ A Molecular Assay Influ B Molecular Assay SARS CoV-2 RNA Rapid CAL Imaging Imaging: EXAM: CHEST ONE VIEW, FRONTAL VIEW ONLY. FINDINGS: Heart is enlarged. Central vascular congestion and perihilar interstitial opacities noted. There is increased opacity within the left retrocardiac region which may be accentuated by technique. Difficult to exclude pleural fluid. No pneumothorax identified. No acute osseous abnormality detected. IMPRESSION: Suspect mild pulmonary edema. Review Statement Review Statement: I have independently reviewed and interpreted the labs/EKGs/imaging that were ordered by the ER provider. I have reviewed all outside records that are available currently in our EMR including imaging/notes/labs from previous visits. Plan Plan: 1. Acute Hypoxic Respiratory Failure in setting of CHF exacerbation - diuresis, wean oxygen as tolerated 2. Acute Combined HF Exacerbation - lasix 40mg IVP Q8H, daily weight, I&O, cardiac diet, tele, last echo 09/07/2023 EF 20%, continue home medications 3. Vomiting - persistent and not eating, T kaiden elevated but appears chronically elevated, CT abd pelv wo ordered, zofran for nausea 4. Hyperkalemia - mild on admission, resolved with lasix, monitor, telemetry 5. Cellulitis to RLE - mild, no fever or white count elevation, homeless and unkempt, covering with keflex 6. HTN - chronic, continue home medications 7. Hyperlipidemia - Cont home meds 8. Substance abuse - Counseled patient DVT Prophylaxis: Ambulation Time Spent: Greater than 80 minutes spent with patient, 50% of the time spent with this patient was devoted to counseling and coordination of care. [facility] minutes spent discussing advance care planning. Disposition: Admit to: Med/Surg Observation Full Code Discussed Plan of Care with Dr. Juan A Allison. Medications Medication Orders: Medications Ordered Category Date Time Status Acetaminophen [Tylenol] Meds 08/24/24 20:38 Active 650 mg PO Q4H PRN Cephalexin [Keflex] Meds 08/25/24 06:00 Active 500 mg PO Q6HR Empaglifozin [Jardiance] Meds 08/25/24 09:00 Active 10 mg PO DAILY Furosemide [Lasix] Meds 08/25/24 00:00 Active 40 mg IVP Q8H Isosorbide Dinitrate [Sorbitrate] Meds 08/24/24 21:00 Active 5 mg PO 3XD Ondansetron HCl/Pf [Zofran Sdv] Meds 08/24/24 20:42 Active 4 mg IVP Q6H PRN Pravastatin Sodium [Pravachol] Meds 08/24/24 21:00 Active 40 mg PO BEDTIME Sacubitril/Valsartan [Entresto 24 mg-26 mg Tablet] Meds 08/25/24 09:00 Active 4 each PO BID Spironolactone [Aldactone] Meds 08/25/24 09:00 Active 25 mg PO DAILY
--- NOTE | 2024-08-25 10:27 | CT ---
EXAM: CT ABDOMEN AND PELVIS WITHOUT CONTRAST HISTORY: Generalized abdominal pain, emesis. TECHNIQUE: CT acquisition of the abdomen and pelvis from the lower thorax through the pelvis without IV contrast administration. 2-D coronal and sagittal reformatted images were obtained from the axial source images. Limits at diagnostic sensitivity without contrast. Oral Contrast: None. CT Dose Reduction Techniques Performed: Yes. COMPARISON: 07/27/2023. FINDINGS: CT abdomen: Small volume dependent bilateral plural effusions. Mild basilar subsegmental atelectasis. Stable cardiomegaly without pericardial effusion. Calcified plaque in a normal caliber aorta. Stable hepatomegaly measuring 20 cm in craniocaudal dimension. Proximal urinary tract appears unremarkable. Stable splenic calcifications. Normal caliber and distribution of intraabdominal bowel without free air. Small volume of ascites. Abdominal and retroperitoneal contents otherwise appear unremarkable. B ones and soft tissues appear unchanged. CT pelvis: District urinary tract appears unremarkable. Stable prostatic enlargement elevating the bl adder floor. Normal caliber and distribution of intrapelvic bowel without free air. Increased volume of pelvic ascites. Overall volume is small-moderate. Pelvic and retroperitoneal contents otherwise ap pear unremarkable. Bones and soft tissues otherwise appear stable. IMPRESSION: 1. No evidence of mechanical bowel obstruction or free air. 2. Mild overall increased volume of abdominal and pelvic ascites, now appearing small-moderate. 3. Small volume dependent bilateral pleural effusions. 4. Stable cardiomegaly without pericardial effusion. 5. Stable hepatomegaly measuring 20 cm. 6. Stable calcified atherosclerosis and degenerative spine changes without additional acute process i dentified. All CT scans are performed using dose optimization techniques as appropriate to the performed exam an d include at least one of the following: Automated exposure control, adjustment of the mA and/or kV according t o size, and the use of iterative reconstruction technique.
[2024-08-25] MEDS: PROTONIX IVP ONE (11:57)
[2024-08-25] MEDS: TYLENOL PO PRN (20:19)
[2024-08-26 05:41] LABS: BASOPHILS # (AUTO) 0.1 K/uL (0-0.2); BASOPHILS % (AUTO) 0.9 % (0.0-3.0); EOSINOPHILS # (AUTO) 0.2 K/ul (0.0-0.7); EOSINOPHILS % (AUTO) 3.2 % (0.0-7.0); HEMATOCRIT 41.1 % (42.0-52.0); HEMOGLOBIN 12.7 g/dl (14.0-18.0); IMMATURE GRANULOCYTE % (AUTO) 0.2 % (0.0-5.0); LYMPHOCYTES # (AUTO) 0.7 K/uL (0.60-3.4); LYMPHOCYTES % (AUTO) 13.7 (10.0-50.0); MEAN CORPUSCULAR HEMOGLOBIN 29.2 pg (27.0-31.0); MEAN CORPUSCULAR HGB CONC 30.9 (31.8-35.4); MEAN CORPUSCULAR VOLUME 94.5 fl (80.0-94.0); MONOCYTES # (AUTO) 0.6 K/uL (0.4-2.0); MONOCYTES % (AUTO) 10.5 (0-10); NEUTROPHILS # (AUTO) 3.8 K/ul (2.0-6.9); NEUTROPHILS % (AUTO) 71.5 % (42.2-75.2); PLATELET COUNT 171 10^3/uL (140-440); RDW COEFFICIENT OF VARIATION 14.5 % (11.6-14.8); RED BLOOD COUNT 4.35 10^6/ul (4.70-6.10); WHITE BLOOD COUNT 5.31 K/ul (4.2-10.2)
[2024-08-26 05:57] LABS: ALANINE AMINOTRANSFERASE 12.4 U/L (0-50); ALBUMIN 3.53 g/dL (3.5-5.0); ALKALINE PHOSPHATASE 61.4 U/L (56-119); ASPARTATE AMINO TRANSFERASE 21.7 U/L (17-59); BILIRUBIN,TOTAL 1.78 mg/dL (0.2-1.3); BLOOD UREA NITROGEN 24.3 mg/dL (9-20); CALCIUM 8.59 mg/dL (8.4-10.2); CARBON DIOXIDE 26.6 mmol/L (22-30.0); CHLORIDE 99.9 mmol/L (98-107); CREATININE 1.62 mg/dL (0.60-1.10); GLUCOSE 99.2 mg/dL (74-106); POTASSIUM 4.18 mmol/L (3.5-5.1); SODIUM 138.6 mmol/L (134.5-145); TOTAL PROTEIN 6.34 g/dL (6.3-8.2)
--- NOTE | 2024-08-26 11:05 | PCM.PROG ---
Date/Time Seen Date Seen by Provider: 08/26/24 Time Seen by Provider: 08:30 Provider [facility] Chief Complaint Chief Complaint: CHF EXACERBATION Subjective Subjective: Oxygen dropping down into the 80s at times. Required up to 3.5L at one point. Sat 93% this am on 2L. States he feels he can't get a deep breath at this time and doesn't feel like he is urinating as much as he should be. Reports exertional dyspnea still present even with oxygen on. States he had oxygen at home in the past but did not use it. Still reporting nausea and no appetite. Has new open area to L lateral lower extremity. Has scattered areas of healing throughout legs due to skin breakdown from edema weeping. Objective Appearance: Positive No Apparent Distress and Alert and Oriented x3 Chest/Lungs: Positive Symmetrical With Equal Breath Sounds and Clear to Auscultation Bilaterally (diminished); Negative Rales, Rhonci or Wheezes Heart: Positive Pulses Normal and Murmur GI/: Positive Soft, Nontender, Bowel Sounds Normal and No Distention Musculoskeletal: Positive Other (+3 pitting edema BLE) Neurological: Positive Sensation Intact, Motor intact, Reflexes Intact, Alert and Oriented Vital Signs Vital Signs: Vital Signs: Last 24 Hours 08/25/24 11:35 08/25/24 12:00 08/25/24 13:00 Temperature Temperature Source Pulse Rate Respiratory Rate Blood Pressure Blood Pressure Mean Blood Pressure Location Blood Pressure Position O2 Sat by Pulse Oximetry 98 Oxygen Delivery Method Nasal Cannula Room Air Oxygen Flow Rate 2 Weight Telemetry Type Remote Telemetry Telemetry Monitoring Continues Telemetry Heart Rate 93 Telemetry SPO2 96 EKG [place] Interval 0.22 H EKG QRS Interval 0.12 H Telemetry Strip Reading SR with 1st Degree AVB/BBB/ PVC/PAC 08/25/24 13:00 08/25/24 13:23 08/25/24 14:00 Temperature 97.7 F Temperature Source Temporal Artery Scan Pulse Rate 90 Respiratory Rate 20 Blood Pressure 100/73 Blood Pressure Mean 82 Blood Pressure Location Right Arm Blood Pressure Position Supine O2 Sat by Pulse Oximetry 95 94 L Oxygen Delivery Method Room Air Room Air Room Air Oxygen Flow Rate Weight Telemetry Type Telemetry Monitoring Telemetry Heart Rate Telemetry SPO2 EKG [place] Interval EKG QRS Interval Telemetry Strip [place] 08/25/24 14:00 08/25/24 15:00 08/25/24 16:00 Temperature Temperature Source Pulse Rate Respiratory Rate Blood Pressure Blood Pressure Mean Blood Pressure Location Blood Pressure Position O2 Sat by Pulse Oximetry Oxygen Delivery Method Room Air Room Air Room Air Oxygen Flow Rate Weight Telemetry Type Telemetry Monitoring Telemetry Heart Rate Telemetry SPO2 EKG [place] Interval EKG QRS Interval Telemetry Strip [place] 08/25/24 17:00 08/25/24 18:00 08/25/24 18:00 Temperature 97.6 F Temperature Source Temporal Artery Scan Pulse Rate 85 Respiratory Rate 24 H Blood Pressure 105/75 Blood Pressure Mean 85 Blood Pressure Location Left Arm Blood Pressure Position Supine O2 Sat by Pulse Oximetry 92 L Oxygen Delivery Method Room Air Room Air Room Air Oxygen Flow Rate Weight Telemetry Type Telemetry Monitoring Telemetry Heart Rate Telemetry SPO2 EKG [place] Interval EKG QRS Interval Telemetry Strip [place] 08/25/24 19:00 08/25/24 19:00 08/25/24 20:00 Temperature Temperature Source Pulse Rate Respiratory Rate Blood Pressure Blood Pressure Mean Blood Pressure Location Blood Pressure Position O2 Sat by Pulse Oximetry Oxygen Delivery Method Nasal Cannula Nasal Cannula Oxygen Flow Rate Weight Telemetry Type Remote Telemetry Telemetry Monitoring Continues Telemetry Heart Rate 92 Telemetry SPO2 92 L EKG [place] Interval 0.21 H EKG QRS Interval 0.11 H Telemetry Strip Reading SINUS RHYTHM W/ 1st AVB/BBB 08/25/24 20:00 08/25/24 20:00 08/25/24 21:00 Temperature Temperature Source Pulse Rate Respiratory Rate Blood Pressure Blood Pressure Mean Blood Pressure Location Blood Pressure Position O2 Sat by Pulse Oximetry 99 Oxygen Delivery Method Nasal Cannula Room Air Nasal Cannula Oxygen Flow Rate 2 Weight Telemetry Type Telemetry Monitoring Telemetry Heart Rate Telemetry SPO2 EKG [place] Interval EKG QRS Interval Telemetry Strip [place] 08/25/24 22:00 08/25/24 22:00 08/25/24 23:00 Temperature 98.1 F Temperature Source Temporal Artery Scan Pulse Rate 89 Respiratory Rate 20 Blood Pressure 135/87 Blood Pressure Mean 103 Blood Pressure Location Right Arm Blood Pressure Position Supine O2 Sat by Pulse Oximetry 97 Oxygen Delivery Method Nasal Cannula Room Air Room Air Oxygen Flow Rate Weight Telemetry Type Telemetry Monitoring Telemetry Heart Rate Telemetry SPO2 EKG [place] Interval EKG QRS Interval Telemetry Strip [place] 08/26/24 00:00 08/26/24 00:50 08/26/24 00:50 Temperature Temperature Source Pulse Rate Respiratory Rate Blood Pressure Blood Pressure Mean Blood Pressure Location Blood Pressure Position O2 Sat by Pulse Oximetry Oxygen Delivery Method Room Air Room Air Oxygen Flow Rate Weight Telemetry Type Remote Telemetry Telemetry Monitoring Continues Telemetry Heart Rate 88 Telemetry SPO2 91 L EKG [place] Interval 0.14 EKG QRS Interval 0.17 H Telemetry Strip Reading SR w/ BBB 08/26/24 02:00 08/26/24 02:00 08/26/24 03:00 Temperature 97.5 F L Temperature Source Temporal Artery Scan Pulse Rate 88 Respiratory Rate 20 Blood Pressure 105/77 Blood Pressure Mean 86 Blood Pressure Location Right Arm Blood Pressure Position Supine O2 Sat by Pulse Oximetry 95 Oxygen Delivery Method Nasal Cannula Nasal Cannula Nasal Cannula Oxygen Flow Rate 2 Weight Telemetry Type Telemetry Monitoring Telemetry Heart Rate Telemetry SPO2 EKG [place] Interval EKG QRS Interval Telemetry Strip [place] 08/26/24 04:00 08/26/24 05:00 08/26/24 05:03 Temperature 97.4 F L Temperature Source Temporal Artery Scan Pulse Rate 90 Respiratory Rate 20 Blood Pressure 110/83 Blood Pressure Mean 92 Blood Pressure Location Right Arm Blood Pressure Position Supine O2 Sat by Pulse Oximetry 97 Oxygen Delivery Method Nasal Cannula Nasal Cannula Nasal Cannula Oxygen Flow Rate 2 Weight Telemetry Type Telemetry Monitoring Telemetry Heart Rate Telemetry SPO2 EKG [place] Interval EKG QRS Interval Telemetry Strip [place] 08/26/24 05:03 08/26/24 05:06 08/26/24 06:00 Temperature Temperature Source Pulse Rate Respiratory Rate Blood Pressure Blood Pressure Mean Blood Pressure Location Blood Pressure Position O2 Sat by Pulse Oximetry 97 Oxygen Delivery Method Nasal Cannula Nasal Cannula Oxygen Flow Rate 2 Weight 115.5 kg Telemetry Type Telemetry Monitoring Telemetry Heart Rate Telemetry SPO2 EKG [place] Interval EKG QRS Interval Telemetry Strip [place] 08/26/24 07:00 08/26/24 07:00 08/26/24 08:00 Temperature Temperature Source Pulse Rate Respiratory Rate Blood Pressure Blood Pressure Mean Blood Pressure Location Blood Pressure Position O2 Sat by Pulse Oximetry Oxygen Delivery Method Nasal Cannula Nasal Cannula Oxygen Flow Rate Weight Telemetry Type Remote Telemetry Telemetry Monitoring Continues Telemetry Heart Rate 92 Telemetry SPO2 94 EKG [place] Interval 0.22 H EKG QRS Interval 0.12 H Telemetry Strip [place] SR w/1st degree AVB/BBB with PVC 08/26/24 08:00 08/26/24 09:00 08/26/24 10:00 Temperature Temperature Source Pulse Rate Respiratory Rate Blood Pressure Blood Pressure Mean Blood Pressure Location Blood Pressure Position O2 Sat by Pulse Oximetry Oxygen Delivery Method Nasal Cannula Nasal Cannula Nasal Cannula Oxygen Flow Rate 2 Weight Telemetry Type Telemetry Monitoring Telemetry Heart Rate Telemetry SPO2 EKG [place] Interval EKG QRS Interval Telemetry Strip [place] 08/26/24 10:00 08/26/24 10:00 08/26/24 10:43 Temperature 97.8 F Temperature Source Temporal Artery Scan Pulse Rate 89 Respiratory Rate 16 Blood Pressure 114/82 Blood Pressure Mean 92 Blood Pressure Location Left Arm Blood Pressure Position O2 Sat by Pulse Oximetry 93 L 93 L Oxygen Delivery Method Nasal Cannula Nasal Cannula Nasal Cannula Oxygen Flow Rate 2 2 Weight Telemetry Type Telemetry Monitoring Telemetry Heart Rate Telemetry SPO2 EKG [place] Interval EKG QRS Interval Telemetry Strip Reading Lab Results Lab Results: Lab Results: Last 24 Hours 08/26/24 04:50 WBC 5.31 RBC 4.35 L Hgb 12.7 L Hct 41.1 L MCV 94.5 H MCH 29.2 MCHC 30.9 L RDW Coeff of Dimple 14.5 Plt Count 171 Immature Gran % (Auto) 0.2 Neut % (Auto) 71.5 Lymph % (Auto) 13.7 [place] % (Auto) 10.5 H Eos % (Auto) 3.2 Baso % (Auto) 0.9 Neut # (Auto) 3.8 Lymph # (Auto) 0.7 [place] # (Auto) 0.6 Eos # (Auto) 0.2 Baso # (Auto) 0.1 Immature Gran # (Auto) 0.0 Sodium 138.6 Potassium 4.18 Chloride 99.9 Carbon Dioxide 26.6 Anion Gap 16.28 BUN 24.3 H Creatinine 1.62 H Estimated GFR (MDRD) 52.00 BUN/Creatinine Ratio 15.00 Glucose 99.2 Calcium 8.59 Total Bilirubin 1.78 H AST 21.7 ALT 12.4 Alkaline Phosphatase 61.4 Total Protein 6.34 Albumin 3.53 Globulin 2.81 Albumin/Globulin Ratio 1.25 Additional Comments Additional Comments: I have independently reviewed and interpreted the labs/EKGs/imaging ordered during this hospital stay. I have reviewed outside records that are available in our EMR that pertain to medical stay including imaging/notes/labs from previous visits. Active Medications Active Medications: Medications Generic Name Dose Route Start Last Admin Trade Name Freq PRN Reason Stop Dose Admin Acetaminophen 650 mg 08/24/24 20:38 08/25/24 20:19 Acetaminophen 325 Mg Tablet PO 650 mg Q4H PRN Administration Mild Pain Cephalexin 500 mg 08/25/24 06:00 08/26/24 05:16 Cephalexin 500 Mg Capsule PO 08/29/24 20:00 500 mg Q6HR JOSE RAUL Administration Empagliflozin 10 mg 08/25/24 09:00 08/26/24 08:31 Empagliflozin 10 Mg Tablet PO 10 mg DAILY JOSE RAUL Administration Furosemide 40 mg 08/25/24 00:00 08/26/24 08:29 Furosemide Inj 40 Mg/4 Ml Vial IVP 40 mg Q8H JOSE RAUL Administration Isosorbide Dinitrate 5 mg 08/24/24 21:00 08/26/24 08:32 Isosorbide Dinitrate 20 Mg Tablet PO 5 mg 3XD JOSE RAUL Administration Ondansetron HCl 4 mg 08/24/24 20:42 08/25/24 20:25 Ondansetron Hcl/Pf 4 Mg/2 Ml Sdv IVP 4 mg Q6H PRN Administration Nausea / Vomiting Pravastatin Sodium 40 mg 08/24/24 21:00 08/25/24 20:19 Pravastatin Sodium 40 Mg Tablet PO 40 mg BEDTIME JOSE RAUL Administration Sacubitril/Valsartan 4 each 08/25/24 09:00 08/26/24 08:30 Sacubitril/Valsartan 1 Each Tablet PO 4 each BID JOSE RAUL Administration Sodium Chloride 1 syr 08/25/24 13:00 08/26/24 05:16 0.9% Sodium Chloride 10 Ml Disp.Syrin IVF 1 syr Q8HR JOSE RAUL Administration Sodium Chloride 1 syr 08/25/24 12:13 08/25/24 11:59 0.9% Sodium Chloride 10 Ml Disp.Syrin IVF 1 syr PRN PRN Administration Maintain IV Patency Spironolactone 25 mg 08/25/24 09:00 08/26/24 08:32 Spironolactone 25 Mg Tablet PO 25 mg DAILY JOSE RAUL Administration Plan Plan: 1. Acute Hypoxic Respiratory Failure in setting of CHF exacerbation - Unchanged, diuresis, wean oxygen as tolerated 2. Acute Combined HF Exacerbation - No change, continue diuresis, lasix 40mg IVP Q8H, daily weight, I&O, cardiac diet, tele, pulm edema on xray, ascites on CT abd pelv, last echo 09/07/2023 EF 20%, continue home medications 3. Vomiting - Resolved 4. Hyperkalemia - Resolved, mild on admission, resolved with lasix, monitor, telemetry 5. Cellulitis to RLE - mild, no fever or white count elevation, homeless and unkempt, covering with keflex 6. HTN - chronic, continue home medications 7. Hyperlipidemia - Cont home meds 8. Substance abuse - Counseled patient DVT Prophylaxis: Ambulation Dispo: Feel that patient is at risk for deterioration due to O2 sat dropping to 80s at times as well as presentation. New ascites on CT abd pelv in addition to new pulm edema present compared to last admission. Admit to inpatient due to need of >48 hours of care for further diuresis. Review Statement Review Statement: I have personally discussed and reviewed the patient's visit/currently labs/imaging/decision making with Dr. Allison, my supervising attending. Greater that 50 minutes spent with patient, 50% of the time spent with this patient was devoted to counseling and coordination of care.
[2024-08-27 05:28] LABS: BASOPHILS % (AUTO) 0.5 % (0.0-3.0); EOSINOPHILS # (AUTO) 0.2 K/ul (0.0-0.7); EOSINOPHILS % (AUTO) 3.1 % (0.0-7.0); HEMATOCRIT 42.1 % (42.0-52.0); IMMATURE GRANULOCYTE % (AUTO) 0.4 % (0.0-5.0); LYMPHOCYTES # (AUTO) 0.7 K/uL (0.60-3.4); LYMPHOCYTES % (AUTO) 12.1 (10.0-50.0); MEAN CORPUSCULAR HGB CONC 30.9 (31.8-35.4); MEAN CORPUSCULAR VOLUME 93.8 fl (80.0-94.0); MONOCYTES # (AUTO) 0.5 K/uL (0.4-2.0); MONOCYTES % (AUTO) 8.2 (0-10); NEUTROPHILS # (AUTO) 4.1 K/ul (2.0-6.9); NEUTROPHILS % (AUTO) 75.7 % (42.2-75.2); PLATELET COUNT 173 10^3/uL (140-440); RDW COEFFICIENT OF VARIATION 14.1 % (11.6-14.8); RED BLOOD COUNT 4.49 10^6/ul (4.70-6.10); WHITE BLOOD COUNT 5.46 K/ul (4.2-10.2)
[2024-08-27 05:41] LABS: ALANINE AMINOTRANSFERASE 11.6 U/L (0-50); ALBUMIN 3.22 g/dL (3.5-5.0); ALKALINE PHOSPHATASE 56.3 U/L (56-119); ASPARTATE AMINO TRANSFERASE 22.4 U/L (17-59); BILIRUBIN,TOTAL 1.31 mg/dL (0.2-1.3); BLOOD UREA NITROGEN 21.9 mg/dL (9-20); CALCIUM 8.19 mg/dL (8.4-10.2); CARBON DIOXIDE 32.1 mmol/L (22-30.0); CHLORIDE 95.9 mmol/L (98-107); CREATININE 1.52 mg/dL (0.60-1.10); GLUCOSE 112.4 mg/dL (74-106); POTASSIUM 3.77 mmol/L (3.5-5.1); SODIUM 136.7 mmol/L (134.5-145); TOTAL PROTEIN 6.1 g/dL (6.3-8.2)
[2024-08-27] MEDS: LASIX IVP SCH ×2 (08:53→09:45)
--- NOTE | 2024-08-27 10:19 | PCM.PROG ---
Date/Time Seen Date Seen by Provider: 08/27/24 Time Seen by Provider: 09:15 Provider Provider: ADOLPH YADAV, [facility] Chief Complaint Chief Complaint: CHF EXACERBATION Subjective Subjective: Feeling some better this am. Oxygen weaned down to 2L. Able to eat breakfast this morning. Has only diuresed 4L so far. Weight unchanged. Skin breakdown to BLE improving. No drainage or redness. Objective Appearance: Positive No Apparent Distress and Alert and Oriented x3 Chest/Lungs: Positive Symmetrical With Equal Breath Sounds and Clear to Auscultation Bilaterally (diminished); Negative Rales, Rhonci or Wheezes Heart: Positive Pulses Normal and Murmur GI/: Positive Soft, Nontender, Bowel Sounds Normal and No Distention Musculoskeletal: Positive Not Examined Neurological: Positive Sensation Intact, Motor intact, Reflexes Intact, Alert and Oriented Vital Signs Vital Signs: Vital Signs: Last 24 Hours 08/26/24 10:43 08/26/24 13:00 08/26/24 14:00 Temperature 97.2 F L Temperature Source Temporal Artery Scan Pulse Rate 87 Respiratory Rate 16 Blood Pressure 106/83 Blood Pressure Mean 90 Blood Pressure Location Right Arm Blood Pressure Position O2 Sat by Pulse Oximetry 99 Oxygen Delivery Method Nasal Cannula Nasal Cannula Oxygen Flow Rate 2 Weight Telemetry Type Remote Telemetry Telemetry Monitoring Continues Telemetry Heart Rate 89 Telemetry SPO2 EKG [place] Interval 0.22 H EKG QRS Interval 0.16 H Telemetry Strip [place] SR with 1st degree AVB/BBB with PVC 08/26/24 14:35 08/26/24 17:55 08/26/24 19:00 Temperature 97.8 F Temperature Source Temporal Artery Scan Pulse Rate 78 Respiratory Rate 16 Blood Pressure 104/76 Blood Pressure Mean 85 Blood Pressure Location Right Arm Blood Pressure Position O2 Sat by Pulse Oximetry 94 L 100 Oxygen Delivery Method Nasal Cannula Room Air Oxygen Flow Rate 2 Weight Telemetry Type Remote Telemetry Telemetry Monitoring Continues Telemetry Heart Rate 94 Telemetry SPO2 90 L EKG [place] Interval 0.23 H EKG QRS Interval 0.14 H Telemetry Strip [place] SR w 1st avb/ bbb 08/26/24 20:00 08/26/24 20:00 08/26/24 20:50 Temperature 97.9 F Temperature Source Temporal Artery Scan Pulse Rate 83 Respiratory Rate 18 19 Blood Pressure 117/80 Blood Pressure Mean 92 Blood Pressure Location Right Arm Blood Pressure Position Supine O2 Sat by Pulse Oximetry 96 97 Oxygen Delivery Method Nasal Cannula Nasal Cannula Nasal Cannula Oxygen Flow Rate 2 2 2 Weight Telemetry Type Telemetry Monitoring Telemetry Heart Rate Telemetry SPO2 EKG ND Interval EKG QRS Interval Telemetry Strip [place] 08/27/24 01:00 08/27/24 02:00 08/27/24 05:09 Temperature Temperature Source Pulse Rate 82 Respiratory Rate 19 Blood Pressure Blood Pressure Mean Blood Pressure Location Blood Pressure Position O2 Sat by Pulse Oximetry 97 Oxygen Delivery Method Nasal Cannula Oxygen Flow Rate 2 Weight 114.9 kg Telemetry Type Remote Telemetry Telemetry Monitoring Continues Telemetry Heart Rate 81 Telemetry SPO2 97 EKG [place] Interval 0.27 H EKG QRS Interval 0.11 H Telemetry Strip [place] Sinus Rhythm w/ 1st AVB/BBB 08/27/24 05:09 08/27/24 05:14 08/27/24 07:00 Temperature 97.6 F Temperature Source Pulse Rate 87 Respiratory Rate 18 Blood Pressure 112/84 Blood Pressure Mean 93 Blood Pressure Location Right Arm Blood Pressure Position Supine O2 Sat by Pulse Oximetry 96 92 L Oxygen Delivery Method Nasal Cannula Nasal Cannula Oxygen Flow Rate 2 2 Weight Telemetry Type Remote Telemetry Telemetry Monitoring Continues Telemetry Heart Rate 86 Telemetry SPO2 EKG [place] Interval 0.20 EKG QRS Interval 0.10 Telemetry Strip [place] SR 08/27/24 08:00 08/27/24 10:00 Temperature Temperature Source Pulse Rate Respiratory Rate Blood Pressure Blood Pressure Mean Blood Pressure Location Blood Pressure Position O2 Sat by Pulse Oximetry 93 L Oxygen Delivery Method Nasal Cannula Nasal Cannula Oxygen Flow Rate 2 2 Weight Telemetry Type Telemetry Monitoring Telemetry Heart Rate Telemetry SPO2 EKG [place] Interval EKG QRS Interval Telemetry Strip [place] Lab Results Lab Results: Lab Results: Last 24 Hours 08/27/24 05:18 WBC 5.46 RBC 4.49 L Hgb 13.0 L Hct 42.1 MCV 93.8 MCH 29.0 MCHC 30.9 L RDW Coeff of Dimple 14.1 Plt Count 173 Immature Gran % (Auto) 0.4 Neut % (Auto) 75.7 H Lymph % (Auto) 12.1 [place] % (Auto) 8.2 Eos % (Auto) 3.1 Baso % (Auto) 0.5 Neut # (Auto) 4.1 Lymph # (Auto) 0.7 [place] # (Auto) 0.5 Eos # (Auto) 0.2 Baso # (Auto) 0.0 Immature Gran # (Auto) 0.0 Sodium 136.7 Potassium 3.77 Chloride 95.9 L Carbon Dioxide 32.1 H Anion Gap 12.47 BUN 21.9 H Creatinine 1.52 H Estimated GFR (MDRD) 56.00 BUN/Creatinine Ratio 14.40 Glucose 112.4 H Calcium 8.19 L Total Bilirubin 1.31 H AST 22.4 ALT 11.6 Alkaline Phosphatase 56.3 Total Protein 6.10 L Albumin 3.22 L Globulin 2.88 Albumin/Globulin Ratio 1.11 Additional Comments Additional Comments: I have independently reviewed and interpreted the labs/EKGs/imaging ordered during this hospital stay. I have reviewed outside records that are available in our EMR that pertain to medical stay including imaging/notes/labs from previous visits. Active Medications Active Medications: Medications Generic Name Dose Route Start Last Admin Trade Name Freq PRN Reason Stop Dose Admin Acetaminophen 650 mg 08/24/24 20:38 08/26/24 20:33 Acetaminophen 325 Mg Tablet PO 650 mg Q4H PRN Administration Mild Pain Cephalexin 500 mg 08/25/24 06:00 08/27/24 05:03 Cephalexin 500 Mg Capsule PO 08/29/24 20:00 500 mg Q6HR JOSE RAUL Administration Empagliflozin 10 mg 08/25/24 09:00 08/27/24 08:48 Empagliflozin 10 Mg Tablet PO 10 mg DAILY JOSE RAUL Administration Furosemide 40 mg 08/27/24 09:00 08/27/24 09:45 Furosemide Inj 40 Mg/4 Ml Vial IVP Not Given [id number] JOSE RAUL Isosorbide Dinitrate 5 mg 08/24/24 21:00 08/27/24 08:48 Isosorbide Dinitrate 20 Mg Tablet PO 5 mg 3XD JOSE RAUL Administration Ondansetron HCl 4 mg 08/24/24 20:42 08/26/24 20:33 Ondansetron Hcl/Pf 4 Mg/2 Ml Sdv IVP 4 mg Q6H PRN Administration Nausea / Vomiting Pravastatin Sodium 40 mg 08/24/24 21:00 08/26/24 20:32 Pravastatin Sodium 40 Mg Tablet PO 40 mg BEDTIME JOSE RAUL Administration Sacubitril/Valsartan 4 each 08/25/24 09:00 08/27/24 08:48 Sacubitril/Valsartan 1 Each Tablet PO 4 each BID JOSE RAUL Administration Sodium Chloride 1 syr 08/25/24 13:00 08/27/24 05:03 0.9% Sodium Chloride 10 Ml Disp.Syrin IVF 1 syr Q8HR JOSE RAUL Administration Sodium Chloride 1 syr 08/25/24 12:13 08/25/24 11:59 0.9% Sodium Chloride 10 Ml Disp.Syrin IVF 1 syr PRN PRN Administration Maintain IV Patency Spironolactone 25 mg 08/25/24 09:00 08/27/24 08:48 Spironolactone 25 Mg Tablet PO 25 mg DAILY JOSE RAUL Administration Plan Plan: 1. Acute Hypoxic Respiratory Failure in setting of CHF exacerbation - Down to 2L from 3L, diuresis, wean oxygen as tolerated 2. Acute Combined HF Exacerbation - Mild improvement, continue diuresis, wean to lasix 40mg IVP Q12H, daily weight, I&O, cardiac diet, tele, pulm edema on xray, ascites on CT abd pelv, last echo 09/07/2023 EF 20%, continue home medications 3. Vomiting - Resolved 4. Hyperkalemia - Resolved, mild on admission, resolved with lasix, monitor, telemetry 5. Cellulitis to RLE - mild, no fever or white count elevation, homeless and unkempt, covering with keflex 6. HTN - chronic, continue home medications 7. Hyperlipidemia - Cont home meds 8. Substance abuse - Counseled patient DVT Prophylaxis: Ambulation Dispo: Anticipate discharge tomorrow. May require home oxygen. Review Statement Review Statement: I have personally discussed and reviewed the patient's visit/currently labs/imaging/decision making with Dr. Allison, my supervising attending. Greater that 50 minutes spent with patient, 50% of the time spent with this patient was devoted to counseling and coordination of care.
[2024-08-28 05:24] VITALS: BP 118/69; PULSE 81; RESP 19; TEMP 97.7
[2024-08-28 06:30] LABS: BASOPHILS # (AUTO) 0.1 K/uL (0-0.2); BASOPHILS % (AUTO) 1.1 % (0.0-3.0); EOSINOPHILS # (AUTO) 0.2 K/ul (0.0-0.7); EOSINOPHILS % (AUTO) 4.3 % (0.0-7.0); HEMATOCRIT 45.2 % (42.0-52.0); IMMATURE GRANULOCYTE % (AUTO) 0.2 % (0.0-5.0); LYMPHOCYTES # (AUTO) 0.7 K/uL (0.60-3.4); LYMPHOCYTES % (AUTO) 11.8 (10.0-50.0); MEAN CORPUSCULAR HEMOGLOBIN 29.1 pg (27.0-31.0); MONOCYTES # (AUTO) 0.4 K/uL (0.4-2.0); MONOCYTES % (AUTO) 7.9 (0-10); NEUTROPHILS # (AUTO) 4.2 K/ul (2.0-6.9); NEUTROPHILS % (AUTO) 74.7 % (42.2-75.2); PLATELET COUNT 200 10^3/uL (140-440); RDW COEFFICIENT OF VARIATION 13.7 % (11.6-14.8); RED BLOOD COUNT 4.81 10^6/ul (4.70-6.10); WHITE BLOOD COUNT 5.57 K/ul (4.2-10.2)
[2024-08-28 06:40] LABS: ALANINE AMINOTRANSFERASE 12.4 U/L (0-50); ALBUMIN 3.36 g/dL (3.5-5.0); ALKALINE PHOSPHATASE 63.6 U/L (56-119); ASPARTATE AMINO TRANSFERASE 21.8 U/L (17-59); BILIRUBIN,TOTAL 1.13 mg/dL (0.2-1.3); CALCIUM 8.19 mg/dL (8.4-10.2); CARBON DIOXIDE 33.3 mmol/L (22-30.0); CHLORIDE 91.3 mmol/L (98-107); CREATININE 1.39 mg/dL (0.60-1.10); POTASSIUM 3.59 mmol/L (3.5-5.1); SODIUM 136.7 mmol/L (134.5-145); TOTAL PROTEIN 6.27 g/dL (6.3-8.2)
--- NOTE | 2024-08-28 09:56 | DCSUM ---
Admission Date Admission Date: 08/24/24 Discharge Date Discharge Date: 08/28/24 Admission Diagnosis Admission Diagnosis: 1. Acute Hypoxic Respiratory Failure in setting of CHF exacerbation 2. Acute Combined HF Exacerbation 3. Vomiting 4. Hyperkalemia 5. Cellulitis to RLE 6. HTN 7. Hyperlipidemia 8. Substance abuse Discharge Diagnosis Discharge Diagnosis: 1. Acute Hypoxic Respiratory Failure in setting of CHF exacerbation - Resolved 2. Acute Combined HF Exacerbation - Resolved 3. Vomiting - Resolved 4. Hyperkalemia - Resolved 5. Cellulitis to RLE - Improving 6. HTN - Chronic, stable 7. Hyperlipidemia - Chronic 8. Substance abuse - Counseled patient Hospital Provider Hospital Provider: ADOLPH YADAV, [facility] Primary Care Physician Primary Care Physician: JESUS KEITH Summary of History and Physical Summary of History and Physical: 68 yo male with pmh of combined HF, HTN, HLD, and cocaine use presented to the ER with complaints of N/V and leg swelling. Reports he has been vomiting/dry heaving over the past week or so. Patient typically has good appetite and states he hasn't been able to eat much of anything without dry heaving afterwards. Denies any abdominal pain, bloody stools or vomitus, or fever. States his legs are swelling up, feels too weak to ride his bike, and is short of breath. He a lso has an abrasion to the R lower leg that he reports is taking a long time to heal. On arrival to the ER, he was not requiring oxygen at [place] [address], pulm edema noted on chest xray. No imaging was completed to abdomen. He was given 40 mg of lasix and 1G of rocephin. Admitted to med/surg observation. Hospital Course Subjective: 08/25/24 Started diuresing patient with lasix 40 mg IVP Q8H. last echo 09/07/2023 EF 20% Patient continued to complain of nausea, and vomiting. T bili elevated but noted to be chronic. CT abd pel wo ordered. Zofran and protonix given. Cellulitis to RLE treated with keflex. No fever or white count, patient is homeless and unkempt and at risk for deterioration. 08/26/24 Oxygen dropping down into the 80s at times. Required up to 3.5L at one point. Sat 93% this am on 2L. States he feels he can't get a deep breath at this time and doesn't feel like he is urinating as much as he should be. Reports exertional dyspnea still present even with oxygen on. States he had oxygen at home in the past but did not use it. Still reporting nausea and no appetite. Has new open area to L lateral lower extremity. Has scattered areas of healing throughout legs due to skin breakdown from edema weeping. Found to have new ascites on CT abd pelv. No acute process to cause nausea or vomiting. 08/27/24 Feeling some better this am. Oxygen weaned down to 2L. Able to eat breakfast this morning. Has only diuresed 4L so far. Weight unchanged. Skin breakdown to BLE improving. No drainage or redness. 08/28/24 Weaned to RA overnight. Feeling much better this morning. Total diuresis now 11L. Edema to BLE greatly improved. Cellulitic areas improving. Scabbed and redness resolved. D/c with rest of course of keflex. Educated importance of following medication regimen to avoid fluid overload. Agreeable to refill his lasix at the pharmacy today. Appearance: Pleasant, No Apparent Distress and Alert HEENT: MMM, Supple and No JVD CVS: No Rubs, No Gallop and No JVD Abdomen: Soft, Non-Tender and No Distention Respiratory: No Dyspnea Extremities: Other (+1-2 pitting edema) Vital Signs: Most Recent Vital Signs Temperature 97.7 F 08/28/24 05:21 Temperature Source Temporal Artery Scan 08/28/24 05:21 Temperature Source Temporal Artery Scan 08/24/24 13:15 Pulse Rate 81 08/28/24 05:21 Respiratory Rate 19 08/28/24 05:21 Blood Pressure 118/69 08/28/24 05:21 Blood Pressure Mean 85 08/28/24 05:21 Blood Pressure Left Arm 139/100 08/24/24 19:04 Blood Pressure Location Right Arm 08/28/24 05:21 Blood Pressure Position Sitting 08/28/24 05:21 O2 Sat by Pulse Oximetry 100 08/28/24 05:21 Oxygen Delivery Method Room Air 08/28/24 08:00 Oxygen Flow Rate 2 08/28/24 06:00 Height 6 ft 5 in 08/24/24 19:04 Weight 105.8 kg 08/28/24 05:21 Telemetry Type Remote Telemetry 08/28/24 01:00 Telemetry Monitoring Continues 08/28/24 01:00 Telemetry Heart Rate 82 08/28/24 01:00 Telemetry SPO2 93 08/28/24 01:00 EKG [place] Interval 0.25 H 08/28/24 01:00 EKG QRS Interval 0.14 H 08/28/24 01:00 Telemetry Strip Reading SR w/ 1st AVB/BBB 08/28/24 01:00 Imaging: EXAM: CHEST ONE VIEW, FRONTAL VIEW ONLY. FINDINGS: Heart is enlarged. Central vascular congestion and perihilar interstitial opacities noted. There is increased opacity within the left retrocardiac region which may be accentuated by technique. Difficult to exclude pleural fluid. No pneumothorax identified. No acute osseous abnormality detected. IMPRESSION: Suspect mild pulmonary edema. EXAM: CT ABDOMEN AND PELVIS WITHOUT CONTRAST FINDINGS: CT abdomen: Small volume dependent bilateral plural effusions. Mild basilar subsegmental atelectasis. Stable cardiomegaly without pericardial effusion. Calcified plaque in a normal caliber aorta. Stable hepatomegaly measuring 20 cm in craniocaudal dimension. Proximal urinary tract appears unremarkable. Stable splenic calcifications. Normal caliber and distribution of intraabdominal bowel without free air. Small volume of ascites. Abdominal and retroperitoneal contents otherwise appear unremarkable. Bones and soft tissues appear unchanged. CT pelvis: District urinary tract appears unremarkable. Stable prostatic enlargement elevating the bladder floor. Normal caliber and distribution of intrapelvic bowel without free air. Increased volume of pelvic ascites. Overall volume is small-moderate. Pelvic and retroperitoneal contents otherwise appear unremarkable. Bones and soft tissues otherwise appear stable. IMPRESSION: 1. No evidence of mechanical bowel obstruction or free air. 2. Mild overall increased volume of abdominal and pelvic ascites, now appearing small-moderate. 3. Small volume dependent bilateral pleural effusions. 4. Stable cardiomegaly without pericardial effusion. 5. Stable hepatomegaly measuring 20 cm. 6. Stable calcified atherosclerosis and degenerative spine changes without additional acute process identified. Lab Results Last 24 Hours: 08/28/24 05:58 WBC 5.57 RBC 4.81 Hgb 14.0 Hct 45.2 MCV 94.0 MCH 29.1 MCHC 31.0 L RDW Coeff of Dimple 13.7 Plt Count 200 Immature Gran % (Auto) 0.2 Neut % (Auto) 74.7 Lymph % (Auto) 11.8 [place] % (Auto) 7.9 Eos % (Auto) 4.3 Baso % (Auto) 1.1 Neut # (Auto) 4.2 Lymph # (Auto) 0.7 [place] # (Auto) 0.4 Eos # (Auto) 0.2 Baso # (Auto) 0.1 Immature Gran # (Auto) 0.0 Sodium 136.7 Potassium 3.59 Chloride 91.3 L Carbon Dioxide 33.3 H Anion Gap 15.69 BUN 20.0 Creatinine 1.39 H Estimated GFR (MDRD) 62.00 BUN/Creatinine Ratio 14.38 Glucose 111.0 H Calcium 8.19 L Total Bilirubin 1.13 AST 21.8 ALT 12.4 Alkaline Phosphatase 63.6 Total Protein 6.27 L Albumin 3.36 L Globulin 2.91 Albumin/Globulin Ratio 1.15 Discharge Instructions Discharge Planning: Discharge Planning > 40 minutes If patient is discharged with left ventricular systolic dysfunction: no Discharged with a beta bibiana? [] If no, why not? [] Discharged with an sarah/arb? [] If no, why not? [] Diagnosis: Congestive Heart Failure Exacerbation, Cellulitis to Bilateral lower extremities Diet: Low salt, restrict your fluid intake to 2L per day Activity: as tolerated Medications: [facility] * Be sure to refill your Lasix and take it as prescribed * Keflex 500 mg every 6 hours (Start with evening meal until finished) - Take for wounds to your legs Follow-up with your primary care provider this week. Discharge Medications: Medications at Discharge (Home Meds & RX) empagliflozin 10 mg tablet (Jardiance) 10 mg PO DAILY #30 tabs 02/04/23 furosemide 20 mg tablet 40 mg PO BID edema 05/09/24 potassium chloride 10 mEq tablet,extended release 10 meq PO QAM 05/09/24 pravastatin 40 mg tablet 40 mg PO BEDTIME 05/09/24 isosorbide dinitrate 5 mg tablet 5 mg PO 3XD 06/28/24 sacubitril 97 mg-valsartan 103 mg tablet (Entresto) 1 tab PO 2XD 08/16/24 spironolactone 25 mg tablet 25 mg PO DAILY 08/16/24 cephalexin 500 mg capsule 500 mg PO Q6HR #4 caps 08/28/24 Discharge Plan Discharge Discharge Orders: Discharge Patient (ONCE); Ordered 08/28/24 Ordered By: ELIZABETH ZHANG Activity Restrictions/Additional Instructions: Diagnosis: Congestive Heart Failure Exacerbation, Cellulitis to Bilateral lower extremities Diet: Low salt, restrict your fluid intake to 2L per day Activity: as tolerated Medications: [facility] * Be sure to refill your Lasix and take it as prescribed * Keflex 500 mg every 6 hours (Start with evening meal until finished) - Take for wounds to your legs Follow-up with your primary care provider this week. Instructions: Heart Failure (GEN), Cellulitis (GEN), Heart Healthy Diet (GEN), Ascites (GEN) Patient Disposition: HOME SELF-CARE Prescriptions: New cephalexin 500 mg Capsule 500 mg PO Q6HR Qty: 4 0RF Continued potassium chloride 10 mEq tablet extended release 10 meq PO QAM pravastatin 40 mg tablet 40 mg PO BEDTIME furosemide 20 mg tablet 40 mg PO BID Rx Instructions: Take 1 to 2 tablets extra daily as needed for lower extremity swelling but do not exceed additional doses greater than 3 days. If you are not producing urine, do not continue to take Lasix and report to the emergency department isosorbide dinitrate 5 mg tablet 5 mg PO 3XD spironolactone 25 mg tablet 25 mg PO DAILY Patient Comments: I haven't actually filled it yet. Entresto 97-103 mg tablet 1 tab PO 2XD Jardiance 10 mg tablet 10 mg PO DAILY Qty: 30 0RF Did you review [place] CAMBERING MACHINE OPERATOR for ALL controlled substances?: No Discussed opioids are addictive and Narcan is available by prescription or from pharmacy.: No Condition: Stable Referrals: JESUS KEITH [Primary Care Provider] - 09/01/24 1:00 pm
== END 2024-08-28 13:25 | disposition home or self-care (01) | DRG 291 ==
LOC: ED 13:05 → MEDSURG B 13:05
PROVIDERS: ADMIT Hospitalist; ATTEND Nurse Practitioner Family

== ENCOUNTER 2025-01-23 16:57 | Observation (INO) ==
[2025-01-23 17:52] LABS: IMMATURE GRANULOCYTE # (AUTO) 0.0 (0.0-1.0); IMMATURE GRANULOCYTE % (AUTO) 0.2 % (0.0-5.0); RDW COEFFICIENT OF VARIATION 15.3 % (11.6-14.8)
[2025-01-23 18:04] LABS: CREATININE 1.35 mg/dL (0.60-1.10)
--- NOTE | 2025-01-23 18:06 | DI ---
EXAM: CHEST ONE-VIEW HISTORY: Shortness of breath COMPARISON: Chest radiograph series from 11/09/2024 FINDINGS: The heart is moderately enlarged. The pulmonary vasculature is normal. No consolidating infiltrates are detected. No pneumothoraces or pleural effusions. IMPRESSION: 1. Moderate cardiomegaly. 2. No acute cardiopulmonary disease. .
--- NOTE | 2025-01-23 18:34 | ED.PDOC ---
General HPI ED Provider: Dr. NORMA CHOPRA MD Chief Complaint: Abdominal Pain Stated Complaint: 69-year-old male history of CHF essential hypertension, presenting to the emergency department with worsening shortness of breath as well as leg swelling abdominal distention. Patient is unsure if he has had weight gain. He states has been going on for the past few days. He states that he has been compliant with his medications for the most part and takes his diuretic although he does not know his dose. He states he was recently at a reunion and was not limiting his fluid intake or salt intake. He has not any fevers or chills he is not have any productive sputum. No nausea or vomiting. No chest pain. He has a history of cocaine use which she denies any recent use. No palpitations no syncope. He is not having abdominal pain but abdominal distention. Time Seen by Provider: 01/23/25 17:31 Information Source: Patient Primary Care Provider: JESUS KEITH Nursing and Triage Documentation Reviewed and Agree: Yes Opioid Naive vs. Tolerant What is Opioid Naive?: *Opioid Naive implies the patient is not already taking opioids or not chronically receiving opioids on a daily basis. *PRN dosing is not "usually" associated with tolerance. *Patients are at higher risk of over-sedation and aspiration. What is Opioid Tolerant?: *Opioid Tolerance implies less than the expected response to an opioid. *Acquired tolerance is defined by the patient taking 60mg of oral morphine daily (or equianalgesic dose of another opioid) for 1 week or more. *Often associated with chronic pain. *May take more than usual dose to achieve desired pain control. Review of Systems Review Of Systems Constitutional: Denies Chills or Fever Respiratory: Reports Orthopnea and Shortness of Breath Cardiac: Reports Edema; Denies Chest pain GI: Reports Abdomen distended; Denies Abdominal pain or Vomiting [facility] Medical History Bilateral thigh pain (08/03/18) M79.651 - Pain in right thigh (ICD-10) M79.652 - Pain in left thigh (ICD-10) Vitamin D deficiency (08/03/18) E55.9 - Vitamin D deficiency, unspecified (ICD-10) Abnormal echocardiogram (09/11/20) R93.1 - Abnormal findings on diagnostic imaging of heart and coronary circulation (ICD-10) Cardiomyopathy (09/11/20) I42.9 - Cardiomyopathy, unspecified (ICD-10) Acute on chronic combined systolic and diastolic CHF, NYHA class 1 (04/22/21) I50.43 - Acute on chronic combined systolic (congestive) and diastolic (congestive) heart failure (ICD-10) Coronary artery disease involving [place] coronary artery of [place] heart without angina pectoris (05/22/21) I25.10 - Atherosclerotic heart disease of [place] coronary artery without angina pectoris (ICD-10) Hypomagnesemia (09/25/21) E83.42 - Hypomagnesemia (ICD-10) Nonischemic cardiomyopathy (09/25/21) I42.8 - Other cardiomyopathies (ICD-10) Hypertension (08/03/18) I10 - Essential (primary) hypertension (ICD-10) Unilateral inguinal hernia without obstruction (09/04/20) K40.90 - Unilateral inguinal hernia, without obstruction or gangrene, not specified as recurrent (ICD-10) HTN (hypertension) (05/22/21) I10 - Essential (primary) hypertension (ICD-10) Lung nodule 30w29um right apex nodule increased metabolic activity. Maximum SUV 1.9. Suggest benign. Repeat imaging in 6 months. No other concerning areas. REviewed PET w/ patient 05/17/21. 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 Not sure if I will have it removed" will sign records release for Dr. Donnelly C61 - Malignant neoplasm of prostate (ICD-10) Tobacco use Z72.0 - Tobacco use (ICD-10) Hypertension I10 - Essential (primary) hypertension (ICD-10) Arthritis M19.90 - Unspecified osteoarthritis, unspecified site (ICD-10) Family History Mother Hypertension FATHER Alcoholism and drug addiction in family Hypertension Social History Smoking and tobacco status: Former smoker Tobacco: How many years used: 7 How long ago did patient quit smoking: Stopped smoking about 2 years ago Alcohol intake: never Substance use type: crack/cocaine Special rachid needs: No Physical Exam Physical Exam Appearance: Reports Other (Patient has large habitus with large legs bilaterally distended abdomen) Eyes: Reports JOBY and EOMI ENT: Reports Ears normal, Nose normal and Oropharynx normal Neck: Supple Respiratory: Reports Airway patent and Crackles (Bilaterally); Denies Wheezes or Retractions Cardiovascular: Reports RRR GI/: Reports Nontender and Other (Significantly distended, positive edema) Musculoskeletal: Reports Normal strength and Other (Large legs bilaterally with positive pitting edema up to thighs.) Skin: Reports Warm Neurological: Reports Sensation intact and Motor intact Psychiatric: Reports Affect appropriate Course Course 01/23/25 17:46 01/23/25 17:46 Orders, Labs, Meds: Lab Review 01/23/25 17:46 WBC 4.33 RBC 4.04 L Hgb 11.8 L Hct 38.1 L MCV 94.3 H MCH 29.2 MCHC 31.0 L RDW Coeff of Dimple 15.3 H Plt Count 187 Immature Gran % (Auto) 0.2 Neut % (Auto) 60.5 Lymph % (Auto) 23.3 [place] % (Auto) 9.5 Eos % (Auto) 5.1 Baso % (Auto) 1.4 Neut # (Auto) 2.6 Lymph # (Auto) 1.0 [place] # (Auto) 0.4 Eos # (Auto) 0.2 Baso # (Auto) 0.1 Immature Gran # (Auto) 0.0 Sodium 137.4 Potassium 4.06 Chloride 107.5 H Carbon Dioxide 22.4 Anion Gap 11.56 BUN 17.1 Creatinine 1.35 H Estimated GFR (MDRD) 64.00 BUN/Creatinine Ratio 12.66 Glucose 120.7 H Calcium 8.43 Magnesium 1.50 L Total Bilirubin 2.39 H AST 21.2 ALT 13.6 Alkaline Phosphatase 67.7 Troponin I 0.014 NT-Pro-B Natriuret Pep 27911 H Total Protein 6.58 Albumin 3.55 Globulin 3.03 Albumin/Globulin Ratio 1.17 Orders Category Date Time Status EKG-(ED & IP/OBS ONLY) Stat CARDIO 01/23/25 17:39 Ordered CBC W/ AUTO DIFF Stat LAB 01/23/25 17:46 Completed CMP [COMPREHENSIVE METABOLIC PANEL] Stat LAB 01/23/25 17:46 Completed MAGNESIUM Stat LAB 01/23/25 17:46 Completed PROBNP ED [NT-PROBNP(ED)] Stat LAB 01/23/25 17:46 Completed TROPONIN I Stat LAB 01/23/25 17:46 Completed Furosemide [Lasix] Meds 01/23/25 18:25 Discontinued 60 mg IVP ONCE ONE CXR [CHEST, 1V AP ONLY] Stat RADS 01/23/25 17:39 Completed Medications Discontinued Medications Generic Name Dose Route Start Last Admin Trade Name Freq PRN Reason Stop Dose Admin Furosemide 60 mg 01/23/25 18:25 Furosemide Inj 100 Mg/10 Ml Vial IVP 01/23/25 18:26 ONCE ONE Vital Signs: Temp Pulse Resp BP Pulse Ox 01/23/25 17:11 97.7 F 95 22 H 98/75 96 69-year-old male with history of CHF frequently comes to the emergency department and requires admission presenting with worsening shortness of breath worse with exertion cannot walk many steps without becoming severely dyspneic presented the emergency department for similar symptoms. He is afebrile satting 97 on room air initially however throughout stay he did go down to 9192%. He is intermittently mild to moderately tachypneic. His heart rate is stable he is afebrile his blood pressure is stable. He is reporting abdominal distention however is not having significant pain or tenderness on my exam. His lungs have mild crackles bilaterally he does have extremely large and edematous legs. Do feel there is a large chronic component of this however given patient's O2 going down his exertional dyspnea feel that he would likely warrant admission. EKG as read by me shows 86 bpm, sinus rhythm with first-degree AV block, left axis deviation, no significant ST elevations seems unchanged from prior EKGs. CBC unremarkable CMP with mild CKD, proBNP is elevated to 12,000, chest x-ray without significant fluid overload but cardiomegaly. Do feel patient warrants admission I did discuss with hospitalist who agreed to admit. Discharge Plan Discharge Patient Disposition: ADMITTED INPATIENT Discharge Problem: CHF (congestive heart failure) Did you review [place] CLIENT SUCCESS SPECIALIST for ALL controlled substances?: Not Applicable ED Provider: NORMA CHOPRA Condition: Fair
[2025-01-23] MEDS: LASIX IVP ONE (19:09)
[2025-01-23] MEDS ORDERED: TYLENOL PO PRN (19:44)
[2025-01-23] MEDS ORDERED: VENTOLIN HFA IH PRN (21:04)
[2025-01-23] MEDS: ENTRESTO 24 MG-26 MG TABLET PO SCH (21:23)
[2025-01-23] MEDS: SORBITRATE PO SCH (21:23)
[2025-01-23] MEDS: PRAVACHOL PO SCH (21:23)
[2025-01-23] MEDS: COREG PO SCH (21:23)
[2025-01-23 21:58] VITALS: BMI 30.7
[2025-01-24] MEDS: LASIX IVP SCH (03:33)
[2025-01-24 05:41] LABS: IMMATURE GRANULOCYTE # (AUTO) 0.0 (0.0-1.0); IMMATURE GRANULOCYTE % (AUTO) 0.0 % (0.0-5.0); RDW COEFFICIENT OF VARIATION 15.3 % (11.6-14.8)
[2025-01-24 06:15] LABS: CREATININE 1.45 mg/dL (0.60-1.10)
[2025-01-24] MEDS: MICRO-K CAP PO SCH (08:45)
[2025-01-24] MEDS: JARDIANCE PO SCH (08:46)
--- NOTE | 2025-01-24 12:20 | PCM ---
Date of Service Date Seen by Provider: 01/24/25 Time Seen by Provider: 08:45 Admit Day/Time Admission Date: 01/23/25 Admission Time: 18:30 Reason for Admission Chief Complaint: STOMACH ISSUES / SOB Hospital Provider Hospital Provider: ADOLPH YADAV[place] [facility] [place] Primary Care Physician: JESUS KEITH History of Present Illness History of Present Illness: 69 yo male with pmh of cocaine use, medical noncompliance, combined HF, HTN presented to the ER with complaints of diarrhea and shortness of breath. States that he had a class reunion over the weekend and ate and drank too much. He did not take his medications Thursday or Thursday due to not feeling well. States he is short of breath all the time and just doesn't understand why. Patient EF was 10-15% on last echo over the summer and was given a life vest and defibillator. Has not been wearing life vest as instructed. BNP found to be 12,000. Chest x-ray clear. Labs otherwise at baseline. Received 60 mg of lasix in ER. Admitted to med/surg observation. Case Discussed With Case Discussed With: Patient's case was discussed with the ER Physicians, Dr. Toth. [facility] Medical History Bilateral thigh pain (08/03/18) M79.651 - Pain in right thigh (ICD-10) M79.652 - Pain in left thigh (ICD-10) Vitamin D deficiency (08/03/18) E55.9 - Vitamin D deficiency, unspecified (ICD-10) Abnormal echocardiogram (09/11/20) R93.1 - Abnormal findings on diagnostic imaging of heart and coronary circulation (ICD-10) Cardiomyopathy (09/11/20) I42.9 - Cardiomyopathy, unspecified (ICD-10) Acute on chronic combined systolic and diastolic CHF, NYHA class 1 (04/22/21) I50.43 - Acute on chronic combined systolic (congestive) and diastolic (congestive) heart failure (ICD-10) Coronary artery disease involving [place] coronary artery of [place] heart without angina pectoris (05/22/21) I25.10 - Atherosclerotic heart disease of [place] coronary artery without angina pectoris (ICD-10) Hypomagnesemia (09/25/21) E83.42 - Hypomagnesemia (ICD-10) Nonischemic cardiomyopathy (09/25/21) I42.8 - Other cardiomyopathies (ICD-10) Hypertension (08/03/18) I10 - Essential (primary) hypertension (ICD-10) Unilateral inguinal hernia without obstruction (09/04/20) K40.90 - Unilateral inguinal hernia, without obstruction or gangrene, not specified as recurrent (ICD-10) HTN (hypertension) (05/22/21) I10 - Essential (primary) hypertension (ICD-10) Lung nodule [id number] right apex nodule increased metabolic activity. Maximum SUV 1.9. Suggest benign. Repeat imaging in 6 months. No other concerning areas. REviewed PET w/ patient 05/17/21. 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 Not sure if I will have it removed" will sign records release for Dr. Donnelly C61 - Malignant neoplasm of prostate (ICD-10) Tobacco use Z72.0 - Tobacco use (ICD-10) Hypertension I10 - Essential (primary) hypertension (ICD-10) Arthritis M19.90 - Unspecified osteoarthritis, unspecified site (ICD-10) Family History Mother Hypertension FATHER Alcoholism and drug addiction in family Hypertension Social History Smoking and tobacco status: Former smoker Tobacco: How many years used: 7 How long ago did patient quit smoking: Stopped smoking about 2 years ago Alcohol intake: never Substance use type: crack/cocaine Special rachid needs: No Allergies Allergies Allergy/AdvReac Type Severity Reaction Status Date / Time NSAIDS (Non-Steroidal AdvReac Severe CHF Verified 01/23/25 17:21 Anti-Inflamma Current Medications Home Medications Acetaminophen (Acetaminophen 325 Mg Tablet) 650 mg PO Q4H PRN PRN Reason: Mild Pain Albuterol Sulfate (Albuterol Sulfate 8 Gm Inhaler) 2 puff IH Q4HR PRN PRN Reason: Wheezing Carvedilol (Carvedilol 3.125 Mg Tablet) 3.125 mg PO BID [facility] Last Admin: 01/24/25 08:47 Dose: 3.125 mg Empagliflozin (Empagliflozin 10 Mg Tablet) 10 mg PO DAILY [facility] Last Admin: 01/24/25 08:46 Dose: 10 mg Furosemide (Furosemide Inj 40 Mg/4 Ml Vial) 40 mg IVP Q8H [facility] Last Admin: 01/24/25 12:07 Dose: 40 mg Isosorbide Dinitrate (Isosorbide Dinitrate 20 Mg Tablet) 5 mg PO 3XD [facility] Last Admin: 01/24/25 08:51 Dose: 5 mg Potassium Chloride (Potassium Chloride 10 Meq Capsule.Er) 10 meq PO QAM [facility] Last Admin: 01/24/25 08:45 Dose: 10 meq Pravastatin Sodium (Pravastatin Sodium 40 Mg Tablet) 40 mg PO BEDTIME [facility] Last Admin: 01/23/25 21:23 Dose: 40 mg Sacubitril/Valsartan (Sacubitril/Valsartan 1 Each Tablet) 4 each PO BID [facility] Last Admin: 01/24/25 08:46 Dose: 4 each Sodium Chloride (0.9% Sodium Chloride 10 Ml Disp.Syrin) 1 syr IVF PRN PRN PRN Reason: IV patentcy Last Admin: 01/24/25 03:35 Dose: 1 syr empagliflozin 10 mg tablet (Jardiance) 10 mg PO DAILY #30 tabs 02/04/23 [Rx Confirmed 01/23/25] potassium chloride 10 mEq tablet,extended release 10 meq PO QAM 05/09/24 [History Confirmed 01/23/25] pravastatin 40 mg tablet 40 mg PO BEDTIME 05/09/24 [History Confirmed 01/23/25] isosorbide dinitrate 5 mg tablet 5 mg PO 3XD 06/28/24 [History Confirmed 01/23/25] sacubitril 97 mg-valsartan 103 mg tablet (Entresto) 1 tab PO 2XD 08/16/24 [History Confirmed 01/23/25] spironolactone 25 mg tablet 25 mg PO DAILY 08/16/24 [History Confirmed 01/23/25] carvedilol 3.125 mg tablet 3.125 mg PO BID 09/14/24 [History Confirmed 01/23/25] gabapentin 100 mg capsule See Rx Instructions .Route .COMPLEX #69 caps 10/12/24 [Rx Confirmed 01/23/25] albuterol sulfate 90 mcg/actuation aerosol inhaler 2 puff inhalation Q4HR PRN SOB #6.7 grams 12/20/24 [Rx Confirmed 01/23/25] bumetanide 1 mg tablet 1 mg PO 2XD 01/23/25 [History Confirmed 01/23/25] furosemide 40 mg tablet (Lasix) 40 mg PO BID 01/23/25 [History Confirmed 01/23/25] Opioid Naive vs. Tolerant Does Patient Take Opioids?: No Is Patient Opioid Naive?: Yes What is Opioid Naive?: *Opioid Naive implies the patient is not already taking opioids or not chronically receiving opioids on a daily basis. *PRN dosing is not "usually" associated with tolerance. *Patients are at higher risk of over-sedation and aspiration. Is Patient Opioid Tolerant?: No What is Opioid Tolerant?: *Opioid Tolerance implies less than the expected response to an opioid. *Acquired tolerance is defined by the patient taking 60mg of oral morphine daily (or equianalgesic dose of another opioid) for 1 week or more. *Often associated with chronic pain. *May take more than usual dose to achieve desired pain control. Review of Systems Constitutional: Reports No symptoms Head: Reports Normocephalic Eyes: Reports No symptoms Ears: Reports No symptoms Nose: Reports No symptoms Mouth: Reports No symptoms Throat: Reports No symptoms Cardiovascular: Reports Edema Respiratory: Reports Shortness of air Gastrointestinal: Reports Diarrhea Genitourinary: Reports No Symptoms Musculoskeletal: Reports No symptoms Endocrine: Reports No symptoms Hematology: Reports No symptoms Immunology: Reports No symptoms Neurological: Reports No symptoms Psychiatric: Reports No symptoms Physical examination Most Recent Vital Signs: Most Recent Vital Signs Temperature 97.4 F L 01/24/25 10:00 Temperature Source Temporal Artery Scan 01/24/25 10:00 Temperature Source Temporal Artery Scan 01/23/25 17:11 Pulse Rate 91 01/24/25 10:00 Respiratory Rate 18 01/24/25 10:00 Blood Pressure 106/84 01/24/25 10:00 Blood Pressure Mean 91 01/24/25 10:00 Blood Pressure Left Arm 88/67 01/23/25 20:18 Blood Pressure Location Left Arm 01/24/25 10:00 Blood Pressure Position Sitting 01/24/25 10:00 O2 Sat by Pulse Oximetry 95 01/24/25 10:00 Oxygen Delivery Method Room Air 01/24/25 12:00 Height 6 ft 5 in 01/23/25 20:18 Weight 114.1 kg 01/24/25 05:50 Telemetry Type Remote Telemetry 01/24/25 07:00 Telemetry Monitoring Continues 01/24/25 07:00 Telemetry Heart Rate 85 01/24/25 07:00 Telemetry SPO2 98 12/20/24 07:00 EKG [place] Interval 0.25 H 01/24/25 07:00 EKG QRS Interval 0.13 H 01/24/25 07:00 Telemetry Strip Reading SINUS RHYTHM W/ BBB AND 1ST AVB 01/24/25 07:00 Appearance: Positive No Apparent Distress and Alert and Oriented x3 Skin: Positive Warm and Good Color HEENT: Positive Normocephalic and PERRLA Neck: Positive Supple and Midline Trachea Chest/Lungs: Positive Symmetrical With Equal Breath Sounds and Other (crackles to bilateral lung bases) Heart: Positive Pulses Normal and Murmur GI/: Positive Soft, Nontender, Bowel Sounds Normal and No Distention Musculoskeletal: Positive Not Examined Extremities: Positive Edema (chronic +2 pitting), Intact Peripheral Pulses, Stable Joints Without Laxity, Good ROM in All Joints and Other (dry scaling skin to BLE, no open areas, scattered healing abrasions) Neurological: Positive Sensation Intact, Motor intact, Reflexes Intact, Alert, Oriented and Muscle Strength 5/5 in Upper and Lower Extremities Bilaterally Labs This Visit Labs This Visit: Labs This Visit 01/23/25 01/24/25 17:46 05:35 WBC 4.33 5.10 RBC 4.04 L 4.20 L Hgb 11.8 L 12.4 L Hct 38.1 L 40.6 L MCV 94.3 H 96.7 H MCH 29.2 29.5 MCHC 31.0 L 30.5 L RDW Coeff of Dimple 15.3 H 15.3 H Plt Count 187 181 Immature Gran % (Auto) 0.2 0.0 Neut % (Auto) 60.5 64.1 Lymph % (Auto) 23.3 20.8 [place] % (Auto) 9.5 9.4 Eos % (Auto) 5.1 4.3 Baso % (Auto) 1.4 1.4 Neut # (Auto) 2.6 3.3 Lymph # (Auto) 1.0 1.1 [place] # (Auto) 0.4 0.5 Eos # (Auto) 0.2 0.2 Baso # (Auto) 0.1 0.1 Immature Gran # (Auto) 0.0 0.0 Sodium 137.4 140.2 Potassium 4.06 4.05 Chloride 107.5 H 105.0 Carbon Dioxide 22.4 29.0 Anion Gap 11.56 10.25 BUN 17.1 16.4 Creatinine 1.35 H 1.45 H Estimated GFR (MDRD) 64.00 58.00 BUN/Creatinine Ratio 12.66 11.31 Glucose 120.7 H 121.2 H Calcium 8.43 8.69 Magnesium 1.50 L Total Bilirubin 2.39 H 2.45 H AST 21.2 21.7 ALT 13.6 13.8 Alkaline Phosphatase 67.7 75.1 Troponin I 0.014 NT-Pro-B Natriuret Pep 82016 H Total Protein 6.58 6.54 Albumin 3.55 3.62 Globulin 3.03 2.92 Albumin/Globulin Ratio 1.17 1.23 Imaging Imaging: EXAM: CHEST ONE-VIEW HISTORY: Shortness of breath COMPARISON: Chest radiograph series from 11/09/2024 FINDINGS: The heart is moderately enlarged. The pulmonary vasculature is normal. No consolidating infiltrates are detected. No pneumothoraces or pleural effusions. IMPRESSION: 1. Moderate cardiomegaly. 2. No acute cardiopulmonary disease. Review Statement Review Statement: I have independently reviewed and interpreted the labs/EKGs/imaging that were ordered by the ER provider. I have reviewed all outside records that are available currently in our EMR including imaging/notes/labs from previous visits. Plan Plan: 1. Acute on Chronic Combined CHF Exacerbation - EF 10-15% as of 11/10/24, tachypnea present; lasix 40 mg Q8H, I&O, daily weight, 1500mL fluid restriction, educated on importance of lifevest use 2. HTN - chronic, continue home medications 3. COPD - inhaler prn 4. HLD - chronic, continue home medications DVT Prophylaxis: Ambulatory Time Spent: Greater than 80 minutes spent with patient, 50% of the time spent with this patient was devoted to counseling and coordination of care. Advanced Care Plannin minutes spent discussing advance care planning. Disposition: Admit to: Med/Surg Observation Full Code Discussed Plan of Care with Dr. Juan A Allison. Medications Medication Orders: Medications Ordered Category Date Time Status 0.9 % Sodium Chloride [Saline Flush] Meds 01/23/25 22:11 Active 1 syr IVF PRN PRN Acetaminophen [Tylenol] Meds 01/23/25 19:44 Active 650 mg PO Q4H PRN Albuterol Sulfate [Ventolin Hfa] Meds 01/23/25 21:04 Active 2 puff IH Q4HR PRN WHEEZING Wheezing Carvedilol [Coreg] Meds 01/23/25 21:05 Active 3.125 mg PO BID Empaglifozin [Jardiance] Meds 01/24/25 09:00 Active 10 mg PO DAILY Furosemide [Lasix] Meds 01/24/25 03:00 Active 40 mg IVP Q8H Isosorbide Dinitrate [Sorbitrate] Meds 01/23/25 21:05 Active 5 mg PO 3XD Potassium Chloride [Micro-K Cap] Meds 01/24/25 09:00 Active 10 meq PO QAM Pravastatin Sodium [Pravachol] Meds 01/23/25 21:05 Active 40 mg PO BEDTIME Sacubitril/Valsartan [Entresto 24 mg-26 mg Tablet] Meds 01/23/25 21:30 Active 4 each PO BID
[2025-01-25 05:35] LABS: IMMATURE GRANULOCYTE # (AUTO) 0.0 (0.0-1.0); IMMATURE GRANULOCYTE % (AUTO) 0.2 % (0.0-5.0); RDW COEFFICIENT OF VARIATION 15.1 % (11.6-14.8)
[2025-01-25 05:50] LABS: CREATININE 1.46 mg/dL (0.60-1.10)
[2025-01-25] MEDS: MICRO-K CAP PO SCH (08:49)
[2025-01-25] MEDS: COREG PO SCH (08:49)
--- NOTE | 2025-01-25 09:39 | DCSUM ---
Admission Date Admission Date: 01/23/25 Discharge Date Discharge Date: 01/25/25 Admission Diagnosis Admission Diagnosis: 1. Acute on Chronic Combined CHF Exacerbation 2. HTN 3. COPD 4. HLD Discharge Diagnosis Discharge Diagnosis: 1. Acute on Chronic Combined CHF Exacerbation - Improved 2. HTN - chronic, stable 3. COPD - chronic, stable 4. HLD - chronic, stable Hospital Provider Hospital Provider: ADOLPH YADAV, [facility] – [place], [place] Primary Care Physician Primary Care Physician: JESUS KEITH Summary of History and Physical Summary of History and Physical: 69 yo male with pmh of cocaine use, medical noncompliance, combined HF, HTN presented to the ER with complaints of diarrhea and shortness of breath. States that he had a class reunion over the weekend and ate and drank too much. He did not take his medications Thursday or Thursday due to not feeling well. States he is short of breath all the time and just doesn't understand why. Patient EF was 10-15% on last echo over the summer and was given a life vest and defibrillator. Has not been wearing life vest as instructed. BNP found to be 12,000. Chest x-ray clear. Labs otherwise at baseline. Received 60 mg of lasix in ER. Admitted to med/surg observation. Hospital Course Subjective: Patient was diuresed with lasix 40 mg Q8H IVP. Strict I&O with 1500 mL fluid restriction. Diuresed a total of approximately 10L during stay. Crackles no longer present on auscultation. Did not require oxygen. No changes to home medications. Discussed importance of wearing lifevest as instructed by Cardiology. Follow-up as scheduled. Appearance: Pleasant, No Apparent Distress and Alert HEENT: MMM, Supple and No JVD CVS: No Murmur Abdomen: Soft, Non-Tender and No Distention Respiratory: No Dyspnea Extremities: Other (chronic lymphedema to BLE, patchy abraded areas, cdi, no drainage ) Vital Signs: Most Recent Vital Signs Temperature 97.5 F L 01/25/25 06:00 Temperature Source Temporal Artery Scan 01/25/25 06:00 Temperature Source Temporal Artery Scan 01/23/25 17:11 Pulse Rate 76 01/25/25 06:00 Respiratory Rate 16 01/25/25 06:00 Blood Pressure 113/80 01/25/25 06:00 Blood Pressure Mean 91 01/25/25 06:00 Blood Pressure Left Arm 88/67 01/23/25 20:18 Blood Pressure Location Left Arm 01/25/25 06:00 Blood Pressure Position Sitting 01/25/25 06:00 O2 Sat by Pulse Oximetry 96 01/25/25 06:00 Oxygen Delivery Method Room Air 01/25/25 08:21 Height 6 ft 5 in 01/23/25 20:18 Weight 105.8 kg 01/25/25 06:00 Telemetry Type Remote Telemetry 01/25/25 07:00 Telemetry Monitoring Continues 01/25/25 07:00 Telemetry Heart Rate 78 01/25/25 07:00 Telemetry SPO2 98 12/20/24 07:00 EKG CA Interval 0.27 H 01/25/25 07:00 EKG QRS Interval 0.14 H 01/25/25 07:00 Telemetry Strip Reading SR w/ 1st degree AVB and BBB and PVCs and PACs 01/25/25 07:00 Imaging: EXAM: CHEST ONE-VIEW HISTORY: Shortness of breath COMPARISON: Chest radiograph series from 11/09/2024 FINDINGS: The heart is moderately enlarged. The pulmonary vasculature is normal. No consolidating infiltrates are detected. No pneumothoraces or pleural effusions. IMPRESSION: 1. Moderate cardiomegaly. 2. No acute cardiopulmonary disease. Lab Results Last 24 Hours: 01/25/25 05:06 WBC 5.29 RBC 4.44 L Hgb 13.0 L Hct 41.8 L MCV 94.1 H MCH 29.3 MCHC 31.1 L RDW Coeff of Dimple 15.1 H Plt Count 191 Immature Gran % (Auto) 0.2 Neut % (Auto) 69.4 Lymph % (Auto) 16.4 [place] % (Auto) 8.3 Eos % (Auto) 4.9 Baso % (Auto) 0.8 Neut # (Auto) 3.7 Lymph # (Auto) 0.9 [place] # (Auto) 0.4 Eos # (Auto) 0.3 Baso # (Auto) 0.0 Immature Gran # (Auto) 0.0 Sodium 139.7 Potassium 3.63 Chloride 100.5 Carbon Dioxide 34.3 H Anion Gap 8.53 BUN 18.4 Creatinine 1.46 H Estimated GFR (MDRD) 58.00 BUN/Creatinine Ratio 12.60 Glucose 105.8 Calcium 8.84 Total Bilirubin 2.03 H AST 22.7 ALT 12.6 Alkaline Phosphatase 76.0 Total Protein 6.75 Albumin 3.68 Globulin 3.07 Albumin/Globulin Ratio 1.19 Discharge Instructions Discharge Planning: Discharge Planning > 40 minutes If patient is discharged with left ventricular systolic dysfunction: yes, previously diagnosed Discharged with a beta bibiana? yes, already taking Discharged with an sarah/arb? yes, already taking Discharge Medications: Medications at Discharge (Home Meds & RX) empagliflozin 10 mg tablet (Jardiance) 10 mg PO DAILY #30 tabs 02/04/23 potassium chloride 10 mEq tablet,extended release 10 meq PO QAM 05/09/24 pravastatin 40 mg tablet 40 mg PO BEDTIME 05/09/24 isosorbide dinitrate 5 mg tablet 5 mg PO 3XD 06/28/24 sacubitril 97 mg-valsartan 103 mg tablet (Entresto) 1 tab PO 2XD 08/16/24 carvedilol 3.125 mg tablet 3.125 mg PO BID 09/14/24 albuterol sulfate 90 mcg/actuation aerosol inhaler 2 puff inhalation Q4HR PRN SOB #6.7 grams 12/20/24 furosemide 40 mg tablet (Lasix) 40 mg PO BID 01/23/25 Discharge Plan Discharge Discharge Orders: Discharge Patient (ONCE); Ordered 01/25/25 Ordered By: ELIZABETH ZHANG Activity Restrictions/Additional Instructions: Diagnosis: Congestive Heart Failure Exacerbation Diet: Low salt, Limit your fluids to no more than 2L per day. Activity as tolerated. No changes to home medications or new prescriptions. Follow-up with your primary care provider and Compliance Field Technician. Wear your life-vest as instructed by your Compliance Field Technician. Instructions: Heart Failure (GEN), Fluid Restriction (GEN) Patient Disposition: HOME SELF-CARE Prescriptions: Continued potassium chloride 10 mEq tablet extended release 10 meq PO QAM pravastatin 40 mg tablet 40 mg PO BEDTIME isosorbide dinitrate 5 mg tablet 5 mg PO 3XD sacubitril-valsartan [Entresto] 97-103 mg tablet 1 tab PO 2XD carvedilol 3.125 mg tablet 3.125 mg PO BID Jardiance 10 mg tablet 10 mg PO DAILY Qty: 30 0RF albuterol sulfate 90 mcg/actuation HFA aerosol inhaler 2 puff INHALATION Q4HR PRN (Reason: SOB) Qty: 6.7 0RF furosemide [Lasix] 40 mg tablet 40 mg PO BID Discontinued spironolactone 25 mg tablet 25 mg PO DAILY Patient Comments: I haven't actually filled it yet. gabapentin 100 mg capsule See Rx Instructions .ROUTE .COMPLEX Qty: 69 0RF Rx Instructions: Start with using 100 mg at night only for 1 week. You may then increase to 100 mg in the morning and in the evening for 1 week. If pain is still uncontrolled may increase to 100 mg 3 times a day. If medication makes you too sleepy please decrease frequency. 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
[2025-01-25 10:30] VITALS: BP 102/61; PULSE 84; RESP 18; TEMP 97.8
== END 2025-01-25 15:08 | disposition home or self-care (01) ==
LOC: ED 16:57 → MEDSURG B 16:57
PROVIDERS: ADMIT Hospitalist; ATTEND Nurse Practitioner Family
DX: Z79.899 Other long term (current) drug therapy; I50.43 Acute on chronic combined systolic (congestive) and diastolic (congestive) heart failure; J44.9 Chronic obstructive pulmonary disease, unspecified; Z51.81 Encounter for therapeutic drug level monitoring; Z91.199 Patient's noncompliance with other medical treatment and regimen due to unspecified reason; I10 Essential (primary) hypertension; E78.5 Hyperlipidemia, unspecified

== ENCOUNTER 2025-02-01 17:00 | Inpatient (IN) ==
[2025-02-01 17:54] LABS: IMMATURE GRANULOCYTE # (AUTO) 0.0 (0.0-1.0); IMMATURE GRANULOCYTE % (AUTO) 0.4 % (0.0-5.0); RDW COEFFICIENT OF VARIATION 15.6 % (11.6-14.8)
[2025-02-01 18:06] LABS: CREATININE 1.72 mg/dL (0.60-1.10)
--- NOTE | 2025-02-01 18:49 | DI ---
EXAM: CHEST ONE-VIEW HISTORY: Shortness of breath COMPARISON: AP chest from 01/23/2025 FINDINGS: The heart is moderately enlarged. The pulmonary vasculature is normal. No consolidating infiltrates are detected. No pneumothoraces or pleural effusions. IMPRESSION: 1. No acute cardiopulmonary disease. 2. Moderate cardiomegaly. .
[2025-02-01] MEDS ORDERED: TYLENOL PO PRN (19:33)
--- NOTE | 2025-02-01 19:34 | ED.PDOC ---
General HPI ED Provider: Dr. MARTHA HERRING MD Chief Complaint: Respiratory Complaint Stated Complaint: Patient is a 69-year-old male is presenting to the emergency department for evaluation of acute dyspnea. Patient states that for the last 2 days he has been having worsening shortness of breath that feels like his heart failure exacerbation as he has been eating more salt and drinking alcohol. He states he has been compliant with his Lasix though. He is also noticing more lower extremity edema. He denies any chest pain or lightheadedness associated with this. Denies any recent fevers or illnesses. Denies any productive cough. Time Seen by Provider: 02/01/25 17:42 Mode of Arrival: Walk-In Information Source: Patient Exam Limitations: No limitations Primary Care Provider: JESUS KEITH Nursing and Triage Documentation Reviewed and Agree: Yes Opioid Naive vs. Tolerant What is Opioid Naive?: *Opioid Naive implies the patient is not already taking opioids or not chronically receiving opioids on a daily basis. *PRN dosing is not "usually" associated with tolerance. *Patients are at higher risk of over-sedation and aspiration. What is Opioid Tolerant?: *Opioid Tolerance implies less than the expected response to an opioid. *Acquired tolerance is defined by the patient taking 60mg of oral morphine daily (or equianalgesic dose of another opioid) for 1 week or more. *Often associated with chronic pain. *May take more than usual dose to achieve desired pain control. Review of Systems Review Of Systems Constitutional: Reports No symptoms Respiratory: Reports Orthopnea and Shortness of Breath Cardiac: Reports No symptoms GI: Reports No symptoms PFSH PFS Medical History Bilateral thigh pain (08/03/18) M79.651 - Pain in right thigh (ICD-10) M79.652 - Pain in left thigh (ICD-10) Vitamin D deficiency (08/03/18) E55.9 - Vitamin D deficiency, unspecified (ICD-10) Abnormal echocardiogram (09/11/20) R93.1 - Abnormal findings on diagnostic imaging of heart and coronary circulation (ICD-10) Cardiomyopathy (09/11/20) I42.9 - Cardiomyopathy, unspecified (ICD-10) Acute on chronic combined systolic and diastolic CHF, NYHA class 1 (04/22/21) I50.43 - Acute on chronic combined systolic (congestive) and diastolic (congestive) heart failure (ICD-10) Coronary artery disease involving [place] coronary artery of [place] heart without angina pectoris (05/22/21) I25.10 - Atherosclerotic heart disease of [place] coronary artery without angina pectoris (ICD-10) Hypomagnesemia (09/25/21) E83.42 - Hypomagnesemia (ICD-10) Nonischemic cardiomyopathy (09/25/21) I42.8 - Other cardiomyopathies (ICD-10) Hypertension (08/03/18) I10 - Essential (primary) hypertension (ICD-10) Unilateral inguinal hernia without obstruction (09/04/20) K40.90 - Unilateral inguinal hernia, without obstruction or gangrene, not specified as recurrent (ICD-10) HTN (hypertension) (05/22/21) I10 - Essential (primary) hypertension (ICD-10) Lung nodule [id number] right apex nodule increased metabolic activity. Maximum SUV 1.9. Suggest benign. Repeat imaging in 6 months. No other concerning areas. REviewed PET w/ patient 05/17/21. 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 Not sure if I will have it removed" will sign records release for Dr. Donnelly C61 - Malignant neoplasm of prostate (ICD-10) Tobacco use Z72.0 - Tobacco use (ICD-10) Hypertension I10 - Essential (primary) hypertension (ICD-10) Arthritis M19.90 - Unspecified osteoarthritis, unspecified site (ICD-10) Family History Mother Hypertension FATHER Alcoholism and drug addiction in family Hypertension Social History Smoking and tobacco status: Former smoker Tobacco: How many years used: 7 How long ago did patient quit smoking: Stopped smoking about 2 years ago Alcohol intake: never Substance use type: crack/cocaine Special rachid needs: No Physical Exam Physical Exam Appearance: Reports Well-appearing Ill-appearing: None Pain Distress: None Neck: Supple Respiratory: Reports Airway patent, Breath sounds equal and Crackles (Bilateral lung bases.) Cardiovascular: Reports RRR, Pulses normal and Other (Significant pitting edema of the bilateral lower extremities that appears chronic in nature.) GI/: Reports Soft and Nontender Musculoskeletal: Reports Normal strength Skin: Reports Warm and Dry Interpretation EKG Interpretation EKG Interpretation By: ED Physician Time of EKG #1: 18:07 Rate: Normal Rhythm: Sinus Ectopy: None [place]: NL ST Segment: Other (ST segment elevations are present in leads V3 through V6 but this is present on prior ECGs) Interpretation: Sinus rhythm with a first-degree AV block no findings concerning for ACS. EKG Comparison: No significant changes Radiology Interpretation Radiology Interpretation By: ED Physician Radiology Results: No acute changes Exam Interpreted: CXR Xray Comments: Minimal pulmonary vascular congestion Physician Progress Note Physician Progress Note: Patient is a 69-year-old male with a history of heart failure presenting for evaluation of acute dyspnea. Patient has a well-established history of heart failure and has recurring hospitalizations for exacerbations of it due to medication noncompliance as well as dietary noncompliance. The clinical picture today certainly is most consistent with this with his crackles on examination as well as orthopnea we will evaluate for ACS although he is denying any chest pain associate with this. Pneumonia would also be on differential although much lower clinical likelihood as he does not have any infectious symptoms. Just plain film imaging did not have any findings of be suggestive of pneumonia per my interpretation. There was some mild pulmonary vascular congestion which could be loan servicing representative of heart failure exacerbation. CBC showed no leukocytosis suggest infection and his baseline anemia of 12.5 is unchanged from prior visits. No significant electrolyte abnormalities. Creatinine is elevated at 1.72 with this is also near his baseline level when comparing to prior hospitalizations. BNP was elevated at 14,000 and this is certainly indicative of acute heart failure exacerbation Patient was also having issues with decreased oxygen saturations and did require 2 L nasal cannula. There therefore is also a component of acute hypoxic respiratory failure involved with this. Due to this we will have the patient admitted to the hospital for diuresis. It would be a medical surge bed with telemetry. Course Course 02/01/25 17:47 02/01/25 17:47 Orders, Labs, Meds: Lab Review 02/01/25 17:47 WBC 5.15 RBC 4.24 L Hgb 12.5 L Hct 41.0 L MCV 96.7 H MCH 29.5 MCHC 30.5 L RDW Coeff of [place] 15.6 H Plt Count 143 Immature Gran % (Auto) 0.4 Neut % (Auto) 71.2 Lymph % (Auto) 16.5 Esmeralda % (Auto) 7.0 Eos % (Auto) 4.1 Baso % (Auto) 0.8 Neut # (Auto) 3.7 Lymph # (Auto) 0.9 Esmeralda # (Auto) 0.4 Eos # (Auto) 0.2 Baso # (Auto) 0.0 Immature Gran # (Auto) 0.0 Sodium 140.4 Potassium 3.81 Chloride 103.2 Carbon Dioxide 31.9 H Anion Gap 9.11 BUN 19.2 Creatinine 1.72 H Estimated GFR (MDRD) 48.00 BUN/Creatinine Ratio 11.16 Glucose 106.0 Calcium 8.95 Magnesium 1.69 Total Bilirubin 3.23 H AST 25.1 ALT 15.0 Alkaline Phosphatase 74.1 Troponin I 0.015 NT-Pro-B Natriuret Pep 74205 H Total Protein 7.48 Albumin 4.15 Globulin 3.33 Albumin/Globulin Ratio 1.24 Orders Category Date Time Status ADMIT PAT[facility] ADMISSION 02/01/25 18:47 Active EKG-(ED & IP/OBS ONLY) Stat CARDIO 02/01/25 17:42 Completed IP: INSERT SALINE LOCK ONCE CARE 02/01/25 18:49 Active TELEMETRY MONITORING TELE CARE 02/01/25 18:49 Active CBC W/ AUTO DIFF Stat LAB 02/01/25 17:47 Completed CMP [COMPREHENSIVE METABOLIC PANEL] Stat LAB 02/01/25 17:47 Completed MAGNESIUM Stat LAB 02/01/25 17:47 Completed NT-PROBNP Stat LAB 02/01/25 17:47 Completed TROPONIN I Stat LAB 02/01/25 17:47 Completed RESUSCITATION STATUS Routine OTHERS 02/01/25 18:47 Ordered CHEST, 1V AP ONLY Stat RADS 02/01/25 17:42 Completed Medications Generic Name Dose Route Start Last Admin Trade Name Freq PRN Reason Stop Dose Admin Acetaminophen 650 mg 02/01/25 19:33 Acetaminophen 325 Mg Tablet PO Q4H PRN Mild Pain Albuterol Sulfate 2 puff 02/01/25 20:14 Albuterol Sulfate 8 Gm Inhaler IH Q4HR PRN sob Carvedilol 3.125 mg 02/01/25 21:00 02/01/25 21:32 Carvedilol 3.125 Mg Tablet PO 3.125 mg BID JOSE RAUL Administration Empagliflozin 10 mg 02/02/25 09:00 Empagliflozin 10 Mg Tablet PO DAILY JOSE RAUL Furosemide 40 mg 02/02/25 03:00 Furosemide Inj 40 Mg/4 Ml Vial IVP Q8HR JOSE RAUL Isosorbide Dinitrate 5 mg 02/01/25 21:00 02/01/25 21:33 Isosorbide Dinitrate 20 Mg Tablet PO 5 mg 3XD JOSE RAUL Administration Pravastatin Sodium 40 mg 02/01/25 21:00 02/01/25 21:32 Pravastatin Sodium 40 Mg Tablet PO 40 mg BEDTIME JOSE RAUL Administration Sacubitril/Valsartan 4 each 02/01/25 21:00 02/01/25 21:30 Sacubitril/Valsartan 1 Each Tablet PO 4 each 2XD JOSE RAUL Administration Spironolactone 25 mg 02/02/25 09:00 Spironolactone 25 Mg Tablet PO DAILY JOSE RAUL Discontinued Medications Generic Name Dose Route Start Last Admin Trade Name Freq PRN Reason Stop Dose Admin Furosemide 60 mg 02/01/25 19:27 02/01/25 19:39 Furosemide Inj 100 Mg/10 Ml Vial IVP 02/01/25 19:28 60 mg ONCE STA Administration Vital Signs: Temp Pulse Resp BP Pulse Ox 02/01/25 17:03 96.9 F L 91 20 112/82 99 Discharge Plan Discharge Patient Disposition: ADMITTED INPATIENT Discharge Problem: Respiratory failure Qualifiers: Chronicity: acute on chronic Respiratory failure complication: hypoxia Q ualified Code(s): J96.21 - Acute and chronic respiratory failure with hypoxia Did you review [place] LABORATORY ASSISTANT for ALL controlled substances?: Not Applicable ED Provider: MARTHA HERRING
[2025-02-01] MEDS: LASIX IVP STA (19:39)
[2025-02-01] MEDS ORDERED: VENTOLIN HFA IH PRN (20:14)
[2025-02-01] MEDS: ENTRESTO 24 MG-26 MG TABLET PO SCH (21:30)
[2025-02-01] MEDS: COREG PO SCH (21:32)
[2025-02-01] MEDS: PRAVACHOL PO SCH (21:32)
[2025-02-01] MEDS: SORBITRATE PO SCH (21:33)
[2025-02-01 22:26] VITALS: BMI 28.4
[2025-02-02] MEDS: LASIX IVP SCH (02:34)
[2025-02-02 05:19] LABS: IMMATURE GRANULOCYTE # (AUTO) 0.0 (0.0-1.0); IMMATURE GRANULOCYTE % (AUTO) 0.2 % (0.0-5.0); RDW COEFFICIENT OF VARIATION 15.3 % (11.6-14.8)
[2025-02-02 05:30] LABS: CREATININE 1.6 mg/dL (0.60-1.10)
[2025-02-02] MEDS: COREG PO SCH (07:49)
[2025-02-02] MEDS: ALDACTONE PO SCH (08:19)
[2025-02-02] MEDS: JARDIANCE PO SCH (08:20)
[2025-02-02] MEDS: MAGNESIUM SULF 2 G/50 ML BAG 2 GM/50 ML PIGGYBACK IV ONE (08:48)
--- NOTE | 2025-02-02 09:00 | PCM ---
Date of Service Date Seen by Provider: 02/02/25 Time Seen by Provider: 08:30 Admit Day/Time Admission Date: 02/01/25 Admission Time: 18:47 Reason for Admission Chief Complaint: ABD. PAIN/SOA Hospital Provider Hospital Provider: CARMENZA KEANE PA-C, [facility] Primary Care Physician Primary Care Physician: JESUS KEITH History of Present Illness History of Present Illness: Patient is a 69 year old male well known to us who presents for worsening SOB. Patient was just admitted last week for diuresis. He states yesterday he was doing his laundry and felt very sob and lightheaded, someone had to help him get his laundry home. He denies any chest pain. Just felt very sob and lightheaded, couldn't catch his breath. He presented to the ER and oxygen saturations were initially normal but then he was in upper 80s. Placed on 2L. BNP continues to be elevated, this time 14k. CXR negative. He was given lasix and admitted to med surg. Patient states he's been compliant with his medications. He usually rides his bike around town, states it is getting harder for him. He typically can only ride one block at a time and has to rest. Luckily, [facility] and [facility] are within a couple blocks of where he lives. Case Discussed With Case Discussed With: Patient's case was discussed with the ER Physicians, Dr. Solomon. [facility] Medical History Bilateral thigh pain (08/03/18) M79.651 - Pain in right thigh (ICD-10) M79.652 - Pain in left thigh (ICD-10) Vitamin D deficiency (08/03/18) E55.9 - Vitamin D deficiency, unspecified (ICD-10) Abnormal echocardiogram (09/11/20) R93.1 - Abnormal findings on diagnostic imaging of heart and coronary circulation (ICD-10) Cardiomyopathy (09/11/20) I42.9 - Cardiomyopathy, unspecified (ICD-10) Acute on chronic combined systolic and diastolic CHF, NYHA class 1 (04/22/21) I50.43 - Acute on chronic combined systolic (congestive) and diastolic (congestive) heart failure (ICD-10) Coronary artery disease involving [place] coronary artery of [place] heart without angina pectoris (05/22/21) I25.10 - Atherosclerotic heart disease of [place] coronary artery without angina pectoris (ICD-10) Hypomagnesemia (09/25/21) E83.42 - Hypomagnesemia (ICD-10) Nonischemic cardiomyopathy (09/25/21) I42.8 - Other cardiomyopathies (ICD-10) Hypertension (08/03/18) I10 - Essential (primary) hypertension (ICD-10) Unilateral inguinal hernia without obstruction (09/04/20) K40.90 - Unilateral inguinal hernia, without obstruction or gangrene, not specified as recurrent (ICD-10) HTN (hypertension) (05/22/21) I10 - Essential (primary) hypertension (ICD-10) Lung nodule [id number] right apex nodule increased metabolic activity. Maximum SUV 1.9. Suggest benign. Repeat imaging in 6 months. No other concerning areas. REviewed PET w/ patient 05/17/21. 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 Not sure if I will have it removed" will sign records release for Dr. Donnelly C61 - Malignant neoplasm of prostate (ICD-10) Tobacco use Z72.0 - Tobacco use (ICD-10) Hypertension I10 - Essential (primary) hypertension (ICD-10) Arthritis M19.90 - Unspecified osteoarthritis, unspecified site (ICD-10) Family History Mother Hypertension FATHER Alcoholism and drug addiction in family Hypertension Social History Smoking and tobacco status: Former smoker Tobacco: How many years used: 7 How long ago did patient quit smoking: Stopped smoking about 2 years ago Alcohol intake: never Substance use type: crack/cocaine Special rachid needs: No Allergies Allergies Allergy/AdvReac Type Severity Reaction Status Date / Time NSAIDS (Non-Steroidal AdvReac Severe CHF Verified 02/01/25 17:07 Anti-Inflamma Current Medications Home Medications Acetaminophen (Acetaminophen 325 Mg Tablet) 650 mg PO Q4H PRN PRN Reason: Mild Pain Albuterol Sulfate (Albuterol Sulfate 8 Gm Inhaler) 2 puff IH Q4HR PRN PRN Reason: sob Amiodarone HCl (Amiodarone Hcl 200 Mg Tablet) 200 mg PO DAILY [facility] Last Admin: 02/02/25 13:38 Dose: 200 mg Carvedilol (Carvedilol 3.125 Mg Tablet) 3.125 mg PO BIDWM2 [facility] Last Admin: 02/02/25 07:49 Dose: 3.125 mg Empagliflozin (Empagliflozin 10 Mg Tablet) 10 mg PO DAILY [facility] Last Admin: 02/02/25 08:20 Dose: 10 mg Furosemide (Furosemide Inj 40 Mg/4 Ml Vial) 40 mg IVP Q8HR [facility] Last Admin: 02/02/25 13:39 Dose: 40 mg Isosorbide Dinitrate (Isosorbide Dinitrate 20 Mg Tablet) 5 mg PO 3XD [facility] Last Admin: 02/02/25 08:17 Dose: 5 mg Pravastatin Sodium (Pravastatin Sodium 40 Mg Tablet) 40 mg PO BEDTIME [facility] Last Admin: 02/01/25 21:32 Dose: 40 mg Sacubitril/Valsartan (Sacubitril/Valsartan 1 Each Tablet) 4 each PO 2XD [facility] Last Admin: 02/02/25 08:18 Dose: 4 each Spironolactone (Spironolactone 25 Mg Tablet) 25 mg PO DAILY [facility] Last Admin: 02/02/25 08:19 Dose: 25 mg empagliflozin 10 mg tablet (Jardiance) 10 mg PO DAILY #30 tabs 02/04/23 [Rx Confirmed 02/01/25] potassium chloride 10 mEq tablet,extended release 10 meq PO QAM 05/09/24 [History Confirmed 02/01/25] pravastatin 40 mg tablet 40 mg PO BEDTIME 05/09/24 [History Confirmed 02/01/25] isosorbide dinitrate 5 mg tablet 5 mg PO 3XD 06/28/24 [History Confirmed 02/01/25] sacubitril 97 mg-valsartan 103 mg tablet (Entresto) 1 tab PO 2XD 08/16/24 [History Confirmed 02/01/25] carvedilol 3.125 mg tablet 3.125 mg PO BID 09/14/24 [History Confirmed 02/01/25] albuterol sulfate 90 mcg/actuation aerosol inhaler 2 puff inhalation Q4HR PRN SOB #6.7 grams 12/20/24 [Rx Confirmed 02/01/25] furosemide 40 mg tablet (Lasix) 40 mg PO BID 01/23/25 [History Confirmed 02/01/25] spironolactone 25 mg tablet 25 mg PO DAILY 02/01/25 [History Confirmed 02/01/25] Opioid Naive vs. Tolerant Does Patient Take Opioids?: No Is Patient Opioid Naive?: Yes What is Opioid Naive?: *Opioid Naive implies the patient is not already taking opioids or not chronically receiving opioids on a daily basis. *PRN dosing is not "usually" associated with tolerance. *Patients are at higher risk of over-sedation and aspiration. Is Patient Opioid Tolerant?: No What is Opioid Tolerant?: *Opioid Tolerance implies less than the expected response to an opioid. *Acquired tolerance is defined by the patient taking 60mg of oral morphine daily (or equianalgesic dose of another opioid) for 1 week or more. *Often associated with chronic pain. *May take more than usual dose to achieve desired pain control. Review of Systems Constitutional: Reports Fatigue; Denies Fever Head: Reports Normocephalic and Atraumatic Cardiovascular: Reports Edema; Denies Chest pain Respiratory: Reports Shortness of air; Denies Cough Gastrointestinal: Reports Abdominal pain; Denies Nausea, Vomiting, Diarrhea or Melena Genitourinary: Denies Dysuria or Hematuria Neurological: Reports Dizziness and Weakness; Denies Headache or Syncope Physical examination Most Recent Vital Signs: Most Recent Vital Signs Temperature 97.7 F 02/02/25 05:32 Temperature Source Temporal Artery Scan 02/02/25 05:32 Temperature Source Infrared 02/01/25 17:03 Pulse Rate 77 02/02/25 05:32 Respiratory Rate 20 02/02/25 05:32 Blood Pressure 109/81 02/02/25 07:59 Blood Pressure Mean 90 02/02/25 07:59 Blood Pressure Right Arm 117/90 02/01/25 19:52 Blood Pressure Location Right Arm 02/02/25 07:59 Blood Pressure Position Sitting 02/02/25 07:59 O2 Sat by Pulse Oximetry 96 02/02/25 07:59 Oxygen Delivery Method Nasal Cannula 02/02/25 07:59 Oxygen Flow Rate 2 02/02/25 07:59 Height 6 ft 5 in 02/01/25 19:52 Weight 104 kg 02/02/25 05:45 Telemetry Type Remote Telemetry 02/02/25 07:00 Telemetry Monitoring Continues 02/02/25 01:00 Telemetry Heart Rate 74 02/02/25 07:00 Telemetry SPO2 96 02/02/25 07:00 EKG FL Interval 0.27 H 02/02/25 07:00 EKG QRS Interval 0.12 H 02/02/25 07:00 Telemetry Strip Reading 1st degree AV Block with a BBB 02/02/25 07:00 Appearance: Positive No Apparent Distress and Alert and Oriented x3 Skin: Positive [place], Warm and Good Turgor HEENT: Positive Normocephalic and Atraumatic Neck: Positive Supple and Midline Trachea Chest/Lungs: Positive Clear to Auscultation Bilaterally and Other (+has conversational dyspnea ); Negative Rales, Rhonci or Wheezes Heart: Positive RRR GI/: Positive Soft, Nontender, Bowel Sounds Normal and No Distention Extremities: Positive Edema (improved, not yet at baseline, has chronic skin changes ) Neurological: Positive Cranial Nerves Intact, Alert, Oriented and Muscle Strength 5/5 in Upper and Lower Extremities Bilaterally Psychiatric: Positive Oriented x4, Appropriate Mood and Appropriate Affect Labs This Visit Labs This Visit: Labs This Visit 02/01/25 02/02/25 17:47 05:10 WBC 5.15 5.40 RBC 4.24 L 4.16 L Hgb 12.5 L 12.3 L Hct 41.0 L 40.2 L MCV 96.7 H 96.6 H MCH 29.5 29.6 MCHC 30.5 L 30.6 L RDW Coeff of [place] 15.6 H 15.3 H Plt Count 143 146 Immature Gran % (Auto) 0.4 0.2 Neut % (Auto) 71.2 70.2 Lymph % (Auto) 16.5 16.3 Becker % (Auto) 7.0 7.0 Eos % (Auto) 4.1 5.6 Baso % (Auto) 0.8 0.7 Neut # (Auto) 3.7 3.8 Lymph # (Auto) 0.9 0.9 Becker # (Auto) 0.4 0.4 Eos # (Auto) 0.2 0.3 Baso # (Auto) 0.0 0.0 Immature Gran # (Auto) 0.0 0.0 Sodium 140.4 141.4 Potassium 3.81 4.04 Chloride 103.2 103.7 Carbon Dioxide 31.9 H 33.8 H Anion Gap 9.11 7.94 BUN 19.2 19.9 Creatinine 1.72 H 1.60 H Estimated GFR (MDRD) 48.00 52.00 BUN/Creatinine Ratio 11.16 12.43 Glucose 106.0 99.2 Calcium 8.95 8.85 Magnesium 1.69 Total Bilirubin 3.23 H 2.83 H AST 25.1 23.5 ALT 15.0 13.2 Alkaline Phosphatase 74.1 78.4 Troponin I 0.015 NT-Pro-B Natriuret Pep 32297 H Total Protein 7.48 6.65 Albumin 4.15 3.71 Globulin 3.33 2.94 Albumin/Globulin Ratio 1.24 1.26 Imaging Imaging: EXAM: CHEST ONE-VIEW HISTORY: Shortness of breath COMPARISON: AP chest from 01/23/2025 FINDINGS: The heart is moderately enlarged. The pulmonary vasculature is normal. No consolidating infiltrates are detected. No pneumothoraces or pleural effusions. IMPRESSION: 1. No acute cardiopulmonary disease. 2. Moderate cardiomegaly. Review Statement Review Statement: I have independently reviewed and interpreted the labs/EKGs/imaging that were ordered by the ER provider. I have reviewed all outside records that are available currently in our EMR including imaging/notes/labs from previous visits. Plan Plan: 1. Acute on Chronic Combined CHF Exacerbation - EF 10-15% as of 11/10/24, tachypnea present; lasix 40 mg Q8H, I&O, daily weight, 1800mL fluid restriction, educated on importance of lifevest use, cont GDMT 2. Acute hypoxic respiratory failure in setting of CHF exacerbation - Wean O2 when able 3. HTN - chronic, continue home medications 4. COPD - inhaler prn 5. HLD - chronic, continue home medications 6. Hx of illicit drug use - pt counseled on need to stop cocaine use so he can get an ICD placed by EP. Reviewed note from [facility]. Patient saw Dr. Garcia on 12/26. He was changed from lasix to bumex 1 mg bid. Uri is not aware of bumex and has not made this change, we will attempt again upon discharge. The note also mentions having a life vest rep meet with Uri at his home to help, as Uri states the lifevest is in a box but he doesn't know what to do with it. Uri states no one has reached out to him. Will reach out to [facility] to see if this has been initiated. Also they are still considering an ICD if he can have better social behavior in regards to his drug use. Of note, amiodarone is on his med list on the cardiology note. He has not been on this any time he's been at this facility and he is not familiar with amiodarone. Will reach out to [facility] regarding this as well. DVT Prophylaxis: Ambulatory Time Spent: Greater than 80 minutes spent with patient, 50% of the time spent with this patient was devoted to counseling and coordination of care. [facility] minutes spent discussing advance care planning. Admit to: Inpatient Discussed Plan of Care with Dr. Donna Allison. Medications Medication Orders: Medications Ordered Category Date Time Status Acetaminophen [Tylenol] Meds 02/01/25 19:33 Active 650 mg PO Q4H PRN Albuterol Sulfate [Ventolin Hfa] Meds 02/01/25 20:14 Active 2 puff IH Q4HR PRN sob sob Carvedilol [Coreg] Meds 02/02/25 07:30 Active 3.125 mg PO [id number] Empaglifozin [Jardiance] Meds 02/02/25 09:00 Active 10 mg PO DAILY Furosemide [Lasix] Meds 02/02/25 03:00 Active 40 mg IVP Q8HR Isosorbide Dinitrate [Sorbitrate] Meds 02/01/25 21:00 Active 5 mg PO 3XD Magnesium Sulfate in Water [Magnesium Sulf 2 G/50 ml Meds 02/02/25 08:20 Active Bag] 2 gm in 50 ml IV ONCE Pravastatin Sodium [Pravachol] Meds 02/01/25 21:00 Active 40 mg PO BEDTIME Sacubitril/Valsartan [Entresto 24 mg-26 mg Tablet] Meds 02/01/25 21:00 Active 4 each PO 2XD Spironolactone [Aldactone] Meds 02/02/25 09:00 Active 25 mg PO DAILY
[2025-02-02] MEDS: CORDARONE PO SCH (13:38)
[2025-02-03 05:35] LABS: IMMATURE GRANULOCYTE # (AUTO) 0.0 (0.0-1.0); IMMATURE GRANULOCYTE % (AUTO) 0.2 % (0.0-5.0); RDW COEFFICIENT OF VARIATION 15.2 % (11.6-14.8)
[2025-02-03 05:49] LABS: CREATININE 1.47 mg/dL (0.60-1.10)
[2025-02-03] MEDS: MAGNESIUM SULF 2 G/50 ML BAG 2 GM/50 ML PIGGYBACK IV ONE (09:11)
[2025-02-03] MEDS: BUMEX PO SCH (09:11)
--- NOTE | 2025-02-03 11:02 | PCM.PROG ---
Date/Time Seen Date Seen by Provider: 02/03/25 Time Seen by Provider: 08:50 Provider Provider: CARMENZA KEANE PA-C, [facility] Chief Complaint Chief Complaint: ABD. PAIN/SOA Subjective Subjective: Patient states he's feeling better overall. Swelling much improved. Still on O2. Objective Appearance: Positive No Apparent Distress and Alert and Oriented x3 Chest/Lungs: Positive Symmetrical With Equal Breath Sounds and Clear to Auscultation Bilaterally (diminished); Negative Rales, Rhonci or Wheezes Heart: Positive RRR, Pulses Normal and Murmur GI/: Positive Soft, Nontender, Bowel Sounds Normal and No Distention Neurological: Positive Motor intact, Alert and Oriented Additional Findings: Trace+ pitting edema Vital Signs Vital Signs: Vital Signs: Last 24 Hours 02/02/25 13:00 02/02/25 13:44 02/02/25 14:30 Temperature 96.9 F L Temperature Source Temporal Artery Scan Pulse Rate 69 Respiratory Rate 18 Blood Pressure 91/49 L Blood Pressure Mean 63 Blood Pressure Location Left Arm Blood Pressure Position Supine O2 Sat by Pulse Oximetry 96 92 L Oxygen Delivery Method Nasal Cannula Nasal Cannula Oxygen Flow Rate 1 1 Weight Telemetry Type Remote Telemetry Telemetry Monitoring Started Telemetry Heart Rate 68 Telemetry SPO2 91 L EKG ID Interval 0.24 H EKG QRS Interval 0.12 H Telemetry Strip Reading 1st degree AV block and BBB 02/02/25 16:47 02/02/25 19:00 02/02/25 19:20 Temperature 97.5 F L Temperature Source Temporal Artery Scan Pulse Rate 72 Respiratory Rate 20 Blood Pressure 114/69 Blood Pressure Mean 84 Blood Pressure Location Right Arm Blood Pressure Position Supine O2 Sat by Pulse Oximetry 90 L Oxygen Delivery Method Nasal Cannula Nasal Cannula Oxygen Flow Rate 1 0.5 Weight Telemetry Type Remote Telemetry Telemetry Monitoring Continues Telemetry Heart Rate 65 Telemetry SPO2 94 EKG ID Interval 0.27 H EKG QRS Interval 0.09 Telemetry Strip Reading SR WITH 1ST DEGREE AVB 02/02/25 20:00 02/02/25 21:24 02/03/25 01:00 Temperature 98.2 F Temperature Source Temporal Artery Scan Pulse Rate 63 Respiratory Rate 18 Blood Pressure 103/70 Blood Pressure Mean 81 Blood Pressure Location Right Arm Blood Pressure Position Supine O2 Sat by Pulse Oximetry 95 90 L Oxygen Delivery Method Nasal Cannula Nasal Cannula Oxygen Flow Rate 0.5 0.5 Weight Telemetry Type Remote Telemetry Telemetry Monitoring Continues Telemetry Heart Rate 72 Telemetry SPO2 96 EKG ID Interval 0.28 H EKG QRS Interval 0.09 Telemetry Strip Reading SR WITH 1ST DEGREE AVB 02/03/25 02:00 02/03/25 05:07 02/03/25 05:17 Temperature 98 F 97.6 F Temperature Source Temporal Artery Scan Temporal Artery Scan Pulse Rate 54 L 74 Respiratory Rate 18 20 Blood Pressure 110/64 77/45 L Blood Pressure Mean 79 55 Blood Pressure Location Right Arm Left Arm Blood Pressure Position Supine Supine O2 Sat by Pulse Oximetry 90 L 94 L 93 L Oxygen Delivery Method Nasal Cannula Nasal Cannula Nasal Cannula Oxygen Flow Rate 0.5 0.5 0.5 Weight Telemetry Type Telemetry Monitoring Telemetry Heart Rate Telemetry SPO2 EKG ID Interval EKG QRS Interval Telemetry Strip Reading 02/03/25 05:21 02/03/25 05:26 02/03/25 07:00 Temperature Temperature Source Pulse Rate Respiratory Rate Blood Pressure 101/74 Blood Pressure Mean 83 Blood Pressure Location Right Arm Blood Pressure Position Supine O2 Sat by Pulse Oximetry Oxygen Delivery Method Nasal Cannula Oxygen Flow Rate 0.5 Weight 102.1 kg Telemetry Type Remote Telemetry Telemetry Monitoring Continues Telemetry Heart Rate 76 Telemetry SPO2 95 EKG ID Interval 0.24 H EKG QRS Interval 0.12 H Telemetry Strip Reading SR w/ 1st degree AVB and BBB 02/03/25 08:00 02/03/25 10:00 02/03/25 10:00 Temperature 97.8 F Temperature Source Temporal Artery Scan Pulse Rate 60 Respiratory Rate 24 H Blood Pressure 97/71 Blood Pressure Mean 79 Blood Pressure Location Right Arm Blood Pressure Position O2 Sat by Pulse Oximetry 93 L 93 L Oxygen Delivery Method Nasal Cannula Nasal Cannula Nasal Cannula Oxygen Flow Rate 0.5 0.5 0.5 Weight Telemetry Type Telemetry Monitoring Telemetry Heart Rate Telemetry SPO2 EKG ID Interval EKG QRS Interval Telemetry Strip Reading Lab Results Lab Results: Lab Results: Last 24 Hours 02/03/25 05:02 WBC 6.11 RBC 4.19 L Hgb 12.4 L Hct 40.3 L MCV 96.2 H MCH 29.6 MCHC 30.8 L RDW Coeff of Dimple 15.2 H Plt Count 166 Immature Gran % (Auto) 0.2 Neut % (Auto) 72.8 Lymph % (Auto) 12.4 [place] % (Auto) 7.4 Eos % (Auto) 6.5 Baso % (Auto) 0.7 Neut # (Auto) 4.5 Lymph # (Auto) 0.8 [place] # (Auto) 0.5 Eos # (Auto) 0.4 Baso # (Auto) 0.0 Immature Gran # (Auto) 0.0 Sodium 137.7 Potassium 3.68 Chloride 101.8 Carbon Dioxide 30.2 H Anion Gap 9.38 BUN 24.1 H Creatinine 1.47 H Estimated GFR (MDRD) 58.00 BUN/Creatinine Ratio 16.39 Glucose 95.3 Calcium 8.35 L Magnesium 1.65 Total Bilirubin 2.09 H AST 19.3 ALT 12.8 Alkaline Phosphatase 86.1 Total Protein 6.09 L Albumin 3.28 L Globulin 2.81 Albumin/Globulin Ratio 1.16 Additional Comments Additional Comments: I have independently reviewed and interpreted the labs/EKGs/imaging ordered during this hospital stay. I have reviewed outside records that are available in our EMR that pertain to medical stay including imaging/notes/labs from previous visits. Active Medications Active Medications: Medications Generic Name Dose Route Start Last Admin Trade Name Freq PRN Reason Stop Dose Admin Acetaminophen 650 mg 02/01/25 19:33 Acetaminophen 325 Mg Tablet PO Q4H PRN Mild Pain Albuterol Sulfate 2 puff 02/01/25 20:14 Albuterol Sulfate 8 Gm Inhaler IH Q4HR PRN sob Amiodarone HCl 200 mg 02/02/25 13:05 02/03/25 08:17 Amiodarone Hcl 200 Mg Tablet PO 200 mg DAILY JOSE RAUL Administration Bumetanide 1 mg 02/03/25 09:00 02/03/25 09:11 Bumetanide 1 Mg Tablet PO 1 mg BIDAC2 JOSE RAUL Administration Carvedilol 3.125 mg 02/02/25 07:30 02/03/25 08:17 Carvedilol 3.125 Mg Tablet PO 3.125 mg BIDWM2 JOSE RAUL Administration Empagliflozin 10 mg 02/02/25 09:00 02/03/25 08:17 Empagliflozin 10 Mg Tablet PO 10 mg DAILY JOSE RAUL Administration Isosorbide Dinitrate 5 mg 02/01/25 21:00 02/03/25 08:17 Isosorbide Dinitrate 20 Mg Tablet PO 5 mg 3XD JOSE RAUL Administration Pravastatin Sodium 40 mg 02/01/25 21:00 02/02/25 20:19 Pravastatin Sodium 40 Mg Tablet PO 40 mg BEDTIME JOSE RAUL Administration Sacubitril/Valsartan 4 each 02/01/25 21:00 02/03/25 08:17 Sacubitril/Valsartan 1 Each Tablet PO 4 each 2XD JOSE RAUL Administration Sodium Chloride 1 syr 02/02/25 21:00 02/03/25 05:45 0.9% Sodium Chloride 10 Ml Disp.Syrin IVF 1 syr Q8HR JOSE RAUL Administration Spironolactone 25 mg 02/02/25 09:00 02/03/25 08:17 Spironolactone 25 Mg Tablet PO 25 mg DAILY JOSE RAUL Administration Plan Plan: 1. 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 Life vest rep has come inhouse today to fit Uri for his vest. Also [place] advised to start amiodarone 200 daily. 2. Acute hypoxic respiratory failure in setting of CHF exacerbation - Wean O2 when able 3. HTN - chronic, continue home medications 4. COPD - inhaler prn 5. HLD - chronic, continue home medications 6. Hx of illicit drug use - pt counseled on need to stop cocaine use so he can get an ICD placed by EP. Dispo: Will dc tomorrow if BP tolerates the bumex DVT: lovenox Review Statement Review Statement: I have personally discussed and reviewed the patient's visit/currently labs/imaging/decision making with Dr. Allison, my supervising attending. Greater that 50 minutes spent with patient, 50% of the time spent with this patient was devoted to counseling and coordination of care.
[2025-02-03] MEDS: LOVENOX SUBCUT SCH (11:50)
[2025-02-04 02:07] VITALS: RESP 20
[2025-02-04 09:19] LABS: CREATININE 1.65 mg/dL (0.60-1.10)
[2025-02-04] MEDS: MAGNESIUM SULF 2 G/50 ML BAG 2 GM/50 ML PIGGYBACK IV ONE ×2 (09:25→10:58)
--- NOTE | 2025-02-04 09:44 | DCSUM ---
Admission Date Admission Date: 02/01/25 Discharge Date Discharge Date: 02/04/25 Admission Diagnosis Admission Diagnosis: 1. Acute on Chronic Combined CHF Exacerbation 2. Acute hypoxic respiratory failure in setting of CHF exacerbation Discharge Diagnosis Discharge Diagnosis: 1. Acute on Chronic Combined CHF Exacerbation - resolved 2. Acute hypoxic respiratory failure in setting of CHF exacerbation 3. HTN 4. COPD 5. HLD 6. Hx of illicit drug use Hospital Provider Hospital Provider: CARMENZA KEANE PA-C, [facility] Primary Care Physician Primary Care Physician: JESUS KEITH Summary of History and Physical Summary of History and Physical: Patient is a 69 year old male well known to us who presents for worsening SOB. Patient was just admitted last week for diuresis. He states yesterday he was doing his laundry and felt very sob and lightheaded, someone had to help him get his laundry home. He denies any chest pain. Just felt very sob and lightheaded, couldn't catch his breath. He presented to the ER and oxygen saturations were initially normal but then he was in upper 80s. Placed on 2L. BNP continues to be elevated, this time 14k. CXR negative. He was given lasix and admitted to med surg. Patient states he's been compliant with his medications. He usually rides his bike around town, states it is getting harder for him. He typically can only ride one block at a time and has to rest. Luckily, [facility] and [facility] are within a couple blocks of where he lives. Hospital Course Subjective: Patient was diuresed with lasix. He's had a total of 13L out. He's lost about 11 kg. Reviewing [facility] note from December, they intended for him to switch to bumex 1 mg bid. Also they were going to reach out to a lifevest rep to meet Uri at his home to help with fitting and educating of his vest. Transitioned his lasix to bumex here and he has done well. The lifevest rep was able to come here to the hospital and get Uri set up with a lifevest. She spent a significant amount of time with him. He is to call their 800 # when he gets home so they can supervisor opening and picking the unused lifevest at his home. Also the [place] note had amiodarone 200 mg qd as a medication for him, he has not had this on his list here during his many hospitalizations. Case management reached out to them and they said he should be on it so it was started here. Will send in new script for bumex and amiodarone. Discussed he needs to take his lasix out of his pill packs and take the bumex instead. Also he was weaned to RA at rest, but with ambulation he dropped down into 80s. He states he will wear oxygen if we get it for him. Will order through [facility] prior to him leaving today. Discussed f/u with pcp and maybe they could get his medication pill packs switched around, as Uri is unable to tell me details of what the mail order pharmacy is. Appearance: Pleasant, No Apparent Distress and Alert HEENT: MMM CVS: Other (RRR) Abdomen: Soft, Non-Tender and No Distention Respiratory: No Accessory Muscle Use Extremities: No Edema (wrinkles in skin noted, thickening of skin of lower ext due to chronic edema, edema mostly resolved at this time ) Vital Signs: Most Recent Vital Signs Temperature 97.1 F L 02/04/25 05:06 Temperature Source Temporal Artery Scan 02/04/25 05:06 Temperature Source Infrared 02/01/25 17:03 Pulse Rate 56 L 02/04/25 05:06 Respiratory Rate 20 02/04/25 05:06 Blood Pressure 112/62 02/04/25 05:06 Blood Pressure Mean 78 02/04/25 05:06 Blood Pressure Right Arm 117/90 02/01/25 19:52 Blood Pressure Location Right Arm 02/04/25 05:06 Blood Pressure Position Supine 02/04/25 05:06 O2 Sat by Pulse Oximetry 95 02/04/25 05:06 Oxygen Delivery Method Nasal Cannula 02/04/25 05:47 Oxygen Flow Rate 0.5 02/04/25 05:47 Height 6 ft 5 in 02/01/25 19:52 Weight 101.5 kg 02/04/25 04:59 Telemetry Type Remote Telemetry 02/03/25 19:00 Telemetry Monitoring Continues 02/03/25 19:00 Telemetry Heart Rate 76 02/03/25 07:00 Telemetry SPO2 94 02/04/25 01:00 EKG [place] Interval 0.24 H 02/03/25 07:00 EKG QRS Interval 0.12 H 02/03/25 07:00 Telemetry Strip Reading 0.5l/nc in place 02/04/25 01:00 Imaging: EXAM: CHEST ONE-VIEW HISTORY: Shortness of breath COMPARISON: AP chest from 01/23/2025 FINDINGS: The heart is moderately enlarged. The pulmonary vasculature is normal. No consolidating infiltrates are detected. No pneumothoraces or pleural effusions. IMPRESSION: 1. No acute cardiopulmonary disease. 2. Moderate cardiomegaly. Lab Results Last 24 Hours: 02/04/25 05:19 Sodium 137.6 Potassium 3.69 Chloride 98.4 Carbon Dioxide 35.5 H Anion Gap 7.39 BUN 24.8 H Creatinine 1.65 H Estimated GFR (MDRD) 50.00 BUN/Creatinine Ratio 15.03 Glucose 98.0 Calcium 8.36 L Magnesium 1.48 L Discharge Instructions Discharge Planning: Discharge Planning > 70 minutes If patient is discharged with left ventricular systolic dysfunction: Discharged with a beta bibiana? y If no, why not? [] Discharged with an sarah/arb? y If no, why not? [] Discharge Medications: Medications at Discharge (Home Meds & RX) empagliflozin 10 mg tablet (Jardiance) 10 mg PO DAILY #30 tabs 02/04/23 potassium chloride 10 mEq tablet,extended release 10 meq PO QAM 05/09/24 pravastatin 40 mg tablet 40 mg PO BEDTIME 05/09/24 isosorbide dinitrate 5 mg tablet 5 mg PO 3XD 06/28/24 sacubitril 97 mg-valsartan 103 mg tablet (Entresto) 1 tab PO 2XD 08/16/24 carvedilol 3.125 mg tablet 3.125 mg PO BID 09/14/24 albuterol sulfate 90 mcg/actuation aerosol inhaler 2 puff inhalation Q4HR PRN SOB #6.7 grams 12/20/24 spironolactone 25 mg tablet 25 mg PO DAILY 02/01/25 amiodarone 200 mg tablet 200 mg PO DAILY #30 tabs 02/04/25 bumetanide 1 mg tablet 1 mg PO BIDAC2 #60 tabs 02/04/25 Discharge Plan Discharge Discharge Orders: Discharge Patient (ONCE); Ordered 02/04/25 Ordered By: CARMENZA KEANE Activity Restrictions/Additional Instructions: DISCHARGE TO HOME DX: CHF EXACERBATION STOP YOUR LASIX, START BUMEX (THEY ARE BOTH WATER PILLS, DO NOT TAKE TOGETHER) YOU'VE BEEN STARTED ON AMIODARONE WELL WEAR YOUR LIFEVEST! KEEP YOUR APPOINTMENT FOR [facility] THAT IS SCHEDULED IN MARCH. TALK WITH YOUR PCP ABOUT GETTING YOUR MEDICATIONS CHANGED THROUGH YOUR MAIL ORDER PHARMACY [employer] WITH [employer] THE NUMBER FOR YOUR LIFE VEST SHOULD YOU NEED TO CONTACT THEM FOR SUPPORT IS: [phone]. SELECT OPTION #1. CALL THEM WHEN YOU ARE HOME SO THAT THEY CAN COME AND SLAB STRIPPER THE OTHER LIFE VEST. Patient Disposition: HOME SELF-CARE Prescriptions: New amiodarone 200 mg Tablet 200 mg PO DAILY Qty: 30 0RF bumetanide 1 mg Tablet 1 mg PO BIDAC2 Qty: 60 0RF Continued potassium chloride 10 mEq tablet extended release 10 meq PO QAM pravastatin 40 mg tablet 40 mg PO BEDTIME isosorbide dinitrate 5 mg tablet 5 mg PO 3XD sacubitril-valsartan [Entresto] 97-103 mg tablet 1 tab PO 2XD carvedilol 3.125 mg tablet 3.125 mg PO BID spironolactone 25 mg tablet 25 mg PO DAILY Jardiance 10 mg tablet 10 mg PO DAILY Qty: 30 0RF albuterol sulfate 90 mcg/actuation HFA aerosol inhaler 2 puff INHALATION Q4HR PRN (Reason: SOB) Qty: 6.7 0RF Discontinued furosemide [Lasix] 40 mg tablet 40 mg PO BID Did you review [place] [employer] for ALL controlled substances?: Not Applicable Discussed opioids are addictive and Narcan is available by prescription or from pharmacy.: No Condition: Stable Referrals: JESUS KEITH [Primary Care Provider, UNKNOWN] - 02/09/25 4:15 pm
[2025-02-04 10:08] VITALS: PULSE 74; TEMP 98.4
[2025-02-04 10:33] VITALS: BP 96/52
== END 2025-02-04 14:45 | disposition home or self-care (01) | DRG 291 ==
LOC: ED 17:00 → MEDSURG B 19:14
PROVIDERS: ADMIT Hospitalist; ATTEND Physician Assistant

== ENCOUNTER 2025-03-27 18:44 | Inpatient (IN) ==
--- NOTE | 2025-03-27 19:19 | ED.PDOC ---
General HPI ED Provider: Dr. SARAH PICKENS MD Chief Complaint: Hypertension Stated Complaint: 69 yo BM with history of CHF, substance abuse who have been admitted to this hospital 6x this year for respiratory failure and CHF exacerbation. Been having some "bad breathing" for 4 days. Some dry cough but no fever or chest pain. Increasing leg swelling and normally weighs 230#.Some GAMBINO and orthopnea. Some chronic back pain and someone gave him percocet. He is still using THC and crack cocaine. Time Seen by Provider: 03/27/25 18:54 Mode of Arrival: Walk-In Information Source: Patient Exam Limitations: No limitations Primary Care Provider: JESUS KEITH Referred to ED by: Other (self) Nursing and Triage Documentation Reviewed and Agree: Yes Opioid Naive vs. Tolerant Does Patient Take Opioids?: Yes Is Patient Opioid Naive?: Yes What is Opioid Naive?: *Opioid Naive implies the patient is not already taking opioids or not chronically receiving opioids on a daily basis. *PRN dosing is not "usually" associated with tolerance. *Patients are at higher risk of over-sedation and aspiration. What is Opioid Tolerant?: *Opioid Tolerance implies less than the expected response to an opioid. *Acquired tolerance is defined by the patient taking 60mg of oral morphine daily (or equianalgesic dose of another opioid) for 1 week or more. *Often associated with chronic pain. *May take more than usual dose to achieve desired pain control. Review of Systems Review Of Systems Constitutional: Reports Malaise and Weakness; Denies Chills, Diaphoresis or Fever Eyes: Reports No symptoms Ears, Nose, Mouth, Throat: Reports No symptoms Respiratory: Reports Cough, Orthopnea and Shortness of Breath Cardiac: Reports Edema; Denies Chest pain GI: Reports Abdomen distended and Abdominal pain; Denies Vomiting : Reports No symptoms Musculoskeletal: Reports Back pain Skin: Reports Rash (some stasis dermatitis) Neurological: Denies Cognitive dysfunction or Headache [facility] Medical History Bilateral thigh pain (08/03/18) M79.651 - Pain in right thigh (ICD-10) M79.652 - Pain in left thigh (ICD-10) Vitamin D deficiency (08/03/18) E55.9 - Vitamin D deficiency, unspecified (ICD-10) Abnormal echocardiogram (09/11/20) R93.1 - Abnormal findings on diagnostic imaging of heart and coronary circulation (ICD-10) Cardiomyopathy (09/11/20) I42.9 - Cardiomyopathy, unspecified (ICD-10) Acute on chronic combined systolic and diastolic CHF, NYHA class 1 (04/22/21) I50.43 - Acute on chronic combined systolic (congestive) and diastolic (congestive) heart failure (ICD-10) Coronary artery disease involving [place] coronary artery of [place] heart without angina pectoris (05/22/21) I25.10 - Atherosclerotic heart disease of [place] coronary artery without angina pectoris (ICD-10) Hypomagnesemia (09/25/21) E83.42 - Hypomagnesemia (ICD-10) Nonischemic cardiomyopathy (09/25/21) I42.8 - Other cardiomyopathies (ICD-10) Hypertension (08/03/18) I10 - Essential (primary) hypertension (ICD-10) Unilateral inguinal hernia without obstruction (09/04/20) K40.90 - Unilateral inguinal hernia, without obstruction or gangrene, not specified as recurrent (ICD-10) HTN (hypertension) (05/22/21) I10 - Essential (primary) hypertension (ICD-10) Lung nodule [id number] right apex nodule increased metabolic activity. Maximum SUV 1.9. Suggest benign. Repeat imaging in 6 months. No other concerning areas. REviewed PET w/ patient 05/17/21. 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 Not sure if I will have it removed" will sign records release for Dr. Donnelly C61 - Malignant neoplasm of prostate (ICD-10) Tobacco use Z72.0 - Tobacco use (ICD-10) Hypertension I10 - Essential (primary) hypertension (ICD-10) Arthritis M19.90 - Unspecified osteoarthritis, unspecified site (ICD-10) Family History Mother Hypertension FATHER Alcoholism and drug addiction in family Hypertension Social History (Updated 03/27/25 @ 22:52 by JORGE MINER RN) Smoking and tobacco status: Former smoker Tobacco: How many years used: 7 How long ago did patient quit smoking: Stopped smoking about 2 years ago Alcohol intake: never Substance use type: marijuana and crack/cocaine Special rachid needs: No Physical Exam Physical Exam Appearance: Reports Ill-appearing and Obese Ill-appearing: Moderate Pain Distress: Mild Eyes: Reports EOMI ENT: Reports Nose normal and Oropharynx normal Neck: Supple Respiratory: Reports Airway patent, Breath sounds diminished and Crackles Cardiovascular: Reports RRR and Pulses normal GI/: Reports Soft, Nontender and Bowel sounds normal Musculoskeletal: Reports Normal strength, ROM intact and Edema (3+ pitting edema) Skin: Reports Warm; Denies Diaphoretic Neurological: Reports Sensation intact and Motor intact Psychiatric: Reports Affect appropriate and Mood appropriate Interpretation EKG Interpretation EKG Interpretation By: ED Physician Time of EKG #1: 19:19 Rate: Normal Rhythm: Sinus Ectopy: None Squire: Left Interpretation: NSR, LAD, LBBB, low voltage limb lead, ant infarct, age undetermined. Abnl Course Course 03/27/25 19:36 03/27/25 19:36 Orders, Labs, Meds: Lab Review 03/27/25 19:36 WBC 4.77 RBC 4.09 L Hgb 11.8 L Hct 41.0 L MCV 100.2 H MCH 28.9 MCHC 28.8 L RDW Coeff of Dimple 15.5 H Plt Count 176 Immature Gran % (Auto) 0.4 Neut % (Auto) 67.4 Lymph % (Auto) 14.0 [place] % (Auto) 10.3 H Eos % (Auto) 7.1 H Baso % (Auto) 0.8 Neut # (Auto) 3.2 Lymph # (Auto) 0.7 [place] # (Auto) 0.5 Eos # (Auto) 0.3 Baso # (Auto) 0.0 Immature Gran # (Auto) 0.0 Sodium 141.0 Potassium 4.41 Chloride 104.0 Carbon Dioxide 30.0 Anion Gap 11.41 BUN 18.0 Creatinine 1.60 H Estimated GFR (MDRD) 52.00 BUN/Creatinine Ratio 11.25 Glucose 85.0 Calcium 8.30 L Total Bilirubin 1.90 H AST 22.0 ALT 9.0 Alkaline Phosphatase 61.0 Troponin I 0.029 NT-Pro-B Natriuret Pep 8880 H Total Protein 6.80 Albumin 3.60 Globulin 3.20 Albumin/Globulin Ratio 1.12 Lipase 40.8 Orders Category Date Time Status ADMIT OBSERVATION [PLACE PATIENT OBSERVATION] .TO ADMISSION 03/27/25 21:35 Active MEDSURG (MONITORED BED) OBSERVATION [PLACE PATIENT OBSERVATION] .TO MEDSURG ADMISSION 03/27/25 21:27 Active (MONITORED BED) EKG-(ED & IP/OBS ONLY) Stat CARDIO 03/27/25 19:05 Completed OXYGEN Routine CARDIO 03/27/25 21:22 Active ACTIVITY .Up With Assistance CARE 03/27/25 21:22 Active ACTIVITY .Up With Assistance CARE 03/27/25 21:36 Completed ACTIVITY .Up in Chair CARE 03/27/25 21:36 Completed INTAKE & OUTPUT Q8HR CARE 03/27/25 21:22 Active INTAKE & OUTPUT Q8HR CARE 03/27/25 21:37 Completed IP: INSERT SALINE LOCK ONCE CARE 03/27/25 21:37 Active NPO REMINDER: IMAGING ONCE CARE 03/27/25 20:49 Completed TELEMETRY MONITORING TELE CARE 03/27/25 21:27 Active TELEMETRY MONITORING TELE CARE 03/27/25 21:35 Completed VITAL SIGNS Q4HR CARE 03/27/25 21:22 Active VITAL SIGNS Q4HR CARE 03/27/25 21:37 Completed CARDIAC DIET DIETARY 03/28/25 Breakfast Ordered CARDIAC DIET DIETARY 03/28/25 Breakfast Ordered FLUID RESTRICTION 1800 ML DIETARY 03/28/25 Breakfast Ordered Saline Lock [ED IV/MEDIPORT/POWERPORT] .ONCE EMERGENCY 03/27/25 19:05 Active CBC W/ AUTO DIFF DAILY@0600 LAB 03/28/25 06:00 Ordered CBC W/ AUTO DIFF DAILY@0600 LAB 03/29/25 06:00 Ordered CBC W/ AUTO DIFF Stat LAB 03/27/25 19:36 Completed CMP [COMPREHENSIVE METABOLIC PANEL] Stat LAB 03/27/25 19:36 Completed COMPREHENSIVE METABOLIC PANEL DAILY@0600 LAB 03/28/25 06:00 Ordered COMPREHENSIVE METABOLIC PANEL DAILY@0600 LAB 03/29/25 06:00 Ordered LIPASE Stat LAB 03/27/25 19:36 Completed NT-PROBNP(ED) Stat LAB 03/27/25 19:36 Completed TROPONIN I Stat LAB 03/27/25 19:36 Completed 0.9 % Sodium Chloride [Saline Flush] Meds 03/27/25 19:05 Discontinued 1 syr IVF PRN PRN Acetaminophen [Tylenol] Meds 03/27/25 21:22 Active 650 mg PO Q4H PRN Amiodarone HCl [Cordarone] Meds 03/28/25 09:00 Active 200 mg PO DAILY Carvedilol [Coreg] Meds 03/27/25 21:25 Active 3.125 mg PO BID Empaglifozin [Jardiance] Meds 03/28/25 09:00 Active 10 mg PO DAILY Enoxaparin Sodium [Lovenox] Meds 03/28/25 09:00 Active 40 mg SUBCUT DAILY Furosemide [Lasix] Meds 03/28/25 05:00 Active 40 mg IVP Q8HR Furosemide [Lasix] Meds 03/27/25 19:13 Discontinued 80 mg IVP ONCE ONE Isosorbide Dinitrate [Sorbitrate] Meds 03/28/25 09:00 Active 5 mg PO 3XD Potassium Chloride [Micro-K Cap] Meds 03/28/25 09:00 Active 10 meq PO QAM Pravastatin Sodium [Pravachol] Meds 03/27/25 21:25 Active 40 mg PO BEDTIME Sacubitril/Valsartan [Entresto 24 mg-26 mg Tablet] Meds 03/28/25 09:00 Active 4 each PO BID Spironolactone [Aldactone] Meds 03/28/25 09:00 Active 25 mg PO DAILY RESUSCITATION STATUS Routine OTHERS 03/27/25 21:36 Ordered CHEST, 1V AP ONLY Stat RADS 03/27/25 19:05 Completed Medications Generic Name Dose Route Start Last Admin Trade Name Freq PRN Reason Stop Dose Admin Acetaminophen 650 mg 03/27/25 21:22 Acetaminophen 325 Mg Tablet PO Q4H PRN Mild Pain Albuterol Sulfate 2 puff 03/27/25 21:44 Albuterol Sulfate 8 Gm Inhaler IH Q4HR PRN dyspnea Amiodarone HCl 200 mg 03/28/25 09:00 Amiodarone Hcl 200 Mg Tablet PO DAILY JOSE RAUL Carvedilol 3.125 mg 03/27/25 21:25 03/27/25 22:33 Carvedilol 3.125 Mg Tablet PO 3.125 mg BID JOSE RAUL Administration Empagliflozin 10 mg 03/28/25 09:00 Empagliflozin 10 Mg Tablet PO DAILY JOSE RAUL Enoxaparin Sodium 40 mg 03/28/25 09:00 Enoxaparin Sodium 40 Mg/0.4 Ml Syr SUBCUT DAILY JOSE RAUL Furosemide 40 mg 03/28/25 05:00 Furosemide Inj 40 Mg/4 Ml Vial IVP Q8HR JOSE RAUL Isosorbide Dinitrate 5 mg 03/28/25 09:00 Isosorbide Dinitrate 20 Mg Tablet PO 3XD JOSE RAUL Potassium Chloride 10 meq 03/28/25 09:00 Potassium Chloride 10 Meq Capsule.Er PO QAM JOSE ARUL Pravastatin Sodium 40 mg 03/27/25 21:25 03/27/25 22:32 Pravastatin Sodium 40 Mg Tablet PO 40 mg BEDTIME JOSE RAUL Administration Sacubitril/Valsartan 4 each 03/28/25 09:00 Sacubitril/Valsartan 1 Each Tablet PO BID JOSE RAUL Sodium Chloride 1 syr 03/28/25 05:00 0.9% Sodium Chloride 10 Ml Disp.Syrin IVF Q8H JOSE RAUL Spironolactone 25 mg 03/28/25 09:00 Spironolactone 25 Mg Tablet PO DAILY JOSE RAUL Discontinued Medications Generic Name Dose Route Start Last Admin Trade Name Freq PRN Reason Stop Dose Admin Furosemide 80 mg 03/27/25 19:13 03/27/25 19:24 Furosemide Inj 100 Mg/10 Ml Vial IVP 03/27/25 19:14 80 mg ONCE ONE Administration Sodium Chloride 1 syr 03/27/25 19:05 03/27/25 19:24 0.9% Sodium Chloride 10 Ml Disp.Syrin IVF 1 syr PRN PRN Administration To flush IV Voided about 1000 cc urine. Discussed with hospitalist Carmenza and will admit to OBS Vital Signs: Temp Pulse Resp BP Pulse Ox 03/27/25 18:50 97.6 F 83 20 117/76 84 L SOL Risk Score SOL Risk Score: Risk Score Odds of by 30D 0 0.1 (0.1-0.2) 1 0.3 (0.2-0.3) 2 0.4 (0.3-0.5) 3 0.7 (0.6-0.9) 4 1.2 (1.0-1.5) 5 2.2 (1.9-2.6) 6 3.0 (2.5-3.6) 7 4.8 (3.8-6.1) Discharge Plan Discharge Patient Disposition: PLACED OBSERVATION Discharge Problem: CHF (congestive heart failure) Did you review [place] [employer] OR [employer] for ALL controlled substances?: Not Applicable ED Provider: SARAH PICKENS Condition: Serious
[2025-03-27] MEDS: LASIX IVP ONE (19:24)
--- NOTE | 2025-03-27 19:33 | DI ---
EXAM: SINGLE VIEW CHEST X-RAY. HISTORY: dyspnea COMPARISON: 02/01/2025 TECHNIQUE: Single, portable AP view(s) of the chest. FINDINGS: Lungs: The lung voulmes are normal. The lungs are clear without consolidation or effusion. There are no suspicious nodules. There is no pneumothorax. Cardiovascular: The heart is enlarged. The pulmonary vasculature is within normal limits.. The aorta is unremarkable. Angy/Mediastinum: Normal. Osseous structures. Normal for age. IMPRESSION: No acute pulmonary disease.
[2025-03-27 19:46] LABS: IMMATURE GRANULOCYTE # (AUTO) 0.0 (0.0-1.0); IMMATURE GRANULOCYTE % (AUTO) 0.4 % (0.0-5.0); RDW COEFFICIENT OF VARIATION 15.5 % (11.6-14.8)
[2025-03-27 20:00] LABS: CREATININE 1.6 mg/dL (0.60-1.10)
[2025-03-27] MEDS ORDERED: VENTOLIN HFA IH PRN (21:44)
[2025-03-27] MEDS: PRAVACHOL PO SCH (22:32)
[2025-03-27] MEDS: COREG PO SCH (22:33)
[2025-03-27 22:58] VITALS: BMI 32.4
[2025-03-28] MEDS: LASIX IVP SCH (05:10)
[2025-03-28 05:29] LABS: IMMATURE GRANULOCYTE # (AUTO) 0.0 (0.0-1.0); IMMATURE GRANULOCYTE % (AUTO) 0.2 % (0.0-5.0); RDW COEFFICIENT OF VARIATION 15.4 % (11.6-14.8)
[2025-03-28 05:50] LABS: CREATININE 1.68 mg/dL (0.60-1.10)
[2025-03-28] MEDS: CORDARONE PO SCH (08:22)
[2025-03-28] MEDS: LOVENOX SUBCUT SCH (08:22)
[2025-03-28] MEDS: MICRO-K CAP PO SCH (08:23)
[2025-03-28] MEDS: ENTRESTO 24 MG-26 MG TABLET PO SCH (08:23)
[2025-03-28] MEDS: SORBITRATE PO SCH (08:23)
[2025-03-28] MEDS: JARDIANCE PO SCH (08:24)
[2025-03-28] MEDS: ALDACTONE PO SCH (08:24)
[2025-03-28] MEDS: MAGNESIUM SULF 2 G/50 ML BAG 2 GM/50 ML PIGGYBACK IV ONE (10:22)
--- NOTE | 2025-03-28 12:48 | PCM ---
Date of Service Date Seen by Provider: 03/28/25 Time Seen by Provider: 08:45 Admit Day/Time Admission Date: 03/27/25 Admission Time: 21:27 Reason for Admission Chief Complaint: ACUTE SYSTOLIC HEART FAILURE Hospital Provider Hospital Provider: CARMENZA EKANE PA-C, [facility] [place], [place] Primary Care Physician Primary Care Physician: JESUS KEITH History of Present Illness History of Present Illness: Patient is a 69 year old male well known to us who presents for worsening SOB. Patient states it's been ongoing for days. Has not f/u with [facility] since last admission. Unclear on if he's followed up with PCP. He is significantly more edematous than he usually is on presentation. His eyelids are even swollen. BNP elevated. Was noted to be hypoxic and placed on 2L. CXR negative. He was given lasix and admitted to med surg. Patient states he's been compliant with his medications. He is not wearing his lifevest. He is unclear on why he is not wearing it currently. He is also a full code. We have discussed this in detail. His weight is up over 20 kg since last admission. Case Discussed With Case Discussed With: Patient's case was discussed with the ER Physicians, Dr. Beebe. [facility] Medical History Bilateral thigh pain (08/03/18) M79.651 - Pain in right thigh (ICD-10) M79.652 - Pain in left thigh (ICD-10) Vitamin D deficiency (08/03/18) E55.9 - Vitamin D deficiency, unspecified (ICD-10) Abnormal echocardiogram (09/11/20) R93.1 - Abnormal findings on diagnostic imaging of heart and coronary circulation (ICD-10) Cardiomyopathy (09/11/20) I42.9 - Cardiomyopathy, unspecified (ICD-10) Acute on chronic combined systolic and diastolic CHF, NYHA class 1 (04/22/21) I50.43 - Acute on chronic combined systolic (congestive) and diastolic (congestive) heart failure (ICD-10) Coronary artery disease involving [place] coronary artery of [place] heart without angina pectoris (05/22/21) I25.10 - Atherosclerotic heart disease of [place] coronary artery without angina pectoris (ICD-10) Hypomagnesemia (09/25/21) E83.42 - Hypomagnesemia (ICD-10) Nonischemic cardiomyopathy (09/25/21) I42.8 - Other cardiomyopathies (ICD-10) Hypertension (08/03/18) I10 - Essential (primary) hypertension (ICD-10) Unilateral inguinal hernia without obstruction (09/04/20) K40.90 - Unilateral inguinal hernia, without obstruction or gangrene, not specified as recurrent (ICD-10) HTN (hypertension) (05/22/21) I10 - Essential (primary) hypertension (ICD-10) Lung nodule [id number] right apex nodule increased metabolic activity. Maximum SUV 1.9. Suggest benign. Repeat imaging in 6 months. No other concerning areas. REviewed PET w/ patient 05/17/21. 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 Not sure if I will have it removed" will sign records release for Dr. Donnelly C61 - Malignant neoplasm of prostate (ICD-10) Tobacco use Z72.0 - Tobacco use (ICD-10) Hypertension I10 - Essential (primary) hypertension (ICD-10) Arthritis M19.90 - Unspecified osteoarthritis, unspecified site (ICD-10) Family History Mother Hypertension FATHER Alcoholism and drug addiction in family Hypertension Social History Smoking and tobacco status: Former smoker Tobacco: How many years used: 7 How long ago did patient quit smoking: Stopped smoking about 2 years ago Alcohol intake: never Substance use type: marijuana and crack/cocaine Special rachid needs: No Allergies Allergies Allergy/AdvReac Type Severity Reaction Status Date / Time NSAIDS (Non-Steroidal AdvReac Severe CHF Verified 03/27/25 18:57 Anti-Inflamma Current Medications Home Medications Acetaminophen (Acetaminophen 325 Mg Tablet) 650 mg PO Q4H PRN PRN Reason: Mild Pain Albuterol Sulfate (Albuterol Sulfate 8 Gm Inhaler) 2 puff IH Q4HR PRN PRN Reason: dyspnea Amiodarone HCl (Amiodarone Hcl 200 Mg Tablet) 200 mg PO DAILY [facility] Last Admin: 03/28/25 08:22 Dose: 200 mg Carvedilol (Carvedilol 3.125 Mg Tablet) 3.125 mg PO BID [facility] Last Admin: 03/28/25 08:25 Dose: 3.125 mg Empagliflozin (Empagliflozin 10 Mg Tablet) 10 mg PO DAILY [facility] Last Admin: 03/28/25 08:24 Dose: 10 mg Enoxaparin Sodium (Enoxaparin Sodium 40 Mg/0.4 Ml Syr) 40 mg SUBCUT DAILY [facility] Last Admin: 03/28/25 08:22 Dose: 40 mg Furosemide (Furosemide Inj 40 Mg/4 Ml Vial) 40 mg IVP Q8HR [facility] Last Admin: 03/28/25 13:09 Dose: 40 mg Cefazolin Sodium/Dextrose (Ancef 2 Gm/50 Ml Premix) 2 gm in 50 mls @ 75 mls/hr IV Q8HR [facility] Stop: 03/31/25 12:59 Last Admin: 03/28/25 13:53 Dose: 75 mls/hr Isosorbide Dinitrate (Isosorbide Dinitrate 20 Mg Tablet) 5 mg PO 3XD [facility] Last Admin: 03/28/25 08:23 Dose: 5 mg Potassium Chloride (Potassium Chloride 10 Meq Capsule.Er) 10 meq PO QAM [facility] Last Admin: 03/28/25 08:23 Dose: 10 meq Pravastatin Sodium (Pravastatin Sodium 40 Mg Tablet) 40 mg PO BEDTIME [facility] Last Admin: 03/27/25 22:32 Dose: 40 mg Sacubitril/Valsartan (Sacubitril/Valsartan 1 Each Tablet) 4 each PO BID [facility] Last Admin: 03/28/25 08:23 Dose: 4 each Sodium Chloride (0.9% Sodium Chloride 10 Ml Disp.Syrin) 1 syr IVF Q8H [facility] Last Admin: 03/28/25 13:09 Dose: 1 syr Spironolactone (Spironolactone 25 Mg Tablet) 25 mg PO DAILY [facility] Last Admin: 03/28/25 08:24 Dose: 25 mg empagliflozin 10 mg tablet (Jardiance) 10 mg PO DAILY #30 tabs 02/04/23 [Rx Confirmed 03/27/25] potassium chloride 10 mEq tablet,extended release 10 meq PO QAM 05/09/24 [History Confirmed 03/27/25] pravastatin 40 mg tablet 40 mg PO BEDTIME 05/09/24 [History Confirmed 03/27/25] isosorbide dinitrate 5 mg tablet 5 mg PO 3XD 06/28/24 [History Confirmed 03/27/25] sacubitril 97 mg-valsartan 103 mg tablet (Entresto) 1 tab PO 2XD 08/16/24 [History Confirmed 03/27/25] carvedilol 3.125 mg tablet 3.125 mg PO BID 09/14/24 [History Confirmed 03/27/25] albuterol sulfate 90 mcg/actuation aerosol inhaler 2 puff inhalation Q4HR PRN SOB #6.7 grams 12/20/24 [Rx Confirmed 03/27/25] spironolactone 25 mg tablet 25 mg PO DAILY 02/01/25 [History Confirmed 03/27/25] amiodarone 200 mg tablet 200 mg PO DAILY #30 tabs 02/04/25 [Rx Confirmed 03/27/25] bumetanide 1 mg tablet 1 mg PO BIDAC2 #60 tabs 02/04/25 [Rx Confirmed 03/27/25] Opioid Naive vs. Tolerant Does Patient Take Opioids?: No Is Patient Opioid Naive?: Yes What is Opioid Naive?: *Opioid Naive implies the patient is not already taking opioids or not chronically receiving opioids on a daily basis. *PRN dosing is not "usually" associated with tolerance. *Patients are at higher risk of over-sedation and aspiration. Is Patient Opioid Tolerant?: No What is Opioid Tolerant?: *Opioid Tolerance implies less than the expected response to an opioid. *Acquired tolerance is defined by the patient taking 60mg of oral morphine daily (or equianalgesic dose of another opioid) for 1 week or more. *Often associated with chronic pain. *May take more than usual dose to achieve desired pain control. Review of Systems Constitutional: Reports Fatigue and Weakness; Denies Fever Head: Reports Normocephalic and Atraumatic Cardiovascular: Reports Edema; Denies Chest pain Respiratory: Reports Cough and Shortness of air Gastrointestinal: Denies Nausea, Vomiting, Diarrhea, Abdominal pain or Melena Genitourinary: Denies Dysuria or Hematuria Physical examination Most Recent Vital Signs: Most Recent Vital Signs Temperature 97.8 F 03/28/25 10:00 Temperature Source Temporal Artery Scan 03/28/25 10:00 Temperature Source Infrared 03/27/25 18:50 Pulse Rate 84 03/28/25 10:00 Respiratory Rate 22 H 03/28/25 08:00 Blood Pressure 113/83 03/28/25 10:00 Blood Pressure Mean 93 03/28/25 10:00 Blood Pressure Left Arm 136/88 03/27/25 22:10 Blood Pressure Location Right Arm 03/28/25 10:00 Blood Pressure Position Supine 03/28/25 10:00 O2 Sat by Pulse Oximetry 81 L 03/28/25 10:00 Oxygen Delivery Method Room Air 03/28/25 12:00 Oxygen Flow Rate 2 03/28/25 10:00 Height 6 ft 5 in 03/28/25 10:26 Weight 123.4 kg 03/28/25 10:26 Telemetry Type Remote Telemetry 03/28/25 07:00 Telemetry Monitoring Continues 03/28/25 07:00 Telemetry Heart Rate 84 03/28/25 07:00 Telemetry SPO2 94 02/04/25 01:00 EKG IN Interval 0.21 H 03/28/25 07:00 EKG QRS Interval 0.18 H 03/28/25 07:00 Telemetry Strip Reading AVB/BBB 03/28/25 07:00 Appearance: Positive No Apparent Distress, Alert and Oriented x3 and Ill- Appearing HEENT: Positive Normocephalic, Atraumatic and Oral Mucous Moist Neck: Positive Supple and Midline Trachea Chest/Lungs: Positive Clear to Auscultation Bilaterally; Negative Rales, Rhonci or Wheezes Heart: Positive RRR GI/: Positive Soft, Nontender and Bowel Sounds Normal Extremities: Positive Edema Neurological: Positive Cranial Nerves Intact, Alert and Oriented Psychiatric: Positive Oriented x4, Appropriate Mood and Appropriate Affect Additional Findings: Patient is very edematous peripherally to his abdomen, abdomen is tight. Eyelids and lips are even swollen. He is sob with conversation. He has blisters and open wounds to lower ext bilaterally. Erythema noted as well. No purulent drainage. Labs This Visit Labs This Visit: Labs This Visit 03/27/25 03/28/25 19:36 05:06 WBC 4.77 5.98 RBC 4.09 L 4.05 L Hgb 11.8 L 11.7 L Hct 41.0 L 40.5 L MCV 100.2 H 100.0 H MCH 28.9 28.9 MCHC 28.8 L 28.9 L RDW Coeff of Dimple 15.5 H 15.4 H Plt Count 176 177 Immature Gran % (Auto) 0.4 0.2 Neut % (Auto) 67.4 74.3 Lymph % (Auto) 14.0 8.5 L [place] % (Auto) 10.3 H 10.2 H Eos % (Auto) 7.1 H 6.0 Baso % (Auto) 0.8 0.8 Neut # (Auto) 3.2 4.4 Lymph # (Auto) 0.7 0.5 L [place] # (Auto) 0.5 0.6 Eos # (Auto) 0.3 0.4 Baso # (Auto) 0.0 0.1 Immature Gran # (Auto) 0.0 0.0 Sodium 141.0 141.3 Potassium 4.41 4.59 Chloride 104.0 101.5 Carbon Dioxide 30.0 35.6 H Anion Gap 11.41 8.79 BUN 18.0 21.0 H Creatinine 1.60 H 1.68 H Estimated GFR (MDRD) 52.00 49.00 BUN/Creatinine Ratio 11.25 12.50 Glucose 85.0 90.0 Calcium 8.30 L 8.32 L Magnesium 1.41 L Total Bilirubin 1.90 H 1.74 H AST 22.0 21.5 ALT 9.0 8.9 Alkaline Phosphatase 61.0 63.6 Troponin I 0.029 NT-Pro-B Natriuret Pep 8880 H Total Protein 6.80 6.80 Albumin 3.60 3.61 Globulin 3.20 3.19 Albumin/Globulin Ratio 1.12 1.13 Lipase 40.8 Microbiology This Visit 03/27/25 23:00 Leg - Left Wound Culture - Preliminary Imaging Imaging: EXAM: SINGLE VIEW CHEST X-RAY. HISTORY: dyspnea COMPARISON: 02/01/2025 TECHNIQUE: Single, portable AP view(s) of the chest. FINDINGS: Lungs: The lung voulmes are normal. The lungs are clear without consolidation or effusion. There are no suspicious nodules. There is no pneumothorax. Cardiovascular: The heart is enlarged. The pulmonary vasculature is within normal limits.. The aorta is unremarkable. Angy/Mediastinum: Normal. Osseous structures. Normal for age. IMPRESSION: No acute pulmonary disease. Review Statement Review Statement: I have independently reviewed and interpreted the labs/EKGs/imaging that were ordered by the ER provider. I have reviewed all outside records that are available currently in our EMR including imaging/notes/labs from previous visits. Plan Plan: 1. Acute on Chronic Combined CHF Exacerbation - EF 10-15% as of 11/10/24, lasix 40 q8hrs, I&O, daily weight, 1800mL fluid restriction, educated on importance of lifevest use, cont GDMT. 2. Acute hypoxic respiratory failure in setting of CHF exacerbation - Wean O2 when able 3. HTN - chronic, continue home medications 4. COPD - inhaler prn 5. HLD - chronic, continue home medications 6. Hx of illicit drug use - pt counseled on need to stop cocaine use so he can get an ICD placed by EP. 7. Cellulitis of LLE - blisters and open wound noted, culture pending, erythema noted. Will cover with cefazolin. 8. Hypomagnesemia - replaced, recheck in AM. DVT Prophylaxis: Lovenox Time Spent: Greater than 80 minutes spent with patient, 50% of the time spent w ith this patient was devoted to counseling and coordination of care. Advanced Care Plannin minutes spent discussing advance care planning. Full Code. We discussed in depth the condition of his heart and unlikely resuscitation in the event of a code situation, he will think more about it and we will revisit the conversation. Admit to: obs to inpatient today Discussed Plan of Care with Dr. Donna Allison. Medications Medication Orders: Medications Ordered Category Date Time Status 0.9 % Sodium Chloride [Saline Flush] Meds 03/28/25 05:00 Active 1 syr IVF Q8H Acetaminophen [Tylenol] Meds 03/27/25 21:22 Active 650 mg PO Q4H PRN Albuterol Sulfate [Ventolin Hfa] Meds 03/27/25 21:44 Active 2 puff IH Q4HR PRN dyspnea dyspnea Amiodarone HCl [Cordarone] Meds 03/28/25 09:00 Active 200 mg PO DAILY Carvedilol [Coreg] Meds 03/27/25 21:25 Active 3.125 mg PO BID Cefazolin Sodium/Dextrose,Iso [Ancef 2 gm/50 ml Premix] Meds 03/28/25 13:00 Active 2 gm in 50 ml IV Q8HR Empaglifozin [Jardiance] Meds 03/28/25 09:00 Active 10 mg PO DAILY Enoxaparin Sodium [Lovenox] Meds 03/28/25 09:00 Active 40 mg SUBCUT DAILY Furosemide [Lasix] Meds 03/28/25 05:00 Active 40 mg IVP Q8HR Isosorbide Dinitrate [Sorbitrate] Meds 03/28/25 09:00 Active 5 mg PO 3XD Potassium Chloride [Micro-K Cap] Meds 03/28/25 09:00 Active 10 meq PO QAM Pravastatin Sodium [Pravachol] Meds 03/27/25 21:25 Active 40 mg PO BEDTIME Sacubitril/Valsartan [Entresto 24 mg-26 mg Tablet] Meds 03/28/25 09:00 Active 4 each PO BID Spironolactone [Aldactone] Meds 03/28/25 09:00 Active 25 mg PO DAILY
[2025-03-28] MEDS: ANCEF 2 GM/50 ML PREMIX 2 GM/50 ML BAG IV SCH (13:53)
[2025-03-29 05:43] LABS: IMMATURE GRANULOCYTE # (AUTO) 0.0 (0.0-1.0); IMMATURE GRANULOCYTE % (AUTO) 0.2 % (0.0-5.0); RDW COEFFICIENT OF VARIATION 15.3 % (11.6-14.8)
[2025-03-29 05:55] LABS: CREATININE 1.79 mg/dL (0.60-1.10)
[2025-03-29] MEDS: MAGNESIUM SULF 2 G/50 ML BAG 2 GM/50 ML PIGGYBACK IV ONE ×2 (09:00→11:30)
--- NOTE | 2025-03-29 11:09 | PCM.PROG ---
Date/Time Seen Date Seen by Provider: 03/29/25 Time Seen by Provider: 08:40 Provider Provider: CARMENZA KEANE PA-C, [facility] Chief Complaint Chief Complaint: ACUTE SYSTOLIC HEART FAILURE Subjective Subjective: Patient feeling better today and appears better clinically, but still very fluid overloaded. We discussed his code status, he would like to remain a full code. We also discussed that actions that go along with being a full code include wearing the lifevest that has been provided to him. He expresses understanding. Pt is hypoxic when on RA. Objective Appearance: Positive No Apparent Distress, Alert and Oriented x3 and Ill- Appearing Chest/Lungs: Positive Symmetrical With Equal Breath Sounds and Clear to Auscultation Bilaterally (diminished); Negative Rales, Rhonci or Wheezes Heart: Positive RRR and Pulses Normal GI/: Positive Soft, Nontender, Bowel Sounds Normal and No Distention Neurological: Positive Motor intact, Cranial Nerves Intact, Alert and Oriented Additional Findings: Significant edema of bilateral lower ext, abdomen, and even eyelids, mildly improved today. Erythema noted of LLE and wound to left lateral leg. Vital Signs Vital Signs: Vital Signs: Last 24 Hours 03/28/25 12:00 03/28/25 13:00 03/28/25 13:00 Temperature Temperature Source Pulse Rate Respiratory Rate Blood Pressure Blood Pressure Mean Blood Pressure Location Blood Pressure Position O2 Sat by Pulse Oximetry Oxygen Delivery Method Room Air Room Air Oxygen Flow Rate Fraction of Inspired Oxygen (FIO2) Weight Telemetry Type Remote Telemetry Telemetry Monitoring Continues Telemetry Heart Rate 62 EKG MS Interval 0.26 H EKG QRS Interval 0.18 H Telemetry Strip Reading SR W/1ST DEGREE AVB & BBB 03/28/25 14:00 03/28/25 14:00 03/28/25 18:00 Temperature 97.1 F L 98.2 F Temperature Source Temporal Artery Scan Temporal Artery Scan Pulse Rate 85 63 Respiratory Rate Blood Pressure 119/68 109/59 L Blood Pressure Mean 85 75 Blood Pressure Location Left Arm Left Arm Blood Pressure Position Sitting Supine O2 Sat by Pulse Oximetry 91 L 94 L 94 L Oxygen Delivery Method Nasal Cannula Nasal Cannula Nasal Cannula Oxygen Flow Rate 2 2 Fraction of Inspired Oxygen (FIO2) Weight Telemetry Type Telemetry Monitoring Telemetry Heart Rate EKG MS Interval EKG QRS Interval Telemetry Strip Reading 03/28/25 19:00 03/28/25 20:00 03/28/25 20:00 Temperature Temperature Source Pulse Rate Respiratory Rate Blood Pressure Blood Pressure Mean Blood Pressure Location Blood Pressure Position O2 Sat by Pulse Oximetry Oxygen Delivery Method Nasal Cannula Nasal Cannula Oxygen Flow Rate 2 2 Fraction of Inspired Oxygen (FIO2) Weight Telemetry Type Remote Telemetry Telemetry Monitoring Continues Telemetry Heart Rate 61 EKG MS Interval 0.24 H EKG QRS Interval 0.18 H Telemetry Strip Reading SR with 1st degree AVB and BBB 03/28/25 22:00 03/29/25 01:00 03/29/25 01:35 Temperature 97.4 F L 97.4 F L Temperature Source Tympanic Tympanic Pulse Rate 67 66 Respiratory Rate 22 H 20 Blood Pressure 89/57 L 95/63 Blood Pressure Mean 67 73 Blood Pressure Location Left Arm Right Arm Blood Pressure Position Supine Sitting O2 Sat by Pulse Oximetry 96 93 L Oxygen Delivery Method Nasal Cannula Nasal Cannula Oxygen Flow Rate 2 2 Fraction of Inspired Oxygen (FIO2) Weight Telemetry Type Remote Telemetry Telemetry Monitoring Continues Telemetry Heart Rate 69 EKG MS Interval 0.25 H EKG QRS Interval 0.12 H Telemetry Strip Reading SR WITH 1ST DEGREE AVB & BBB 03/29/25 05:34 03/29/25 05:34 03/29/25 05:44 Temperature 97.1 F L Temperature Source Tympanic Pulse Rate 75 Respiratory Rate 20 Blood Pressure 124/91 H Blood Pressure Mean 102 Blood Pressure Location Left Arm Blood Pressure Position Sitting O2 Sat by Pulse Oximetry 95 Oxygen Delivery Method Nasal Cannula Nasal Cannula Oxygen Flow Rate 2 2 Fraction of Inspired Oxygen (FIO2) Weight 120.8 kg Telemetry Type Telemetry Monitoring Telemetry Heart Rate EKG MS Interval EKG QRS Interval Telemetry Strip Reading 03/29/25 07:00 03/29/25 08:00 03/29/25 08:07 Temperature Temperature Source Pulse Rate 84 Respiratory Rate Blood Pressure 126/97 H Blood Pressure Mean 106 Blood Pressure Location Left Arm Blood Pressure Position Sitting O2 Sat by Pulse Oximetry 92 L Oxygen Delivery Method Nasal Cannula Nasal Cannula Oxygen Flow Rate 2 Fraction of Inspired Oxygen (FIO2) 2 Weight Telemetry Type Remote Telemetry Telemetry Monitoring Continues Telemetry Heart Rate 89 EKG MS Interval 0.22 H EKG QRS Interval 0.08 Telemetry Strip Reading SR w. 1st degree AVB 03/29/25 09:37 03/29/25 10:00 Temperature 97.3 F L Temperature Source Temporal Artery Scan Pulse Rate 84 Respiratory Rate 24 H Blood Pressure 105/69 Blood Pressure Mean 81 Blood Pressure Location Left Arm Blood Pressure Position O2 Sat by Pulse Oximetry 96 86 L Oxygen Delivery Method Nasal Cannula Room Air Oxygen Flow Rate 2 Fraction of Inspired Oxygen (FIO2) Weight Telemetry Type Telemetry Monitoring Telemetry Heart Rate EKG MS Interval EKG QRS Interval Telemetry Strip Reading Lab Results Lab Results: Lab Results: Last 24 Hours 03/29/25 05:31 WBC 5.11 RBC 4.26 L Hgb 12.2 L Hct 41.7 L MCV 97.9 H MCH 28.6 MCHC 29.3 L RDW Coeff of Dimple 15.3 H Plt Count 181 Immature Gran % (Auto) 0.2 Neut % (Auto) 73.2 Lymph % (Auto) 11.2 [place] % (Auto) 7.8 Eos % (Auto) 7.0 Baso % (Auto) 0.6 Neut # (Auto) 3.7 Lymph # (Auto) 0.6 [place] # (Auto) 0.4 Eos # (Auto) 0.4 Baso # (Auto) 0.0 Immature Gran # (Auto) 0.0 Sodium 139.8 Potassium 4.08 Chloride 96.3 L Carbon Dioxide 35.7 H Anion Gap 11.88 BUN 22.9 H Creatinine 1.79 H Estimated GFR (MDRD) 46.00 BUN/Creatinine Ratio 12.79 Glucose 92.9 Calcium 8.77 Magnesium 1.53 L Total Bilirubin 1.74 H AST 24.6 ALT 9.4 Alkaline Phosphatase 74.0 Total Protein 7.17 Albumin 3.87 Globulin 3.30 Albumin/Globulin Ratio 1.17 Additional Comments Additional Comments: I have independently reviewed and interpreted the labs/EKGs/imaging ordered during this hospital stay. I have reviewed outside records that are available in our EMR that pertain to medical stay including imaging/notes/labs from previous visits. Active Medications Active Medications: Medications Generic Name Dose Route Start Last Admin Trade Name Freq PRN Reason Stop Dose Admin Acetaminophen 650 mg 03/27/25 21:22 Acetaminophen 325 Mg Tablet PO Q4H PRN Mild Pain Albuterol Sulfate 2 puff 03/27/25 21:44 Albuterol Sulfate 8 Gm Inhaler IH Q4HR PRN dyspnea Amiodarone HCl 200 mg 03/28/25 09:00 03/29/25 08:09 Amiodarone Hcl 200 Mg Tablet PO 200 mg DAILY JOSE RAUL Administration Carvedilol 3.125 mg 03/27/25 21:25 03/29/25 08:09 Carvedilol 3.125 Mg Tablet PO 3.125 mg BID JOSE RAUL Administration Empagliflozin 10 mg 03/28/25 09:00 03/29/25 08:09 Empagliflozin 10 Mg Tablet PO 10 mg DAILY JOSE RAUL Administration Enoxaparin Sodium 40 mg 03/28/25 09:00 03/29/25 08:09 Enoxaparin Sodium 40 Mg/0.4 Ml Syr SUBCUT 40 mg DAILY JOSE RAUL Administration Furosemide 40 mg 03/28/25 05:00 03/29/25 05:14 Furosemide Inj 40 Mg/4 Ml Vial IVP 40 mg Q8HR JOSE RAUL Administration Cefazolin Sodium/Dextrose 2 gm in 50 mls @ 75 mls/hr 03/28/25 13:00 03/29/25 05:14 Ancef 2 Gm/50 Ml Premix IV 03/31/25 12:59 75 mls/hr Q8HR JOSE RAUL Administration MAGNESIUM SULFATE IN WATER 2 gm in 50 mls @ 25 mls/hr 03/29/25 11:00 Magnesium Sulf 2 G/50 Ml Bag IV 03/29/25 12:59 ONCE ONE Isosorbide Dinitrate 5 mg 03/28/25 09:00 03/29/25 08:08 Isosorbide Dinitrate 20 Mg Tablet PO 5 mg 3XD JOSE RAUL Administration Potassium Chloride 10 meq 03/30/25 07:30 Potassium Chloride 10 Meq Capsule.Er PO DAILYWM2 JOES RAUL Pravastatin Sodium 40 mg 03/27/25 21:25 03/28/25 20:11 Pravastatin Sodium 40 Mg Tablet PO 40 mg BEDTIME JOSE RAUL Administration Sacubitril/Valsartan 4 each 03/28/25 09:00 03/29/25 08:08 Sacubitril/Valsartan 1 Each Tablet PO 4 each BID JOSE RAUL Administration Sodium Chloride 1 syr 03/28/25 05:00 03/29/25 05:14 0.9% Sodium Chloride 10 Ml Disp.Syrin IVF 1 syr Q8H JOSE RAUL Administration Spironolactone 25 mg 03/28/25 09:00 03/29/25 08:11 Spironolactone 25 Mg Tablet PO 25 mg DAILY JOSE RAUL Administration Plan Plan: 1. 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 2. Acute hypoxic respiratory failure in setting of CHF exacerbation - Wean O2 when able 3. HTN - chronic, continue home medications 4. COPD - inhaler prn 5. HLD - chronic, continue home medications 6. Hx of illicit drug use - pt counseled on need to stop cocaine use so he can get an ICD placed by EP. 7. Cellulitis of LLE - blisters and open wound noted, culture pending, erythema noted. Will cover with cefazolin. 8. Hypomagnesemia - 4 gm ordered today, repeat lab in AM, goal of 2 DVT Prophylaxis: Lovenox Follow ups: [facility]: 04/07/25 at 3 pm Review Statement Review Statement: I have personally discussed and reviewed the patient's visit/currently labs/imaging/decision making with Dr. Allison, my supervising attending. Greater that 50 minutes spent with patient, 50% of the time spent with this patient was devoted to counseling and coordination of care.
[2025-03-29] MEDS: TYLENOL PO PRN (22:01)
[2025-03-30 05:25] LABS: IMMATURE GRANULOCYTE # (AUTO) 0.0 (0.0-1.0); IMMATURE GRANULOCYTE % (AUTO) 0.2 % (0.0-5.0); RDW COEFFICIENT OF VARIATION 15.0 % (11.6-14.8)
[2025-03-30 05:42] LABS: CREATININE 1.74 mg/dL (0.60-1.10)
[2025-03-30] MEDS: MICRO-K CAP PO SCH (08:29)
[2025-03-30] MEDS: CEFPODOXIME PROXETIL PO SCH (09:27)
--- NOTE | 2025-03-30 12:11 | PCM.PROG ---
Date/Time Seen Date Seen by Provider: 03/30/25 Time Seen by Provider: 08:30 Provider Provider: [facility] Chief Complaint Chief Complaint: ACUTE SYSTOLIC HEART FAILURE Subjective Subjective: Patient is down about 12L. Still not near his baseline weight. Still requiring O2. Still very edematous, but improving. Denies complaints. Overall feels better. Objective Appearance: Positive No Apparent Distress, Alert and Oriented x3 and Ill- Appearing Chest/Lungs: Positive Symmetrical With Equal Breath Sounds and Clear to Auscultation Bilaterally (diminished); Negative Rales, Rhonci or Wheezes Heart: Positive RRR and Pulses Normal GI/: Positive Soft, Nontender, Bowel Sounds Normal and No Distention Neurological: Positive Motor intact, Cranial Nerves Intact, Alert and Oriented Additional Findings: Significant edema of bilateral lower ext, abdomen, and even eyelids, improved today. Erythema noted of LLE and wound to left lateral leg. +weeping kaiden Vital Signs Vital Signs: Vital Signs: Last 24 Hours 03/29/25 13:00 03/29/25 14:00 03/29/25 14:00 Temperature 96.7 F L Temperature Source Temporal Artery Scan Pulse Rate 62 Pulse Rate [Apical] Respiratory Rate 16 Blood Pressure 92/51 L Blood Pressure Mean 64 Blood Pressure Location Left Arm Blood Pressure Position O2 Sat by Pulse Oximetry 96 96 Oxygen Delivery Method Nasal Cannula Nasal Cannula Oxygen Flow Rate 2 2 Weight Telemetry Type Remote Telemetry Telemetry Monitoring Continues Irregular Telemetry Rate (Approximate) Telemetry Heart Rate 71 EKG [place] Interval 0.22 H EKG QRS Interval 0.08 Telemetry Strip Reading sr w/ 1st degree AVB 03/29/25 18:00 03/29/25 19:00 03/29/25 20:00 Temperature 96.8 F L Temperature Source Temporal Artery Scan Pulse Rate 85 Pulse Rate [Apical] Respiratory Rate 18 Blood Pressure 102/71 Blood Pressure Mean 81 Blood Pressure Location Left Arm Blood Pressure Position O2 Sat by Pulse Oximetry 94 L 97 Oxygen Delivery Method Nasal Cannula Nasal Cannula Oxygen Flow Rate 2 2 Weight Telemetry Type Remote Telemetry Telemetry Monitoring Continues Irregular Telemetry Rate (Approximate) Telemetry Heart Rate 61 EKG NJ Interval 0.24 H EKG QRS Interval 0.19 H Telemetry Strip Reading SR w/ 1st Degree AVB & BBB 03/29/25 20:00 03/29/25 21:52 03/30/25 01:00 Temperature 97.1 F L Temperature Source Temporal Artery Scan Pulse Rate 78 Pulse Rate [Apical] Respiratory Rate 20 Blood Pressure 115/81 Blood Pressure Mean 92 Blood Pressure Location Right Arm Blood Pressure Position Sitting O2 Sat by Pulse Oximetry 96 Oxygen Delivery Method Nasal Cannula Nasal Cannula Oxygen Flow Rate 2 2 Weight Telemetry Type Remote Telemetry Telemetry Monitoring Continues Irregular Telemetry Rate (Approximate) Telemetry Heart Rate 76 EKG NJ Interval 0.24 H EKG QRS Interval 0.11 H Telemetry Strip Reading SR w/ 1st Degree AVB & BBB 03/30/25 02:00 03/30/25 05:24 03/30/25 06:00 Temperature 97.5 F L 97.3 F L Temperature Source Tympanic Tympanic Pulse Rate 61 79 Pulse Rate [Apical] Respiratory Rate 14 16 Blood Pressure 108/76 97/60 Blood Pressure Mean 86 72 Blood Pressure Location Left Arm Left Arm Blood Pressure Position Supine Supine O2 Sat by Pulse Oximetry 94 L 97 93 L Oxygen Delivery Method Room Air Nasal Cannula Nasal Cannula Oxygen Flow Rate 2 2 Weight Telemetry Type Telemetry Monitoring Irregular Telemetry Rate (Approximate) Telemetry Heart Rate EKG NJ Interval EKG QRS Interval Telemetry Strip Reading 03/30/25 06:00 03/30/25 07:00 03/30/25 08:15 Temperature Temperature Source Pulse Rate Pulse Rate [Apical] 58 L Respiratory Rate Blood Pressure Blood Pressure Mean Blood Pressure Location Blood Pressure Position O2 Sat by Pulse Oximetry Oxygen Delivery Method Nasal Cannula Oxygen Flow Rate 2 Weight 120.3 kg Telemetry Type Remote Telemetry Telemetry Monitoring Continues Irregular Telemetry Rate (Approximate) 50-60 BPM Telemetry Heart Rate 57 L EKG NJ Interval 0.25 H EKG QRS Interval 0.14 H Telemetry Strip Reading Bradycardia 1stAV/BBB 03/30/25 08:25 03/30/25 09:33 03/30/25 10:20 Temperature 97.4 F L Temperature Source Temporal Artery Scan Pulse Rate 60 92 Pulse Rate [Apical] Respiratory Rate 16 Blood Pressure 92/54 L 100/97 H Blood Pressure Mean 66 98 Blood Pressure Location Left Arm Left Arm Blood Pressure Position Sitting O2 Sat by Pulse Oximetry 91 L 96 Oxygen Delivery Method Nasal Cannula Nasal Cannula Nasal Cannula Oxygen Flow Rate 2 2 2 Weight Telemetry Type Telemetry Monitoring Irregular Telemetry Rate (Approximate) Telemetry Heart Rate EKG NJ Interval EKG QRS Interval Telemetry Strip Reading Lab Results Lab Results: Lab Results: Last 24 Hours 03/30/25 04:49 WBC 5.53 RBC 4.18 L Hgb 11.9 L Hct 40.5 L MCV 96.9 H MCH 28.5 MCHC 29.4 L RDW Coeff of Dimple 15.0 H Plt Count 182 Immature Gran % (Auto) 0.2 Neut % (Auto) 71.4 Lymph % (Auto) 9.2 L [place] % (Auto) 11.8 H Eos % (Auto) 6.9 Baso % (Auto) 0.5 Neut # (Auto) 4.0 Lymph # (Auto) 0.5 L [place] # (Auto) 0.7 Eos # (Auto) 0.4 Baso # (Auto) 0.0 Immature Gran # (Auto) 0.0 Sodium 139.6 Potassium 4.10 Chloride 94.5 L Carbon Dioxide 36.7 H Anion Gap 12.50 BUN 31.2 H Creatinine 1.74 H Estimated GFR (MDRD) 47.00 BUN/Creatinine Ratio 17.93 Glucose 91.4 Calcium 8.26 L Magnesium 1.93 Total Bilirubin 1.03 AST 27.2 ALT 6.6 Alkaline Phosphatase 75.8 Total Protein 6.83 Albumin 3.64 Globulin 3.19 Albumin/Globulin Ratio 1.14 Additional Comments Additional Comments: I have independently reviewed and interpreted the labs/EKGs/imaging ordered during this hospital stay. I have reviewed outside records that are available in our EMR that pertain to medical stay including imaging/notes/labs from previous visits. Active Medications Active Medications: Medications Generic Name Dose Route Start Last Admin Trade Name Freq PRN Reason Stop Dose Admin Acetaminophen 650 mg 03/27/25 21:22 03/29/25 22:01 Acetaminophen 325 Mg Tablet PO 650 mg Q4H PRN Administration Mild Pain Albuterol Sulfate 2 puff 03/27/25 21:44 Albuterol Sulfate 8 Gm Inhaler IH Q4HR PRN dyspnea Amiodarone HCl 200 mg 03/28/25 09:00 03/30/25 08:29 Amiodarone Hcl 200 Mg Tablet PO 200 mg DAILY JOSE RAUL Administration Carvedilol 3.125 mg 03/27/25 21:25 03/30/25 08:29 Carvedilol 3.125 Mg Tablet PO 3.125 mg BID JOSE RAUL Administration Cefuroxime Axetil 400 mg 03/30/25 09:30 03/30/25 09:27 Cefpodoxime Proxetil 200 Mg Tablet PO 04/05/25 17:01 400 mg [id number] JOSE RAUL Administration Empagliflozin 10 mg 03/28/25 09:00 03/30/25 08:28 Empagliflozin 10 Mg Tablet PO 10 mg DAILY JOSE RAUL Administration Enoxaparin Sodium 40 mg 03/28/25 09:00 03/30/25 08:30 Enoxaparin Sodium 40 Mg/0.4 Ml Syr SUBCUT 40 mg DAILY JOSE RAUL Administration Furosemide 40 mg 03/28/25 05:00 03/30/25 05:00 Furosemide Inj 40 Mg/4 Ml Vial IVP 40 mg Q8HR JOSE RAUL Administration Isosorbide Dinitrate 5 mg 03/28/25 09:00 03/30/25 08:29 Isosorbide Dinitrate 20 Mg Tablet PO 5 mg 3XD JOSE RAUL Administration Potassium Chloride 10 meq 03/30/25 07:30 03/30/25 08:29 Potassium Chloride 10 Meq Capsule.Er PO 10 meq DAILYWM2 JOSE RAUL Administration Pravastatin Sodium 40 mg 03/27/25 21:25 03/29/25 21:11 Pravastatin Sodium 40 Mg Tablet PO 40 mg BEDTIME JOSE RAUL Administration Sacubitril/Valsartan 4 each 03/28/25 09:00 03/30/25 08:29 Sacubitril/Valsartan 1 Each Tablet PO 4 each BID JOSE RAUL Administration Sodium Chloride 1 syr 03/28/25 05:00 03/30/25 05:00 0.9% Sodium Chloride 10 Ml Disp.Syrin IVF 1 syr Q8H JOSE RAUL Administration Spironolactone 25 mg 03/28/25 09:00 03/30/25 08:28 Spironolactone 25 Mg Tablet PO 25 mg DAILY JOSE RAUL Administration Plan Plan: 1. 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 Monitor for contracture alkalosis symptoms. 2. Acute hypoxic respiratory failure in setting of CHF exacerbation - Wean O2 when able 3. HTN - chronic, continue home medications 4. COPD - inhaler prn 5. HLD - chronic, continue home medications 6. Hx of illicit drug use - pt counseled on need to stop cocaine use so he can get an ICD placed by EP. 7. Cellulitis of LLE due to serratia marcescens- blisters and open wound noted, erythema noted. Transition to cefpodoxime based on culture results. 8. Hypomagnesemia - improved, 2 gm ordered today, repeat lab in AM, goal of 2 DVT Prophylaxis: Lovenox Follow ups: [facility]: 04/07/25 at 3 pm Review Statement Review Statement: I have personally discussed and reviewed the patient's visit/currently labs/imaging/decision making with Dr. Allison, my supervising attending. Greater that 50 minutes spent with patient, 50% of the time spent with this patient was devoted to counseling and coordination of care.
[2025-03-30] MEDS: MAGNESIUM SULF 2 G/50 ML BAG 2 GM/50 ML PIGGYBACK IV ONE (12:26)
[2025-03-31 05:37] LABS: IMMATURE GRANULOCYTE # (AUTO) 0.0 (0.0-1.0); IMMATURE GRANULOCYTE % (AUTO) 0.0 % (0.0-5.0); RDW COEFFICIENT OF VARIATION 14.8 % (11.6-14.8)
[2025-03-31 05:49] LABS: CREATININE 1.78 mg/dL (0.60-1.10)
--- NOTE | 2025-03-31 11:32 | CT ---
EXAM: CT LEFT LOWER EXTREMITY WITH CONTRAST. HISTORY: Left lateral wound, cellulitis, pain, evaluate for abscess. TECHNIQUE: Transaxial CT images of the left lower extremity including the knee and lower leg were obtained following the intravenous administration of 75 mL Omnipaque 350. Multiplanar reformatted images are provided. COMPARISON: None. FINDINGS: There is diffuse skin thickening and subcutaneous edema circumferentially at the left lower leg. 3 cm skin blister at the anterolateral aspect of the proximal lower leg. There is diffuse edema interweaving between the deep compartment musculature along with a long segment thin crescentic area of more confluent fluid along the deep fascia of the lateral left lower leg measuring 7 mm in thickness. This has thin armijo without significant enhancement. No thick walled rim-enhancing abscess or other drainable collection demonstrated. No soft tissue gas. No acute fracture, dislocation or CT evidence of acute osteomyelitis. Tricompartmental left knee osteoarthritis. [id number] does not allow for definitive assessment of joint effusion. IMPRESSION: - Diffuse subcutaneous edema and skin thickening along with fluid interweaving between the deep compartment musculature. Findings suggestive of cellulitis and myositis. No soft tissue gas. - Long segment area of thin crescentic, somewhat confluent fluid at the lateral aspect of the lower leg along the deep fascia has thin, nonenhancing armijo and may represent phlegmon. No definitive thick-walled abscess. Skin blister at the anterolateral aspect of the proximal lower leg. - No CT evidence of acute osteomyelitis. All CT scans are performed using dose optimization techniques as appropriate to the performed exam and include at least one of the following: Automated exposure control, adjustment of the mA and/or kV according to size, and the use of iterative reconstruction technique.
--- NOTE | 2025-03-31 11:55 | PCM.PROG ---
Date/Time Seen Date Seen by Provider: 03/31/25 Time Seen by Provider: 08:30 Provider Provider: CAR[facility] Chief Complaint Chief Complaint: ACUTE SYSTOLIC HEART FAILURE Subjective Subjective: Patient has diuresed almost 18L off. Still fluid overloaded compared to his baseline. Complaining of LLE pain worse than before. Now that some significant edema has been diuresed, the LLE lateral wound does have some firmness/induration surrounding it. CT LLE ordered to r/o abscess. Objective Appearance: Positive No Apparent Distress, Alert and Oriented x3 and Ill- Appearing Chest/Lungs: Positive Symmetrical With Equal Breath Sounds and Clear to Auscultation Bilaterally (diminished); Negative Rales, Rhonci or Wheezes Heart: Positive RRR and Pulses Normal GI/: Positive Soft, Nontender, Bowel Sounds Normal and No Distention Neurological: Positive Motor intact, Cranial Nerves Intact, Alert and Oriented Additional Findings: Significant edema of bilateral lower ext, abdomen, and even eyelids, slowly improving day to day. Erythema noted of LLE and wound to left lateral leg, induration noted surrounding wound. +weeping kaiden Vital Signs Vital Signs: Vital Signs: Last 24 Hours 03/30/25 13:00 03/30/25 13:27 03/30/25 13:32 Temperature 97.4 F L Temperature Source Temporal Artery Scan Pulse Rate 81 Respiratory Rate 19 Blood Pressure 114/78 Blood Pressure Mean 90 Blood Pressure Location Left Arm Blood Pressure Position Sitting O2 Sat by Pulse Oximetry 93 L Oxygen Delivery Method Nasal Cannula Oxygen Flow Rate 2 Weight Telemetry Type Remote Telemetry Remote Telemetry Telemetry Monitoring Continues Continues Irregular Telemetry Rate (Approximate) 70-80 BPM Telemetry Heart Rate 72 99 EKG RI Interval 0.27 H EKG QRS Interval 0.14 H Telemetry Strip Reading SR w/ AVB/BBB Run of v tach 03/30/25 14:00 03/30/25 17:33 03/30/25 19:00 Temperature 97.6 F Temperature Source Pulse Rate 64 Respiratory Rate 19 Blood Pressure 93/44 L Blood Pressure Mean 60 Blood Pressure Location Left Arm Blood Pressure Position Sitting O2 Sat by Pulse Oximetry 94 L 93 L Oxygen Delivery Method Nasal Cannula Nasal Cannula Oxygen Flow Rate 2 Weight Telemetry Type Remote Telemetry Telemetry Monitoring Continues Irregular Telemetry Rate (Approximate) Telemetry Heart Rate 65 EKG RI Interval 0.22 H EKG QRS Interval 0.18 H Telemetry Strip Reading SR w/ 1st Degree AVB and BBB 03/30/25 19:40 03/30/25 20:00 03/30/25 21:00 Temperature 97.7 F Temperature Source Temporal Artery Scan Pulse Rate 72 Respiratory Rate 20 Blood Pressure 106/53 L Blood Pressure Mean 70 Blood Pressure Location Left Arm Blood Pressure Position Supine O2 Sat by Pulse Oximetry 94 L 94 L Oxygen Delivery Method Nasal Cannula Nasal Cannula Nasal Cannula Oxygen Flow Rate 2 2 2 Weight Telemetry Type Telemetry Monitoring Irregular Telemetry Rate (Approximate) Telemetry Heart Rate EKG RI Interval EKG QRS Interval Telemetry Strip Reading 03/31/25 01:00 03/31/25 05:50 03/31/25 05:50 Temperature 97.6 F Temperature Source Temporal Artery Scan Pulse Rate 86 Respiratory Rate 20 Blood Pressure 101/50 L Blood Pressure Mean 67 Blood Pressure Location Left Arm Blood Pressure Position Supine O2 Sat by Pulse Oximetry 93 L Oxygen Delivery Method Nasal Cannula Oxygen Flow Rate 2 Weight 118.9 kg Telemetry Type Remote Telemetry Telemetry Monitoring Continues Irregular Telemetry Rate (Approximate) Telemetry Heart Rate 61 EKG RI Interval 0.28 H EKG QRS Interval 0.17 H Telemetry Strip Reading SR w/ 1st Degree AVB and BBB 03/31/25 06:00 03/31/25 07:00 03/31/25 08:25 Temperature Temperature Source Pulse Rate Respiratory Rate Blood Pressure Blood Pressure Mean Blood Pressure Location Blood Pressure Position O2 Sat by Pulse Oximetry Oxygen Delivery Method Nasal Cannula Nasal Cannula Oxygen Flow Rate 2 2 Weight Telemetry Type Remote Telemetry Telemetry Monitoring Continues Irregular Telemetry Rate (Approximate) Telemetry Heart Rate 89 EKG RI Interval 0.22 H EKG QRS Interval 0.16 H Telemetry Strip Reading SR with 1st Degree AVB & BBB 03/31/25 10:00 03/31/25 10:00 Temperature 97.4 F L Temperature Source Temporal Artery Scan Pulse Rate 83 Respiratory Rate 18 Blood Pressure 106/55 L Blood Pressure Mean 72 Blood Pressure Location Left Arm Blood Pressure Position O2 Sat by Pulse Oximetry 97 Oxygen Delivery Method Nasal Cannula Nasal Cannula Oxygen Flow Rate 2 2 Weight Telemetry Type Telemetry Monitoring Irregular Telemetry Rate (Approximate) Telemetry Heart Rate EKG RI Interval EKG QRS Interval Telemetry Strip Reading Lab Results Lab Results: Lab Results: Last 24 Hours 03/31/25 03/31/25 08:27 05:10 WBC 4.58 RBC 3.89 L Hgb 11.1 L Hct 37.7 L MCV 96.9 H MCH 28.5 MCHC 29.4 L RDW Coeff of Dimple 14.8 Plt Count 181 Immature Gran % (Auto) 0.0 Neut % (Auto) 69.1 Lymph % (Auto) 11.6 [place] % (Auto) 10.7 H Eos % (Auto) 7.9 H Baso % (Auto) 0.7 Neut # (Auto) 3.2 Lymph # (Auto) 0.5 L [place] # (Auto) 0.5 Eos # (Auto) 0.4 Baso # (Auto) 0.0 Immature Gran # (Auto) 0.0 Sodium 138.7 Potassium 4.42 Chloride 93.9 L Carbon Dioxide 37.8 H Anion Gap 11.42 BUN 34.8 H Creatinine 1.78 H Estimated GFR (MDRD) 46.00 BUN/Creatinine Ratio 19.55 Glucose 101.9 Calcium 8.43 Magnesium 2.00 Total Bilirubin 1.07 AST 27.4 ALT 4.8 Alkaline Phosphatase 61.7 Total Protein 6.34 Albumin 3.41 L Globulin 2.93 Albumin/Globulin Ratio 1.16 Additional Comments Additional Comments: I have independently reviewed and interpreted the labs/EKGs/imaging ordered during this hospital stay. I have reviewed outside records that are available in our EMR that pertain to medical stay including imaging/notes/labs from previous visits. EXAM: CT LEFT LOWER EXTREMITY WITH CONTRAST. HISTORY: Left lateral wound, cellulitis, pain, evaluate for abscess. TECHNIQUE: Transaxial CT images of the left lower extremity including the knee and lower leg were obtained following the intravenous administration of 75 mL Omnipaque 350. Multiplanar reformatted images are provided. COMPARISON: None. FINDINGS: There is diffuse skin thickening and subcutaneous edema circumferentially at the left lower leg. 3 cm skin blister at the anterolateral aspect of the proximal lower leg. There is diffuse edema interweaving between the deep compartment musculature along with a long segment thin crescentic area of more confluent fluid along the deep fascia of the lateral left lower leg measuring 7 mm in thickness. This has thin armijo without significant enhancement. No thick walled rim-enhancing abscess or other drainable collection demonstrated. No soft tissue gas. No acute fracture, dislocation or CT evidence of acute osteomyelitis. Tricompartmental left knee osteoarthritis. [id number] does not allow for definitive assessment of joint effusion. IMPRESSION: - Diffuse subcutaneous edema and skin thickening along with fluid interweaving between the deep compartment musculature. Findings suggestive of cellulitis and myositis. No soft tissue gas. - Long segment area of thin crescentic, somewhat confluent fluid at the lateral aspect of the lower leg along the deep fascia has thin, nonenhancing armijo and may represent phlegmon. No definitive thick-walled abscess. Skin blister at the anterolateral aspect of the proximal lower leg. - No CT evidence of acute osteomyelitis. Active Medications Active Medications: Medications Generic Name Dose Route Start Last Admin Trade Name Freq PRN Reason Stop Dose Admin Acetaminophen 650 mg 03/27/25 21:22 03/31/25 01:41 Acetaminophen 325 Mg Tablet PO 650 mg Q4H PRN Administration Mild Pain Hydrocodone Bitart/Acetaminophen 1 tab 03/31/25 11:51 Hydrocodone Bit/Acetaminophen 5/325 Mg Tablet PO Q6HR PRN MODERATE PAIN Albuterol Sulfate 2 puff 03/27/25 21:44 Albuterol Sulfate 8 Gm Inhaler IH Q4HR PRN dyspnea Amiodarone HCl 200 mg 03/28/25 09:00 03/31/25 08:27 Amiodarone Hcl 200 Mg Tablet PO 200 mg DAILY JOSE RAUL Administration Carvedilol 3.125 mg 03/27/25 21:25 03/31/25 08:28 Carvedilol 3.125 Mg Tablet PO 3.125 mg BID JOSE RAUL Administration Cefuroxime Axetil 400 mg 03/30/25 09:30 03/31/25 08:27 Cefpodoxime Proxetil 200 Mg Tablet PO 04/05/25 17:01 400 mg BIDWM2 JOSE RAUL Administration Empagliflozin 10 mg 03/28/25 09:00 03/31/25 08:28 Empagliflozin 10 Mg Tablet PO 10 mg DAILY JOSE RAUL Administration Enoxaparin Sodium 40 mg 03/28/25 09:00 03/31/25 08:29 Enoxaparin Sodium 40 Mg/0.4 Ml Syr SUBCUT 40 mg DAILY JOSE RAUL Administration Furosemide 40 mg 03/28/25 05:00 03/31/25 05:11 Furosemide Inj 40 Mg/4 Ml Vial IVP 40 mg Q8HR JOSE RAUL Administration Isosorbide Dinitrate 5 mg 03/28/25 09:00 03/31/25 08:26 Isosorbide Dinitrate 20 Mg Tablet PO 5 mg 3XD JOSE RAUL Administration Potassium Chloride 10 meq 03/30/25 07:30 03/31/25 08:28 Potassium Chloride 10 Meq Capsule.Er PO 10 meq DAILYWM2 JOSE RAUL Administration Pravastatin Sodium 40 mg 03/27/25 21:25 03/30/25 20:06 Pravastatin Sodium 40 Mg Tablet PO 40 mg BEDTIME JOSE RAUL Administration Sacubitril/Valsartan 4 each 03/28/25 09:00 03/31/25 08:27 Sacubitril/Valsartan 1 Each Tablet PO 4 each BID JOSE RAUL Administration Sodium Chloride 1 syr 03/28/25 05:00 03/31/25 05:10 0.9% Sodium Chloride 10 Ml Disp.Syrin IVF 1 syr Q8H JOSE RAUL Administration Spironolactone 25 mg 03/28/25 09:00 03/31/25 08:28 Spironolactone 25 Mg Tablet PO 25 mg DAILY JOSE RAUL Administration Plan Plan: 1. 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 Monitor for contracture alkalosis symptoms. 2. Acute hypoxic respiratory failure in setting of CHF exacerbation - Wean O2 when able 3. HTN - chronic, continue home medications 4. COPD - inhaler prn 5. HLD - chronic, continue home medications 6. Hx of illicit drug use - pt counseled on need to stop cocaine use so he can get an ICD placed by EP. 7. Cellulitis of LLE due to serratia marcescens- blisters and open wound noted, erythema noted. Transition to cefpodoxime based on culture results. CT LLE ruled out abscess formation. 8. Hypomagnesemia - at goal of 2, continue to monitor. DVT Prophylaxis: Lovenox Follow ups: [facility]: 04/07/25 at 3 pm Review Statement Review Statement: I have personally discussed and reviewed the patient's visit/currently labs/imaging/decision making with Dr. Allison, my supervising attending. Greater that 50 minutes spent with patient, 50% of the time spent with this patient was devoted to counseling and coordination of care.
[2025-03-31] MEDS: MIDODRINE PO SCH (19:28)
[2025-04-01] MEDS: NORCO 5-325 PO PRN (02:37)
[2025-04-01 05:36] LABS: IMMATURE GRANULOCYTE # (AUTO) 0.0 (0.0-1.0); IMMATURE GRANULOCYTE % (AUTO) 0.2 % (0.0-5.0); RDW COEFFICIENT OF VARIATION 15.0 % (11.6-14.8)
[2025-04-01 05:50] LABS: CREATININE 1.67 mg/dL (0.60-1.10)
[2025-04-01] MEDS: LASIX IVP SCH (10:10)
--- NOTE | 2025-04-01 11:51 | PCM.PROG ---
Date/Time Seen Date Seen by Provider: 04/01/25 Time Seen by Provider: 08:40 Provider Provider: [facility]MEN[facility] Chief Complaint Chief Complaint: ACUTE SYSTOLIC HEART FAILURE Subjective Subjective: Patients left lower leg hurts. States it [place]. Ct negative for abscess. Pt is down about 21L. Edema improved but not at baseline. BP has been soft, started midodrine. Objective Appearance: Positive No Apparent Distress, Alert and Oriented x3 and Ill- Appearing Chest/Lungs: Positive Symmetrical With Equal Breath Sounds and Clear to Auscultation Bilaterally (diminished); Negative Rales, Rhonci or Wheezes Heart: Positive RRR and Pulses Normal GI/: Positive Soft, Nontender, Bowel Sounds Normal and No Distention Neurological: Positive Motor intact, Cranial Nerves Intact, Alert and Oriented Additional Findings: Significant edema of bilateral lower ext, abdomen, and even eyelids, slowly improving day to day. Erythema noted of LLE and wound to left lateral leg, induration noted surrounding wound. +weeping kaiden Vital Signs Vital Signs: Vital Signs: Last 24 Hours 03/31/25 13:00 03/31/25 13:00 03/31/25 14:00 Temperature 96.5 F L Temperature Source Temporal Artery Scan Pulse Rate 68 74 Pulse Rate [Apical] Respiratory Rate 22 H 18 Blood Pressure 82/50 L 78/53 L Blood Pressure Mean 60 61 Blood Pressure Location Left Arm Left Arm Blood Pressure Position Supine O2 Sat by Pulse Oximetry 98 Oxygen Delivery Method Nasal Cannula Nasal Cannula Oxygen Flow Rate 2 2 Weight Telemetry Type Remote Telemetry Telemetry Monitoring Continues Telemetry Heart Rate 67 EKG [place] Interval 0.26 H EKG QRS Interval 0.16 H Telemetry Strip Reading SR with 1st Degree AVB & BBB 03/31/25 14:00 03/31/25 18:00 03/31/25 19:00 Temperature 96.3 F L Temperature Source Temporal Artery Scan Pulse Rate 79 Pulse Rate [Apical] Respiratory Rate 18 Blood Pressure 78/56 L Blood Pressure Mean 63 Blood Pressure Location Left Arm Blood Pressure Position O2 Sat by Pulse Oximetry 98 Oxygen Delivery Method Nasal Cannula Nasal Cannula Oxygen Flow Rate 2 2 Weight Telemetry Type Remote Telemetry Telemetry Monitoring Continues Telemetry Heart Rate 78 EKG [place] Interval 0.24 H EKG QRS Interval 0.14 H Telemetry Strip Reading SR W/ 1ST DEGREE AVB & BBB 03/31/25 19:29 03/31/25 20:00 03/31/25 21:52 Temperature 97.5 F L Temperature Source Temporal Artery Scan Pulse Rate 80 Pulse Rate [Apical] 84 Respiratory Rate 20 22 H Blood Pressure 130/59 L Blood Pressure Mean 82 Blood Pressure Location Left Arm Blood Pressure Position Supine O2 Sat by Pulse Oximetry 92 L Oxygen Delivery Method Nasal Cannula Nasal Cannula Nasal Cannula Oxygen Flow Rate 2 2 2 Weight Telemetry Type Telemetry Monitoring Telemetry Heart Rate EKG [place] Interval EKG QRS Interval Telemetry Strip Reading 04/01/25 01:00 04/01/25 02:00 04/01/25 05:23 Temperature 98 F 97.6 F Temperature Source Temporal Artery Scan Temporal Artery Scan Pulse Rate 70 75 Pulse Rate [Apical] Respiratory Rate 20 20 Blood Pressure 126/85 112/74 Blood Pressure Mean 98 86 Blood Pressure Location Left Arm Left Arm Blood Pressure Position Supine Supine O2 Sat by Pulse Oximetry 92 L 98 Oxygen Delivery Method Nasal Cannula Nasal Cannula Oxygen Flow Rate 2 2 Weight Telemetry Type Remote Telemetry Telemetry Monitoring Continues Telemetry Heart Rate 77 EKG [place] Interval 0.24 H EKG QRS Interval 0.12 H Telemetry Strip Reading SR w/ 1st degree AVB and BBB 04/01/25 05:36 04/01/25 06:00 04/01/25 07:00 Temperature Temperature Source Pulse Rate Pulse Rate [Apical] Respiratory Rate Blood Pressure Blood Pressure Mean Blood Pressure Location Blood Pressure Position O2 Sat by Pulse Oximetry 99 Oxygen Delivery Method Nasal Cannula Oxygen Flow Rate 2 Weight 118.6 kg Telemetry Type Remote Telemetry Telemetry Monitoring Continues Telemetry Heart Rate 69 EKG [place] Interval 0.24 H EKG QRS Interval 0.12 H Telemetry Strip Reading SR w/ 1st degree AVB and BBB 04/01/25 09:42 04/01/25 09:43 04/01/25 10:00 Temperature 97.8 F Temperature Source Temporal Artery Scan Pulse Rate 71 Pulse Rate [Apical] Respiratory Rate 23 H Blood Pressure 77/52 L 82/58 L Blood Pressure Mean 60 66 Blood Pressure Location Left Arm Left Arm Blood Pressure Position Supine Supine O2 Sat by Pulse Oximetry 96 Oxygen Delivery Method Nasal Cannula Room Air Room Air Oxygen Flow Rate 2 Weight Telemetry Type Telemetry Monitoring Telemetry Heart Rate EKG [place] Interval EKG QRS Interval Telemetry Strip Reading Lab Results Lab Results: Lab Results: Last 24 Hours 04/01/25 05:00 WBC 4.57 RBC 3.75 L Hgb 10.8 L Hct 36.5 L MCV 97.3 H MCH 28.8 MCHC 29.6 L RDW Coeff of Dimple 15.0 H Plt Count 170 Immature Gran % (Auto) 0.2 Neut % (Auto) 69.4 Lymph % (Auto) 12.7 [place] % (Auto) 10.7 H Eos % (Auto) 6.3 Baso % (Auto) 0.7 Neut # (Auto) 3.2 Lymph # (Auto) 0.6 [place] # (Auto) 0.5 Eos # (Auto) 0.3 Baso # (Auto) 0.0 Immature Gran # (Auto) 0.0 Sodium 138.3 Potassium 4.73 Chloride 95.1 L Carbon Dioxide 37.0 H Anion Gap 10.93 BUN 35.5 H Creatinine 1.67 H Estimated GFR (MDRD) 50.00 BUN/Creatinine Ratio 21.25 Glucose 86.1 Calcium 8.45 Magnesium 1.91 Total Bilirubin 1.43 H AST 28.5 ALT 6.7 Alkaline Phosphatase 69.3 Total Protein 6.44 Albumin 3.47 L Globulin 2.97 Albumin/Globulin Ratio 1.16 Additional Comments Additional Comments: I have independently reviewed and interpreted the labs/EKGs/imaging ordered during this hospital stay. I have reviewed outside records that are available in our EMR that pertain to medical stay including imaging/notes/labs from previous visits. Active Medications Active Medications: Medications Generic Name Dose Route Start Last Admin Trade Name Freq PRN Reason Stop Dose Admin Acetaminophen 650 mg 03/27/25 21:22 04/01/25 09:10 Acetaminophen 325 Mg Tablet PO 650 mg Q4H PRN Administration Mild Pain Hydrocodone Bitart/Acetaminophen 1 tab 03/31/25 11:51 04/01/25 02:37 Hydrocodone Bit/Acetaminophen 5/325 Mg Tablet PO 1 tab Q6HR PRN Administration MODERATE PAIN Albuterol Sulfate 2 puff 03/27/25 21:44 Albuterol Sulfate 8 Gm Inhaler IH Q4HR PRN dyspnea Amiodarone HCl 200 mg 03/28/25 09:00 04/01/25 09:10 Amiodarone Hcl 200 Mg Tablet PO 200 mg DAILY JOSE RAUL Administration Carvedilol 3.125 mg 03/27/25 21:25 03/31/25 08:28 Carvedilol 3.125 Mg Tablet PO 3.125 mg On Hold: 03/31/25 18:50 BID JOSE RAUL Administration Cefuroxime Axetil 400 mg 03/30/25 09:30 04/01/25 09:09 Cefpodoxime Proxetil 200 Mg Tablet PO 04/05/25 17:01 400 mg BIDWM2 JOSE RAUL Administration Empagliflozin 10 mg 03/28/25 09:00 04/01/25 09:10 Empagliflozin 10 Mg Tablet PO 10 mg DAILY JOSE RAUL Administration Enoxaparin Sodium 40 mg 03/28/25 09:00 04/01/25 09:10 Enoxaparin Sodium 40 Mg/0.4 Ml Syr SUBCUT 40 mg DAILY JOSE RAUL Administration Furosemide 40 mg 04/01/25 09:00 04/01/25 11:10 Furosemide Inj 40 Mg/4 Ml Vial IVP 40 mg Q12HR JOSE RAUL Administration Isosorbide Dinitrate 5 mg 03/28/25 09:00 03/31/25 14:42 Isosorbide Dinitrate 20 Mg Tablet PO Not Given On Hold: 03/31/25 18:50 3XD JOSE RAUL Midodrine 5 mg 03/31/25 18:50 04/01/25 09:09 Midodrine Hcl 5 Mg Tablet PO 5 mg TIDWM2 JOSE RAUL Administration Potassium Chloride 10 meq 03/30/25 07:30 04/01/25 09:10 Potassium Chloride 10 Meq Capsule.Er PO 10 meq DAILYWM2 JOSE RAUL Administration Pravastatin Sodium 40 mg 03/27/25 21:25 03/31/25 20:58 Pravastatin Sodium 40 Mg Tablet PO 40 mg BEDTIME JOSE RAUL Administration Sacubitril/Valsartan 4 each 03/28/25 09:00 03/31/25 08:27 Sacubitril/Valsartan 1 Each Tablet PO 4 each On Hold: 03/31/25 18:51 BID JOSE RAUL Administration Sodium Chloride 1 syr 03/28/25 05:00 04/01/25 05:10 0.9% Sodium Chloride 10 Ml Disp.Syrin IVF 1 syr Q8H JOSE RAUL Administration Spironolactone 25 mg 03/28/25 09:00 03/31/25 08:28 Spironolactone 25 Mg Tablet PO 25 mg On Hold: 03/31/25 20:44 DAILY JOSE RAUL Administration Plan Plan: 1. 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 Monitor for contracture alkalosis symptoms. Added midodrine for BP support. Holding other antihypertensives as patient has been hypotensive. 2. Acute hypoxic respiratory failure in setting of CHF exacerbation - Wean O2 when able 3. HTN - chronic, continue home medications 4. COPD - inhaler prn 5. HLD - chronic, continue home medications 6. Hx of illicit drug use - pt counseled on need to stop cocaine use so he can get an ICD placed by EP. 7. Cellulitis of LLE due to serratia marcescens- blisters and open wound noted, erythema noted. Transition to cefpodoxime based on culture results. CT LLE ruled out abscess formation. 8. Hypomagnesemia - at goal of 2, continue to monitor. DVT Prophylaxis: Lovenox Follow ups: [facility]: 04/07/25 at 3 pm Review Statement Review Statement: I have personally discussed and reviewed the patient's visit/currently labs/imaging/decision making with Dr. Allison, my supervising attending. Greater that 50 minutes spent with patient, 50% of the time spent with this patient was devoted to counseling and coordination of care.
[2025-04-02 05:56] LABS: IMMATURE GRANULOCYTE # (AUTO) 0.0 (0.0-1.0); IMMATURE GRANULOCYTE % (AUTO) 0.2 % (0.0-5.0); RDW COEFFICIENT OF VARIATION 15.0 % (11.6-14.8)
[2025-04-02 06:10] LABS: CREATININE 1.72 mg/dL (0.60-1.10)
--- NOTE | 2025-04-02 11:10 | PCM.PROG ---
Date/Time Seen Date Seen by Provider: 04/02/25 Time Seen by Provider: 08:30 Provider Provider: CARMENZA KEANE PA-C, [facility] Chief Complaint Chief Complaint: ACUTE SYSTOLIC HEART FAILURE Subjective Subjective: Patient continues to diurese. BP improved with midodrine. States leg still hurts but is tolerable, mostly stinging pain. Objective Appearance: Positive No Apparent Distress, Alert and Oriented x3 and Ill- Appearing Chest/Lungs: Positive Symmetrical With Equal Breath Sounds and Clear to Auscultation Bilaterally (diminished); Negative Rales, Rhonci or Wheezes Heart: Positive RRR and Pulses Normal GI/: Positive Soft, Nontender, Bowel Sounds Normal and No Distention Neurological: Positive Motor intact, Cranial Nerves Intact, Alert and Oriented Additional Findings: Significant edema of bilateral lower ext, abdomen, and even eyelids, slowly improving day to day. Erythema noted of LLE and wound to left lateral leg, induration noted surrounding wound. +weeping kaiden Vital Signs Vital Signs: Vital Signs: Last 24 Hours 04/01/25 12:00 04/01/25 13:00 04/01/25 13:37 Temperature 98.9 F Temperature Source Temporal Artery Scan Pulse Rate 83 Respiratory Rate 18 Blood Pressure 119/82 95/45 L Blood Pressure Mean 94 61 Blood Pressure Location Left Arm Left Arm Blood Pressure Position Supine Supine O2 Sat by Pulse Oximetry 99 Oxygen Delivery Method Room Air Room Air Oxygen Flow Rate Weight Telemetry Type Remote Telemetry Telemetry Monitoring Continues Telemetry Heart Rate 76 EKG [place] Interval 0.23 H EKG QRS Interval 0.14 H Telemetry Strip Reading SR w/ 1st degree AVB and BBB 04/01/25 14:00 04/01/25 17:24 04/01/25 17:28 Temperature 97.4 F L Temperature Source Temporal Artery Scan Pulse Rate 61 Respiratory Rate 19 Blood Pressure 120/71 Blood Pressure Mean 87 Blood Pressure Location Left Arm Blood Pressure Position Supine O2 Sat by Pulse Oximetry 98 Oxygen Delivery Method Room Air Nasal Cannula Room Air Oxygen Flow Rate Weight Telemetry Type Telemetry Monitoring Telemetry Heart Rate EKG [place] Interval EKG QRS Interval Telemetry Strip Reading 04/01/25 17:44 04/01/25 19:00 04/01/25 20:00 Temperature 97.4 F L Temperature Source Temporal Artery Scan Pulse Rate 61 Respiratory Rate 19 Blood Pressure 120/71 Blood Pressure Mean 87 Blood Pressure Location Left Arm Blood Pressure Position Sitting O2 Sat by Pulse Oximetry 98 Oxygen Delivery Method Nasal Cannula Nasal Cannula Oxygen Flow Rate 2 Weight Telemetry Type Remote Telemetry Telemetry Monitoring Continues Telemetry Heart Rate 68 EKG [place] Interval 0.25 H EKG QRS Interval 0.18 H Telemetry Strip Reading SR W/ 1ST DEGREE AVB & BBB 04/01/25 20:00 04/01/25 20:56 04/02/25 01:00 Temperature 97.7 F Temperature Source Temporal Artery Scan Pulse Rate 68 Respiratory Rate 20 Blood Pressure 94/58 L Blood Pressure Mean 70 Blood Pressure Location Left Arm Blood Pressure Position Supine O2 Sat by Pulse Oximetry 96 Oxygen Delivery Method Room Air Nasal Cannula Oxygen Flow Rate Weight Telemetry Type Remote Telemetry Telemetry Monitoring Continues Telemetry Heart Rate 74 EKG [place] Interval 0.26 H EKG QRS Interval 0.13 H Telemetry Strip Reading SR W/ 1ST DEGREE AVB AND BBB 04/02/25 02:00 04/02/25 05:22 04/02/25 05:22 Temperature 97.9 F 98.9 F Temperature Source Temporal Artery Scan Temporal Artery Scan Pulse Rate 79 86 Respiratory Rate 22 H 22 H Blood Pressure 92/50 L 130/90 Blood Pressure Mean 64 103 Blood Pressure Location Right Arm Left Arm Blood Pressure Position Supine Supine O2 Sat by Pulse Oximetry 95 96 Oxygen Delivery Method Nasal Cannula Nasal Cannula Oxygen Flow Rate 2 2 Weight 117.2 kg Telemetry Type Telemetry Monitoring Telemetry Heart Rate EKG [place] Interval EKG QRS Interval Telemetry Strip Reading 04/02/25 06:00 04/02/25 07:00 04/02/25 08:00 Temperature Temperature Source Pulse Rate Respiratory Rate Blood Pressure Blood Pressure Mean Blood Pressure Location Blood Pressure Position O2 Sat by Pulse Oximetry Oxygen Delivery Method Nasal Cannula Nasal Cannula Oxygen Flow Rate 2 2 Weight Telemetry Type Remote Telemetry Telemetry Monitoring Continues Telemetry Heart Rate 85 EKG [place] Interval 0.22 H EKG QRS Interval 0.12 H Telemetry Strip Reading SR with 1st Degree AVB and BBB 04/02/25 08:15 04/02/25 10:00 04/02/25 10:00 Temperature 97.9 F Temperature Source Temporal Artery Scan Pulse Rate 98 Respiratory Rate Blood Pressure 101/77 121/81 Blood Pressure Mean 85 94 Blood Pressure Location Left Arm Left Arm Blood Pressure Position Sitting O2 Sat by Pulse Oximetry 95 Oxygen Delivery Method Room Air Room Air Room Air Oxygen Flow Rate Weight Telemetry Type Telemetry Monitoring Telemetry Heart Rate EKG [place] Interval EKG QRS Interval Telemetry Strip Reading Lab Results Lab Results: Lab Results: Last 24 Hours 04/02/25 05:42 WBC 4.80 RBC 3.82 L Hgb 10.9 L Hct 37.4 L MCV 97.9 H MCH 28.5 MCHC 29.1 L RDW Coeff of Dimple 15.0 H Plt Count 145 Immature Gran % (Auto) 0.2 Neut % (Auto) 70.0 Lymph % (Auto) 12.5 [place] % (Auto) 11.3 H Eos % (Auto) 5.4 Baso % (Auto) 0.6 Neut # (Auto) 3.4 Lymph # (Auto) 0.6 [place] # (Auto) 0.5 Eos # (Auto) 0.3 Baso # (Auto) 0.0 Immature Gran # (Auto) 0.0 Sodium 138.1 Potassium 4.66 Chloride 95.5 L Carbon Dioxide 38.1 H Anion Gap 9.16 BUN 43.1 H Creatinine 1.72 H Estimated GFR (MDRD) 48.00 BUN/Creatinine Ratio 25.05 Glucose 112.3 H Calcium 8.48 Magnesium 1.93 Total Bilirubin 1.28 AST 27.9 ALT 7.1 Alkaline Phosphatase 67.3 Total Protein 6.52 Albumin 3.52 Globulin 3.00 Albumin/Globulin Ratio 1.17 Additional Comments Additional Comments: I have independently reviewed and interpreted the labs/EKGs/imaging ordered during this hospital stay. I have reviewed outside records that are available in our EMR that pertain to medical stay including imaging/notes/labs from previous visits. Active Medications Active Medications: Medications Generic Name Dose Route Start Last Admin Trade Name Freq PRN Reason Stop Dose Admin Acetaminophen 650 mg 03/27/25 21:22 04/02/25 08:21 Acetaminophen 325 Mg Tablet PO 650 mg Q4H PRN Administration Mild Pain Hydrocodone Bitart/Acetaminophen 1 tab 03/31/25 11:51 04/01/25 02:37 Hydrocodone Bit/Acetaminophen 5/325 Mg Tablet PO 1 tab Q6HR PRN Administration MODERATE PAIN Albuterol Sulfate 2 puff 03/27/25 21:44 Albuterol Sulfate 8 Gm Inhaler IH Q4HR PRN dyspnea Amiodarone HCl 200 mg 03/28/25 09:00 04/02/25 08:09 Amiodarone Hcl 200 Mg Tablet PO 200 mg DAILY JOSE RAUL Administration Carvedilol 3.125 mg 03/27/25 21:25 03/31/25 08:28 Carvedilol 3.125 Mg Tablet PO 3.125 mg On Hold: 03/31/25 18:50 BID JOSE RAUL Administration Cefuroxime Axetil 400 mg 03/30/25 09:30 04/02/25 08:04 Cefpodoxime Proxetil 200 Mg Tablet PO 04/05/25 17:01 400 mg BIDWM2 JOSE RAUL Administration Empagliflozin 10 mg 03/28/25 09:00 04/02/25 08:09 Empagliflozin 10 Mg Tablet PO 10 mg DAILY JOSE RAUL Administration Enoxaparin Sodium 40 mg 03/28/25 09:00 04/02/25 08:09 Enoxaparin Sodium 40 Mg/0.4 Ml Syr SUBCUT 40 mg DAILY JOSE RAUL Administration Furosemide 100 mg/ Sodium 100 mls @ 5 mls/hr 04/02/25 10:45 Chloride IV TITRATION JOSE RAUL Protocol 5 MG/HR Isosorbide Dinitrate 5 mg 03/28/25 09:00 03/31/25 14:42 Isosorbide Dinitrate 20 Mg Tablet PO Not Given On Hold: 03/31/25 18:50 3XD JOSE RAUL Midodrine 5 mg 03/31/25 18:50 04/02/25 08:05 Midodrine Hcl 5 Mg Tablet PO 5 mg TIDWM2 JOSE RAUL Administration Potassium Chloride 10 meq 03/30/25 07:30 04/02/25 08:04 Potassium Chloride 10 Meq Capsule.Er PO 10 meq DAILYWM2 JOSE RAUL Administration Pravastatin Sodium 40 mg 03/27/25 21:25 04/01/25 20:41 Pravastatin Sodium 40 Mg Tablet PO 40 mg BEDTIME JOSE RAUL Administration Sacubitril/Valsartan 4 each 03/28/25 09:00 03/31/25 08:27 Sacubitril/Valsartan 1 Each Tablet PO 4 each On Hold: 03/31/25 18:51 BID JOSE RAUL Administration Sodium Chloride 1 syr 03/28/25 05:00 04/02/25 05:16 0.9% Sodium Chloride 10 Ml Disp.Syrin IVF 1 syr Q8H JOSE RAUL Administration Spironolactone 25 mg 03/28/25 09:00 03/31/25 08:28 Spironolactone 25 Mg Tablet PO 25 mg On Hold: 03/31/25 20:44 DAILY JOSE RAUL Administration Plan Plan: 1. Acute on Chronic Combined CHF Exacerbation - EF 10-15% as of 11/10/24, transition lasix to lasix drip 5mg/hr, I&O, daily weight, 1800mL fluid restriction, educated on importance of lifevest use, cont GDMT. Monitor for contracture alkalosis symptoms. Added midodrine for BP support. Holding other antihypertensives as patient has been hypotensive. May be able to restart coreg tomorrow. 2. Acute hypoxic respiratory failure in setting of CHF exacerbation - Wean O2 when able 3. HTN - chronic, continue home medications 4. COPD - inhaler prn 5. HLD - chronic, continue home medications 6. Hx of illicit drug use - pt counseled on need to stop cocaine use so he can get an ICD placed by EP. 7. Cellulitis of LLE due to serratia marcescens- blisters and open wound noted, erythema noted. Transition to cefpodoxime based on culture results. CT LLE ruled out abscess formation. 8. Hypomagnesemia - at goal of 2, continue to monitor. DVT Prophylaxis: Lovenox Follow ups: [facility]: 04/07/25 at 3 pm Review Statement Review Statement: I have personally discussed and reviewed the patient's visit/currently labs/imaging/decision making with Dr. Allison, my supervising attending. Greater that 50 minutes spent with patient, 50% of the time spent with this patient was devoted to counseling and coordination of care.
[2025-04-03 04:52] LABS: IMMATURE GRANULOCYTE # (AUTO) 0.0 (0.0-1.0); IMMATURE GRANULOCYTE % (AUTO) 0.2 % (0.0-5.0); RDW COEFFICIENT OF VARIATION 15.1 % (11.6-14.8)
[2025-04-03] MEDS: LASIX ONE (05:01)
[2025-04-03 05:04] LABS: CREATININE 1.62 mg/dL (0.60-1.10)
[2025-04-03] MEDS: DIAMOX PO SCH (09:46)
--- NOTE | 2025-04-03 09:58 | PCM.PROG ---
Date/Time Seen Date Seen by Provider: 04/03/25 Time Seen by Provider: 08:35 Provider [facility] AD[facility]PH YADAV[facility] Chief Complaint Chief Complaint: ACUTE SYSTOLIC HEART FAILURE Subjective Subjective: Continues to diurese well. Down 4 kg overnight. Still has significant edema. BLE weeping with foul odor. Objective Appearance: Positive No Apparent Distress, Alert and Oriented x3 and Ill- Appearing Chest/Lungs: Positive Symmetrical With Equal Breath Sounds and Clear to Auscultation Bilaterally (diminished) Heart: Positive RRR and Pulses Normal GI/: Positive Soft, Nontender, Bowel Sounds Normal and No Distention Musculoskeletal: Positive Not Examined Neurological: Positive Sensation Intact, Motor intact, Reflexes Intact, Alert, Oriented and Muscle Strength 5/5 in Upper and Lower Extremities Bilaterally Additional Findings: Significant edema of bilateral lower ext, abdomen, and even eyelids, slowly improving day to day. Erythema noted of LLE and wound to left lateral leg, induration noted surrounding wound. +weeping kaiden Vital Signs Vital Signs: Vital Signs: Last 24 Hours 04/02/25 10:00 04/02/25 10:00 04/02/25 13:00 Temperature 97.9 F Temperature Source Temporal Artery Scan Pulse Rate 98 Respiratory Rate Blood Pressure 121/81 Blood Pressure Mean 94 Blood Pressure Location Left Arm Blood Pressure Position Sitting O2 Sat by Pulse Oximetry 95 Oxygen Delivery Method Room Air Room Air Oxygen Flow Rate Weight Telemetry Type Remote Telemetry Telemetry Monitoring Continues Telemetry Heart Rate 86 EKG DC Interval 0.26 H EKG QRS Interval 0.15 H Telemetry Strip Reading SR W/ 1st Degree AVB and BBB 04/02/25 14:00 04/02/25 14:00 04/02/25 18:00 Temperature 98.0 F 97.1 F L Temperature Source Temporal Artery Scan Temporal Artery Scan Pulse Rate 94 81 Respiratory Rate Blood Pressure 138/81 93/57 L Blood Pressure Mean 100 69 Blood Pressure Location Right Arm Left Arm Blood Pressure Position Supine Supine O2 Sat by Pulse Oximetry 95 95 Oxygen Delivery Method Nasal Cannula Room Air Nasal Cannula Oxygen Flow Rate 2 2 Weight Telemetry Type Telemetry Monitoring Telemetry Heart Rate EKG DC Interval EKG QRS Interval Telemetry Strip Reading 04/02/25 18:27 04/02/25 18:46 04/02/25 19:00 Temperature Temperature Source Pulse Rate Respiratory Rate Blood Pressure 117/62 Blood Pressure Mean 80 Blood Pressure Location Right Arm Blood Pressure Position Supine O2 Sat by Pulse Oximetry Oxygen Delivery Method Room Air Room Air Oxygen Flow Rate Weight Telemetry Type Remote Telemetry Telemetry Monitoring Continues Telemetry Heart Rate 84 EKG DC Interval 0.25 H EKG QRS Interval 0.16 H Telemetry Strip Reading SR W/ 1ST DEGREE AVB & BBB 04/02/25 19:10 04/02/25 21:34 04/03/25 01:00 Temperature 98.2 F Temperature Source Tympanic Pulse Rate 79 Respiratory Rate 20 18 Blood Pressure 117/82 Blood Pressure Mean 93 Blood Pressure Location Right Arm Blood Pressure Position Supine O2 Sat by Pulse Oximetry 93 L Oxygen Delivery Method Nasal Cannula Nasal Cannula Oxygen Flow Rate 2 2 Weight Telemetry Type Remote Telemetry Telemetry Monitoring Continues Telemetry Heart Rate 79 EKG DC Interval 0.27 H EKG QRS Interval 0.13 H Telemetry Strip Reading SR w/1st degree AVB/BBB 04/03/25 01:38 04/03/25 05:26 04/03/25 05:26 Temperature 97.6 F 97.4 F L Temperature Source Tympanic Tympanic Pulse Rate 77 81 Respiratory Rate 17 20 Blood Pressure 111/73 118/70 Blood Pressure Mean 85 86 Blood Pressure Location Right Arm Left Arm Blood Pressure Position Supine Supine O2 Sat by Pulse Oximetry 93 L 96 Oxygen Delivery Method Nasal Cannula Nasal Cannula Oxygen Flow Rate 2 2 Weight 113.7 kg Telemetry Type Telemetry Monitoring Telemetry Heart Rate EKG DC Interval EKG QRS Interval Telemetry Strip Reading 04/03/25 07:00 04/03/25 08:00 Temperature Temperature Source Pulse Rate Respiratory Rate Blood Pressure Blood Pressure Mean Blood Pressure Location Blood Pressure Position O2 Sat by Pulse Oximetry Oxygen Delivery Method Nasal Cannula Oxygen Flow Rate 2 Weight Telemetry Type Remote Telemetry Telemetry Monitoring Continues Telemetry Heart Rate 90 EKG DC Interval 0.26 H EKG QRS Interval 0.14 H Telemetry Strip Reading SR w/1st degree AVB and BBB Lab Results Lab Results: Lab Results: Last 24 Hours 04/03/25 04:41 WBC 5.46 RBC 3.90 L Hgb 11.1 L Hct 38.0 L MCV 97.4 H MCH 28.5 MCHC 29.2 L RDW Coeff of Dimple 15.1 H Plt Count 160 Immature Gran % (Auto) 0.2 Neut % (Auto) 73.8 Lymph % (Auto) 11.7 [place] % (Auto) 8.1 Eos % (Auto) 5.7 Baso % (Auto) 0.5 Neut # (Auto) 4.0 Lymph # (Auto) 0.6 [place] # (Auto) 0.4 Eos # (Auto) 0.3 Baso # (Auto) 0.0 Immature Gran # (Auto) 0.0 Sodium 139.6 Potassium 4.49 Chloride 90.6 L Carbon Dioxide 40.4 H* Anion Gap 13.09 BUN 42.9 H Creatinine 1.62 H Estimated GFR (MDRD) 51.00 BUN/Creatinine Ratio 26.48 Glucose 115.2 H Calcium 8.73 Magnesium 1.78 Total Bilirubin 1.14 AST 32.4 ALT 8.0 Alkaline Phosphatase 74.3 Total Protein 7.08 Albumin 3.81 Globulin 3.27 Albumin/Globulin Ratio 1.16 Additional Comments Additional Comments: I have independently reviewed and interpreted the labs/EKGs/imaging ordered d uring this hospital stay. I have reviewed outside records that are available in our EMR that pertain to medical stay including imaging/notes/labs from previous visits. Active Medications Active Medications: Medications Generic Name Dose Route Start Last Admin Trade Name Freq PRN Reason Stop Dose Admin Acetaminophen 650 mg 03/27/25 21:22 04/02/25 08:21 Acetaminophen 325 Mg Tablet PO 650 mg Q4H PRN Administration Mild Pain Hydrocodone Bitart/Acetaminophen 1 tab 03/31/25 11:51 04/02/25 21:30 Hydrocodone Bit/Acetaminophen 5/325 Mg Tablet PO 1 tab Q6HR PRN Administration MODERATE PAIN Acetazolamide 250 mg 04/03/25 09:00 04/03/25 09:46 Acetazolamide 250 Mg Tablet PO 250 mg Q12HR JOSE RAUL Administration Albuterol Sulfate 2 puff 03/27/25 21:44 Albuterol Sulfate 8 Gm Inhaler IH Q4HR PRN dyspnea Amiodarone HCl 200 mg 03/28/25 09:00 04/03/25 08:23 Amiodarone Hcl 200 Mg Tablet PO 200 mg DAILY JOSE RAUL Administration Carvedilol 3.125 mg 03/27/25 21:25 03/31/25 08:28 Carvedilol 3.125 Mg Tablet PO 3.125 mg On Hold: 03/31/25 18:50 BID JOSE RAUL Administration Cefuroxime Axetil 400 mg 03/30/25 09:30 04/03/25 08:23 Cefpodoxime Proxetil 200 Mg Tablet PO 04/05/25 17:01 400 mg BIDWM2 JOSE RAUL Administration Empagliflozin 10 mg 03/28/25 09:00 04/03/25 08:23 Empagliflozin 10 Mg Tablet PO 10 mg DAILY JOSE RAUL Administration Enoxaparin Sodium 40 mg 03/28/25 09:00 04/03/25 08:22 Enoxaparin Sodium 40 Mg/0.4 Ml Syr SUBCUT 40 mg DAILY JOSE RAUL Administration Furosemide 100 mg/ Sodium 100 mls @ 5 mls/hr 04/02/25 10:45 04/03/25 04:56 Chloride IV 5 mg/hr TITRATION JOSE RAUL 5 mls/hr Protocol Administration 5 MG/HR Isosorbide Dinitrate 5 mg 03/28/25 09:00 03/31/25 14:42 Isosorbide Dinitrate 20 Mg Tablet PO Not Given On Hold: 03/31/25 18:50 3XD JOSE RAUL Midodrine 5 mg 03/31/25 18:50 04/03/25 08:23 Midodrine Hcl 5 Mg Tablet PO 5 mg TIDWM2 JOSE RAUL Administration Potassium Chloride 10 meq 03/30/25 07:30 04/03/25 08:23 Potassium Chloride 10 Meq Capsule.Er PO 10 meq DAILYWM2 JOSE RAUL Administration Pravastatin Sodium 40 mg 03/27/25 21:25 04/02/25 20:09 Pravastatin Sodium 40 Mg Tablet PO 40 mg BEDTIME JOSE RAUL Administration Sacubitril/Valsartan 4 each 03/28/25 09:00 03/31/25 08:27 Sacubitril/Valsartan 1 Each Tablet PO 4 each On Hold: 03/31/25 18:51 BID JOSE RAUL Administration Sodium Chloride 1 syr 03/28/25 05:00 04/03/25 05:10 0.9% Sodium Chloride 10 Ml Disp.Syrin IVF Not Given Q8H JOSE RAUL Spironolactone 25 mg 03/28/25 09:00 03/31/25 08:28 Spironolactone 25 Mg Tablet PO 25 mg On Hold: 03/31/25 20:44 DAILY JOSE RAUL Administration Plan Plan: 1. 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 Monitor for contracture alkalosis symptoms - added diamox bid. Added midodrine for BP support. Holding other antihypertensives as patient has been hypotensive. Holding coreg due to low BPs. 2. Acute hypoxic respiratory failure in setting of CHF exacerbation - Wean O2 when able 3. HTN - chronic, continue home medications 4. COPD - inhaler prn 5. HLD - chronic, continue home medications 6. Hx of illicit drug use - pt counseled on need to stop cocaine use so he can get an ICD placed by EP. 7. Cellulitis of LLE due to serratia marcescens- blisters and open wound noted, erythema noted. Transition to cefpodoxime based on culture results. CT LLE ruled out abscess formation. 8. Hypomagnesemia - at goal of 2, continue to monitor. DVT Prophylaxis: Lovenox Follow ups: [facility]: 04/07/25 at 3 pm Review Statement Review Statement: I have personally discussed and reviewed the patient's visit/currently labs/imaging/decision making with Dr. Allison, my supervising attending. Greater that 50 minutes spent with patient, 50% of the time spent with this patient was devoted to counseling and coordination of care.
[2025-04-03 19:15] LABS: CREATININE 1.68 mg/dL (0.60-1.10)
[2025-04-04] MEDS: LASIX ONE ×2 (00:07→00:13)
[2025-04-04 05:26] LABS: IMMATURE GRANULOCYTE # (AUTO) 0.0 (0.0-1.0); IMMATURE GRANULOCYTE % (AUTO) 0.2 % (0.0-5.0); RDW COEFFICIENT OF VARIATION 15.0 % (11.6-14.8)
[2025-04-04 05:38] LABS: CREATININE 1.72 mg/dL (0.60-1.10)
--- NOTE | 2025-04-04 09:36 | PCM.PROG ---
Date/Time Seen Date Seen by Provider: 04/04/25 Time Seen by Provider: 08:30 Provider Provider: ADOLPH YADAV, [facility] Chief Complaint Chief Complaint: ACUTE SYSTOLIC HEART FAILURE Subjective Subjective: Continued to diurese well. Down to 104 kg this am. SOB improved. Weeping to lower extremities improved. Mild pain present. Redness improving. Objective Appearance: Positive No Apparent Distress, Alert and Oriented x3 and Ill- Appearing Chest/Lungs: Positive Symmetrical With Equal Breath Sounds and Clear to Auscultation Bilaterally (diminished) Heart: Positive RRR and Pulses Normal GI/: Positive Soft, Nontender, Bowel Sounds Normal and No Distention Musculoskeletal: Positive Not Examined Neurological: Positive Sensation Intact, Motor intact, Reflexes Intact, Alert, Oriented and Muscle Strength 5/5 in Upper and Lower Extremities Bilaterally Additional Findings: Significant edema of bilateral lower ext, abdomen, and even eyelids, continues to improve, Erythema noted of LLE and wound to left lateral leg, induration noted surrounding wound. +weeping kaiden, improving Vital Signs Vital Signs: Vital Signs: Last 24 Hours 04/03/25 10:00 04/03/25 10:00 04/03/25 10:31 Temperature 98.0 F Temperature Source Temporal Artery Scan Pulse Rate 81 Respiratory Rate 14 Blood Pressure 85/64 L Blood Pressure Mean 71 Blood Pressure Location Left Arm Blood Pressure Position O2 Sat by Pulse Oximetry 98 96 Oxygen Delivery Method Nasal Cannula Nasal Cannula Oxygen Flow Rate 2 2 Height 6 ft 5 in Weight 113.7 kg Telemetry Type Telemetry Monitoring Irregular Telemetry Rate (Approximate) Telemetry Heart Rate EKG KS Interval EKG QRS Interval Telemetry Strip Reading 04/03/25 13:00 04/03/25 14:00 04/03/25 14:00 Temperature 98.2 F Temperature Source Temporal Artery Scan Pulse Rate 82 Respiratory Rate 16 Blood Pressure 103/50 L Blood Pressure Mean 67 Blood Pressure Location Left Arm Blood Pressure Position O2 Sat by Pulse Oximetry 97 98 Oxygen Delivery Method Nasal Cannula Nasal Cannula Oxygen Flow Rate 2 2 Height Weight Telemetry Type Remote Telemetry Telemetry Monitoring Continues Irregular Telemetry Rate (Approximate) Telemetry Heart Rate 85 EKG KS Interval 0.24 H EKG QRS Interval 0.12 H Telemetry Strip Reading SR with 1st degree AVB and BBB 04/03/25 18:00 04/03/25 19:00 04/03/25 19:30 Temperature 98.4 F Temperature Source Temporal Artery Scan Pulse Rate 78 Respiratory Rate 18 Blood Pressure 105/64 Blood Pressure Mean 77 Blood Pressure Location Left Arm Blood Pressure Position O2 Sat by Pulse Oximetry 97 Oxygen Delivery Method Nasal Cannula Nasal Cannula Oxygen Flow Rate 2 2 Height Weight Telemetry Type Remote Telemetry Telemetry Monitoring Continues Irregular Telemetry Rate (Approximate) Telemetry Heart Rate 82 EKG [place] Interval 0.23 H EKG QRS Interval 0.13 H Telemetry Strip Reading SR WITH 1ST DEGREE AVB & BBB 04/03/25 20:00 04/03/25 21:30 04/04/25 01:00 Temperature 98.0 F Temperature Source Tympanic Pulse Rate 83 Respiratory Rate 20 Blood Pressure 108/59 L Blood Pressure Mean 75 Blood Pressure Location Right Arm Blood Pressure Position Supine O2 Sat by Pulse Oximetry 94 L 96 Oxygen Delivery Method Nasal Cannula Nasal Cannula Oxygen Flow Rate 2 2 Height Weight Telemetry Type Remote Telemetry Telemetry Monitoring Continues Irregular Telemetry Rate (Approximate) Telemetry Heart Rate 86 EKG KS Interval 0.25 H EKG QRS Interval 0.13 H Telemetry Strip Reading SR WITH 1ST DEGREE AVB & BBB 04/04/25 01:32 04/04/25 05:33 04/04/25 05:39 Temperature 97.4 F L 97.4 F L Temperature Source Tympanic Tympanic Pulse Rate 79 84 Respiratory Rate 15 18 Blood Pressure 96/66 123/72 Blood Pressure Mean 76 89 Blood Pressure Location Right Arm Left Arm Blood Pressure Position Supine Sitting O2 Sat by Pulse Oximetry 98 98 Oxygen Delivery Method Nasal Cannula Nasal Cannula Oxygen Flow Rate 2 2 Height Weight 104.1 kg Telemetry Type Telemetry Monitoring Irregular Telemetry Rate (Approximate) Telemetry Heart Rate EKG KS Interval EKG QRS Interval Telemetry Strip Reading 04/04/25 07:00 04/04/25 09:04 04/04/25 09:12 Temperature Temperature Source Pulse Rate 87 87 Respiratory Rate Blood Pressure Blood Pressure Mean Blood Pressure Location Blood Pressure Position O2 Sat by Pulse Oximetry Oxygen Delivery Method Oxygen Flow Rate Height Weight Telemetry Type Remote Telemetry Telemetry Monitoring Continues Irregular Telemetry Rate (Approximate) 80-90 BPM Telemetry Heart Rate 86 EKG KS Interval 0.09 L EKG QRS Interval 0.18 H Telemetry Strip Reading SR with BBB Lab Results Lab Results: Lab Results: Last 24 Hours 04/04/25 04/03/25 05:04 19:00 WBC 5.25 RBC 4.31 L Hgb 12.3 L Hct 42.0 MCV 97.4 H MCH 28.5 MCHC 29.3 L RDW Coeff of Dimple 15.0 H Plt Count 175 Immature Gran % (Auto) 0.2 Neut % (Auto) 73.1 Lymph % (Auto) 12.2 [place] % (Auto) 8.8 Eos % (Auto) 5.1 Baso % (Auto) 0.6 Neut # (Auto) 3.8 Lymph # (Auto) 0.6 [place] # (Auto) 0.5 Eos # (Auto) 0.3 Baso # (Auto) 0.0 Immature Gran # (Auto) 0.0 Sodium 137.6 137.4 Potassium 4.71 4.71 Chloride 89.8 L 90.3 L Carbon Dioxide 39.5 H 41.0 H* Anion Gap 13.01 10.81 BUN 46.3 H 48.7 H Creatinine 1.72 H 1.68 H Estimated GFR (MDRD) 48.00 49.00 BUN/Creatinine Ratio 26.91 28.98 Glucose 104.4 130.1 H Calcium 9.58 9.18 Magnesium 1.86 Total Bilirubin 1.61 H AST 36.7 ALT 9.7 Alkaline Phosphatase 88.8 Total Protein 8.09 Albumin 4.17 Globulin 3.92 Albumin/Globulin Ratio 1.06 Additional Comments Additional Comments: I have independently reviewed and interpreted the labs/EKGs/imaging ordered during this hospital stay. I have reviewed outside records that are available in our EMR that pertain to medical stay including imaging/notes/labs from previous visits. Active Medications Active Medications: Medications Generic Name Dose Route Start Last Admin Trade Name Samiq PRN Reason Stop Dose Admin Acetaminophen 650 mg 03/27/25 21:22 04/02/25 08:21 Acetaminophen 325 Mg Tablet PO 650 mg Q4H PRN Administration Mild Pain Hydrocodone Bitart/Acetaminophen 1 tab 03/31/25 11:51 04/02/25 21:30 Hydrocodone Bit/Acetaminophen 5/325 Mg Tablet PO 1 tab Q6HR PRN Administration MODERATE PAIN Acetazolamide 250 mg 04/03/25 09:00 04/03/25 20:47 Acetazolamide 250 Mg Tablet PO 250 mg Q12HR JOSE RAUL Administration Albuterol Sulfate 2 puff 03/27/25 21:44 Albuterol Sulfate 8 Gm Inhaler IH Q4HR PRN dyspnea Amiodarone HCl 200 mg 03/28/25 09:00 04/03/25 08:23 Amiodarone Hcl 200 Mg Tablet PO 200 mg DAILY JOSE RAUL Administration Bumetanide 1 mg 04/04/25 08:20 Bumetanide 1 Mg Tablet PO BIDAC2 JOSE RAUL Carvedilol 3.125 mg 03/27/25 21:25 03/31/25 08:28 Carvedilol 3.125 Mg Tablet PO 3.125 mg On Hold: 03/31/25 18:50 BID JOSE RAUL Administration Cefuroxime Axetil 400 mg 03/30/25 09:30 04/04/25 07:54 Cefpodoxime Proxetil 200 Mg Tablet PO 04/05/25 17:01 400 mg BIDWM2 JOSE RAUL Administration Empagliflozin 10 mg 03/28/25 09:00 04/03/25 08:23 Empagliflozin 10 Mg Tablet PO 10 mg DAILY JOSE RAUL Administration Enoxaparin Sodium 40 mg 03/28/25 09:00 04/03/25 08:22 Enoxaparin Sodium 40 Mg/0.4 Ml Syr SUBCUT 40 mg DAILY JOSE RAUL Administration Isosorbide Dinitrate 5 mg 03/28/25 09:00 03/31/25 14:42 Isosorbide Dinitrate 20 Mg Tablet PO Not Given On Hold: 03/31/25 18:50 3XD JOSE RAUL Midodrine 5 mg 03/31/25 18:50 04/04/25 07:54 Midodrine Hcl 5 Mg Tablet PO 5 mg TIDWM2 JOSE RAUL Administration Potassium Chloride 10 meq 03/30/25 07:30 04/04/25 07:54 Potassium Chloride 10 Meq Capsule.Er PO 10 meq DAILYWM2 JOSE RAUL Administration Pravastatin Sodium 40 mg 03/27/25 21:25 04/03/25 20:48 Pravastatin Sodium 40 Mg Tablet PO 40 mg BEDTIME JOSE RAUL Administration Sacubitril/Valsartan 4 each 03/28/25 09:00 03/31/25 08:27 Sacubitril/Valsartan 1 Each Tablet PO 4 each On Hold: 03/31/25 18:51 BID JOSE RAUL Administration Sodium Chloride 1 syr 03/28/25 05:00 04/04/25 05:20 0.9% Sodium Chloride 10 Ml Disp.Syrin IVF Not Given Q8H [facility] Spironolactone 25 mg 03/28/25 09:00 03/31/25 08:28 Spironolactone 25 Mg Tablet PO 25 mg On Hold: 03/31/25 20:44 DAILY JOSE RAUL Administration Plan Plan: 1. Acute on Chronic Combined CHF Exacerbation - EF 10-15% as of 11/10/24, down to dry weight today at 104 kg, stopping lasix gtt, restart bumex, I&O, daily weight, 1800mL fluid restriction, educated on importance of lifevest use, cont GDMT. Monitor for contracture alkalosis symptoms - added diamox bid. Added midodrine for BP support. Holding other antihypertensives as patient has been hypotensive. Will resume coreg likely this evening 2. Acute hypoxic respiratory failure in setting of CHF exacerbation - Resolved, on baseline 2L 3. HTN - chronic, continue home medications 4. COPD - inhaler prn 5. HLD - chronic, continue home medications 6. Hx of illicit drug use - pt counseled on need to stop cocaine use so he can get an ICD placed by EP. 7. Cellulitis of LLE due to serratia marcescens- blisters and open wound noted, erythema noted. Continue cefpodoxime based on culture results. CT LLE ruled out abscess formation. 8. Hypomagnesemia - at goal of 2, continue to monitor. DVT Prophylaxis: Lovenox Follow ups: [facility]: 04/07/25 at 3 pm Dispo: Anticipate discharge tomorrow following toleration of transition to oral bumex after stopping lasix gtt Review Statement Review Statement: I have personally discussed and reviewed the patient's visit/currently labs/imaging/decision making with Dr. Allison, my supervising attending. Greater that 50 minutes spent with patient, 50% of the time spent with this patient was devoted to counseling and coordination of care.
[2025-04-04] MEDS: BUMEX PO SCH (09:51)
[2025-04-05 05:05] LABS: IMMATURE GRANULOCYTE # (AUTO) 0.0 (0.0-1.0); IMMATURE GRANULOCYTE % (AUTO) 0.2 % (0.0-5.0); RDW COEFFICIENT OF VARIATION 14.7 % (11.6-14.8)
[2025-04-05 05:46] LABS: CREATININE 1.65 mg/dL (0.60-1.10)
--- NOTE | 2025-04-05 10:00 | PCM.PROG ---
Date/Time Seen Date Seen by Provider: 04/05/25 Time Seen by Provider: 08:30 Provider Provider[facility] AD[facility]PH [facility]ADAV[facility] Chief Complaint Chief Complaint: ACUTE SYSTOLIC HEART FAILURE Subjective Subjective: BP low and unable to take HF medications. Edema resolved and wrinkling present. Drainage improved to wound. Tired and weak today from getting up and down so much. Objective Appearance: Positive No Apparent Distress, Alert and Oriented x3 and Ill- Appearing Chest/Lungs: Positive Symmetrical With Equal Breath Sounds, Clear to Auscultation Bilaterally and Good Air Movement all 4 Lung Peraza; Negative Rales, Rhonci or Wheezes Heart: Positive RRR and Pulses Normal GI/: Positive Soft, Nontender, Bowel Sounds Normal and No Distention Musculoskeletal: Positive Not Examined Neurological: Positive Sensation Intact, Motor intact, Reflexes Intact, Alert, Oriented and Muscle Strength 5/5 in Upper and Lower Extremities Bilaterally Additional Findings: Edema of bilateral lower ext, abdomen, and even eyelids resolved. Erythema noted of LLE and wound to left lateral leg - greatly improved Vital Signs Vital Signs: Vital Signs: Last 24 Hours 04/04/25 10:00 04/04/25 10:00 04/04/25 13:00 Temperature 97.4 F L Temperature Source Pulse Rate 81 Respiratory Rate Blood Pressure 85/54 L Blood Pressure Mean 64 Blood Pressure Location Left Arm Blood Pressure Position Supine O2 Sat by Pulse Oximetry 96 97 Oxygen Delivery Method Nasal Cannula Nasal Cannula Oxygen Flow Rate 2 2 Weight Telemetry Type Remote Telemetry Telemetry Monitoring Continues Irregular Telemetry Rate (Approximate) 80-90 BPM Telemetry Heart Rate 80 EKG [place] Interval 0.12 EKG QRS Interval 0.18 H Telemetry Strip Reading SR BBB ST elevation that is chronic 04/04/25 14:00 04/04/25 14:00 04/04/25 18:00 Temperature 96.9 F L 98.1 F Temperature Source Temporal Artery Scan Temporal Artery Scan Pulse Rate 81 78 Respiratory Rate Blood Pressure 116/77 94/59 L Blood Pressure Mean 90 70 Blood Pressure Location Left Arm Left Arm Blood Pressure Position Supine Supine O2 Sat by Pulse Oximetry 96 96 91 L Oxygen Delivery Method Nasal Cannula Nasal Cannula Room Air Oxygen Flow Rate 2 2 Weight Telemetry Type Telemetry Monitoring Irregular Telemetry Rate (Approximate) Telemetry Heart Rate EKG [place] Interval EKG QRS Interval Telemetry Strip Reading 04/04/25 19:00 04/04/25 20:00 04/04/25 20:00 Temperature Temperature Source Pulse Rate Respiratory Rate Blood Pressure Blood Pressure Mean Blood Pressure Location Blood Pressure Position O2 Sat by Pulse Oximetry 94 L Oxygen Delivery Method Nasal Cannula Nasal Cannula Oxygen Flow Rate 2 2 Weight Telemetry Type Remote Telemetry Telemetry Monitoring Continues Irregular Telemetry Rate (Approximate) Telemetry Heart Rate 78 EKG [place] Interval 0.26 H EKG QRS Interval 0.17 H Telemetry Strip Reading SR W/ 1ST DEGREE AVB & BBB 04/04/25 21:54 04/05/25 01:00 04/05/25 02:00 Temperature 98.9 F 97.5 F L Temperature Source Tympanic Temporal Artery Scan Pulse Rate 92 81 Respiratory Rate 16 12 Blood Pressure 112/79 89/54 L Blood Pressure Mean 90 65 Blood Pressure Location Right Arm Right Arm Blood Pressure Position Supine Supine O2 Sat by Pulse Oximetry 96 94 L Oxygen Delivery Method Nasal Cannula Nasal Cannula Oxygen Flow Rate 2 2 Weight Telemetry Type Remote Telemetry Telemetry Monitoring Continues Irregular Telemetry Rate (Approximate) Telemetry Heart Rate 80 EKG [place] Interval 0.25 H EKG QRS Interval 0.16 H Telemetry Strip Reading SR W/ 1ST DEGREE AVB & BBB 04/05/25 05:20 04/05/25 05:20 04/05/25 05:43 Temperature 98.0 F Temperature Source Temporal Artery Scan Pulse Rate 78 Respiratory Rate 14 Blood Pressure 88/55 L Blood Pressure Mean 66 Blood Pressure Location Left Arm Blood Pressure Position Supine O2 Sat by Pulse Oximetry 98 93 L Oxygen Delivery Method Room Air Nasal Cannula Oxygen Flow Rate 2 Weight 99.6 kg Telemetry Type Telemetry Monitoring Irregular Telemetry Rate (Approximate) Telemetry Heart Rate EKG [place] Interval EKG QRS Interval Telemetry Strip Reading 04/05/25 06:22 04/05/25 07:00 04/05/25 08:15 Temperature Temperature Source Pulse Rate 76 Respiratory Rate 22 H Blood Pressure 98/64 80/60 L Blood Pressure Mean 75 66 Blood Pressure Location Left Arm Right Arm Blood Pressure Position Supine Supine O2 Sat by Pulse Oximetry Oxygen Delivery Method Room Air Nasal Cannula Oxygen Flow Rate 2 Weight Telemetry Type Remote Telemetry Telemetry Monitoring Continues Irregular Telemetry Rate (Approximate) Telemetry Heart Rate 75 EKG [place] Interval 0.27 H EKG QRS Interval 0.18 H Telemetry Strip Reading SR 1st Degree AVB and BBB Lab Results Lab Results: Lab Results: Last 24 Hours 04/05/25 04:41 WBC 4.89 RBC 4.05 L Hgb 11.6 L Hct 39.9 L MCV 98.5 H MCH 28.6 MCHC 29.1 L RDW Coeff of Dimple 14.7 Plt Count 183 Immature Gran % (Auto) 0.2 Neut % (Auto) 70.1 Lymph % (Auto) 11.7 Letcher % (Auto) 9.8 Eos % (Auto) 7.4 H Baso % (Auto) 0.8 Neut # (Auto) 3.4 Lymph # (Auto) 0.6 Letcher # (Auto) 0.5 Eos # (Auto) 0.4 Baso # (Auto) 0.0 Immature Gran # (Auto) 0.0 Sodium 135.8 Potassium 4.32 Chloride 91.4 L Carbon Dioxide 38.4 H Anion Gap 10.32 BUN 44.2 H Creatinine 1.65 H Estimated GFR (MDRD) 50.00 BUN/Creatinine Ratio 26.78 Glucose 109.4 H Calcium 9.23 Total Bilirubin 1.15 AST 32.5 ALT 9.9 Alkaline Phosphatase 81.4 Total Protein 7.01 Albumin 3.70 Globulin 3.31 Albumin/Globulin Ratio 1.11 Additional Comments Additional Comments: I have independently reviewed and interpreted the labs/EKGs/imaging ordered during this hospital stay. I have reviewed outside records that are available in our EMR that pertain to medical stay including imaging/notes/labs from previous visits. Active Medications Active Medications: Medications Generic Name Dose Route Start Last Admin Trade Name Freq PRN Reason Stop Dose Admin Acetaminophen 650 mg 03/27/25 21:22 04/02/25 08:21 Acetaminophen 325 Mg Tablet PO 650 mg Q4H PRN Administration Mild Pain Hydrocodone Bitart/Acetaminophen 1 tab 03/31/25 11:51 04/02/25 21:30 Hydrocodone Bit/Acetaminophen 5/325 Mg Tablet PO 1 tab Q6HR PRN Administration MODERATE PAIN Acetazolamide 250 mg 04/03/25 09:00 04/05/25 08:19 Acetazolamide 250 Mg Tablet PO 250 mg Q12HR JOSE RAUL Administration Albuterol Sulfate 2 puff 03/27/25 21:44 Albuterol Sulfate 8 Gm Inhaler IH Q4HR PRN dyspnea Amiodarone HCl 200 mg 03/28/25 09:00 04/05/25 08:21 Amiodarone Hcl 200 Mg Tablet PO 200 mg DAILY JOSE RAUL Administration Bumetanide 1 mg 04/04/25 08:20 04/05/25 05:05 Bumetanide 1 Mg Tablet PO 1 mg BIDAC2 JOSE RAUL Administration Carvedilol 3.125 mg 03/27/25 21:25 04/04/25 22:13 Carvedilol 3.125 Mg Tablet PO Not Given BID JOSE RAUL Cefuroxime Axetil 400 mg 03/30/25 09:30 04/05/25 08:19 Cefpodoxime Proxetil 200 Mg Tablet PO 04/05/25 17:01 400 mg BIDWM2 JOSE RAUL Administration Empagliflozin 10 mg 03/28/25 09:00 04/05/25 08:20 Empagliflozin 10 Mg Tablet PO 10 mg DAILY JOSE RAUL Administration Enoxaparin Sodium 40 mg 03/28/25 09:00 04/05/25 08:18 Enoxaparin Sodium 40 Mg/0.4 Ml Syr SUBCUT 40 mg DAILY JOSE RAUL Administration Sodium Chloride 250 mls @ 250 mls/hr 04/05/25 09:26 Sodium Chloride IV 04/05/25 10:25 BOLUS ONE Isosorbide Dinitrate 5 mg 03/28/25 09:00 04/04/25 22:12 Isosorbide Dinitrate 20 Mg Tablet PO Not Given On Hold: 04/05/25 08:51 3XD JOSE RAUL Midodrine 5 mg 03/31/25 18:50 04/05/25 08:19 Midodrine Hcl 5 Mg Tablet PO 5 mg TIDWM2 JOSE RAUL Administration Potassium Chloride 10 meq 03/30/25 07:30 04/05/25 08:20 Potassium Chloride 10 Meq Capsule.Er PO 10 meq DAILYWM2 JOSE RAUL Administration Pravastatin Sodium 40 mg 03/27/25 21:25 04/04/25 20:11 Pravastatin Sodium 40 Mg Tablet PO 40 mg BEDTIME JOSE RAUL Administration Sacubitril/Valsartan 4 each 03/28/25 09:00 04/04/25 21:50 Sacubitril/Valsartan 1 Each Tablet PO 4 each BID JOSE RAUL Administration Sodium Chloride 1 syr 03/28/25 05:00 04/05/25 05:05 0.9% Sodium Chloride 10 Ml Disp.Syrin IVF 1 syr Q8H JOSE RAUL Administration Spironolactone 25 mg 03/28/25 09:00 03/31/25 08:28 Spironolactone 25 Mg Tablet PO 25 mg DAILY JOSE RAUL Administration Plan Plan: 1. 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 Monitor for contracture alkalosis symptoms - added diamox bid - stopping today. Continues to require midodrine for BP support. Hypotension continues. Feel patient may be too dry from diuresis. Will give 250mL of NS and see if BP improves. Holding all BP meds at this time. 2. Acute hypoxic respiratory failure in setting of CHF exacerbation - Resolved, on baseline 2L 3. HTN - chronic, continue home medications 4. COPD - inhaler prn 5. HLD - chronic, continue home medications 6. Hx of illicit drug use - pt counseled on need to stop cocaine use so he can get an ICD placed by EP. 7. Cellulitis of LLE due to serratia marcescens- blisters and open wound noted, erythema noted. Continue cefpodoxime based on culture results. CT LLE ruled out abscess formation. 8. Hypomagnesemia - at goal of 2, continue to monitor. DVT Prophylaxis: Lovenox Follow ups: [facility]: 04/07/25 at 3 pm Dispo: Anticipate discharge tomorrow following toleration of transition to oral bumex after stopping lasix gtt Review Statement Review Statement: I have personally discussed and reviewed the patient's visit/currently labs/imaging/decision making with Dr. Allison, my supervising attending. Greater that 50 minutes spent with patient, 50% of the time spent with this patient was devoted to counseling and coordination of care.
[2025-04-05] MEDS: SODIUM CHLORIDE 250 ML IV ONE (10:15)
[2025-04-06 05:09] VITALS: BP 101/65; PULSE 84; RESP 20; TEMP 98.1
[2025-04-06 05:24] LABS: IMMATURE GRANULOCYTE # (AUTO) 0.0 (0.0-1.0); IMMATURE GRANULOCYTE % (AUTO) 0.2 % (0.0-5.0); RDW COEFFICIENT OF VARIATION 14.6 % (11.6-14.8)
[2025-04-06 05:39] LABS: CREATININE 1.62 mg/dL (0.60-1.10)
--- NOTE | 2025-04-06 08:53 | DCSUM ---
Admission Date Admission Date: 03/27/25 Discharge Date Discharge Date: 04/06/25 Admission Diagnosis Admission Diagnosis: 1. Acute on Chronic Combined CHF Exacerbation 2. Acute hypoxic respiratory failure in setting of CHF exacerbation 3. HTN 4. COPD 5. HLD 6. Hx of illicit drug use 7. Cellulitis of LLE 8. Hypomagnesemia Discharge Diagnosis Discharge Diagnosis: 1. Acute on Chronic Combined CHF Exacerbation - Resolved, at 99kg, EF 10-15% as of 11/10/24 2. Acute hypoxic respiratory failure in setting of CHF exacerbation - Resolved, on baseline 2L 3. HTN - chronic, stable 4. COPD - chronic, stable 5. HLD - chronic, stable 6. Hx of illicit drug use - pt counseled on need to stop cocaine use so he can get an ICD placed by EP. 7. Cellulitis of LLE due to serratia marcescens- Improved, completed course of antibiotics, CT LLE ruled out abscess formation. 8. Hypomagnesemia - Resolved Hospital Provider Hospital Provider[facility] AD[facility]PH [facility] Physician Primary Care Physician: JESUS KEITH Summary of History and Physical Summary of History and Physical: Patient is a 69 year old male well known to us who presents for worsening SOB. Patient states it's been ongoing for days. Has not f/u with [facility] since last admission. Unclear on if he's followed up with PCP. He is significantly m ore edematous than he usually is on presentation. His eyelids are even swollen. BNP elevated. Was noted to be hypoxic and placed on 2L. CXR negative. He was given lasix and admitted to med surg. Patient states he's been compliant with his medications. He is not wearing his lifevest. He is unclear on why he is not wearing it currently. He is also a full code. We have discussed this in detail. His weight is up over 20 kg since last admission. Hospital Course Subjective: 03/28/25 EF 10-15% as of 11/10/24, lasix 40 q8hrs, I&O, daily weight, 1800mL fluid restriction, educated on importance of lifevest use, cont GDMT. Patient counseled on need to stop cocaine use so he can get an ICD placed by EP. Cellulitis of LLE - blisters and open wound noted, culture pending, erythema noted. Will cover with cefazolin. Hypomagnesemia - replaced, recheck in AM. 03/29/25 Patient feeling better today and appears better clinically, but still very fluid overloaded. We discussed his code status, he would like to remain a full code. We also discussed that actions that go along with being a full code include wearing the lifevest that has been provided to him. He expresses understanding. Pt is hypoxic when on RA. Lasix 40mg Q8H continued Wound culture pending. Continue cefazolin at this time. Hypomagnesemia - 4 gm ordered, repeat lab in AM, goal of 2 03/30/25 Patient is down about 12L. Still not near his baseline weight. Still requiring O2. Still very edematous, but improving. Denies complaints. Overall feels better. Continue lasix. Monitor for contracture alkalosis symptoms. Cellulitis of LLE due to serratia marcescens - Transition to cefpodoxime based on culture results. Hypomagnesemia - improved, 2 gm ordered, repeat lab in AM, goal of 2 03/31/25 Patient has diuresed almost 18L off. Still fluid overloaded compared to his baseline. Complaining of LLE pain worse than before. Now that some significant edema has been diuresed, the LLE lateral wound does have some firmness/induration surrounding it. CT LLE ordered to r/o abscess. Continue lasix. Cellulitis of LLE due to serratia marcescens - CT LLE ruled out abscess formation. Hypomagnesemia - at goal of 2, continue to monitor. 04/01/25 Patients left lower leg hurts. States it [place]. Ct negative for abscess. Pt is down about 21L. Edema improved but not at baseline. BP has been soft, started midodrine. Decrease lasix 40 to q12hrs. Monitor for contracture alkalosis symptoms. Added midodrine for BP support. Holding other antihypertensives as patient has been hypotensive. 04/02/25 Patient continues to diurese. BP improved with midodrine. States leg still hurts but is tolerable, mostly stinging pain. Transition lasix to lasix drip 5mg/hr. Monitor for contracture alkalosis symptoms. Added midodrine for BP support. Holding other antihypertensives as patient has been hypotensive. May be able to restart coreg tomorrow. 04/03/25 Continues to diurese well. Down 4 kg overnight. Still has significant edema. BLE weeping with foul odor. Continue lasix drip 5mg/hr. Monitor for contracture alkalosis symptoms - added diamox bid due to CO2 trending up. Added midodrine for BP support. Holding other antihypertensives as patient has been hypotensive. Holding coreg due to low BPs. 04/04/25 Continued to diurese well. Down to 104 kg this am. SOB improved. Weeping to lower extremities improved. Mild pain present. Redness improving. Down to dry weight today at 104 kg, stopping lasix gtt, restart bumex. Monitor for contracture alkalosis symptoms - added diamox bid. Added midodrine for BP support. Holding other antihypertensives as patient has been hypotensive. Will resume coreg likely this evening At baseline home O2 of 2Lpm 04/05/25 BP low and unable to take HF medications. Edema resolved and wrinkling present. Drainage improved to wound. Tired and weak today from getting up and down so much. Below dry weigh at 99 kg today, stopped lasix gtt yesterday and restart bumex. Stopped diamox today. Continues to require midodrine for BP support. Hypotension continues. Feel p atient may be too dry from diuresis. Will give 250mL of NS and see if BP improves. Holding all BP meds at this time. Continues on 2L home O2 04/06/25 BP improved this am. Stopped isosorbide. Continued all GDMT for CHF. Completed course of antibiotics for cellulitis. Wound dry and healing well. Wrinkling present to BLE. Patient reports feeling much better. Did not prescribe midodrine due to patient likely of using cocaine again upon discharge based on history. Educated on importance of fluid restriction, lifevest use, taking medications as prescribed. Has follow-up with Cardiology in the am. Appearance: Pleasant, No Apparent Distress and Alert HEENT: MMM, Supple and No JVD CVS: No Murmur, No Rubs and No Gallop Abdomen: Soft, Non-Tender and No Distention Respiratory: No Dyspnea Extremities: No Edema Vital Signs: Most Recent Vital Signs Temperature 98.1 F 04/06/25 05:06 Temperature Source Temporal Artery Scan 04/06/25 05:06 Temperature Source Infrared 03/27/25 18:50 Pulse Rate 84 04/06/25 05:06 Respiratory Rate 20 04/06/25 05:06 Blood Pressure 101/65 04/06/25 05:06 Blood Pressure Mean 77 04/06/25 05:06 Blood Pressure Left Arm 136/88 03/27/25 22:10 Blood Pressure Location Left Arm 04/06/25 05:06 Blood Pressure Position Supine 04/06/25 05:06 O2 Sat by Pulse Oximetry 94 L 04/06/25 05:19 Oxygen Delivery Method Nasal Cannula 04/06/25 07:10 Oxygen Flow Rate 2 04/06/25 07:10 Fraction of Inspired Oxygen (FIO2) 2 03/29/25 08:07 Height 6 ft 5 in 04/03/25 10:31 Weight 99.8 kg 04/06/25 05:06 Telemetry Type Remote Telemetry 04/06/25 07:00 Telemetry Monitoring Continues 04/06/25 07:00 Irregular Telemetry Rate (Approximate) 80-90 BPM 04/04/25 13:00 Telemetry Heart Rate 93 04/06/25 07:00 Telemetry SPO2 94 02/04/25 01:00 EKG [place] Interval 0.25 H 04/06/25 07:00 EKG QRS Interval 0.15 H 04/06/25 07:00 Telemetry Strip Reading SR 1st Degree AVB & BBB 04/06/25 07:00 Imaging: EXAM: SINGLE VIEW CHEST X-RAY. HISTORY: dyspnea COMPARISON: 02/01/2025 TECHNIQUE: Single, portable AP view(s) of the chest. FINDINGS: Lungs: The lung voulmes are normal. The lungs are clear without consolidation or effusion. There are no suspicious nodules. There is no pneumothorax. Cardiovascular: The heart is enlarged. The pulmonary vasculature is within normal limits.. The aorta is unremarkable. Angy/Mediastinum: Normal. Osseous structures. Normal for age. IMPRESSION: No acute pulmonary disease. EXAM: CT LEFT LOWER EXTREMITY WITH CONTRAST. HISTORY: Left lateral wound, cellulitis, pain, evaluate for abscess. TECHNIQUE: Transaxial CT images of the left lower extremity including the knee and lower leg were obtained following the intravenous administration of 75 mL Omnipaque 350. Multiplanar reformatted images are provided. COMPARISON: None. FINDINGS: There is diffuse skin thickening and subcutaneous edema circumferentially at the left lower leg. 3 cm skin blister at the anterolateral aspect of the proximal lower leg. There is diffuse edema interweaving between the deep compartment musculature along with a long segment thin crescentic area of more confluent fluid along the deep fascia of the lateral left lower leg measuring 7 mm in thickness. This has thin armijo without significant enhancement. No thick walled rim-enhancing abscess or other drainable collection demonstrated. No soft tissue gas. No acute fracture, dislocation or CT evidence of acute osteomyelitis. Tricompartmental left knee osteoarthritis. [id number] does not allow for definitive assessment of joint effusion. IMPRESSION: - Diffuse subcutaneous edema and skin thickening along with fluid interweaving between the deep compartment musculature. Findings suggestive of cellulitis and myositis. No soft tissue gas. - Long segment area of thin crescentic, somewhat confluent fluid at the lateral aspect of the lower leg along the deep fascia has thin, nonenhancing armijo and may represent phlegmon. No definitive thick-walled abscess. Skin blister at the anterolateral aspect of the proximal lower leg. - No CT evidence of acute osteomyelitis. Lab Results Last 24 Hours: 04/06/25 04:56 WBC 4.91 RBC 4.09 L Hgb 11.6 L Hct 39.6 L MCV 96.8 H MCH 28.4 MCHC 29.3 L RDW Coeff of Dimple 14.6 Plt Count 175 Immature Gran % (Auto) 0.2 Neut % (Auto) 66.0 Lymph % (Auto) 14.3 Gove % (Auto) 11.6 H Eos % (Auto) 6.9 Baso % (Auto) 1.0 Neut # (Auto) 3.2 Lymph # (Auto) 0.7 Gove # (Auto) 0.6 Eos # (Auto) 0.3 Baso # (Auto) 0.1 Immature Gran # (Auto) 0.0 Sodium 135.8 Potassium 4.34 Chloride 93.5 L Carbon Dioxide 34.0 H Anion Gap 12.64 BUN 43.7 H Creatinine 1.62 H Estimated GFR (MDRD) 51.00 BUN/Creatinine Ratio 26.97 Glucose 95.6 Calcium 8.87 Total Bilirubin 0.94 AST 32.7 ALT 12.3 Alkaline Phosphatase 76.8 Total Protein 6.80 Albumin 3.59 Globulin 3.21 Albumin/Globulin Ratio 1.11 Discharge Instructions Discharge Planning: Discharge Planning > 40 minutes If patient is discharged with left ventricular systolic dysfunction: yes Discharged with a beta bibiana? yes, already taking Discharged with an sarah/arb? yes, already taking Discharge Medications: Medications at Discharge (Home Meds & RX) empagliflozin 10 mg tablet (Jardiance) 10 mg PO DAILY #30 tabs 02/04/23 potassium chloride 10 mEq tablet,extended release 10 meq PO QAM 05/09/24 pravastatin 40 mg tablet 40 mg PO BEDTIME 05/09/24 sacubitril 97 mg-valsartan 103 mg tablet (Entresto) 1 tab PO 2XD 08/16/24 carvedilol 3.125 mg tablet 3.125 mg PO BID 09/14/24 albuterol sulfate 90 mcg/actuation aerosol inhaler 2 puff inhalation Q4HR PRN SOB #6.7 grams 12/20/24 spironolactone 25 mg tablet 25 mg PO DAILY 02/01/25 amiodarone 200 mg tablet 200 mg PO DAILY #30 tabs 02/04/25 bumetanide 1 mg tablet 1 mg PO BIDAC2 #60 tabs 02/04/25 Discharge Plan Discharge Discharge Orders: Discharge Patient (ONCE); Ordered 04/06/25 Ordered By: ELIZABETH ZHANG Activity Restrictions/Additional Instructions: DIAGNOSIS: CONGESTIVE HEART FAILURE EXACERBATION, CELLULITIS DIET: LOW SALT, NO MORE THAN 2L OF FLUIDS PER DAY ACTIVITY TOLERATED MEDICATIONS: STOP TAKING ISOSORBIDE FOLLOW-UP WITH YOUR PRIMARY CARE PROVIDER AND CARDIOLOGY TOMORROW SCHEDULED STOP USING COCAINE/OTHER ILLECIT DRUGS WEIGH YOURSELF DAILY. IF YOU HAVE 3 POUND OR GREATER INCREASE, CALL YOUR DOCTOR OR GO TO THE NEAREST EMERGENCY ROOM IF YOU HAVE PROBLEMS BREATHING. Instructions: Heart Failure (GEN), Cellulitis (GEN), Cocaine Use Disorder (GEN) Care Plan Goals: Problem: Knowledge Deficit-Substance Abuse Goal: Understand disease process Instructions: Identify necessary life-style changes Participate in treatment program Problem: Fluid Volume Excess Goal: Maintain adequate fluid volume Instructions: Maintain optimal head of bed placement Monitor respiratory status Monitor for edema Monitor hydration status Problem: Impaired Respiratory Status Goal: Exhibit optimal respiratory function Instructions: Activities as tolerated Apply oxygen as ordered Elevate head of bed Notify MD of increased congestion Patient Disposition: HOME SELF-CARE Prescriptions: Continued potassium chloride 10 mEq tablet extended release 10 meq PO QAM pravastatin 40 mg tablet 40 mg PO BEDTIME sacubitril-valsartan [Entresto] 97-103 mg tablet 1 tab PO 2XD carvedilol 3.125 mg tablet 3.125 mg PO BID spironolactone 25 mg tablet 25 mg PO DAILY amiodarone 200 mg Tablet 200 mg PO DAILY Qty: 30 0RF bumetanide 1 mg Tablet 1 mg PO BIDAC2 Qty: 60 0RF Jardiance 10 mg tablet 10 mg PO DAILY Qty: 30 0RF albuterol sulfate 90 mcg/actuation HFA aerosol inhaler 2 puff INHALATION Q4HR PRN (Reason: SOB) Qty: 6.7 0RF Discontinued isosorbide dinitrate 5 mg tablet 5 mg PO 3XD Did you review [place] HR REPRESENTATIVE for ALL controlled substances?: No Discussed opioids are addictive and Narcan is available by prescription or from pharmacy.: No Condition: Serious Referrals: RAND BRYANT [NURSE PRACTITIONER, CARDIOLOGY] - 04/07/25 3:00 pm JESUS KEITH [Primary Care Provider, UNKNOWN] - 04/12/25 11:15 am
== END 2025-04-06 13:00 | disposition home or self-care (01) | DRG 291 ==
LOC: ED 18:44 → MEDSURG B 18:44
PROVIDERS: ADMIT Hospitalist; ATTEND Nurse Practitioner Family